=== PATIENT | female | born 1995 | race Hispanic/Latino ===

== ENCOUNTER 2017-12-14 18:13 | Emergency (ER) | payer OTHER ==
[2017-12-14 18:53] LABS: Absolute Lymphocytes (CBC) 3.2 K/uL (0.7-4.9); Absolute Monocytes 0.5 K/uL (0.1-1.3); Absolute Neutrophil 5.4 K/uL (1.8-8.0); Basophils % 0.7 % (0-1.3); Eosinophils % 1.4 % (0-4.4); Hematocrit 40.7 % (36.0-45.0); Lymphocytes % 34.4 % (15.3-44.8); MCH 28.4 pg (27.0-35.0); MCV 82.6 fL (80-100); MPV 8.2 fL (7.6-11.3); Monocytes % 5.1 % (3.3-12.3); RBC Red Blood Cell Count 4.93 M/uL (3.86-4.86)
[2017-12-14] MEDS ORDERED: NA CHLORIDE 0.9% 1,000 ML ONE (18:54)
[2017-12-14] MEDS ORDERED: PROMETHAZINE 25 MG/ML VIAL ONE (18:54)
[2017-12-14 19:03] LABS: Bicarbonate 26 mEq/L (21-31); Glucose Level 126 mg/dL (65-120); Lipase 21 U/L (22-51); Potassium 3.4 mEq/L (3.6-5.0); Sodium Level 137 mEq/L (135-145)
[2017-12-14 19:10] LABS: ALT/SGPT 27 IU/L (10-60); AST/SGOT 20 IU/L (10-42); Albumin 4.4 g/dL (3.2-5.5); Alkaline Phosphatase 101 IU/L (42-121); BUN Blood Urea Nitrogen 11 mg/dL (6-20); Bilirubin Direct < 0.1 mg/dL (0-0.2); Bilirubin Total 0.3 mg/dL (0.3-1.2); Protein, Total 8.1 g/dL (6.0-8.3)
[2017-12-14 20:06] LABS: Urine Blood NEGATIVE (NEG); Urine Glucose NEGATIVE (NEG); Urine Protein NEGATIVE (NEG); Urine Specific Gravity >1.030 (1.005-1.030); Urine pH 5.5 (5.0-7.0)
[2017-12-14] MEDS ORDERED: POTASSIUM CL SA 10 MEQ TAB PO ONE (20:24)
--- NOTE | 2017-12-14 21:13 | EDPHYS ---
Physician Documentation [facility] Name: Capri Martinez Age: 22 yrs Sex: Female : 1995 Arrival Date: 12/14/2017 Time: 18:14 Bed 23 Private MD: ED Physician Jose Lemus HPI: 12/14 19:36 This 22 yrs old Female presents to ER via Ambulatory with complaints of jr8 Dizziness. 19:36 The patient presents to the emergency department with nausea, vomiting, diarrhea. jr8 Onset: The symptoms/episode began/occurred acutely, yesterday. Possible causes: unknown. The symptoms are aggravated by nothing. The symptoms are alleviated by nothing. Associated signs and symptoms: The patient has no apparent associated signs or symptoms. Severity of symptoms: At their worst the symptoms were moderate in the emergency department the symptoms are unchanged. The patient has not experienced similar symptoms in the past. The patient has not recently seen a physician. 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 - Social history:: Smoking status: Patient/guardian denies using tobacco. ROS: 19:36 Eyes: Negative for injury, pain, redness, and discharge, ENT: Negative for injury, jr8 pain, and discharge, Neck: Negative for injury, pain, and swelling, Cardiovascular: Negative for chest pain, palpitations, and edema, Respiratory: Negative for shortness of breath, cough, wheezing, and pleuritic chest pain, Back: Negative for injury and pain, MS/Extremity: Negative for injury and deformity, Skin: Negative for injury, rash, and discoloration, Neuro: Negative for headache, weakness, numbness, tingling, and seizure. 19:36 Abdomen/GI: Positive for nausea, vomiting, and diarrhea, Negative for abdominal pain, constipation, abdominal cramps, abdominal distension, anorexia, dysphagia, hematemesis, black/tarry stool, rectal pain, rectal bleeding, bowel incontinence, flatulence. Exam: 19:36 Eyes: Pupils equal round and reactive to light, extra-ocular motions intact. Lids and jr8 lashes normal. Conjunctiva and sclera are non-icteric and not injected. Cornea within normal limits. Periorbital areas with no swelling, redness, or edema. ENT: Nares patent. No nasal discharge, no septal abnormalities noted. Tympanic membranes are normal and external auditory canals are clear. Oropharynx with no redness, swelling, or masses, exudates, or evidence of obstruction, uvula midline. Mucous membranes moist. Neck: Trachea midline, no thyromegaly or masses palpated, and no cervical lymphadenopathy. Supple, full range of motion without nuchal rigidity, or vertebral point tenderness. No Meningismus. Cardiovascular: Regular rate and rhythm with a normal S1 and S2. No gallops, murmurs, or rubs. Normal PMI, no JVD. No pulse deficits. Respiratory: Lungs have equal breath sounds bilaterally, clear to auscultation and percussion. No rales, rhonchi or wheezes noted. No increased work of breathing, no retractions or nasal flaring. Abdomen/GI: Soft, non-tender, with normal bowel sounds. No distension or tympany. No guarding or rebound. No evidence of tenderness throughout. Back: No spinal tenderness. No costovertebral tenderness. Full range of motion. Skin: Warm, dry with normal turgor. Normal color with no rashes, no lesions, and no evidence of cellulitis. MS/ Extremity: Pulses equal, no cyanosis. Neurovascular intact. Full, normal range of motion. Neuro: Awake and alert, GCS 15, oriented to person, place, time, and situation. Cranial nerves II-XII grossly intact. Motor strength 5/5 in all extremities. Sensory grossly intact. Cerebellar exam normal. Normal gait. 19:36 Constitutional: The patient appears alert, awake, obviously ill. Vital Signs: 18:21 BP 133 / 93; Pulse 96; Resp 18; Temp 98.0; Pulse Ox 98% on R/A; Weight 76.66 kg; Height ph 5 ft. 1 in. (154.94 cm); Pain 7/10; 19:16 BP 118 / 89; Pulse 82; Resp 16; Pulse Ox 100% ; Pain 0/10; ao 20:22 BP 99 / 72; Pulse 77; Resp 18; Pulse Ox 99% ; Pain 0/10; ao 18:21 Body Mass Index 31.93 (76.66 kg, 154.94 cm) ph MDM: 18:24 Patient medically screened. [facility] 21:12 Data reviewed: vital signs, nurses notes, lab test result(s), and as a result, I will jr8 discharge patient. Data interpreted: Pulse oximetry: on room air is 99 %. Interpretation: normal. Counseling: I had a detailed discussion with the patient and/or guardian regarding: the historical points, exam findings, and any diagnostic results supporting the discharge/admit diagnosis, lab results, the need for outpatient follow up, a family practitioner, to return to the emergency department if symptoms worsen or persist or if there are any questions or concerns that arise at home. Response to treatment: the patient's symptoms have markedly improved after treatment, patient is well hydrated. 12/14 18:34 Order name: Basic Metabolic Panel; Complete Time: 19:10 [facility] 12/14 18:34 Order name: CBC with Diff; Complete Time: 18:59 [facility] 12/14 18:34 Order name: Creatinine for Radiology; Complete Time: 19:09 [facility] 12/14 18:34 Order name: Hepatic Function; Complete Time: 19:10 [facility] 12/14 18:34 Order name: Lipase; Complete Time: 19: [facility] 12/14 18:49 Order name: Urine Dipstick--Ancillary (enter results) 12/14 18:34 Order name: Urine Test (obtain specimen); Complete Time: 18:52 [facility] 12/14 18:34 Order name: IV Saline Lock; Complete Time: 18:52 [facility] 12/14 18:49 Order name: Urine --Ancillary (enter results) 12/14 18:49 Order name: Urine Dipstick-Ancillary; Complete Time: 20:09 [facility] 12/14 18:49 Order name: Urine --Ancillary; Complete Time: 20:09 [facility] 12/14 18:34 Order name: Labs collected and sent; Complete Time: 18:52 [facility] 12/14 18:34 Order name: Urine Dipstick-Ancillary (obtain specimen); Complete Time: 18:51 [facility] Administered Medications: 19:01 Drug: NS 0.9% 1000 ml Route: IV; Rate: 1000 ml; Site: right antecubital; ph 21:30 Follow up: IV Status: Completed infusion; IV Intake: 1000ml ao 19:01 Drug: Phenergan 12.5 mg Route: IVP; Site: right antecubital; ph 21:31 Follow up: Response: No adverse reaction ao 20:26 Drug: Potassium Chloride 40 mEq Route: PO; ao 21:30 Follow up: Response: No adverse reaction ao Disposition: 12/14/17 21:13 Discharged to Home. Impression: Gastroenteritis. - Condition is Stable. - Discharge Instructions: Viral Gastroenteritis. - Prescriptions for promethazine 25 mg Oral Tablet - take 1 tablet by ORAL route every 6 hours As needed; 20 tablet. - Medication Reconciliation Form, Thank You Letter, Antibiotic Education, Prescription Opioid Use form. - Follow up: Private Physician; When: 5 - 6 days; Reason: If symptoms return, Recheck today's complaints, Continuance of care, Re-evaluation by your physician. - Problem is new. - Symptoms have improved. Addendum: 12/16/2017 07:45 Co-signature as Attending Physician, Jose Lemus MD I agree with the assessment and w a plan of care. Signatures: Dispatcher [employer] EDVT Coy Farnsworth PA PA jr8 Aisha Wang, RN RN Henrik Camacho RN JOSEPH Lemus, MD MITCHELL Garcia ct
--- NOTE | 2017-12-14 21:13 | ER ---
Nurse's Notes [facility] Name: Capri Martinez Age: 22 yrs Sex: Female : 1995 Arrival Date: 12/14/2017 Time: 18:14 Bed 23 Private MD: Diagnosis: Gastroenteritis Presentation: 12/14 18:20 Presenting complaint: Patient states: " I started throwing up yesterday, I am feeling ph very dizzy and light headed." Pt reports N/V/D x 1 day, denies fever. Transition of care: patient was not received from another setting of care. Onset of symptoms was December 14, 2017. Care prior to arrival: None. 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 - Social history:: Smoking status: Patient/guardian denies using tobacco. Screenin:47 Abuse screen: Denies threats or abuse. Denies injuries from another. Nutritional ph screening: No deficits noted. Tuberculosis screening: No symptoms or risk factors identified. Fall Risk None identified. Assessment: 18:46 General: Appears in no apparent distress. uncomfortable, obese, well groomed, Behavior ph is calm, cooperative, appropriate for age, Reports feeling ill for 12-24 hours. Pain: Complains of pain in abdomen Pain does not radiate. Is intermittent, Aggravated by vomiting. Neuro: Level of Consciousness is awake, alert, obeys commands, Oriented to person, place, time, situation. Cardiovascular: Capillary refill < 3 seconds in bilateral fingers Patient's skin is warm and dry. Respiratory: Airway is patent Respiratory effort is even, unlabored. GI: Abdomen is round non-distended, Bowel sounds present X 4 quads. Abd is soft and non tender X 4 quads. Reports diarrhea, nausea, vomiting. : Denies burning with urination, urinary frequency. Derm: Skin is intact, Skin is clammy, Skin is pale. Musculoskeletal: Circulation, motion, and sensation intact. Range of motion: intact in all extremities. 19:14 General: Appears in no apparent distress. comfortable, obese, well groomed, Behavior is ao calm, cooperative, appropriate for age, Reports feeling ill for 12-24 hours. Pain: Complains of pain in abdomen Pain does not radiate. Is intermittent. Neuro: Level of Consciousness is awake, alert, obeys commands, Oriented to person, place, time, situation. Cardiovascular: Capillary refill < 3 seconds in bilateral Patient's skin is warm and dry. Cardiovascular: Heart tones S1 S2. Respiratory: Airway is patent Respiratory effort is even, unlabored, Breath sounds are clear bilaterally. GI: Abdomen is obese, Bowel sounds present X 4 quads. Abd is soft and non tender Reports diarrhea, nausea, vomiting. : No signs and/or symptoms were reported regarding the genitourinary system. EENT: No signs and/or symptoms were reported regarding the EENT system. Derm: No signs and/or symptoms reported regarding the dermatologic system. Skin is intact, Skin is clammy, Skin is normal. Musculoskeletal: No signs and/or symptoms reported regarding the musculoskeletal system. 20:22 Reassessment: Patient appears in no apparent distress at this time. Patient and/or ao family updated on plan of care and expected duration. Pain level reassessed. Patient is alert, oriented x 3, equal unlabored respirations, skin warm/dry/pink. Waiting on dispo. Vital Signs: 18:21 BP 133 / 93; Pulse 96; Resp 18; Temp 98.0; Pulse Ox 98% on R/A; Weight 76.66 kg; Height ph 5 ft. 1 in. (154.94 cm); Pain 7/10; 19:16 BP 118 / 89; Pulse 82; Resp 16; Pulse Ox 100% ; Pain 0/10; ao 20:22 BP 99 / 72; Pulse 77; Resp 18; Pulse Ox 99% ; Pain 0/10; ao 18:21 Body Mass Index 31.93 (76.66 kg, 154.94 cm) ph ED Course: 18:14 Patient arrived in ED. as 18:21 Triage completed. ph 18:22 Arm band placed on. ph 18:24 Coy Farnsworth PA is PHCP. jr8 18:24 Jose Lemus MD is Attending Physician. jr8 18:40 Initial lab(s) drawn, by me, sent to lab. Inserted saline lock: 20 gauge in right ph antecubital area, using aseptic technique. Blood collected. 18:46 Aisha Wang RN is Primary Nurse. ph 18:48 Patient has correct armband on for positive identification. Placed in gown. Bed in low ph position. Call light in reach. Side rails up X 1. Pulse ox on. NIBP on. Warm blanket given. 19:14 Primary Nurse role handed off by Aisha Wang RN ao 19:14 Henrik Camacho, RN is Primary Nurse. ao 21:29 No provider procedures requiring assistance completed. IV discontinued, intact, ao bleeding controlled, No redness/swelling at site. Pressure dressing applied. Administered Medications: 19:01 Drug: NS 0.9% 1000 ml Route: IV; Rate: 1000 ml; Site: right antecubital; ph 21:30 Follow up: IV Status: Completed infusion; IV Intake: 1000ml ao 19:01 Drug: Phenergan 12.5 mg Route: IVP; Site: right antecubital; ph 21:31 Follow up: Response: No adverse reaction ao 20:26 Drug: Potassium Chloride 40 mEq Route: PO; ao 21:30 Follow up: Response: No adverse reaction ao Intake: 21:30 IV: 1000ml; Total: 1000ml. ao Outcome: 21:13 Discharge ordered by MD. looney 21:30 Discharged to home ambulatory. ao 21:30 Condition: stable 21:30 Discharge instructions given to patient, Instructed on discharge instructions, follow up and referral plans. Demonstrated understanding of instructions, follow-up care, medications, Prescriptions given X 1. 21:31 Patient left the ED. ao Signatures: Kalani Boswell Josh, PA PA jrAisha Hwang RN RN Henrik Camacho RN RN ao Corrections: (The following items were deleted from the chart) 18:48 18:46 Derm: Skin is intact, is healthy with good turgor, Skin is pink, warm \\T\\ dry. ph ph
== END 2017-12-14 21:31 | disposition home or self-care (01) ==
LOC: ER 18:13
DX: K52.9 Noninfective gastroenteritis and colitis, unspecified (principal)
CPT/HCPCS: 36415; 80048; 80076; 81003; 81025; 83690; 85025; 96361; 96374; 99284; J2550; J7030

== ENCOUNTER 2018-06-03 10:37 | Emergency (ER) | payer OTHER ==
[2018-06-03 11:13] LABS: Urine Blood NEGATIVE (NEG); Urine Glucose NEGATIVE (NEG); Urine Protein 1+ (NEG); Urine Specific Gravity 1.015 (1.005-1.030); Urine pH 7.5 (5.0-7.0)
[2018-06-03 11:17] LABS: Absolute Lymphocytes (CBC) 2.6 K/uL (0.7-4.9); Absolute Monocytes 0.4 K/uL (0.1-1.3); Absolute Neutrophil 4.2 K/uL (1.8-8.0); Basophils % 0.7 % (0-1.3); Eosinophils % 1.4 % (0-4.4); Hematocrit 44.3 % (36.0-45.0); Lymphocytes % 34.6 % (15.3-44.8); MCH 28.9 pg (27.0-35.0); MCV 84.7 fL (80-100); MPV 8.7 fL (7.6-11.3); RBC Red Blood Cell Count 5.23 M/uL (3.86-4.86)
[2018-06-03 11:28] LABS: ALT/SGPT 101 U/L (12-78); AST/SGOT 37 U/L (15-37); Albumin 3.8 g/dL (3.4-5.0); Alkaline Phosphatase 115 U/L (45-117); BUN Blood Urea Nitrogen 8 mg/dL (7-18); Bicarbonate 28 mmol/L (21-32); Bilirubin Direct 0.1 mg/dL (0-0.2); Bilirubin Total 0.4 mg/dL (0.2-1.0); Glucose Level 108 mg/dL (74-106); Lipase 151 U/L (73-393); Potassium 3.8 mmol/L (3.5-5.1); Protein, Total 8.2 g/dL (6.4-8.2); Sodium Level 140 mmol/L (136-145)
--- NOTE | 2018-06-03 11:53 | RAD REPORT ---
EXAM DESCRIPTION: RAD - Chest Pa And Lat (2 Views) - 06/03/2018 11:15 am CLINICAL HISTORY: Lower chest pain, right upper quadrant pain COMPARISON: November 2013 TECHNIQUE: PA and lateral views of the chest were obtained. FINDINGS: The lungs are clear. Heart size is normal and central vasculature is within normal limit s. No pleural effusion or pneumothorax seen. No acute bony finding noted. No aortic abnormality. IMPRESSION: No acute cardiopulmonary process. No significant interval change.
--- NOTE | 2018-06-03 12:01 | ER ---
Nurse's Notes [facility] Name: Capri Martinez Age: 23 yrs Sex: Female : 1995 Arrival Date: 06/03/2018 Time: 10:38 Bed 14 Private MD: None, None Diagnosis: Upper abdominal pain, unspecified Presentation: 06/03 10:41 Presenting complaint: Patient states: RUQ abdominal pain that started last night. aj Patient reports pain is worse with deep breathing and movement, not aggravated by eating. Denies N/V. Transition of care: patient was not received from another setting of care. Onset of symptoms was June 02, 2018. Risk Assessment: Do you want to hurt yourself or someone else? Patient reports no desire to harm self or others. Initial Sepsis Screen: Does the patient meet any 2 criteria? No. Patient's initial sepsis screen is negative. Does the patient have a suspected source of infection? No. Patient's initial sepsis screen is negative. Care prior to arrival: None. 10:41 Method Of Arrival: Ambulatory 10:41 Acuity: AYAKA 4 aj Triage Assessment: 10:42 General: Appears in no apparent distress. comfortable, Behavior is calm, cooperative, aj appropriate for age. Pain: Complains of pain in epigastric area and right upper quadrant. Neuro: Level of Consciousness is awake, alert, obeys commands, Oriented to person, place, time, situation, Appropriate for age. Respiratory: Airway is patent Respiratory effort is even, unlabored, Respiratory pattern is regular, symmetrical. GI: Abdomen is non-distended, obese, Reports upper abdominal pain. Derm: Skin is intact, is healthy with good turgor, Skin is pink, warm \T\ dry. normal. 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 - Social history:: Smoking status: Patient/guardian denies using tobacco. - Ebola Screening: : Patient negative for fever greater than or equal to 101.5 degrees Fahrenheit, and additional compatible Ebola Virus Disease symptoms Patient denies exposure to infectious person Patient denies travel to an Ebola-affected area in the 21 days before illness onset No symptoms or risks identified at this time. Screenin:11 Abuse screen: Denies threats or abuse. Denies injuries from another. Nutritional jl7 screening: No deficits noted. Tuberculosis screening: No symptoms or risk factors identified. Fall Risk IV access (20 points). Total Pedro Fall Scale indicates No Risk (0-24 pts). Assessment: 11:00 General: Appears in no apparent distress. uncomfortable. Pain: Complains of pain in jl7 right upper quadrant and epigastric area Quality of pain is described as pressure. Neuro: Level of Consciousness is awake, alert, obeys commands, Oriented to person, place, time, situation. Cardiovascular: Patient's skin is warm and dry. Respiratory: Airway is patent Respiratory effort is even, unlabored, Respiratory pattern is regular, symmetrical. GI: Bowel sounds present X 4 quads. Abd is soft and non tender. : No signs and/or symptoms were reported regarding the genitourinary system. EENT: No signs and/or symptoms were reported regarding the EENT system. Derm: Skin is pink, warm \T\ dry. Musculoskeletal: No signs and/or symptoms reported regarding the musculoskeletal system. 12:00 Reassessment: Patient appears in no apparent distress at this time. Patient and/or jl7 family updated on plan of care and expected duration. Pain level reassessed. Patient is alert, oriented x 3, equal unlabored respirations, skin warm/dry/pink. Vital Signs: 10:42 BP 143 / 91; Pulse 85; Resp 16; Temp 97.3; Pulse Ox 98% on R/A; Weight 76.2 kg; Height aj 5 ft. 1 in. (154.94 cm); 11:58 BP 107 / 77; Pulse 80; Resp 16; Pulse Ox 99% on R/A; mh5 10:42 Body Mass Index 31.74 (76.20 kg, 154.94 cm) aj ED Course: 10:38 Patient arrived in ED. mr 10:39 None, None is Private Physician. mr 10:42 Triage completed. aj 10:42 [facility]harti Mijares [facility]-C [facility] kb 10:42 Partha Pan MD is Attending Physician. kb 10:42 Arm band placed on right wrist. Patient placed in an exam room. aj 10:51 Oralia House, RN is Primary Nurse. jl7 11:11 Patient has correct armband on for positive identification. Bed in low position. Call jl7 light in reach. Side rails up X 1. Pulse ox on. NIBP on. 11:11 Initial lab(s) drawn, by me, sent to lab. Inserted saline lock: 20 gauge in left upper jl7 arm, using aseptic technique. Blood collected. 11:13 Chest Pa And Lat (2 Views) XRAY In Process Unspecified. EDMS 12:21 No provider procedures requiring assistance completed. IV discontinued, intact, jl7 bleeding controlled, No redness/swelling at site. Pressure dressing applied. 12:47 US Abdomen Limited In Process Unspecified. EDMS Administered Medications: No medications were administered Outcome: 12:00 Discharge ordered by . philip 12:21 Discharged to home ambulatory. jl7 12:21 Condition: stable 12:21 Discharge instructions given to patient, Instructed on discharge instructions, follow up and referral plans. medication usage, Demonstrated understanding of instructions, follow-up care, medications, Prescriptions given X 1. 12:22 Patient left the ED. [email or web address] Signatures: Dispatcher [employer] EDMS Bharti Mijares, SOURCING ANALYST-C SOURCING ANALYST-CkBrook [place], RN RN Zhanna Cabezas [facility] Oralia House, RN RN colin
--- NOTE | 2018-06-03 12:01 | EDPHYS ---
Physician Documentation [facility] Name: Capri Martinez Age: 23 yrs Sex: Female : 1995 Arrival Date: 06/03/2018 Time: 10:38 Bed 14 Private MD: None, None ED Physician Partha Pan HPI: 06/03 11:19 This 23 yrs old Female presents to ER via Ambulatory with complaints of kb Abdominal Pain. 11:19 The patient presents with abdominal pain in the epigastric area, in the right upper kb quadrant. Onset: The symptoms/episode began/occurred last night. The symptoms do not radiate. Associated signs and symptoms: none. The symptoms are described as constant, sharp. Modifying factors: The symptoms are alleviated by nothing, the symptoms are aggravated by breathing deeply, movement, pressure. Severity of pain: At its worst the pain was moderate in the emergency department the pain is unchanged. The patient has not experienced similar symptoms in the past. The patient has not recently seen a physician. 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 - Social history:: Smoking status: Patient/guardian denies using tobacco. - Ebola Screening: : Patient negative for fever greater than or equal to 101.5 degrees Fahrenheit, and additional compatible Ebola Virus Disease symptoms Patient denies exposure to infectious person Patient denies travel to an Ebola-affected area in the 21 days before illness onset No symptoms or risks identified at this time. ROS: 11:19 Constitutional: Negative for fever, chills, and weight loss, Cardiovascular: Negative kb for chest pain, palpitations, and edema, Respiratory: Negative for shortness of breath, cough, wheezing, and pleuritic chest pain, Back: Negative for injury and pain, : Negative for injury, bleeding, discharge, and swelling, MS/Extremity: Negative for injury and deformity, Skin: Negative for injury, rash, and discoloration, Neuro: Negative for headache, weakness, numbness, tingling, and seizure. 11:19 Abdomen/GI: Positive for abdominal pain, Negative for nausea, vomiting, and diarrhea. Exam: 11:19 Constitutional: This is a well developed, well nourished patient who is awake, alert, kb and in no acute distress. Head/Face: Normocephalic, atraumatic. Chest/axilla: Normal chest wall appearance and motion. Nontender with no deformity. No lesions are appreciated. Cardiovascular: Regular rate and rhythm with a normal S1 and S2. No gallops, murmurs, or rubs. Normal PMI, no JVD. No pulse deficits. Respiratory: Lungs have equal breath sounds bilaterally, clear to auscultation and percussion. No rales, rhonchi or wheezes noted. No increased work of breathing, no retractions or nasal flaring. Back: No spinal tenderness. No costovertebral tenderness. Full range of motion. Skin: Warm, dry with normal turgor. Normal color with no rashes, no lesions, and no evidence of cellulitis. MS/ Extremity: Pulses equal, no cyanosis. Neurovascular intact. Full, normal range of motion. Neuro: Awake and alert, GCS 15, oriented to person, place, time, and situation. Cranial nerves II-XII grossly intact. Motor strength 5/5 in all extremities. Sensory grossly intact. Cerebellar exam normal. Normal gait. 11:19 Abdomen/GI: Inspection: abdomen appears normal, Bowel sounds: normal, in all quadrants, Palpation: soft, in all quadrants, nontender, in the left upper quadrant, right lower quadrant and left lower quadrant, mild abdominal tenderness, in the epigastric area, moderate abdominal tenderness, in the right upper quadrant. Vital Signs: 10:42 BP 143 / 91; Pulse 85; Resp 16; Temp 97.3; Pulse Ox 98% on R/A; Weight 76.2 kg; Height aj 5 ft. 1 in. (154.94 cm); 11:58 BP 107 / 77; Pulse 80; Resp 16; Pulse Ox 99% on R/A; mh5 10:42 Body Mass Index 31.74 (76.20 kg, 154.94 cm) aj MDM: 10:44 Patient medically screened. 11:19 Data reviewed: vital signs, nurses notes. Data interpreted: Pulse oximetry: on room air kb is 98 %. Interpretation: normal. 12:00 Counseling: I had a detailed discussion with the patient and/or guardian regarding: the kb historical points, exam findings, and any diagnostic results supporting the discharge/admit diagnosis, lab results, radiology results, the need for outpatient follow up, a family practitioner, to return to the emergency department if symptoms worsen or persist or if there are any questions or concerns that arise at home. 06/03 10:49 Order name: Basic Metabolic Panel; Complete Time: 11:33 kb 06/03 10:49 Order name: CBC with Diff; Complete Time: 11:21 kb 06/03 10:49 Order name: Hepatic Function; Complete Time: 11:33 kb 06/03 10:49 Order name: Lipase; Complete Time: 11:33 kb 06/03 11:10 Order name: Urine Dipstick--Ancillary (enter results); Complete Time: 11:16 eb 06/03 11:10 Order name: Urine --Ancillary (enter results); Complete Time: 11:16 eb 06/03 10:49 Order name: IV Saline Lock; Complete Time: 11:02 kb 06/03 10:49 Order name: Labs collected and sent; Complete Time: 11:02 kb 06/03 10:49 Order name: US Abdomen Limited 06/03 10:49 Order name: Chest Pa And Lat (2 Views) XRAY; Complete Time: 11:56 kb Administered Medications: No medications were administered Disposition: 17:32 Co-signature as Attending Physician, Partha Pan MD. Disposition: 06/03/18 12:00 Discharged to Home. Impression: Upper abdominal pain, unspecified. - Condition is Stable. - Discharge Instructions: Abdominal Pain, Adult, [id number]. - Prescriptions for Diclofenac Sodium 75 mg Oral Tablet, Delayed Release (E.C.) - take 1 tablet by ORAL route 2 times per day As needed; 30 tablet. - Medication Reconciliation Form, Thank You Letter, Antibiotic Education, Prescription Opioid Use, Work release form form. - Follow up: Emergency Department; When: As needed; Reason: Worsening of condition. Follow up: Private Physician; When: 2 - 3 days; Reason: Recheck today's complaints, Continuance of care, Re-evaluation by your physician. Signatures: Dispatcher [facility] Bharti Umanzor, KEVIN GORMAN-Brook Cassidy RN Oralia Rivera RN RN jl7 Partha Pan MD MD gs Corrections: (The following items were deleted from the chart) 12:22 12:00 06/03/2018 12:00 Discharged to Home. Impression: Upper abdominal pain, jl7 unspecified. Condition is Stable. Forms are Medication Reconciliation Form, Thank You Letter, Antibiotic Education, Prescription Opioid Use. Follow up: Emergency Department; When: As needed; Reason: Worsening of condition. Follow up: Private Physician; When: 2 - 3 days; Reason: Recheck today's complaints, Continuance of care, Re-evaluation by your physician. kb
--- NOTE | 2018-06-03 13:32 | RAD REPORT ---
EXAM DESCRIPTION: US - Abdomen Exam Limited - 06/03/2018 12:47 pm CLINICAL HISTORY: Abdominal pain COMPARISON: CT imaging April 2016 FINDINGS: Multiple echogenic foci air seen adherent to the gallbladder wall. These are 6 mm or less in size. No posterior acoustic shadowing. Echogenicity is less than typical for a gallstone. Multiple gallbladder polyps would be the favored diagnosis. No sludge or other intraluminal abnormality. Ther e is no wall thickening or pericholecystic fluid. No common duct stone or biliary tree dilatation identified. Limited liver imaging shows fatty infiltration pattern with spared parenchyma near the gallbladder fo ssa. IMPRESSION: Multiple gallbladder polyps are present 6 mm or less in size. Fatty infiltration of a partially imaged liver.
== END 2018-06-03 12:22 | disposition home or self-care (01) ==
LOC: ER 10:37
DX: R10.10 Upper abdominal pain, unspecified (principal)
CPT/HCPCS: 36415; 71046; 76705; 80048; 80076; 81003; 81025; 83690; 85025; 99284

== ENCOUNTER 2018-09-07 23:00 | Emergency (ER) | payer SELFPAY ==
[2018-09-07] MEDS ORDERED: ACETAMINOPHEN 500 MG TAB ONE (23:25)
[2018-09-07] MEDS ORDERED: ONDANSETRON 4 MG/2 ML VIAL ONE (23:38)
[2018-09-07] MEDS ORDERED: NA CHLORIDE 0.9% 100 ML IV ONE (23:38)
[2018-09-07 23:43] LABS: Urine Blood NEGATIVE (NEG); Urine Glucose NEGATIVE (NEG); Urine Protein NEGATIVE (NEG); Urine Specific Gravity 1.015 (1.005-1.030); Urine pH 7.5 (5.0-7.0)
[2018-09-08 00:20] LABS: Absolute Lymphocytes (CBC) 1.6 K/uL (0.7-4.9); Absolute Monocytes 0.8 K/uL (0.1-1.3); Absolute Neutrophil 8.2 K/uL (1.8-8.0); Basophils % 0.3 % (0-1.3); Eosinophils % 0.6 % (0-4.4); Hematocrit 43.1 % (36.0-45.0); Lymphocytes % 15.1 % (15.3-44.8); MPV 8.8 fL (7.6-11.3); Monocytes % 7.3 % (3.3-12.3); RBC Red Blood Cell Count 5.07 M/uL (3.86-4.86)
[2018-09-08 00:24] LABS: ALT/SGPT 152 U/L (12-78); AST/SGOT 61 U/L (15-37); Albumin 4.1 g/dL (3.4-5.0); Alkaline Phosphatase 135 U/L (45-117); BUN Blood Urea Nitrogen 6 mg/dL (7-18); Bicarbonate 26 mmol/L (21-32); Bilirubin Total 0.4 mg/dL (0.2-1.0); Glucose Level 111 mg/dL (74-106); Lipase 86 U/L (73-393); Potassium 3.6 mmol/L (3.5-5.1); Protein, Total 8.9 g/dL (6.4-8.2); Sodium Level 137 mmol/L (136-145)
[2018-09-08] MEDS ORDERED: IBUPROFEN 200 MG TAB PO ONE (00:50)
[2018-09-08] MEDS ORDERED: PROMETHAZINE 25 MG/ML VIAL ONE (00:55)
[2018-09-08] MEDS ORDERED: NA CHLORIDE 0.9% 500 ML ONE (01:27)
--- NOTE | 2018-09-08 01:59 | EDPHYS ---
Physician Documentation [facility] Name: Capri Martinez Age: 23 yrs Sex: Female : 1995 Arrival Date: 09/07/2018 Time: 23:05 Bed 24 Private MD: ED Physician Franklyn Adame HPI: 09/07 23:15 This 23 yrs old Female presents to ER via Ambulatory with complaints of Body jmm ache. 23:15 The patient or guardian reports cough. Onset: The symptoms/episode began/occurred jmm gradually, this morning. Associated signs and symptoms: Pertinent positives: fever. This is a 23 year old female with no chronic medical conditions that presents to the ED with sinus congestion, vomiting, fever, beginning this morning. Patient denies diarrhea or abdominal pain. . 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 - Social history:: Smoking status: Patient/guardian denies using tobacco, Patient uses alcohol, occasionally. - Ebola Screening: : No symptoms or risks identified at this time. ROS: 23:15 Constitutional: Positive for fever. jmm 23:15 ENT: Positive for sinus congestion. 23:15 Abdomen/GI: Positive for vomiting. 23:15 All other systems are negative. Exam: 23:15 Constitutional: This is a well developed, well nourished patient who is awake, alert, jmm and in no acute distress. Head/Face: atraumatic. Eyes: EOMI, no conjunctival erythema appreciated ENT: Moist Mucus Membranes Neck: Trachea midline, Supple Chest/axilla: Normal chest wall appearance and motion. 23:15 ENT: Posterior pharynx: erythema, that is mild. 23:15 Cardiovascular: Rate: tachycardic, Rhythm: regular. 23:15 Respiratory: the patient does not display signs of respiratory distress, Respirations: normal, Breath sounds: are clear throughout. 23:15 Abdomen/GI: Inspection: abdomen appears normal, Bowel sounds: normal, Palpation: abdomen is soft and non-tender, in all quadrants. 23:15 Musculoskeletal/extremity: ROM: intact in all extremities. 23:15 Skin: Appearance: Color: normal in color. 23:15 Neuro: Orientation: is normal, Mentation: is normal, Memory: is normal, Gait: is steady. 23:15 Psych: Behavior/mood is pleasant, cooperative. Vital Signs: 23:06 BP 147 / 98; Pulse 140; Resp 16; Temp 101.3(O); Pulse Ox 98% on R/A; Weight 76.2 kg jb4 (R); Height 5 ft. 1 in. (154.94 cm) (R); Pain 8/10; 09/08 00:12 BP 118 / 82; Pulse 116; Resp 16; Pulse Ox 97% on R/A; jb4 00:32 Temp 101.1(O); jb4 01:04 BP 131 / 89; Pulse 117; Resp 16; Temp 99.9(O); Pulse Ox 97% on R/A; jb4 01:45 BP 122 / 82; Pulse 102; Resp 18; Pulse Ox 98% on R/A; tl2 02:22 BP 117 / 85; Pulse 103; Resp 18; Pulse Ox 99% on R/A; tl2 09/07 23:06 Body Mass Index 31.74 (76.20 kg, 154.94 cm) [facility] MDM: 09/07 23:15 Patient medically screened. [facility] 09/08 01:56 Data reviewed: vital signs, nurses notes, lab test result(s). Counseling: I had a [facility] detailed discussion with the patient and/or guardian regarding: the historical points, exam findings, and any diagnostic results supporting the discharge/admit diagnosis, lab results, the need for outpatient follow up, to return to the emergency department if symptoms worsen or persist or if there are any questions or concerns that arise at home. ED course: Patient tolerates PO in the ED. Abdomen is soft and non tender to palpation. Patient states her child has similar symptoms. This is consistent with viral illness. Patient is given return precautions. . 09/07 23:20 Order name: Flu; Complete Time: 00:36 [facility] 09/07 23:20 Order name: Strep; Complete Time: 00:36 [facility] 09/07 23:20 Order name: CBC with Diff; Complete Time: 00:36 [facility] 09/07 23:20 Order name: CMP; Complete Time: 00:36 [facility] 09/07 23:20 Order name: Lipase; Complete Time: 00:36 [facility] 09/07 23:36 Order name: Urine Dipstick--Ancillary (enter results); Complete Time: 00:36 ut 09/07 23:36 Order name: Urine --Ancillary (enter results); Complete Time: 00:36 ut 09/08 00:15 Order name: Throat Culture [facility] 09/07 23:20 Order name: Saline Lock; Complete Time: 00:01 [facility] 09/07 23:20 Order name: Urine Dipstick-Ancillary (obtain specimen); Complete Time: 23:43 [facility] 09/07 23:20 Order name: Urine Test (obtain specimen); Complete Time: 23:43 [facility] Administered Medications: 09/07 23:22 Drug: Tylenol 1000 mg Route: PO; 4 09/08 00:31 Follow up: Response: No adverse reaction; Temperature is decreased jb4 00:00 Drug: Zofran 4 mg Route: IVP; Site: left forearm; jb4 00:31 Follow up: Response: No adverse reaction; Nausea is decreased jb4 00:02 Drug: NS 0.9% 1000 ml Route: IV; Rate: 1000 ml; Site: left forearm; jb4 01:06 Follow up: Response: No adverse reaction; IV Status: Completed infusion jb4 00:42 Drug: Motrin 600 mg Route: PO; jb4 01:06 Follow up: Response: No adverse reaction; Temperature is decreased jb4 00:53 Drug: Phenergan 12.5 mg Route: IVP; Site: left antecubital; jb4 01:06 Follow up: Response: No adverse reaction; Nausea is decreased jb4 01:20 Drug: NS 0.9% 500 ml Route: IV; Rate: bolus; Site: left forearm; jb4 02:26 Follow up: IV Status: Completed infusion; IV Intake: 500ml tl2 Disposition: 07:34 Co-signature as Attending Physician, Franklyn MEDRANO I agree with the assessment and rocio plan of care. Disposition: 09/08/18 01:58 Discharged to Home. Impression: Vomiting. - Condition is Stable. - Discharge Instructions: Nausea and Vomiting, Adult. - Prescriptions for Zofran ODT 4 mg Oral tablet,disintegrating - place 1 tablet by TRANSLINGUAL route every 4-6 hours; 30 tablet. - Medication Reconciliation Form, Thank You Letter, Antibiotic Education, Prescription Opioid Use, Family Work Release form. - Follow up: Private Physician; When: 2 - 3 days; Reason: Recheck today's complaints, Continuance of care, Re-evaluation by your physician. Signatures: Dispatcher [employer] EDFranklyn Vazquez MD MD cha Mickail, Joel, PA PA jmm Knox, Taylor RN RN tl2 Dallin Salomon RN RN jb4 Corrections: (The following items were deleted from the chart) 02:26 01:58 09/08/2018 01:58 Discharged to Home. Impression: Vomiting. Condition is Stable. tl2 Forms are Medication Reconciliation Form, Thank You Letter, Antibiotic Education, Prescription Opioid Use. Follow up: Private Physician; When: 2 - 3 days; Reason: Recheck today's complaints, Continuance of care, Re-evaluation by your physician. alda
--- NOTE | 2018-09-08 01:59 | ER ---
Nurse's Notes [facility] Name: Capri Martinez Age: 23 yrs Sex: Female : 1995 Arrival Date: 09/07/2018 Time: 23:05 Bed 24 Private MD: Diagnosis: Vomiting Presentation: 09/07 23:06 Presenting complaint: Patient states: I have be having nausea and vomiting since 1430 jb4 today, body aches since 0600, and congestion and fever since yesterday. 23:06 Transition of care: patient was not received from another setting of care. Onset of jb4 symptoms was September 06, 2018. Risk Assessment: Do you want to hurt yourself or someone else? Patient reports no desire to harm self or others. Initial Sepsis Screen: Does the patient meet any 2 criteria? Temp <36.0*C (96.8*F)) or > 38.3*C (100.9*F). HR > 90 bpm. Yes Does the patient have a suspected source of infection? No. Patient's initial sepsis screen is negative. Care prior to arrival: None. 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 - Social history:: Smoking status: Patient/guardian denies using tobacco, Patient uses alcohol, occasionally. - Ebola Screening: : No symptoms or risks identified at this time. Screenin:43 Abuse screen: Denies threats or abuse. Nutritional screening: No deficits noted. jb4 Tuberculosis screening: No symptoms or risk factors identified. Fall Risk None identified. Assessment: 23:43 General: Appears in no apparent distress. uncomfortable, Behavior is calm, cooperative, jb4 appropriate for age. Pain: Complains of pain in forehead, body aches. Pain does not radiate. Pain currently is 8 out of 10 on a pain scale. Quality of pain is described as aching. Neuro: Level of Consciousness is awake, alert, obeys commands, Oriented to person, place, time, situation. Cardiovascular: Heart tones S1 S2 present Patient's skin is warm and dry. Respiratory: Reports Feeling congested. Airway is patent Respiratory effort is even, unlabored, Respiratory pattern is regular, symmetrical, Breath sounds are clear bilaterally. GI: Abdomen is round non-distended, Bowel sounds present X 4 quads. Abd is soft and non tender X 4 quads. Reports nausea, vomiting, since 1630. : No signs and/or symptoms were reported regarding the genitourinary system. EENT: No signs and/or symptoms were reported regarding the EENT system. Derm: Skin is intact, Skin is pink, warm \T\ dry. Musculoskeletal: Circulation, motion, and sensation intact. 09/08 00:12 Reassessment: Patient appears in no apparent distress at this time. Patient and/or jb4 family updated on plan of care and expected duration. Pain level reassessed. Patient is alert, oriented x 3, equal unlabored respirations, skin warm/dry/pink. 00:48 Reassessment: Pt reporting nausea, provider notified, See [facility] for orders. jb4 00:53 Reassessment: Patient appears in no apparent distress at this time. Patient and/or jb4 family updated on plan of care and expected duration. Pain level reassessed. Patient is alert, oriented x 3, equal unlabored respirations, skin warm/dry/pink. Patient states feeling better. Vital Signs: 09/07 23:06 BP 147 / 98; Pulse 140; Resp 16; Temp 101.3(O); Pulse Ox 98% on R/A; Weight 76.2 kg jb4 (R); Height 5 ft. 1 in. (154.94 cm) (R); Pain 8/10; 09/08 00:12 BP 118 / 82; Pulse 116; Resp 16; Pulse Ox 97% on R/A; jb4 00:32 Temp 101.1(O); jb4 01:04 BP 131 / 89; Pulse 117; Resp 16; Temp 99.9(O); Pulse Ox 97% on R/A; jb4 01:45 BP 122 / 82; Pulse 102; Resp 18; Pulse Ox 98% on R/A; tl2 02:22 BP 117 / 85; Pulse 103; Resp 18; Pulse Ox 99% on R/A; tl2 09/07 23:06 Body Mass Index 31.74 (76.20 kg, 154.94 cm) jb4 ED Course: 09/07 23:05 Patient arrived in ED. es 23:06 Dallin Salomon, JOSEPH is Primary Nurse. jb4 23:06 Arm band placed on left wrist. jb4 23:13 Lorenzo Pruitt PA is PHCP. [facility] 23:13 Franklyn Adame MD is Attending Physician. [facility] 23:20 Triage completed. jb4 23:43 Patient has correct armband on for positive identification. Bed in low position. Call jb4 light in reach. Side rails up X 1. Pulse ox on. NIBP on. 09/08 00:03 Missed attempt(s): 22 gauge in left forearm. ag4 01:23 Report given to JOSEPH Gardner. jb4 02:00 IV 22 g R FA placed by previous nurse. tl2 02:22 No provider procedures requiring assistance completed. tl2 02:24 IV discontinued, intact, bleeding controlled, No redness/swelling at site. Pressure tl2 dressing applied. Administered Medications: 09/07 23:22 Drug: Tylenol 1000 mg Route: PO; jb4 09/08 00:31 Follow up: Response: No adverse reaction; Temperature is decreased jb4 00:00 Drug: Zofran 4 mg Route: IVP; Site: left forearm; jb4 00:31 Follow up: Response: No adverse reaction; Nausea is decreased jb4 00:02 Drug: NS 0.9% 1000 ml Route: IV; Rate: 1000 ml; Site: left forearm; jb4 01:06 Follow up: Response: No adverse reaction; IV Status: Completed infusion jb4 00:42 Drug: Motrin 600 mg Route: PO; jb4 01:06 Follow up: Response: No adverse reaction; Temperature is decreased jb4 00:53 Drug: Phenergan 12.5 mg Route: IVP; Site: left antecubital; jb4 01:06 Follow up: Response: No adverse reaction; Nausea is decreased jb4 01:20 Drug: NS 0.9% 500 ml Route: IV; Rate: bolus; Site: left forearm; jb4 02:26 Follow up: IV Status: Completed infusion; IV Intake: 500ml tl2 Intake: 02: IV: 500ml; Total: 500ml. tl2 Outcome: 01:58 Discharge ordered by . alda 02:25 Discharged to home ambulatory. tl2 02:25 Condition: stable 02:25 Discharge instructions given to patient, Instructed on discharge instructions, follow up and referral plans. medication usage, Demonstrated understanding of instructions, follow-up care, medications, Prescriptions given X 1. 02:26 Patient left the ED. tl2 Signatures: Lorenzo Pruitt PA PA jmm Salyer, Edna es Knox, Taylor, RN RN tl2 Dallin Salomon RN RN jb4 Faheem Pat ag4 Corrections: (The following items were deleted from the chart) 09/07 23:20 23:06 Initial Sepsis Screen: Does the patient meet any 2 criteria? HR > 90 bpm. Yes jb4 Does the patient have a suspected source of infection? No. Patient's initial sepsis screen is negative. jb4
== END 2018-09-08 02:26 | disposition home or self-care (01) ==
LOC: ER 23:00
DX: R11.10 Vomiting, unspecified (principal)
CPT/HCPCS: 36415; 80053; 81003; 81025; 83690; 85025; 87070; 87081; 87804; 99283; J2405; J2550

== ENCOUNTER 2018-11-12 15:56 | Emergency (ER) | payer SELFPAY ==
[2018-11-12] MEDS ORDERED: ONDANSETRON 4 MG/2 ML VIAL ONE (17:04)
[2018-11-12] MEDS ORDERED: KETOROLAC 30 MG/ML INJ ONE (17:04)
[2018-11-12] MEDS ORDERED: MORPHINE 4 MG/ML SYR ONE (17:04)
[2018-11-12 17:19] LABS: Absolute Lymphocytes (CBC) 2.1 K/uL (0.7-4.9); Absolute Monocytes 0.4 K/uL (0.1-1.3); Absolute Neutrophil 4.7 K/uL (1.8-8.0); Basophils % 0.5 % (0-1.3); Eosinophils % 0.1 % (0-4.4); Hematocrit 42.7 % (36.0-45.0); Lymphocytes % 29.2 % (15.3-44.8); MPV 8.8 fL (7.6-11.3); RBC Red Blood Cell Count 5.01 M/uL (3.86-4.86)
[2018-11-12 17:36] LABS: ALT/SGPT 167 U/L (12-78); AST/SGOT 64 U/L (15-37); Alkaline Phosphatase 113 U/L (45-117); BUN Blood Urea Nitrogen 9 mg/dL (7-18); Bicarbonate 23 mmol/L (21-32); Bilirubin Direct < 0.1 mg/dL (0-0.2); Bilirubin Total 0.3 mg/dL (0.2-1.0); Glucose Level 122 mg/dL (74-106); Lipase 69 U/L (73-393); Potassium 3.9 mmol/L (3.5-5.1); Protein, Total 8.4 g/dL (6.4-8.2); Sodium Level 141 mmol/L (136-145)
--- NOTE | 2018-11-12 18:04 | RAD REPORT ---
EXAM DESCRIPTION: CT - Stone Protocol - 11/12/2018 5:52 pm CLINICAL HISTORY: Flank pain. KIDNEY STONES COMPARISON: Abdomen Pelvis W Contrast dated 04/23/2016 TECHNIQUE: Axial images were obtained without oral or IV contrast. Lack of contrast limits solid org an and vascular assessment. The [id number] spans the entirety of the system partially obscuring uppermost abdomen and lung bases. Coronal reformatted images were obtained and reviewed. All CT scans are performed using dose optimization technique as appropriate and may include automated exposure control or mA/KV adjustment according to patient size. FINDINGS: The lower lung parra are clear. Diffuse fatty liver. No noncontrast splenic abnormality. The pancreas and adrenal glands are normal. No pathologic lymphadenopathy in the abdomen or pelvis. No urinary tract stones or obstructive uropathy. No bowel obstruction, free air, free fluid or abscess. Appendectomy. No significant bony abnormality. IMPRESSION: No urinary tract stones or obstructive uropathy. Prominent fatty liver.
--- NOTE | 2018-11-12 18:31 | ER ---
Nurse's Notes [facility] Name: Capri Martinez Age: 23 yrs Sex: Female : 1995 Arrival Date: 11/12/2018 Time: 15:57 Bed 23 Private MD: Diagnosis: Low back pain Presentation: 11/12 16:06 Presenting complaint: Patient states: Mid-back pain that radiates to R flank, also c/o ph N/V. denies fever or urinary symptoms. Transition of care: patient was not received from another setting of care. Onset of symptoms was November 12, 2018. Risk Assessment: Do you want to hurt yourself or someone else? Patient reports no desire to harm self or others. Initial Sepsis Screen: Does the patient meet any 2 criteria? No. Patient's initial sepsis screen is negative. Does the patient have a suspected source of infection? No. Patient's initial sepsis screen is negative. Care prior to arrival: None. 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 10/22/2018 ph Historical: - Allergies: 16:08 No Known Allergies; ph - Home Meds: 16:08 None [Active]; ph - PMHx: 16:08 None; ph - PSHx: 16:08 Appendectomy; ph - Immunization history:: Flu vaccine status is unknown. - Social history:: Smoking status: Patient uses tobacco products, denies chronic smoking, but will smoke occasionally. - Family history:: not pertinent. - Ebola Screening: : No symptoms or risks identified at this time. Screenin:03 Abuse screen: Denies threats or abuse. Denies injuries from another. Nutritional mg2 screening: No deficits noted. Tuberculosis screening: No symptoms or risk factors identified. Fall Risk IV access (20 points). Assessment: 17:59 General: Appears comfortable, Behavior is calm, cooperative. Pain: Complains of pain in mg2 left mid back and left low back and lumbar area and right low back and right mid back Pain radiates to right flank Pain currently is 3 out of 10 on a pain scale. Quality of pain is described as aching, Pain began gradually, Is intermittent. Neuro: Level of Consciousness is awake, alert, obeys commands, Oriented to person, place, time, situation. Cardiovascular: Capillary refill < 3 seconds Patient's skin is warm and dry. Respiratory: Airway is patent Respiratory effort is even, unlabored, Respiratory pattern is regular, symmetrical. GI: Reports vomiting. : No signs and/or symptoms were reported regarding the genitourinary system. EENT: No signs and/or symptoms were reported regarding the EENT system. Derm: Skin is intact, is healthy with good turgor, Skin is pink, warm \T\ dry. normal. Musculoskeletal: Circulation, motion, and sensation intact. Capillary refill < 3 seconds. Vital Signs: 16:08 BP 130 / 70; Pulse 102; Resp 24; Temp 98.0; Pulse Ox 98% on R/A; Weight 76.2 kg; Height ph 5 ft. 1 in. (154.94 cm); Pain 10/10; 18:05 BP 123 / 78; Pulse 80; Resp 18; Pulse Ox 100% on R/A; Pain 2/10; mg2 16:08 Body Mass Index 31.74 (76.20 kg, 154.94 cm) ph ED Course: 15:57 Patient arrived in ED. as 16:07 Triage completed. ph 16:09 Arm band placed on Patient placed in an exam room. ph 16:10 Franklyn Adame MD is Attending Physician. rocio 16:17 Nj Steel, JOSEPH is Primary Nurse. mg2 17:51 CT completed. Patient tolerated procedure well. Patient moved back from CT. kw1 17:52 CT Stone Protocol In Process Unspecified. EDMS 18:04 No provider procedures requiring assistance completed. Inserted saline lock: 20 gauge mg2 in left antecubital area, using aseptic technique. Blood collected. 18:05 Patient has correct armband on for positive identification. Door closed. Warm blanket mg2 given. 18:30 Velma Liu MD is Referral Physician. rocio 18:38 IV discontinued, intact, bleeding controlled, No redness/swelling at site. Pressure mg2 dressing applied. Administered Medications: 16:58 Drug: morphine 4 mg Route: IVP; Site: left antecubital; mg2 18:31 Follow up: Response: No adverse reaction; Marked relief of symptoms mg2 16:58 Drug: Zofran 4 mg Route: IVP; Site: left antecubital; mg2 18:31 Follow up: Response: No adverse reaction; Marked relief of symptoms mg2 16:58 Drug: TORadol 30 mg Route: IVP; Site: left antecubital; mg2 18:30 Follow up: Response: No adverse reaction; Marked relief of symptoms mg2 Outcome: 18:30 Discharge ordered by . rocio 18:39 Discharged to home ambulatory, with family. mg2 18:39 Condition: stable 18:39 Discharge instructions given to patient, family, Instructed on discharge instructions, follow up and referral plans. medication usage, Demonstrated understanding of instructions, follow-up care, medications, Prescriptions given X 2. 18:39 Patient left the ED. mg2 Signatures: Dispatcher [employer] EDMI Franklyn Adame MD MD cha Martinez, Amelia as Aisha Wang RN RN Lou Desai 1 Nj Steel, JOSEPH RN mg2 Corrections: (The following items were deleted from the chart) 18:05 18:04 Inserted saline lock: mg2 mg2
--- NOTE | 2018-11-12 18:31 | EDPHYS ---
Physician Documentation [facility] Name: Capri Martinez Age: 23 yrs Sex: Female : 1995 Arrival Date: 11/12/2018 Time: 15:57 Bed 23 Private MD: ED Physician Franklyn Adame HPI: 11/12 17:03 This 23 yrs old Female presents to ER via Ambulatory with complaints of Back rocio Pain. 17:03 This 23 yrs old Female presents to ER via Ambulatory with complaints of Back rocio Pain. 17:03 This 23 yrs old Female presents to ER via Ambulatory with complaints of Back rocio Pain. 17:03 The patient presents with pain that is acute, with no known mechanism of injury. The rocio symptoms are located in the right mid back and right low back. Onset: The symptoms/episode began/occurred 30 day(s) ago. The pain radiates to the right mid back and right low back. Associated signs and symptoms: The patient has no apparent associated signs or symptoms. Modifying factors: The patient symptoms are alleviated by nothing, the patient symptoms are aggravated by movement, walking. Severity of symptoms: At their worst the symptoms were moderate, in the emergency department the symptoms are unchanged. The patient has experienced similar episodes in the past, several times. 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 - Social history:: Smoking status: Patient uses tobacco products, denies chronic smoking, but will smoke occasionally. - Family history:: not pertinent. - Ebola Screening: : No symptoms or risks identified at this time. ROS: 17:03 Constitutional: Negative for fever, chills, and weight loss, Eyes: Negative for injury, rocio pain, redness, and discharge, ENT: Negative for injury, pain, and discharge, Neck: Negative for injury, pain, and swelling, Cardiovascular: Negative for chest pain, palpitations, and edema, Respiratory: Negative for shortness of breath, cough, wheezing, and pleuritic chest pain, Abdomen/GI: Negative for abdominal pain, nausea, vomiting, diarrhea, and constipation, : Negative for injury, bleeding, discharge, and swelling, MS/Extremity: Negative for injury and deformity, Skin: Negative for injury, rash, and discoloration, Neuro: Negative for headache, weakness, numbness, tingling, and seizure, Psych: Negative for depression, anxiety, suicide ideation, homicidal ideation, and hallucinations, Allergy/Immunology: Negative for hives, rash, and allergies, Endocrine: Negative for neck swelling, polydipsia, polyuria, polyphagia, and marked weight changes, Hematologic/Lymphatic: Negative for swollen nodes, abnormal bleeding, and unusual bruising. 17:03 Back: Positive for decreased range of motion, pain at rest, pain with movement, of the lumbar area, left low back and right low back. Exam: 17:03 Constitutional: This is a well developed, well nourished patient who is awake, alert, rocio and in no acute distress. Head/Face: Normocephalic, atraumatic. Eyes: Pupils equal round and reactive to light, extra-ocular motions intact. Lids and lashes normal. Conjunctiva and sclera are non-icteric and not injected. Cornea within normal limits. Periorbital areas with no swelling, redness, or edema. ENT: Nares patent. No nasal discharge, no septal abnormalities noted. Tympanic membranes are normal and external auditory canals are clear. Oropharynx with no redness, swelling, or masses, exudates, or evidence of obstruction, uvula midline. Mucous membranes moist. Neck: Trachea midline, no thyromegaly or masses palpated, and no cervical lymphadenopathy. Supple, full range of motion without nuchal rigidity, or vertebral point tenderness. No Meningismus. Chest/axilla: Normal chest wall appearance and motion. Nontender with no deformity. No lesions are appreciated. Cardiovascular: Regular rate and rhythm with a normal S1 and S2. No gallops, murmurs, or rubs. Normal PMI, no JVD. No pulse deficits. Respiratory: Lungs have equal breath sounds bilaterally, clear to auscultation and percussion. No rales, rhonchi or wheezes noted. No increased work of breathing, no retractions or nasal flaring. Abdomen/GI: Soft, non-tender, with normal bowel sounds. No distension or tympany. No guarding or rebound. No evidence of tenderness throughout. Female : Normal external genitalia. Skin: Warm, dry with normal turgor. Normal color with no rashes, no lesions, and no evidence of cellulitis. MS/ Extremity: Pulses equal, no cyanosis. Neurovascular intact. Full, normal range of motion. Neuro: Awake and alert, GCS 15, oriented to person, place, time, and situation. Cranial nerves II-XII grossly intact. Motor strength 5/5 in all extremities. Sensory grossly intact. Cerebellar exam normal. Normal gait. Psych: Awake, alert, with orientation to person, place and time. Behavior, mood, and affect are within normal limits. 17:03 Back: pain, that is moderate, ROM is decreased, normal spinal alignment noted, CVA tenderness, that is mild, is noted on the right, muscle spasm, is appreciated in the left low back, left mid back, right mid back and right low back. Vital Signs: 16:08 BP 130 / 70; Pulse 102; Resp 24; Temp 98.0; Pulse Ox 98% on R/A; Weight 76.2 kg; Height ph 5 ft. 1 in. (154.94 cm); Pain 10/10; 18:05 BP 123 / 78; Pulse 80; Resp 18; Pulse Ox 100% on R/A; Pain 2/10; mg2 16:08 Body Mass Index 31.74 (76.20 kg, 154.94 cm) ph MDM: 16:10 Patient medically screened. [facility] 17:03 Data reviewed: vital signs, nurses notes, lab test result(s), radiologic studies, CT rocio scan. 11/12 16:56 Order name: Urine Dipstick--Ancillary (enter results) ms 11/12 16:56 Order name: Urine --Ancillary (enter results) ms 11/12 17:02 Order name: Basic Metabolic Panel; Complete Time: 18:29 [facility] 11/12 17:02 Order name: CBC with Diff; Complete Time: 17:36 [facility] 11/12 17:02 Order name: Creatinine for Radiology; Complete Time: 17:36 [facility] 11/12 17:02 Order name: Hepatic Function; Complete Time: 18:29 rocio 11/12 17:02 Order name: Lipase; Complete Time: 18:29 rocio 11/12 17:02 Order name: IV Saline Lock; Complete Time: 17:11 [facility] 11/12 17:02 Order name: Labs collected and sent; Complete Time: 17:11 [facility] 11/12 17:02 Order name: CT Stone Protocol; Complete Time: 18:29 [facility] Administered Medications: 16:58 Drug: morphine 4 mg Route: IVP; Site: left antecubital; mg2 18:31 Follow up: Response: No adverse reaction; Marked relief of symptoms mg2 16:58 Drug: Zofran 4 mg Route: IVP; Site: left antecubital; mg2 18:31 Follow up: Response: No adverse reaction; Marked relief of symptoms mg2 16:58 Drug: TORadol 30 mg Route: IVP; Site: left antecubital; mg2 18:30 Follow up: Response: No adverse reaction; Marked relief of symptoms mg2 Disposition: 11/12/18 18:30 Discharged to Home. Impression: Low back pain. - Condition is Stable. - Discharge Instructions: Back Pain, Adult, Musculoskeletal Pain, Back Injury Prevention, [id number], Back Pain, Adult, [id number]. - Prescriptions for Ibuprofen 600 mg Oral Tablet - take 1 tablet by ORAL route every 8 hours As needed take with food; 21 tablet. Tylenol- Codeine #3 300-30 mg Oral Tablet - take 2 tablets by ORAL route every 6 hours As needed; 20 tablet. - Medication Reconciliation Form, Thank You Letter, Antibiotic Education, Prescription Opioid Use form. - Follow up: Private Physician; When: 2 - 3 days; Reason: Recheck today's complaints, Continuance of care, Re-evaluation by your physician. Follow up: Velma Liu MD; When: 2 - 3 days; Reason: Recheck today's complaints, Re-evaluation by your physician. - Problem is new. - Symptoms have improved. Signatures: Dispatcher [employer] EDTN Franklyn Adame MD MD cha Hall, Patricia, RN RN Nj Steel, JOSEPH RN mg2 Corrections: (The following items were deleted from the chart) 18:39 18:30 11/12/2018 18:30 Discharged to Home. Impression: Low back pain. Condition is mg2 Stable. Forms are Medication Reconciliation Form, Thank You Letter, Antibiotic Education, Prescription Opioid Use. Follow up: Private Physician; When: 2 - 3 days; Reason: Recheck today's complaints, Continuance of care, Re-evaluation by your physician. Follow up: Velma Liu; When: 2 - 3 days; Reason: Recheck today's complaints, Re-evaluation by your physician. Problem is new. Symptoms have improved. rocio
[2018-11-12 20:09] LABS: Urine Blood NEGATIVE (NEG); Urine Glucose NEGATIVE (NEG); Urine Protein 1+ (NEG); Urine Specific Gravity 1.015 (1.005-1.030); Urine pH 8.5 (5.0-7.0)
== END 2018-11-12 18:39 | disposition home or self-care (01) ==
LOC: ER 15:56
DX: M54.5 Low back pain (principal); Z72.0 Tobacco use
CPT/HCPCS: 36415; 74176; 76377; 80048; 80076; 81003; 81025; 83690; 85025; 96374; 96375; 99284; J2405

== ENCOUNTER 2019-01-11 12:40 | Emergency (ER) | payer BC, SELFPAY ==
--- OUTSIDE RECORDS SUMMARY | 2019-01-11 13:03 | XMS REPORT ---
:1995 Author Organization [employer] Care Team Providers Name Role Phone Mikeyrosario Velma Provider Role Unavailable Allergies, Adverse Reactions, Alerts Substance Reaction Event Type N.K.D.A. Info Not Available Non Drug Allergy Problems Problem Type Condition Code Onset Dates Condition Status Assessment Follow-up exam Z09 Active Problem Migraine G43.909 Active Problem Other chronic pain G89.29 Active Problem Asthma J45.909 Active Assessment Dorsalgia, unspecified M54.9 Active Assessment Other chronic pain G89.29 Active Problem Dorsalgia, unspecified M54.9 Active Medications Medication Code Code Instructions Start End Date Status Dosage System Date Methocarbamol [facility] 79715728123 750 MG Orally December Active 1 tablet Twice daily as 2018 needed for muscle cramps/pain Acetaminophen-Co [facility] [address]-77 300-30 MG Active 1 tablet deine Orally bid as needed Ibuprofen ND 34044998933 600 MG Orally Active 1 tablet twice a day with food or milk as needed Results No Known Results Summary Purpose [employer] Submission
--- OUTSIDE RECORDS SUMMARY | 2019-01-11 13:03 | XMS REPORT ---
:1995 [facility] Address [address] [place] [address] [address] [place] [address] Care Team Providers Name Role Phone Unavailable Unavailable Unavailable Problems This patient has no known problems. Allergies, Adverse Reactions, Alerts This patient has no known allergies or adverse reactions. Medications This patient has no known medications.
--- NOTE | 2019-01-11 14:54 | ER ---
Nurse's Notes [facility] Name: Capri Martinez Age: 23 yrs Sex: Female : 1995 Arrival Date: 01/11/2019 Time: 12:42 Bed 30 Private MD: Diagnosis: Acute pharyngitis Presentation: 01/11 12:43 Presenting complaint: Patient states: i have sore throat about 4 days ago, and now its hj hard to swallow and im coughing green phelgm with blood; denies fever;. Transition of care: patient was not received from another setting of care. Onset of symptoms was January 11, 2019. Risk Assessment: Do you want to hurt yourself or someone else? Patient reports no desire to harm self or others. Initial Sepsis Screen: Does the patient meet any 2 criteria? Yes No. Patient's initial sepsis screen is negative. Does the patient have a suspected source of infection? Yes:. Care prior to arrival: None. 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 - Social history:: Smoking status: Patient/guardian denies using tobacco. - Ebola Screening: : No symptoms or risks identified at this time. Screenin:50 Abuse screen: Denies threats or abuse. Denies injuries from another. Nutritional ca1 screening: No deficits noted. Tuberculosis screening: No symptoms or risk factors identified. Fall Risk None identified. Assessment: 13:50 General: Appears in no apparent distress. comfortable, Behavior is calm, cooperative, ca1 appropriate for age. Pain: Complains of pain in throat Pain does not radiate. Pain currently is 4 out of 10 on a pain scale. Pain began 2-3 days ago. Aggravated by swallowing. Neuro: Level of Consciousness is awake, alert, obeys commands, Oriented to person, place, time, situation. Cardiovascular: Heart tones S1 S2 present Capillary refill < 3 seconds Patient's skin is warm and dry. Respiratory: Reports cough that is Airway is patent Respiratory effort is even, unlabored, Respiratory pattern is regular, symmetrical, Breath sounds are clear bilaterally. GI: No deficits noted. No signs and/or symptoms were reported involving the gastrointestinal system. : No deficits noted. No signs and/or symptoms were reported regarding the genitourinary system. EENT: Throat is pink. Derm: Skin is intact, is healthy with good turgor, Skin is pink, warm \T\ dry. Musculoskeletal: Circulation, motion, and sensation intact. Capillary refill < 3 seconds. 14:40 Reassessment: Patient appears in no apparent distress at this time. Patient is alert, ca1 oriented x 3, equal unlabored respirations, skin warm/dry/pink. 15:15 Reassessment: Patient appears in no apparent distress at this time. Patient is alert, ca1 oriented x 3, equal unlabored respirations, skin warm/dry/pink. 15:20 Reassessment: Damaso ordered Prednisone 60mg PO and will send pt home with ca1 prescription. Vital Signs: 12:45 BP 129 / 90; Pulse 95; Resp 18; Temp 98.1(TE); Pulse Ox 98% on R/A; Weight 82.55 kg; hj Height 5 ft. 1 in. (154.94 cm); Pain 7/10; 14:00 BP 104 / 86; Pulse 99; Resp 17 S; Temp 98.2(O); Pulse Ox 97% on R/A; ca1 14:40 BP 126 / 91; Pulse 108; Resp 17 S; Temp 98.2(O); Pulse Ox 99% on R/A; ca1 15:20 BP 108 / 80; Pulse 99; Resp 17 S; Temp 98.3(O); Pulse Ox 99% on R/A; ca1 12:45 Body Mass Index 34.39 (82.55 kg, 154.94 cm) ED Course: 12:42 Patient arrived in ED. as 12:44 Triage completed. hj 12:45 Arm band placed on right wrist. hj 13:45 Damaso Nichols NP is PHCP. pm1 13:45 David Santillan MD is Attending Physician. pm1 13:49 Anisha Santiago RN is Primary Nurse. ca1 13:50 Patient has correct armband on for positive identification. Placed in gown. Bed in low ca1 position. Call light in reach. Side rails up X 1. Pulse ox on. NIBP on. Warm blanket given. 13:56 Strep Sent. lt1 15:29 No provider procedures requiring assistance completed. Patient did not have IV access ca1 during this emergency room visit. Administered Medications: 15:26 Drug: predniSONE 60 mg Route: PO; ca1 15:26 Follow up: Response: Medication administered at discharge. ca1 Outcome: 14:54 Discharge ordered by MD. pm1 15:29 Discharged to home ambulatory, with significant other. ca1 15:29 Condition: stable 15:29 Discharge instructions given to patient, Instructed on discharge instructions, follow up and referral plans. medication usage, Demonstrated understanding of instructions, follow-up care, medications, Prescriptions given X 1. 15:31 Patient left the ED. ca1 Signatures: Kalani Boswell Henry, RN RN hj Damaso Nichols, [employer] QU[employer] COMPLIANCE MANAGER pm1 Anisha Santiago RN RN ca1 Ramonita Reynoso lt1 Corrections: (The following items were deleted from the chart) 12:46 12:45 82.55 kg; Height 5 ft. 1 in.; BMI: 34.3; Pain 7/10; hj hj 12:46 12:45 Pulse 95bpm; Resp 18bpm; Pulse Ox 98% RA; Temp 98.1F Temporal; 82.55 kg; Height 5 hj ft. 1 in.; BMI: 34.3; Pain 7/10; hj
--- NOTE | 2019-01-11 14:54 | EDPHYS ---
Physician Documentation [facility] Name: Capri Martinez Age: 23 yrs Sex: Female : 1995 Arrival Date: 01/11/2019 Time: 12:42 Bed 30 Private MD: ED Physician David Santillan HPI: 01/11 14:56 This 23 yrs old Female presents to ER via Ambulatory with complaints of Sore pm1 Throat, Cough. 14:56 The patient presents with sore throat. The patient describes throat pain as constant, pm1 scratchy. Onset: The symptoms/episode began/occurred 4 day(s) ago. Severity of symptoms: in the emergency department the symptoms are actually worse. Modifying factors: The symptoms are alleviated by nothing, the symptoms are aggravated by foods, swallowing, Patient's oral intake status: good. Associated signs and symptoms: Pertinent positives: cough, Pertinent negatives fever, flu-like symptoms, headache. The patient has not recently seen a physician. Patient with post nasal drainage and reports coughing phlegm. 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 - Social history:: Smoking status: Patient/guardian denies using tobacco. - Ebola Screening: : No symptoms or risks identified at this time. ROS: 14:56 Constitutional: Negative for fever, chills, and weight loss, Eyes: Negative for injury, pm1 pain, redness, and discharge. 14:56 Neck: Negative for injury, pain, and swelling, Cardiovascular: Negative for chest pain, palpitations, and edema. 14:56 Abdomen/GI: Negative for abdominal pain, nausea, vomiting, diarrhea, and constipation, Back: Negative for injury and pain, : Negative for injury, bleeding, discharge, and swelling, MS/Extremity: Negative for injury and deformity, Skin: Negative for injury, rash, and discoloration, Neuro: Negative for headache, weakness, numbness, tingling, and seizure. 14:56 ENT: Positive for sinus congestion, sinus pain, sore throat, Negative for ear pain. 14:56 Respiratory: Positive for cough, Negative for shortness of breath, wheezing. Exam: 14:56 Constitutional: This is a well developed, well nourished patient who is awake, alert, pm1 and in no acute distress. Head/Face: Normocephalic, atraumatic. Eyes: Pupils equal round and reactive to light, extra-ocular motions intact. Lids and lashes normal. Conjunctiva and sclera are non-icteric and not injected. Cornea within normal limits. Periorbital areas with no swelling, redness, or edema. Neck: Trachea midline, no thyromegaly or masses palpated, and no cervical lymphadenopathy. Supple, full range of motion without nuchal rigidity, or vertebral point tenderness. No Meningismus. Chest/axilla: Normal chest wall appearance and motion. Nontender with no deformity. No lesions are appreciated. 14:56 Cardiovascular: Regular rate and rhythm with a normal S1 and S2. No gallops, murmurs, or rubs. Normal PMI, no JVD. No pulse deficits. Respiratory: Lungs have equal breath sounds bilaterally, clear to auscultation and percussion. No rales, rhonchi or wheezes noted. No increased work of breathing, no retractions or nasal flaring. Abdomen/GI: Soft, non-tender, with normal bowel sounds. No distension or tympany. No guarding or rebound. No evidence of tenderness throughout. Back: No spinal tenderness. No costovertebral tenderness. Full range of motion. Skin: Warm, dry with normal turgor. Normal color with no rashes, no lesions, and no evidence of cellulitis. MS/ Extremity: Pulses equal, no cyanosis. Neurovascular intact. Full, normal range of motion. 14:56 ENT: External ear(s): are unremarkable, Ear canal(s): are normal, TM's: are normal, Nose: is normal, Mouth: is normal, Posterior pharynx: Airway: normal, no evidence of obstruction, patent, Tonsils: bilaterally enlarged, with erythema, no exudate, no ulcerations, swelling, that is mild, erythema, that is mild, exudate, is not appreciated, peritonsillar mass, is not appreciated. 14:56 Neuro: Orientation: is normal, Motor: is normal, moves all fours. Vital Signs: 12:45 BP 129 / 90; Pulse 95; Resp 18; Temp 98.1(TE); Pulse Ox 98% on R/A; Weight 82.55 kg; hj Height 5 ft. 1 in. (154.94 cm); Pain 7/10; 14:00 BP 104 / 86; Pulse 99; Resp 17 S; Temp 98.2(O); Pulse Ox 97% on R/A; ca1 14:40 BP 126 / 91; Pulse 108; Resp 17 S; Temp 98.2(O); Pulse Ox 99% on R/A; ca1 15:20 BP 108 / 80; Pulse 99; Resp 17 S; Temp 98.3(O); Pulse Ox 99% on R/A; ca1 12:45 Body Mass Index 34.39 (82.55 kg, 154.94 cm) hj MDM: 13:46 Patient medically screened. pm1 14:53 Data reviewed: vital signs. Data interpreted: Pulse oximetry: on room air is 99 %. pm1 Interpretation: normal. Counseling: I had a detailed discussion with the patient and/or guardian regarding: the historical points, exam findings, and any diagnostic results supporting the discharge/admit diagnosis, lab results, the need for outpatient follow up, to return to the emergency department if symptoms worsen or persist or if there are any questions or concerns that arise at home. 01/11 13:50 Order name: Strep; Complete Time: 14:52 pm1 01/11 14:18 Order name: Throat Culture EDMS Administered Medications: 15:26 Drug: predniSONE 60 mg Route: PO; ca1 15:26 Follow up: Response: Medication administered at discharge. ca1 Disposition: 15:33 Co-signature as Attending Physician, David Santillan MD I agree with the assessment and kdr plan of care. Disposition: 01/11/19 14:54 Discharged to Home. Impression: Acute pharyngitis. - Condition is Stable. - Discharge Instructions: Pharyngitis. - Prescriptions for Medrol (Alireza) 4 mg Oral Tablets, Dose Pack - take 1 tablet by ORAL route as directed - follow package instructions; 1 packet. - Medication Reconciliation Form, Thank You Letter, Antibiotic Education, Prescription Opioid Use, Family Work Release form. - Follow up: Emergency Department; When: As needed; Reason: Worsening of condition. Follow up: Private Physician; When: 2 - 3 days; Reason: Recheck today's complaints, Continuance of care, Re-evaluation by your physician. - Problem is new. - Symptoms have improved. Signatures: Dispatcher [employer] EDMS David Santillan MD MD [facility] Von Kuo, RN RN hj Damaso Nichols, LLOYD GLASS MECHANIC pm1 Pamela, Anisha RN RN ca1 Corrections: (The following items were deleted from the chart) 14:54 14:54 01/11/2019 14:54 Discharged to Home. Impression: Acute pharyngitis. Condition is pm1 Stable. Forms are Medication Reconciliation Form, Thank You Letter, Antibiotic Education, Prescription Opioid Use. Follow up: Emergency Department; When: As needed; Reason: Worsening of condition. Follow up: Private Physician; When: 2 - 3 days; Reason: Recheck today's complaints, Continuance of care, Re-evaluation by your physician. Problem is new. Symptoms have improved. pm1 15:31 14:54 01/11/2019 14:54 Discharged to Home. Impression: Acute pharyngitis. Condition is ca1 Stable. Forms are Medication Reconciliation Form, Thank You Letter, Antibiotic Education, Prescription Opioid Use. Follow up: Emergency Department; When: As needed; Reason: Worsening of condition. Follow up: Private Physician; When: 2 - 3 days; Reason: Recheck today's complaints, Continuance of care, Re-evaluation by your physician. Problem is new. Symptoms have improved. pm1
[2019-01-11] MEDS ORDERED: predniSONE 20 MG TAB ONE (15:28)
== END 2019-01-11 15:31 | disposition home or self-care (01) ==
LOC: ER 12:40
DX: J02.9 Acute pharyngitis, unspecified (principal)
CPT/HCPCS: 87070; 87081; 99284; J7512

== ENCOUNTER 2019-03-08 10:56 | Emergency (ER) | payer BC ==
--- OUTSIDE RECORDS SUMMARY | 2019-03-08 10:59 | XMS REPORT ---
:1995 [facility] Address [address] [place] [address] [address] [place] [address] Care Team Providers Name Role Phone Unavailable Unavailable Unavailable Problems This patient has no known problems. Allergies, Adverse Reactions, Alerts This patient has no known allergies or adverse reactions. Medications This patient has no known medications.
--- OUTSIDE RECORDS SUMMARY | 2019-03-08 10:59 | XMS REPORT ---
:1995 Author Organization [employer] Care Team Providers Name Role Phone Velma Liu Provider Role Unavailable Allergies, Adverse Reactions, Alerts Substance Reaction Event Type N.K.D.A. Info Not Available Non Drug Allergy Problems Problem Type Condition Code Onset Dates Condition Status Assessment Depression screening Z13.31 Active Assessment URI, acute J06.9 Active Assessment Migraine without status G43.909 Active migrainosus, not intractable, unspecified migraine type Problem Depression screening Z13.31 Active Problem Asthma J45.909 Active Problem Migraine without status G43.909 Active migrainosus, not intractable, unspecified migraine type Problem Dorsalgia, unspecified M54.9 Active Problem Migraine G43.909 Active Problem Other chronic pain G89.29 Active Medications Medication Code Code Instructions Start End Date Status Dosage System Date Naproxen ND 08462230948 500 MG Orally February 20, March 22, Active 1 tablet every 12 hrs 2018 2018 as needed for pain/head ache; take with food or milk as needed Acetaminophen- ND 60238824323 300-30 MG Orally Active 1 tablet Codeine bid as needed Ibuprofen NDC 73803096206 600 MG Orally Active 1 tablet twice a day with food or milk as needed Results No Known Results Summary Purpose eClinicalWorks Submission
--- OUTSIDE RECORDS SUMMARY | 2019-03-08 10:59 | XMS REPORT ---
[...] End Date Status Dosage System Date Methocarbamol [facility] 33840427414 750 MG Orally December Active 1 tablet Twice daily as 2018 needed for muscle cramps/pain Acetaminophen-Co [facility] [address]-71 300-30 MG Active 1 tablet deine Orally bid as needed Ibuprofen ND 80353530593 600 MG Orally Active 1 tablet twice a day with food or milk as needed Results No Known Results Summary Purpose eClinicalWorks Submission
--- NOTE | 2019-03-08 11:30 | EDPHYS ---
Physician Documentation [facility] Name: Capri Martinez Age: 24 yrs Sex: Female : 1995 Arrival Date: 03/08/2019 Time: 10:58 Bed 15 Private MD: ED Physician Franklyn Adame HPI: 03/08 11:27 This 24 yrs old Female presents to ER via Ambulatory with complaints of kb Abscess, Foot Pain. 11:27 The patient presents with an abscess of the arch of left foot. Description: draining, kb swollen. Onset: The symptoms/episode began/occurred 2 day(s) ago. Possible cause(s): unknown. Associated signs and symptoms: Pertinent positives: swelling, Pertinent negatives: discharge, drainage, erythema, foreign body sensation, fever, headache, nausea, shortness of breath, vomiting. Modifying factors: the symptoms are alleviated by nothing, the symptoms are aggravated by walking, pressure, squeezing the lesion and expressing the contents, touching. Severity of symptoms: At their worst the symptoms were very mild, in the emergency department the symptoms are unchanged. The patient has not experienced similar symptoms in the past. The patient has not recently seen a physician. Pt reports she had on wet shoes a couple of days ago, then a bump and pain started to bottom of left foot. States the pain and swelling have gotten worse and it is draining now. 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 - Social history:: Smoking status: Patient/guardian denies using tobacco. - Ebola Screening: : Patient negative for fever greater than or equal to 101.5 degrees Fahrenheit, and additional compatible Ebola Virus Disease symptoms Patient denies exposure to infectious person Patient denies travel to an Ebola-affected area in the 21 days before illness onset No symptoms or risks identified at this time. ROS: 11:25 Constitutional: Negative for fever, chills, and weight loss, Cardiovascular: Negative kb for chest pain, palpitations, and edema, Respiratory: Negative for shortness of breath, cough, wheezing, and pleuritic chest pain, Abdomen/GI: Negative for abdominal pain, nausea, vomiting, diarrhea, and constipation, MS/Extremity: Negative for injury and deformity, Neuro: Negative for headache, weakness, numbness, tingling, and seizure. 11:25 Skin: Positive for abscess, swelling, of the arch of left foot. Exam: 11:26 Constitutional: This is a well developed, well nourished patient who is awake, alert, kb and in no acute distress. Head/Face: Normocephalic, atraumatic. Chest/axilla: Normal chest wall appearance and motion. Nontender with no deformity. No lesions are appreciated. Cardiovascular: Regular rate and rhythm with a normal S1 and S2. No gallops, murmurs, or rubs. Normal PMI, no JVD. No pulse deficits. Respiratory: Lungs have equal breath sounds bilaterally, clear to auscultation and percussion. No rales, rhonchi or wheezes noted. No increased work of breathing, no retractions or nasal flaring. Abdomen/GI: Soft, non-tender, with normal bowel sounds. No distension or tympany. No guarding or rebound. No evidence of tenderness throughout. Back: No spinal tenderness. No costovertebral tenderness. Full range of motion. MS/ Extremity: Pulses equal, no cyanosis. Neurovascular intact. Full, normal range of motion. Neuro: Awake and alert, GCS 15, oriented to person, place, time, and situation. Cranial nerves II-XII grossly intact. Motor strength 5/5 in all extremities. Sensory grossly intact. Cerebellar exam normal. Normal gait. 11:26 Skin: Appearance: normal except for affected area, swelling, noted on the arch of left foot, that are mild, small swollen area with clear fluid draining. Vital Signs: 11:23 BP 119 / 96; Pulse 83; Resp 16; Temp 98.2; Pulse Ox 99% on R/A; Pain 6/10; iw MDM: 11:13 Patient medically screened. kb 11:24 Data reviewed: vital signs, nurses notes. Data interpreted: Pulse oximetry: on room air kb is 99 %. Interpretation: normal. Counseling: I had a detailed discussion with the patient and/or guardian regarding: the historical points, exam findings, and any diagnostic results supporting the discharge/admit diagnosis, the need for outpatient follow up, a family practitioner, to return to the emergency department if symptoms worsen or persist or if there are any questions or concerns that arise at home. 03/08 11:19 Order name: Wound Culture kb Administered Medications: 11:38 Drug: Bactrim (160 mg-800 mg (DS) 1 tablet Route: PO; rb1 11:43 Follow up: Response: Medication administered at discharge. rb1 Disposition: 03/08/19 11:29 Discharged to Home. Impression: Local infection of the skin and subcutaneous tissue, unspecified. - Condition is Stable. - Discharge Instructions: Wound Infection, [id number]. - Prescriptions for Bactrim DS 800- 160 mg Oral Tablet - take 1 tablet by ORAL route every 12 hours for 7 days; 14 tablet. - Medication Reconciliation Form, Thank You Letter, Antibiotic Education, Prescription Opioid Use, Work release form form. - Follow up: Emergency Department; When: As needed; Reason: Worsening of condition. Follow up: Private Physician; When: 2 - 3 days; Reason: Recheck today's complaints, Continuance of care, Re-evaluation by your physician. Addendum: 03/14/2019 16:29 Co-signature as Attending Physician, Franklyn Adame MD I agree with the assessment and c huerta plan of care. Signatures: Dispatcher [employer] EDBharti Saldana, COLLECTIONS DIRECTOR-C COLLECTIONS DIRECTOR-Franklyn Delgado MD MD cha Williams, Irene, RN RN iw Janny Leon, JOSEPH RN rb1 Corrections: (The following items were deleted from the chart) 03/08 11:43 11:29 03/08/2019 11:29 Discharged to Home. Impression: Local infection of the skin and rb1 subcutaneous tissue, unspecified. Condition is Stable. Forms are Medication Reconciliation Form, Thank You Letter, Antibiotic Education, Prescription Opioid Use. Follow up: Emergency Department; When: As needed; Reason: Worsening of condition. Follow up: Private Physician; When: 2 - 3 days; Reason: Recheck today's complaints, Continuance of care, Re-evaluation by your physician. kb
--- NOTE | 2019-03-08 11:30 | ER ---
Nurse's Notes [facility] Name: Capri Martinez Age: 24 yrs Sex: Female : 1995 Arrival Date: 03/08/2019 Time: 10:58 Bed 15 Private MD: Diagnosis: Local infection of the skin and subcutaneous tissue, unspecified Presentation: 03/08 11:21 Presenting complaint: Patient states: hard spot on bottom of left foot that is painful, iw since , states she walked through some water and wore wet shoes. Transition of care: patient was not received from another setting of care. Onset of symptoms was March 06, 2019. Risk Assessment: Do you want to hurt yourself or someone else? Patient reports no desire to harm self or others. Initial Sepsis Screen: Does the patient meet any 2 criteria? No. Patient's initial sepsis screen is negative. Does the patient have a suspected source of infection? No. Patient's initial sepsis screen is negative. Care prior to arrival: None. 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 - Social history:: Smoking status: Patient/guardian denies using tobacco. - Ebola Screening: : Patient negative for fever greater than or equal to 101.5 degrees Fahrenheit, and additional compatible Ebola Virus Disease symptoms Patient denies exposure to infectious person Patient denies travel to an Ebola-affected area in the 21 days before illness onset No symptoms or risks identified at this time. Screenin:23 Abuse screen: Denies threats or abuse. Nutritional screening: No deficits noted. rb1 Tuberculosis screening: No symptoms or risk factors identified. Fall Risk None identified. Assessment: 11:23 General: Appears in no apparent distress. Behavior is calm, cooperative. Pain: rb1 Complains of pain in left foot Pain currently is 6 out of 10 on a pain scale. Aggravated by weight bearing. Neuro: Level of Consciousness is awake, alert, obeys commands, Oriented to person, place, time, situation. Cardiovascular: Capillary refill < 3 seconds is brisk in bilateral toes. Respiratory: Airway is patent Respiratory effort is even, unlabored, Respiratory pattern is regular, symmetrical. GI: No signs and/or symptoms were reported involving the gastrointestinal system. : No signs and/or symptoms were reported regarding the genitourinary system. Derm: Skin is pink, warm \T\ dry. Musculoskeletal: Range of motion: intact in all extremities. Vital Signs: 11:23 BP 119 / 96; Pulse 83; Resp 16; Temp 98.2; Pulse Ox 99% on R/A; Pain 6/10; iw ED Course: 10:58 Patient arrived in ED. as 10:59 Bharti Mijares FNP-C [facility]. kb 10:59 Franklyn Adame MD is Attending Physician. kb 11:22 Triage completed. iw 11:23 Arm band placed on. iw 11:23 Patient has correct armband on for positive identification. Bed in low position. Call rb1 light in reach. Side rails up X 1. Pulse ox on. NIBP on. 11:31 Janny Leon, RN is Primary Nurse. rb1 11:43 No provider procedures requiring assistance completed. Patient did not have IV access rb1 during this emergency room visit. Administered Medications: 11:38 Drug: Bactrim (160 mg-800 mg (DS) 1 tablet Route: PO; rb1 11:43 Follow up: Response: Medication administered at discharge. rb1 Outcome: 11:29 Discharge ordered by MD. kb 11:43 Patient left the ED. rb1 11:43 Discharged to home ambulatory, with family. rb1 11:43 Condition: stable 11:43 Discharge instructions given to patient, Instructed on discharge instructions, follow up and referral plans. medication usage, Demonstrated understanding of instructions, follow-up care, medications, Prescriptions given X 1. Addendum: 03/11/2019 07:37 Addendum: Culture Results: Positive wound culture. No further action required. Bacteria i w sensitive to prescribed antibiotic. Signatures: Bharti Mijares FNP-C FNP-Kalani Somers Irene, RN RN iw aJnny Leon, JOSEPH RN rb1 Corrections: (The following items were deleted from the chart) 03/08 16:23 11:46 General: Appears in no apparent distress. Behavior is calm, cooperative, rb1 rb1 16: 11:46 Pain: Complains of pain in left foot Pain currently is 6 out of 10 on a pain rb1 scale. Aggravated by weight bearing, rb1 16: 11:46 Neuro: Level of Consciousness is awake, alert, obeys commands, Oriented to rb1 person, place, time, situation, rb1 16: 11:46 Cardiovascular: Capillary refill < 3 seconds is brisk in bilateral toes rb1 rb1 16: 11:46 Respiratory: Airway is patent Respiratory effort is even, unlabored, Respiratory rb1 pattern is regular, symmetrical, rb1 16: 11:46 GI: No signs and/or symptoms were reported involving the gastrointestinal system. rb1 rb1 16: 11:46 : No signs and/or symptoms were reported regarding the genitourinary system. rb1rb1 16: 11:46 Derm: Skin is pink, warm \T\ dry. rb1 rb1 16: 11:46 Musculoskeletal: Range of motion: intact in all extremities, rb1 rb1 16: 11:46 Abuse screen: Denies threats or abuse. rb1 rb1 16: 11:46 Nutritional screening: No deficits noted. rb1 rb1 16: 11:46 Tuberculosis screening: No symptoms or risk factors identified. rb1 rb1 16: 11:46 Fall Risk None identified. rb1 rb1
[2019-03-08] MEDS ORDERED: SMZ./TMP. 800/160 MG TABLET ONE (11:50)
== END 2019-03-08 11:43 | disposition home or self-care (01) ==
LOC: ER 10:56
DX: L08.9 Local infection of the skin and subcutaneous tissue, unspecified (principal)
CPT/HCPCS: 87070; 87077; 87186; 87205; 99283

== ENCOUNTER 2019-04-16 09:02 | Emergency (ER) | payer BC ==
--- OUTSIDE RECORDS SUMMARY | 2019-04-16 09:04 | XMS REPORT ---
[...] End Date Status Dosage System Date Methocarbamol [facility] 59238272667 750 MG Orally December Active 1 tablet Twice daily as 2018 needed for muscle cramps/pain Acetaminophen-Co [facility] [address]-53 300-30 MG Active 1 tablet deine Orally bid as needed Ibuprofen ND 19206540780 600 MG Orally Active 1 tablet twice a day with food or milk as needed Results No Known Results Summary Purpose eClinicalWorks Submission
--- OUTSIDE RECORDS SUMMARY | 2019-04-16 09:04 | XMS REPORT ---
:1995 [facility] Address [address] [place] [address] Dr. Barrios [address] [place] [id number] Care Team Providers Name Role Phone Unavailable Unavailable Unavailable Problems This patient has no known problems. Allergies, Adverse Reactions, Alerts This patient has no known allergies or adverse reactions. Medications This patient has no known medications.
--- OUTSIDE RECORDS SUMMARY | 2019-04-16 09:05 | XMS REPORT ---
[...] Date Status Dosage System Date Naproxen ND 74559500704 500 MG Orally February 20, March 22, Active 1 tablet every 12 hrs 2018 2018 as needed for pain/head ache; take with food or milk as needed Acetaminophen- ND 22524340309 300-30 MG Orally Active 1 tablet Codeine bid as needed Ibuprofen NDC 06084450554 600 MG Orally Active 1 tablet twice a day with food or milk as needed Results No Known Results Summary Purpose eClinicalWorks Submission
[2019-04-16 09:43] LABS: Urine Blood NEGATIVE (NEG); Urine Glucose NEGATIVE (NEG); Urine Protein NEGATIVE (NEG); Urine Specific Gravity 1.015 (1.005-1.030); Urine pH 7.5 (5.0-7.0)
[2019-04-16] MEDS ORDERED: KETOROLAC 30 MG/ML INJ ONE (10:00)
--- NOTE | 2019-04-16 11:05 | RAD REPORT ---
EXAM DESCRIPTION: US - Transvaginal Study Probe - 04/16/2019 10:23 am CLINICAL HISTORY: right pelvic pain Pelvic pain. COMPARISON: TRANSVAGINAL STUDY PROBE dated 06/21/2011 FINDINGS: The uterus is normal in size, shape and echotexture. The uterus measures 7.0 x 3.7 x 3.4 c m. The endometrial stripe measures 5-6 mm, normal. Both ovaries are normal in size, shape and echotexture. The right ovary measures 2.5 x 1.8 x 1.6 cm. The left ovary measures 2.4 x 1.9 x 1.7 cm. No ovarian or parovarian lesions. No adnexal masses. Normal Doppler blood flow was demonstrated to both ovaries. No significant pelvic ascites. IMPRESSION: Unremarkable study.
--- NOTE | 2019-04-16 11:15 | ER ---
Nurse's Notes [facility] Name: Capri Martinez Age: 24 yrs Sex: Female : 1995 Arrival Date: 04/16/2019 Time: 09:08 Bed 6 Private MD: Diagnosis: Pelvic and perineal pain Presentation: 04/16 09:06 Presenting complaint: Patient states: aarti been having this pain on the R side of my hj pelvic for 3 days now, denies bleeding, reports nausea; reports hot flashes;. Transition of care: patient was not received from another setting of care. Onset of symptoms was April 16, 2019. Risk Assessment: Do you want to hurt yourself or someone else? Patient reports no desire to harm self or others. Initial Sepsis Screen: Does the patient meet any 2 criteria? No. Patient's initial sepsis screen is negative. Does the patient have a suspected source of infection? No. Patient's initial sepsis screen is negative. Care prior to arrival: None. 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 - Social history:: Smoking status: . - Ebola Screening: : Patient denies travel to an Ebola-affected area in the 21 days before illness onset. Screenin:06 Abuse screen: Denies threats or abuse. Nutritional screening: No deficits noted. tw2 Tuberculosis screening: No symptoms or risk factors identified. Fall Risk None identified. Assessment: 09:19 General: Appears in no apparent distress. slender, Behavior is calm, cooperative, tw2 appropriate for age. Pain: Complains of pain in right femoral area, suprapubic area and right inguinal area. Neuro: Level of Consciousness is awake, alert, obeys commands, Oriented to person, place, time, situation. Cardiovascular: Heart tones Patient's skin is warm and dry. Respiratory: Airway is patent Respiratory effort is even, unlabored, Respiratory pattern is regular, symmetrical, Breath sounds are clear bilaterally. GI: No signs and/or symptoms were reported involving the gastrointestinal system. Abdomen is round non-distended, obese, Bowel sounds present X 4 quads. : Reports pain in right right pelvic pain. EENT: No signs and/or symptoms were reported regarding the EENT system. Derm: No signs and/or symptoms reported regarding the dermatologic system. Musculoskeletal: Range of motion: intact in all extremities. 10:36 Reassessment: Patient appears in no apparent distress at this time. Patient and/or tw2 family updated on plan of care and expected duration. Pain level reassessed. Patient is alert, oriented x 3, equal unlabored respirations, skin warm/dry/pink. Patient states feeling better. 11:15 Reassessment: Patient appears in no apparent distress at this time. Patient and/or tw2 family updated on plan of care and expected duration. Pain level reassessed. Patient is alert, oriented x 3, equal unlabored respirations, skin warm/dry/pink. 11:26 Reassessment: Patient appears in no apparent distress at this time. Patient and/or tw2 family updated on plan of care and expected duration. Pain level reassessed. Patient is alert, oriented x 3, equal unlabored respirations, skin warm/dry/pink. Vital Signs: 09:07 BP 128 / 88; Pulse 82; Resp 18; Temp 97.4(TE); Pulse Ox 99% on R/A; Weight 85.73 kg; hj Height 5 ft. 1 in. (154.94 cm); Pain 6/10; 10:36 BP 114 / 85; Pulse 77; Resp 17; Pulse Ox 97% on R/A; Pain 2/10; tw2 10:36 Pain 2/10; tw2 11:15 BP 104 / 73; Pulse 87; Resp 17; Pulse Ox 99% on R/A; tw2 09:07 Body Mass Index 35.71 (85.73 kg, 154.94 cm) ED Course: 09:06 Shawnee De La Rosa, JOSEPH is Primary Nurse. tw2 09:06 Arm band placed on. tw2 09:07 Marielena Garcia FNP-C is PHCP. snw 09:07 Syd Greene MD is Attending Physician. snw 09:07 Triage completed. hj 09:08 Patient arrived in ED. rg4 09:19 Placed in gown. Bed in low position. Pulse ox on. NIBP on. tw2 10:11 US Transvaginal Study (Probe) In Process Unspecified. EDMS 11:26 No provider procedures requiring assistance completed. Patient did not have IV access tw2 during this emergency room visit. Administered Medications: 10:03 Drug: TORadol 30 mg Route: IM; Site: right deltoid; sg 10:36 Follow up: Pain 2/10 Adult; Response: No adverse reaction; Pain is decreased; RASS: tw2 Alert and Calm (0) Outcome: 11:14 Discharge ordered by . snw 11:26 Discharged to home ambulatory, with significant other. tw2 11:26 Condition: stable 11:26 Discharge instructions given to patient, significant other, Instructed on discharge instructions, follow up and referral plans. medication usage, Demonstrated understanding of instructions, follow-up care, medications, Prescriptions given X 1. 11:26 Patient left the ED. tw2 Signatures: Dispatcher [employer] EDMD Chava Lin RN RN sg Marielena Garcia, CASING INSPECTOR-C CASING INSPECTOR-Csnw Von Kuo, RN Shawnee Baron RN RN tw2 Lakshmi Morillo rg4
--- NOTE | 2019-04-16 11:15 | EDPHYS ---
Physician Documentation [facility] Name: Capri Martinez Age: 24 yrs Sex: Female : 1995 Arrival Date: 04/16/2019 Time: 09:08 Bed 6 Private MD: ED Physician Syd Greene HPI: 04/16 10:36 This 24 yrs old Female presents to ER via Ambulatory with complaints of Pelvic snw Pain. 10:36 The patient presents with abdominal pain right lower quadrant. Onset: The snw symptoms/episode began/occurred suddenly, 3 day(s) ago, and became persistent. The symptoms do not radiate. Associated signs and symptoms: none. The symptoms are described as stabbing. Severity of pain: At its worst the pain was moderate severe in the emergency department the pain is unchanged. The patient has experienced similar episodes in the past. The patient has not recently seen a physician. 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 - Social history:: Smoking status: . - Ebola Screening: : Patient denies travel to an Ebola-affected area in the 21 days before illness onset. ROS: 10:32 Constitutional: Negative for fever, chills, and weight loss, Eyes: Negative for injury, snw pain, redness, and discharge, ENT: Negative for injury, pain, and discharge, Neck: Negative for injury, pain, and swelling, Cardiovascular: Negative for chest pain, palpitations, and edema, Respiratory: Negative for shortness of breath, cough, wheezing, and pleuritic chest pain, Abdomen/GI: Positive for right lower quad abdominal pain, negative for nausea, vomiting, diarrhea, and constipation, Back: Negative for injury and pain, : Negative for injury, bleeding, discharge, and swelling, MS/Extremity: Negative for injury and deformity, Skin: Negative for injury, rash, and discoloration, Neuro: Negative for headache, weakness, numbness, tingling, and seizure. Exam: 10:36 Constitutional: This is a well developed, well nourished patient who is awake, alert, snw and in no acute distress. Head/Face: Normocephalic, atraumatic. Eyes: Pupils equal round and reactive to light, extra-ocular motions intact. Lids and lashes normal. Conjunctiva and sclera are non-icteric and not injected. Cornea within normal limits. Periorbital areas with no swelling, redness, or edema. ENT: Nares patent. No nasal discharge, no septal abnormalities noted. Tympanic membranes are normal and external auditory canals are clear. Oropharynx with no redness, swelling, or masses, exudates, or evidence of obstruction, uvula midline. Mucous membranes moist. Neck: Trachea midline, no thyromegaly or masses palpated, and no cervical lymphadenopathy. Supple, full range of motion without nuchal rigidity, or vertebral point tenderness. No Meningismus. Chest/axilla: Normal chest wall appearance and motion. Nontender with no deformity. No lesions are appreciated. Cardiovascular: Regular rate and rhythm with a normal S1 and S2. No gallops, murmurs, or rubs. Normal PMI, no JVD. No pulse deficits. Respiratory: Lungs have equal breath sounds bilaterally, clear to auscultation and percussion. No rales, rhonchi or wheezes noted. No increased work of breathing, no retractions or nasal flaring. Back: No spinal tenderness. No costovertebral tenderness. Full range of motion. Skin: Warm, dry with normal turgor. Normal color with no rashes, no lesions, and no evidence of cellulitis. MS/ Extremity: Pulses equal, no cyanosis. Neurovascular intact. Full, normal range of motion. Neuro: Awake and alert, GCS 15, oriented to person, place, time, and situation. Cranial nerves II-XII grossly intact. Motor strength 5/5 in all extremities. Sensory grossly intact. Cerebellar exam normal. Normal gait. Psych: Awake, alert, with orientation to person, place and time. Behavior, mood, and affect are within normal limits. 10:36 Abdomen/GI: Inspection: abdomen appears normal, Bowel sounds: normal, Palpation: mild abdominal tenderness, in the right lower quadrant, moderate abdominal tenderness. Vital Signs: 09:07 BP 128 / 88; Pulse 82; Resp 18; Temp 97.4(TE); Pulse Ox 99% on R/A; Weight 85.73 kg; hj Height 5 ft. 1 in. (154.94 cm); Pain 6/10; 10:36 BP 114 / 85; Pulse 77; Resp 17; Pulse Ox 97% on R/A; Pain 2/10; tw2 10:36 Pain 2/10; tw2 11:15 BP 104 / 73; Pulse 87; Resp 17; Pulse Ox 99% on R/A; tw2 09:07 Body Mass Index 35.71 (85.73 kg, 154.94 cm) hj MDM: 09:07 Patient medically screened. snw 10:47 Data reviewed: vital signs, nurses notes. Data interpreted: Pulse oximetry: on room air snw is 97 %. Interpretation: normal. Counseling: I had a detailed discussion with the patient and/or guardian regarding: the historical points, exam findings, and any diagnostic results supporting the discharge/admit diagnosis, lab results, radiology results, the need for outpatient follow up, to return to the emergency department if symptoms worsen or persist or if there are any questions or concerns that arise at home. Special discussion: Based on the history and exam findings, there is no indication for further emergent testing or inpatient evaluation. I discussed with the patient/guardian the need to see the OB Gyne specialist for further evaluation of the symptoms. 04/16 09:26 Order name: Urine Dipstick--Ancillary (enter results); Complete Time: 09:49 bd 04/16 09:26 Order name: Urine --Ancillary (enter results); Complete Time: 09:49 bd 04/16 09:51 Order name: US Transvaginal Study (Probe); Complete Time: 11:12 snw Administered Medications: 10:03 Drug: TORadol 30 mg Route: IM; Site: right deltoid; sg 10:36 Follow up: Pain 2/10 Adult; Response: No adverse reaction; Pain is decreased; RASS: tw2 Alert and Calm (0) Disposition: 04/16/19 11:14 Discharged to Home. Impression: Pelvic and perineal pain. - Condition is Stable. - Discharge Instructions: Abdominal Pain, Adult, Pelvic Pain, Female. - Prescriptions for Diclofenac Sodium 75 mg Oral Tablet Sustained Release - take 1 tablet by ORAL route 2 times per day; 30 tablet. - Medication Reconciliation Form, Thank You Letter, Antibiotic Education, Prescription Opioid Use, Work release form, Family Work Release form. - Follow up: Private Physician; When: 1 - 2 days; Reason: Recheck today's complaints, Continuance of care, Re-evaluation by your physician. Follow up: Emergency Department; When: As needed; Reason: Worsening of condition. Signatures: Dispatcher [employer] Chava Best, RN RN sg Marielena Garcia, SPRAY MAKER-C SPRAY MAKER-Csnw Shawnee De La Rosa RN RN tw2 Corrections: (The following items were deleted from the chart) 11:26 11:14 04/16/2019 11:14 Discharged to Home. Impression: Pelvic and perineal pain. tw2 Condition is Stable. Forms are Work release form, Family Work Release, Medication Reconciliation Form, Thank You Letter, Antibiotic Education, Prescription Opioid Use. Follow up: Private Physician; When: 1 - 2 days; Reason: Recheck today's complaints, Continuance of care, Re-evaluation by your physician. Follow up: Emergency Department; When: As needed; Reason: Worsening of condition. snw
== END 2019-04-16 11:26 | disposition home or self-care (01) ==
LOC: ER 09:02
DX: R10.2 Pelvic and perineal pain (principal)
CPT/HCPCS: 76830; 81003; 81025; 96372; 99284

== ENCOUNTER 2019-09-13 17:44 | Emergency (ER) | payer BC ==
--- OUTSIDE RECORDS SUMMARY | 2019-09-13 17:46 | XMS REPORT ---
:1995 [facility] Address [address] [place] [address] Dr. Barrios [address] [place] [id number] Care Team Providers Name Role Phone Unavailable Unavailable Unavailable Problems This patient has no known problems. Allergies, Adverse Reactions, Alerts This patient has no known allergies or adverse reactions. Medications This patient has no known medications.
--- OUTSIDE RECORDS SUMMARY | 2019-09-13 17:46 | XMS REPORT ---
[...] End Date Status Dosage System Date Methocarbamol [facility] [id number] 750 MG Orally December Active 1 tablet Twice daily as 2018 needed for muscle cramps/pain Acetaminophen-Co [facility] [address]-42 300-30 MG Active 1 tablet deine Orally bid as needed Ibuprofen ND 10864215743 600 MG Orally Active 1 tablet twice a day with food or milk as needed Results No Known Results Summary Purpose eClinicalWorks Submission
--- OUTSIDE RECORDS SUMMARY | 2019-09-13 17:47 | XMS REPORT ---
[...] Date Status Dosage System Date Naproxen ND [id number] 500 MG Orally February 20, March 22, Active 1 tablet every 12 hrs 2018 2018 as needed for pain/head ache; take with food or milk as needed Acetaminophen- ND 73357421294 300-30 MG Orally Active 1 tablet Codeine bid as needed Ibuprofen NDC 94477255567 600 MG Orally Active 1 tablet twice a day with food or milk as needed Results No Known Results Summary Purpose eClinicalWorks Submission
[2019-09-13 18:28] LABS: Absolute Lymphocytes (CBC) 1.9 K/uL (0.7-4.9); Basophils % 0.4 % (0-1.3); Hematocrit 42.4 % (36.0-45.0); Lymphocytes % 21.1 % (15.3-44.8); MPV 8.6 fL (7.6-11.3); RBC Red Blood Cell Count 4.93 M/uL (3.86-4.86)
[2019-09-13 18:40] LABS: ALT/SGPT 138 U/L (12-78); AST/SGOT 72 U/L (15-37); Albumin 3.9 g/dL (3.4-5.0); Alkaline Phosphatase 110 U/L (45-117); BUN Blood Urea Nitrogen 10 mg/dL (7-18); Bicarbonate 24 mmol/L (21-32); Bilirubin Direct 0.1 mg/dL (0-0.2); Bilirubin Total 0.4 mg/dL (0.2-1.0); Glucose Level 114 mg/dL (74-106); Lipase 116 U/L (73-393); Potassium 3.7 mmol/L (3.5-5.1); Protein, Total 8.1 g/dL (6.4-8.2); Sodium Level 141 mmol/L (136-145)
[2019-09-13 18:44] LABS: Urine Blood NEGATIVE (NEG); Urine Glucose NEGATIVE (NEG); Urine Protein NEGATIVE (NEG); Urine pH 6.5 (5.0-7.0)
--- NOTE | 2019-09-13 19:18 | EDPHYS ---
Physician Documentation [facility] Name: Capri Martinez Age: 24 yrs Sex: Female : 1995 Arrival Date: 09/13/2019 Time: 17:45 Bed 8 Private MD: Velma Liu ED Physician Franklyn Adame HPI: 09/13 18:24 This 24 yrs old Female presents to ER via Ambulatory with complaints of jr8 Nausea/Vomiting. 18:24 The patient presents to the emergency department with nausea, vomiting, diarrhea. jr8 Onset: The symptoms/episode began/occurred gradually, 3 day(s) ago. Possible causes: unknown. The symptoms are aggravated by nothing. The symptoms are alleviated by nothing. Associated signs and symptoms: The patient has no apparent associated signs or symptoms. Severity of symptoms: At their worst the symptoms were mild in the emergency department the symptoms are unchanged. The patient has not experienced similar symptoms in the past. The patient has not recently seen a physician. Nausea and diarrhea three days ago. Started with vomiting today and could not hold anything down . 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 - Social history:: Smoking status: unknown. ROS: 18:24 Eyes: Negative for injury, pain, redness, and discharge, ENT: Negative for injury, jr8 pain, and discharge, Neck: Negative for injury, pain, and swelling, Cardiovascular: Negative for chest pain, palpitations, and edema, Respiratory: Negative for shortness of breath, cough, wheezing, and pleuritic chest pain, Back: Negative for injury and pain, MS/Extremity: Negative for injury and deformity, Skin: Negative for injury, rash, and discoloration, Neuro: Negative for headache, weakness, numbness, tingling, and seizure. 18:24 Abdomen/GI: Positive for nausea, vomiting, and diarrhea, abdominal cramps, Negative for abdominal distension, anorexia, dysphagia, hematemesis, black/tarry stool, rectal pain, rectal bleeding, bowel incontinence, flatulence. Exam: 18:24 Eyes: Pupils equal round and reactive to light, extra-ocular motions intact. Lids and jr8 lashes normal. Conjunctiva and sclera are non-icteric and not injected. Cornea within normal limits. Periorbital areas with no swelling, redness, or edema. ENT: Nares patent. No nasal discharge, no septal abnormalities noted. Tympanic membranes are normal and external auditory canals are clear. Oropharynx with no redness, swelling, or masses, exudates, or evidence of obstruction, uvula midline. Mucous membranes moist. Neck: Trachea midline, no thyromegaly or masses palpated, and no cervical lymphadenopathy. Supple, full range of motion without nuchal rigidity, or vertebral point tenderness. No Meningismus. Cardiovascular: Regular rate and rhythm with a normal S1 and S2. No gallops, murmurs, or rubs. Normal PMI, no JVD. No pulse deficits. Respiratory: Lungs have equal breath sounds bilaterally, clear to auscultation and percussion. No rales, rhonchi or wheezes noted. No increased work of breathing, no retractions or nasal flaring. Abdomen/GI: Soft, non-tender, with normal bowel sounds. No distension or tympany. No guarding or rebound. No evidence of tenderness throughout. Back: No spinal tenderness. No costovertebral tenderness. Full range of motion. Skin: Warm, dry with normal turgor. Normal color with no rashes, no lesions, and no evidence of cellulitis. MS/ Extremity: Pulses equal, no cyanosis. Neurovascular intact. Full, normal range of motion. Neuro: Awake and alert, GCS 15, oriented to person, place, time, and situation. Cranial nerves II-XII grossly intact. Motor strength 5/5 in all extremities. Sensory grossly intact. Cerebellar exam normal. Normal gait. Vital Signs: 17:54 Pulse 87; Resp 16; Temp 98.3; Pulse Ox 100% on R/A; Weight 87.54 kg; Height 5 ft. 1 in. sg (154.94 cm); Pain 3/10; 17:56 BP 125 / 53; sg 18:42 BP 124 / 89; Pulse 81; Resp 16 S; Pulse Ox 98% on R/A; Pain 4/10; jl7 19:26 BP 116 / 83; Pulse 93; Resp 16; Temp 98.5; Pulse Ox 97% on R/A; Pain 0/10; aa1 17:54 Body Mass Index 36.47 (87.54 kg, 154.94 cm) sg MDM: 18:09 Patient medically screened. jr8 18:51 Data reviewed: vital signs, nurses notes, lab test result(s). Data interpreted: Pulse jr8 oximetry: on room air is 98 %. Interpretation: normal. Counseling: I had a detailed discussion with the patient and/or guardian regarding: the historical points, exam findings, and any diagnostic results supporting the discharge/admit diagnosis, lab results. Response to treatment: the patient's symptoms have markedly improved after treatment, patient is well hydrated. and as a result, I will discharge patient. ED course: Reviewed old records. Patient has chronic mild elevation of LFT's. Most likely to obesity. No other acute lab findings at this time. Patient feeling better. Likely gastroenteritis . 09/13 18:10 Order name: Basic Metabolic Panel; Complete Time: 18:47 09/13 18:10 Order name: CBC with Diff; Complete Time: 18:31 09/13 18:10 Order name: Creatinine for Radiology; Complete Time: 18:47 09/13 18:10 Order name: Hepatic Function; Complete Time: 18:47 09/13 18:10 Order name: Lipase; Complete Time: 18:47 09/13 18:14 Order name: Urine Dipstick--Ancillary (enter results); Complete Time: 18:47 09/13 18:10 Order name: IV Saline Lock; Complete Time: 18:19 09/13 18:10 Order name: Labs collected and sent; Complete Time: 18:19 09/13 18:10 Order name: Urine Test (obtain specimen); Complete Time: 18:19 09/13 18:14 Order name: Urine --Ancillary (enter results); Complete Time: 18:47 09/13 18:24 Order name: Influenza Screen (a \T\ B); Complete Time: 19:16 09/13 18:10 Order name: Urine Dipstick-Ancillary (obtain specimen); Complete Time: 18:19 Administered Medications: 18:20 Drug: NS 0.9% 1000 ml Route: IV; Rate: 1000 ml; Site: right forearm; jl7 19:26 Follow up: IV Status: Completed infusion; IV Intake: 950ml aa1 18:25 Drug: Zofran 4 mg Route: IVP; Site: right antecubital; jl7 19:26 Follow up: Response: No adverse reaction; Nausea is decreased aa1 Disposition: 09/14 08:30 Co-signature as Attending Physician, Franklyn Adame MD I agree with the assessment and [facility] plan of care. Disposition: 09/13/19 19:18 Discharged to Home. Impression: Acute Gastroenteritis. - Condition is Stable. - Discharge Instructions: Viral Gastroenteritis, Adult. - Prescriptions for Bentyl 20 mg Oral Tablet - take 1 tablet by ORAL route every 6 hours As needed; 20 tablet. Zofran 4 mg Oral Tablet - take 1 tablet by ORAL route every 12 hours As needed; 20 tablet. - Medication Reconciliation Form, Thank You Letter, Antibiotic Education, Prescription Opioid Use form. - Follow up: Velma Liu MD; When: 5 - 6 days; Reason: Recheck today's complaints, Continuance of care, Re-evaluation by your physician. - Problem is new. - Symptoms have improved. - Notes: Anti-Diarrheal as needed over the counter Push fluids Light diet Signatures: Dispatcher [employer] EDChava King RN RN sg Ariella Chen RN RN aa1 Franklyn Adame MD MD cha Roszak, Josh, PA PA jr8 Oralia House RN RN jl7 Corrections: (The following items were deleted from the chart) 09/13 18:55 18:50 Abdomen Limited+[id number].[id number] ordered. [facility] ED[facility] 19:27 19:18 09/13/2019 19:18 Discharged to Home. Impression: Acute Gastroenteritis. Condition aa1 is Stable. Forms are Medication Reconciliation Form, Thank You Letter, Antibiotic Education, Prescription Opioid Use. Follow up: Velma Liu; When: 5 - 6 days; Reason: Recheck today's complaints, Continuance of care, Re-evaluation by your physician. Problem is new. Symptoms have improved. jr8
--- NOTE | 2019-09-13 19:18 | ER ---
Nurse's Notes [facility] Name: Capri Martinez Age: 24 yrs Sex: Female : 1995 Arrival Date: 09/13/2019 Time: 17:45 Bed 8 Private MD: Velma Liu Diagnosis: Acute Gastroenteritis Presentation: 09/13 17:46 Presenting complaint: Patient states: Nausea that started last , vomiting that sg started this morning, denies pain, reports diarrhea bmx1 today. Transition of care: patient was not received from another setting of care. Onset of symptoms was September 13, 2019. Risk Assessment: Do you want to hurt yourself or someone else? Patient reports no desire to harm self or others. Initial Sepsis Screen: Does the patient meet any 2 criteria? No. Patient's initial sepsis screen is negative. Does the patient have a suspected source of infection? No. Patient's initial sepsis screen is negative. Care prior to arrival: None. 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 - Social history:: Smoking status: unknown. Screenin:42 Abuse screen: Denies threats or abuse. Denies injuries from another. Nutritional jl7 screening: No deficits noted. Tuberculosis screening: No symptoms or risk factors identified. Fall Risk IV access (20 points). Total Pedro Fall Scale indicates No Risk (0-24 pts). Assessment: 18:10 General: Appears in no apparent distress. uncomfortable, Behavior is calm, cooperative, jl7 appropriate for age. Pain: Complains of pain in abdomen diffusely Pain currently is 4 out of 10 on a pain scale. Pain began 1 day ago. Is continuous. Neuro: Level of Consciousness is awake, alert, obeys commands, Oriented to person, place, time, situation. Cardiovascular: Patient's skin is warm and dry. Respiratory: Airway is patent Respiratory effort is even, unlabored, Respiratory pattern is regular, symmetrical. GI: Abdomen is round non-distended, Abd is soft and non tender X 4 quads. Reports diarrhea, nausea, vomiting. Derm: Skin is pink, warm \T\ dry. 19:12 Reassessment: Patient appears in no apparent distress at this time. Patient and/or aa1 family updated on plan of care and expected duration. Pain level reassessed. Patient is alert, oriented x 3, equal unlabored respirations, skin warm/dry/pink. Reports nausea decreased after medication. Awaiting completion of lab results. 19:26 Reassessment: Patient appears in no apparent distress at this time. Patient is alert, aa1 oriented x 3, equal unlabored respirations, skin warm/dry/pink. Discussed d/c \T\ f/u instructions with pt; denies questions or concerns at this time. Ambulatory to lobby with steady gait. Patient denies pain at this time. Patient states feeling better. Vital Signs: 17:54 Pulse 87; Resp 16; Temp 98.3; Pulse Ox 100% on R/A; Weight 87.54 kg; Height 5 ft. 1 in. sg (154.94 cm); Pain 3/10; 17:56 BP 125 / 53; sg 18:42 BP 124 / 89; Pulse 81; Resp 16 S; Pulse Ox 98% on R/A; Pain 4/10; jl7 19:26 BP 116 / 83; Pulse 93; Resp 16; Temp 98.5; Pulse Ox 97% on R/A; Pain 0/10; aa1 17:54 Body Mass Index 36.47 (87.54 kg, 154.94 cm) ED Course: 17:45 Patient arrived in ED. am2 17:45 Velma Liu MD is Private Physician. am2 17:53 [facility] jr8 17:53 Franklyn Adame MD is Attending Physician. jr8 18:01 Triage completed. sg 18:02 Oralia House RN is Primary Nurse. jl7 18:02 Arm band placed on. sg 18:20 Initial lab(s) drawn, by tn, sent to lab. Urine collected: Flu and/or RSV swab sent to [facility] lab. Inserted saline lock: 22 gauge in right forearm, using aseptic technique. Blood collected. 18:42 Patient has correct armband on for positive identification. Placed in gown. Bed in low jl7 position. Call light in reach. Side rails up X 1. 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 Pulse ox on. NIBP on. Warm blanket given. 19:17 Velma Liu MD is Referral Physician. jr8 19:26 No provider procedures requiring assistance completed. IV discontinued, intact, aa1 bleeding controlled, No redness/swelling at site. Pressure dressing applied. Administered Medications: 18:20 Drug: NS 0.9% 1000 ml Route: IV; Rate: 1000 ml; Site: right forearm; jl7 19:26 Follow up: IV Status: Completed infusion; IV Intake: 950ml aa1 18:25 Drug: Zofran 4 mg Route: IVP; Site: right antecubital; jl7 19:26 Follow up: Response: No adverse reaction; Nausea is decreased aa1 Intake: 19:26 IV: 950ml; Total: 950ml. aa1 Outcome: 19:18 Discharge ordered by . jr8 19:26 Discharged to home ambulatory. aa1 19:26 Condition: good 19:26 Discharge instructions given to patient, Instructed on discharge instructions, follow up and referral plans. medication usage, Demonstrated understanding of instructions, follow-up care, medications, Prescriptions given X 2. 19:27 Patient left the ED. aa1 Signatures: Chava Lin RN RN Ariella Chen RN RN aa1 Coy Farnsworth PA PA jr8 Oralia House RN RN jl7 Brook Jackson am2
[2019-09-13 19:41] VITALS: BP 116/83; TEMP 98.5; O2SAT 97
== END 2019-09-13 19:27 | disposition home or self-care (01) ==
LOC: ER 17:44
DX: K52.9 Noninfective gastroenteritis and colitis, unspecified (principal)
CPT/HCPCS: 36415; 80048; 80076; 81003; 81025; 83690; 85025; 87804; 96361; 96374; 99284

== ENCOUNTER 2021-03-27 14:56 | Emergency (ER) | payer BC, SELFPAY ==
--- OUTSIDE RECORDS SUMMARY | 2021-03-27 14:59 | XMS REPORT | Continuity of Care Document ---
:1995 Author Organization [facility] t Address [address] [place] [address] Care Team Providers Name Role Phone Ming Hernández Attending Clinician Cindy CHESTER Attending Clinician Problems Condition Condition Condition Status Onset Resolution Last Treating Co mments Source Name Details Category Date Date Treatment Clinician Date Migraine [facility] Other Other Problem Active [facility] chronic chronic [facility] pain pain [facility] Asthma Asthma Problem [facility] Dorsalgia, Dorsalgia, Problem Active [facility] unspecifie unspecifie Oriana kes - d d [facility] l [facility] Depression Depression Problem Active [facility] screening screening [facility] Otalgia of Otalgia of Problem Active [facility] right ear right ear [facility] Obesity Obesity Problem Active [facility] (BMI (BMI [facility] - 30.0-34.9) 30.0-34.9) Me moria l [facility] Elevated Elevated Problem Active [facility] BP without BP without Oriana kes - diagnosis diagnosis [place] priya of of l hypertensi hypertensi Ou tpati on on ent Clinics Elevated Elevated Diagnosis [facility] liver liver [facility] - enzymes enzymes Memoria l [facility] Mixed Mixed Diagnosis Active [facility] hyperlipid hyperlipid Roiana kes - emia emia [facility] Hyperglyce Hyperglyce Problem Active [facility]ics Prediabete Prediabete Diagnosis Active [facility] Elevated Elevated Diagnosis Active [facility] Allergies, Adverse Reactions, Alerts This patient has no known allergies or adverse reactions. Medications Ordered Filled Start Stop Current Ordering Indication Dosage Frequency Signature Comments Components Source Medication Medication Date Date Medication? Clinician (SIG) Name Name Fish Oil Fish Oil 2019-0 2020- No Velma (otc) [address] [facility] 6-11 09-09 Millender capsule [facility] - 00:00: 00:00 [facility] 00 :[facility] Ciprodex Ciprodex 2020-0 Yes Velma [address] 2-18 Millender into [facility] - 00:[facility]: affected [facility] 00 ear [facility] Procedures This patient has no known procedures. Encounters Start End Encounter Admission Attending Care Care Encounter Source Date/Time Date/Time Type Type Clinicians Facility Department ID 2021-02-08 2021-02-08 Emergency [facility] [id number] 19:26:00 21:21:00 [facility] [id number] [place] [id number] [place] [id number] 2020-12-22 2020-12-22 Office [facility] [id number] 13:28:52 14:08:23 [place] [id number] [place] [id number] [facility] [id number] [address] 2020-03-05 2020-03-05 [facility] [id number] [address] 14:40:00 14:40:00 [facility] 2020-02-13 2020-02-13 [facility] [id number] 16:00:00 16:00:00 [facility] ent [facility] 2020-02-11 2020-02-11 [facility] [id number] 00:24:00 00:24:[address] [facility] Medicine Outpati ent Clinics 2020-02-07 2020-02-07 [facility] [id number] 08:40:00 08:40:[address] [facility] Medicine Outpati ent Clinics 2019-12-20 2019-12-20 [facility] [id number] 08:24:00 08:24:00 t [facility] Medicine l Medicine Outpati ent Clinics 2019-12-17 2019-12-17 [facility] [id number] 14:40:00 14:40:[address] [facility] Medicine Outpati ent Clinics 2019-12-17 2019-12-17 [facility] [id number] 13:08:00 13:08:[address] [facility] Medicine Outpati ent Clinics 2019-11-27 2019-11-27 [facility] [id number] 13:00:00 13:00:[address] [facility] Medicine Outpati ent Clinics 2019-11-27 2019-11-27 [facility] [id number] 08:51:00 08:51:[address] [facility] Medicine Outpati ent Clinics 2019-10-23 2019-10-23 [facility] [id number] 09:00:00 09:00:[address] [facility] Medicine Outpati ent Clinics 2019-02-20 2019-02-20 [facility] [id number] 11:40:00 11:40:00 [facility] Medicine Outpati ent Clinics 2018-11-23 2018-11-23 [facility] [id number] 10:30:00 10:30:00 [facility] Medicine Outpati ent Clinics Results This patient has no known results.
[2021-03-27] MEDS ORDERED: HYDROCODONE/APAP 5/325 MG TAB ONE (17:35)
[2021-03-27] MEDS ORDERED: METOCLOPRAMIDE 5 MG TAB ONE (17:35)
--- NOTE | 2021-03-27 17:41 | EDPHYS ---
Physician Documentation [facility] Name: Capri Martinez Age: 26 yrs Sex: Female : 1995 Arrival Date: 03/27/2021 Time: 14:58 Bed 20 Private MD: ED Physician Maria M Berman HPI: 03/27 17:39 This 26 yrs old Female presents to ER via Ambulatory with complaints of facial ma2 pain/flare. 17:39 The patient complains of pain to the forehead, left cheek and left eye. Associated ma2 signs and symptoms: Pertinent negatives: fever, nausea, neck stiffness, Photophobia vomiting, weakness. Severity of symptoms: At its worst the pain was very mild, in the emergency department the pain is unchanged. Unable to obtain HPI due to. The patient has experienced similar episodes in the past, has migrain. 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 - Social history:: Smoking status: Patient reports the use of cigarette tobacco products, smokes one-half pack cigarettes per day, Patient uses alcohol, weekly. - Family history:: not pertinent. ROS: 17:39 Constitutional: Negative for fever, chills, and weight loss. ma2 17:39 All other systems are negative. Exam: 17:39 Constitutional: This is a well developed, well nourished patient who is awake, alert, ma2 and in no acute distress. Head/Face: Normocephalic, atraumatic. Tenderness over left ethmoid and facial sinus, consistent with sinusitis, there is no swelling, no neuro deficit, no edema, TMJ is within normal limits although limited range of motion, dentition is intact. Eyes: Pupils equal round and reactive to light, extra-ocular motions intact. Lids and lashes normal. Conjunctiva and sclera are non-icteric and not injected. Cornea within normal limits. Periorbital areas with no swelling, redness, or edema. ENT: Nares patent. No nasal discharge, no septal abnormalities noted. Tympanic membranes are normal and external auditory canals are clear. Oropharynx with no redness, swelling, or masses, exudates, or evidence of obstruction, uvula midline. Mucous membranes moist. Neck: Trachea midline, no thyromegaly or masses palpated, and no cervical lymphadenopathy. Supple, full range of motion without nuchal rigidity, or vertebral point tenderness. No Meningismus. Chest/axilla: Normal chest wall appearance and motion. Nontender with no deformity. No lesions are appreciated. Cardiovascular: Regular rate and rhythm with a normal S1 and S2. No gallops, murmurs, or rubs. Normal PMI, no JVD. No pulse deficits. Respiratory: Lungs have equal breath sounds bilaterally, clear to auscultation and percussion. No rales, rhonchi or wheezes noted. No increased work of breathing, no retractions or nasal flaring. Abdomen/GI: Soft, non-tender, with normal bowel sounds. No distension or tympany. No guarding or rebound. No evidence of tenderness throughout. Back: No spinal tenderness. No costovertebral tenderness. Full range of motion. Skin: Warm, dry with normal turgor. Normal color with no rashes, no lesions, and no evidence of cellulitis. MS/ Extremity: Pulses equal, no cyanosis. Neurovascular intact. Full, normal range of motion. Neuro: Awake and alert, GCS 15, oriented to person, place, time, and situation. Cranial nerves II-XII grossly intact. Motor strength 5/5 in all extremities. Sensory grossly intact. Cerebellar exam normal. Normal gait. Vital Signs: 16:03 BP 126 / 100; Pulse 100; Resp 20; Temp 97.7(O); Pulse Ox 99% on R/A; Weight 81.87 kg kg (M); Height 5 ft. 1 in. (154.94 cm) (R); Pain 8/10; 16:03 Body Mass Index 34.10 (81.87 kg, 154.94 cm) kg MDM: 17:39 Differential diagnosis: migraine, otitis, sinusitis. Data reviewed: vital signs, nurses ma2 notes, EMS record. Counseling: I had a detailed discussion with the patient and/or guardian regarding: the historical points, exam findings, and any diagnostic results supporting the discharge/admit diagnosis, the presence of at least one elevated blood pressure reading (>120/80) during this emergency department visit, the need for outpatient follow up. Response to treatment: the patient's symptoms have markedly improved after treatment. 17:41 Patient medically screened. ma2 Administered Medications: 17:18 Drug: Reglan (metoCLOPramide) 10 mg Route: PO; iw 17:18 Drug: HYDROcodone-acetaminophen 5 mg-325 mg 1 tabs Route: PO; iw Disposition Summary: 03/27/21 17:41 Discharge Ordered Location: Home ma2 Condition: Stable ma2 Diagnosis - Atypical facial pain - left ma2 Followup: ma2 - With: Private Physician - When: Tomorrow - Reason: If symptoms return, Continuance of care Discharge Instructions: - Discharge Summary Sheet ma2 - Sinus Headache ma2 Forms: - Medication Reconciliation Form ma2 - Thank You Letter ma2 - Antibiotic Education ma2 - Prescription Opioid Use ma2 - Work release form eb Prescriptions: - Reglan 10 mg Oral Tablet - take 1 tablet by ORAL route every 6 hours . take 30 minutes before meals and at ma2 bedtime; 100 tablet; Refills: 0, Product Selection Permitted - Diclofenac Sodium 75 mg Oral Tablet Sustained Release - take 1 tablet by ORAL route 2 times per day; 30 tablet; Refills: 0, Product ma2 Selection Permitted - Zithromax Z-Alireza 250 mg Oral Tablet - take 1 tablet by ORAL route once daily for 3 days; 3 tablet; Refills: 0, ma2 Product Selection Permitted - Medrol (Alireza) 4 mg Oral Tablets, Dose Pack - take 1 tablet by ORAL route as directed - follow package instructions; 1 ma2 packet; Refills: 0, Product Selection Permitted Signatures: Sangita Callejas, RN RN Maria M Berman MD MD ma2 Cami Chang RN RN kg
--- NOTE | 2021-03-27 17:41 | ER ---
Nurse's Notes [facility] Name: Capri Martinez Age: 26 yrs Sex: Female : 1995 Arrival Date: 03/27/2021 Time: 14:58 Bed 20 Private MD: Diagnosis: Atypical facial pain-left Presentation: 03/27 16:03 Chief complaint: Patient states: Entire left side of face started hurting hurting last kg night around 19:00, It started at the eyebrow area and spread to the rest of the left side of face.. No previous hx of face pain. Coronavirus screen: Client denies travel out of the [place] in the last 14 days. At this time, unable to obtain information related to travel outside the [place] At this time, the client does not indicate any symptoms associated with coronavirus-19. Ebola Screen: Patient negative for fever greater than or equal to 101.5 degrees Fahrenheit, and additional compatible Ebola Virus Disease symptoms Patient denies exposure to infectious person. Patient denies travel to an Ebola-affected area in the 21 days before illness onset. Initial Sepsis Screen: Does the patient meet any 2 criteria? No. Patient's initial sepsis screen is negative. Does the patient have a suspected source of infection? No. Patient's initial sepsis screen is negative. Risk Assessment: Do you want to hurt yourself or someone else? Patient reports no desire to harm self or others. Onset of symptoms was March 26, 2021 at 19:00. 16:03 Method Of Arrival: Ambulatory kg 16:03 Acuity: AYAKA 4 kg Triage Assessment: 16:07 General: Appears in no apparent distress. Behavior is calm, cooperative, appropriate kg for age, quiet. Pain: Complains of pain in left frontal area, left side of forehead, left temporal area, left eye, left moravian, left side of the nose, left zygomatic area and left cheek Pain currently is 8 out of 10 on a pain scale. at worst was 8 out of 10 on a pain scale. level that patient reports is acceptable is 6 out of 10 on a pain scale. Quality of pain is described as tingling, Pain began 1 day ago. 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 - Social history:: Smoking status: Patient reports the use of cigarette tobacco products, smokes one-half pack cigarettes per day, Patient uses alcohol, weekly. - Family history:: not pertinent. Screenin:06 Abuse screen: Denies threats or abuse. Denies injuries from another. Nutritional kg screening: No deficits noted. Tuberculosis screening: No symptoms or risk factors identified. Fall Risk None identified. No fall in past 12 months (0 pts). No secondary diagnosis (0 pts). No IV (0 pts). Ambulatory Aid- None/Bed Rest/Nurse Assist (0 pts). Gait- Normal/Bed Rest/Wheelchair (0 pts) Mental Status- Oriented to own ability (0 pts). Total Pedro Fall Scale indicates No Risk (0-24 pts). Vital Signs: 16:03 BP 126 / 100; Pulse 100; Resp 20; Temp 97.7(O); Pulse Ox 99% on R/A; Weight 81.87 kg kg (M); Height 5 ft. 1 in. (154.94 cm) (R); Pain 8/10; 16:03 Body Mass Index 34.10 (81.87 kg, 154.94 cm) kg ED Course: 14:58 Patient arrived in ED. am2 16:06 Triage completed. kg 16:08 Arm band placed on right wrist. kg 16:08 No provider procedures requiring assistance completed. kg 16:10 Patient has correct armband on for positive identification. kg 16:58 Maria M Berman MD is Attending Physician. ma2 17:11 Sangita Callejas RN is Primary Nurse. iw Administered Medications: 17:18 Drug: Reglan (metoCLOPramide) 10 mg Route: PO; iw 17:18 Drug: HYDROcodone-acetaminophen 5 mg-325 mg 1 tabs Route: PO; iw Outcome: 17:41 Discharge ordered by . ma2 17:48 Patient left the ED. iw Signatures: Sangita Callejas RN RN iw Brook Jackson am2 Alzahri, Mohammad, MD MD ma2 Bernardo, Cami, RN RN kg
[2021-03-27 19:04] VITALS: BP 126/100; TEMP 97.7; O2SAT 99
== END 2021-03-27 17:48 | disposition home or self-care (01) ==
LOC: ER 14:56
DX: G50.1 Atypical facial pain (principal); I10 Essential (primary) hypertension; F17.210 Nicotine dependence, cigarettes, uncomplicated
CPT/HCPCS: 99282

== ENCOUNTER → 2023-09-19 | Emergency (ER) | payer OTHER, SELFPAY ==
[~2023-09-19] MED LIST: HYDROCODONE/APAP 10/325 TAB ONE; LIDOCAINE 1% MPF 5 ML VIAL ONE
--- OUTSIDE RECORDS SUMMARY | 2023-09-19 13:46 | XMS REPORT | Continuity of Care Document ---
Author Name Unknown Address [address] [facility] [address] [place] [address] [facility] Address [address] [facility] [place] [address] Care Team Providers Care Spooler Name Role Phone ISABELL CURRY Primary Care Physician Unava Babak Rodas Attending Clinician Unavailable Velma Liu Attending Clinician Unavailable ANURAG CHRISTIAN Attending Clinician UnavailAnurag Bergeron MD Attending Clinician + [phone] Isabell Curry CNM Attending Clinician [phone] ISABELL CURRY Attending Clinician Unavailsaul dominguez [facility] Attending Clinician Unavailable Alf Pond DO Attending Clinician +[phone] DAMIAN MARKS Attending Clinician Unavail able [facility] Attending Clinician Unava Damian Sanchez Attending Clinician + AMARI BALLESTEROS Attending Clinician Unavailable Amari Ballesteros MD Attending Clinician [phone] Marvin Zarate DO Attending Clinician [phone] Akua Flores MD Attending Clinician [phone] Verena NAA Tulio Attending Clinician [phone] Doctor Unassigned, [place] Attending Clinician U navailable DUKEEZIENTERESA, NKECHINYERE Attending Clinician Unava ilable EMEZIENNA, NKECHINYERE Attending Clinician Unava ilable Monie Ugarte MD, Lin Attending Clinician + Sajan Ryder MD Attending Clinician [phone] Yareli MEDRANO, Kassie Torres Attending Clinicia n RANDA GOLDSMITH Attending Clinician Unavailable CHELSEA REESE Attending Clinician UnavailChelsea Leslie MD Attending Clinician +[phone] JONATHAN HARMON Attending Clinician Unavailable JONATHAN HARMON Attending Clinician Unavailable Jonathan Harmon MD Attending Clinician [phone] Risk, Ewx-Rraxz-Au/High Attending Clinician Unav ailable AUDIE WYNN Attending Clinician Unavailable AUDIE WYNN Attending Clinician Unavailable 2, [facility] Room Attending Clinician Unavailab Audie Roblero MD Attending Clinician [phone] Provider, Brittney Temp Attending Clinician Mely vabrooke Villalta NP, Angeles Attending Clinician [phone] ANGELES VILLALTA Attending Clinician Unavailable FRED PENG Attending Clinician Unav ailable FRANKLYN WINKLER Attending Clinician Unavailable FRANKLYN WINKLER Attending Clinician Unavailable CY MARSHALL Attending Clinician Unavailable CY MARSHALL Attending Clinician Unavailable TAYLER ALICEA Attending Clinician Unavailable Tayler Alicea MD Attending Clinician [phone] Phuong Mccarthy Attending Clinician [phone] 1, [facility] Attending Clinician Unavailab PHUONG Hernandez Attending Clinician Unavailable Sonali Meza RN Attending Clinician Unavailab le 1, [facility] Usg Room Attending Clinician Unavaila PK Bhardwaj Attending Clinician Unavailable Pgy2 Attending Clinician Unavailable Pk Sequeira MD Attending Clinician CÉSAR BECKER Attending Clinician Unavailable [place] CERTIFIED MEDICAL DOSIMETRIST, César B Attending Clinician +- [phone] NILTON PASCUAL Attending Clinician Unavailable Pgy1 Attending Clinician Unavailable Nilton Pascual MD Attending Clinician [phone] David JOHNSON, Richard Fernandez Attending Clinician + [phone] MATTI DONIS Attending Clinician Unavailable Green CERTIFIED MEDICAL DOSIMETRIST, Matti Attending Clinician [phone] Unknown, Attending Attending Clinician Unavailab le Kristopher CERTIFIED MEDICAL DOSIMETRIST, Barbara Attending Clinician [phone] BARBARA MARTI Attending Clinician Unavailable Lab, [facility] Attending Clinician Unavailable Ultrasound, [facility] Attending Clinician Unavaila alberto Warner MD, Zulma Jones Attending Clinician + ZULMA WARNER Attending Clinician Unav ailable Lab, [facility] Attending Clinician Unavailable Nurse, [facility] Exp [facility] Obgyn Attending Clini pop Unavailable Lambert MEDRANO, Kimber Attending Clinician [phone] Rickie Zuniga MD Attending Clinician [phone] Alejandra MEDRANO, Addie Medina Attending Clinician [phone] Sabrina RUIZ, Segun Attending Clinician Unavailab KAIT Lee Attending Clinician Unavailemily Steward [facility], Kait Nieto Attending Clinician +[phone] JACINTA BECK Attending Clinician Unavailable BLANK ANN Attending Clinician Unavailable Bev Peguero RN Attending Clinician Unavailable Faculty, Ang Rmchsasha Orozco Attending Clinician Unava ilable Estrella Jones MD Attending Clinician +[phone] ESTRELLA JONES Attending Clinician Unavailable Velma Walsh Attending Clinician +[phone] VELMA JOHN Attending Clinician UnavailJOHN Ledesma Attending Clinician Unavailable John Sen MD Attending Clinician [phone] Kait Beach RN Attending Clinician Unavailable Only, Ang Db Test Attending Clinician UnavailRICHARD Brooke Attending Clinician Unavailemily Lay CERTIFIED MEDICAL DOSIMETRIST, Richard Funez Attending Clinician +[phone] ZENA ARCINIEGA Attending Clinician Unavail able Tristian [facility], Zena Wagoner Attending Clinician + Tamy Lay DO Attending Clinician [phone] DORA CESAR Attending Clinician Unavaila alberto NIP, Cynthia Lai Attending Clinician +[phone] MATTHIAS MERCADO Attending Clinician UnavailJacinta Myers PA-C Attending Clinician +[phone] Dora Cesar MD Attending Clinician + [phone] Gallito Harmon DO Attending Clinician +[phone] Lab, [facility] Po I Attending Clinician Unavailab le Raju_P Attending Clinician Unavailable ANURAG CHRISTIAN Admitting Clinician Unavaila AMARI Fallon Admitting Clinician Unavailable Amari Ballesteros MD Admitting Clinician [phone] SHARON COLEMAN Admitting Clinician Unava ilCHELSEA Ramos Admitting Clinician UnavailChelsea Leslie MD Admitting Clinician [phone] JONATHAN HARMON Admitting Clinician Unavailable Jonathan Harmon MD Admitting Clinician +[phone] FRED PENG Admitting Clinician Unav ailable Fred Peng MD Admitting Clinician + FRANKLYN WINKLER Admitting Clinician Unavailable CY MARSHALL Admitting Clinician Unavailable TAYLER ALICEA Admitting Clinician Unavailable Tayler Alicea MD Admitting Clinician [phone] ZULMA WARNER Admitting Clinician Unav Zulma Restrepo MD Admitting Clinician + Raju_P Admitting Clinician Unavailable Payers Payer Name Policy Type Policy Number Effective Date Expirati on Date Source MEDICAID PENDING PENDING 2021 00:00:00 [facility] [id number] 2021 00:00:00 [facility] [id number] 00:00:00 Problems Condition Name Condition Details Condition Category Status Onset Date Resolution Date Last Treatment Date Treating Clinician Comments Source Anemia, Anemia, Disease Active 2022-09 1-11 00:00: 00 [facility] Liveborn infant, of elaine , born in hospital by vaginal delivery Liveborn infant, of elaine , born in hospital by vaginal delivery Disease Active 2022-09 0-22 00:00: 00 [facility] Retained products of conception , Retained products of conception , Disease Active 2022-09 0-22 00:00: 00 [facility] Major hemorrhage Major hemorrhage Disease Active 2022-09 0-22 00:00: 00 [facility] 37 weeks gestation of 37 weeks gestation of Disease Active 2022-09 0-10 00:00: 00 [facility] 33 weeks gestation of 33 weeks gestation of Disease Active 0 9-11 00:00: 00 [facility] 32 weeks gestation of 32 weeks gestation of Disease Active 0 9-08 00:00: 00 [facility] Threatened labor, antepartum Threatened labor, antepartum Disease Active 9-02 00:00: 00 [facility] Threatened labor, antepartum Threatened labor, antepartum Disease Active 9-02 00:00: 00 [facility] Obesity (BMI 30-39.9) Obesity (BMI 30-39.9) Disease Active 8-30 00:00: 00 [facility] 31 weeks gestation of 31 weeks gestation of Disease Active 0 8-30 00:00: 00 [facility] Trichomona l vaginitis during in third trimester Trichomona l vaginitis during in third trimester Disease Active 0 8-26 00:00: 00 [facility] uterine contractio ns in second trimester, antepartum uterine contractio ns in second trimester, antepartum Disease Active 8-17 00:00: 00 [facility] Status post tubal ligation Status post tubal ligation Disease Active 7-28 00:00: 00 [facility] Multiparit y Multiparit y Disease Active 6-08 00:00: 00 [facility] Labial abscess Labial abscess Disease Active 4-20 00:00: 00 [facility] Supervisio n of high-risk Supervisio n of high-risk Disease Active 4-19 00:00: 00 [facility] Pregestati onal diabetes mellitus, modified White class B Pregestati onal diabetes mellitus, modified White class B Disease Active 3-21 00:00: 00 Overview: Formattin g of this note might be different from the original. Failed 3hr gtt [facility] Abnormal maternal glucose tolerance, antepartum Abnormal maternal glucose tolerance, antepartum Disease Active 3-08 00:00: 00 Overview: Formattin g of this note might be different from the original. pendign 3hr gtt [facility] Susceptibl e to varicella (non-immun e), currently Susceptibl e to varicella (non-immun e), currently Disease Active 3-08 00:00: 00 [facility] Rubella non-immune status, antepartum Rubella non-immune status, antepartum Disease Active 3-08 00:00: 00 [facility] History of miscarriag e History of miscarriag e Disease Active 3-06 00:00: 00 [facility] History of delivery History of delivery Disease Active 3-06 00:00: 00 Overview: Formattin g of this note might be different from the original. At 34 SPROM [facility] Other general counseling and advice for contracept aarti management Other general counseling and advice for contracept aarti management Disease Active 8 00:00: 00 [facility] Type 2 diabetes mellitus without complicati on, with long-term current use of insulin Type 2 diabetes mellitus without complicati on, with long-term current use of insulin Disease Active 8- 00:00: 00 [facility] Pre-existi ng essential hypertensi on during , antepartum Pre-existi ng essential hypertensi on during , antepartum Disease Active 2020-09 2 00:00: 00 [facility] Obesity (BMI 30-39.9) Obesity (BMI 30-39.9) Disease Active 2020-09 00:00: 00 [facility] Obesity in Obesity in Disease Active 2020-09 00:00: 00 [facility] Hypothyroi dism during Hypothyroi dism during Disease Active 2020-09 00:00: 00 Overview: Formattin g of this note might be different from the original. Last on meds in 2021 [facility] Hypothyroi d Hypothyroi d Disease Active 2020-09 00:00: 00 Overview: Formattin g of this note might be different from the original. Last on meds in 2021 [facility] History of thyroid disease History of thyroid disease Disease Active 2020-09 00:00: 00 [facility] History of liver disease History of liver disease Disease Active 2020-09 00:00: 00 [facility] Vitamin D deficiency Vitamin D deficiency Disease Active 3- 00:00: 00 [facility] Depression with anxiety Depression with anxiety Disease Active 3 00:00: 00 [facility] 38 weeks gestation of 38 weeks gestation of Disease Active 6 00:00: 00 [facility] Declines flu vaccine Declines flu vaccine Disease Active 4-15 00:00: 00 [facility] Migraines Migraines Disease Active [facility] Chronic allergic rhinitis Chronic allergic rhinitis Disease Active [facility] Fatty liver Fatty liver Disease Active Overview: Formattin g of this note might be different from the original. noted in imaging report from [facility] zoort: Worsening LFTs. Moderate- severe fatty liver w/ hepatomeg tremaine on US. Referred to Hepatolog y. [facility] Mixed hyperlipid emia Mixed hyperlipid emia Disease Active [facility] Essential hypertensi on, benign Essential hypertensi on, benign Disease Active [facility] Chronic hypertensi on Chronic hypertensi on Disease Active Overview: Formattin g of this note might be different from the original. On meds with last [facility] History of gestationa l diabetes History of gestationa l diabetes Disease Active [facility] Diabetes mellitus complicati ng , antepartum Diabetes mellitus complicati ng , antepartum Disease Active [facility] Migraine Migraine Problem Active [facility] Other chronic pain Other chronic pain Problem Active [facility] Asthma Asthma Problem Active [facility] Dorsalgia, unspecifie d Dorsalgia, unspecifie d Problem Active [facility] Depression screening Depression screening Problem Active [facility] Otalgia of right ear Otalgia of right ear Problem Active [facility] Obesity (BMI 30.0-34.9) Obesity (BMI 30.0-34.9) Problem Active [facility] Elevated BP without diagnosis of hypertensi on Elevated BP without diagnosis of hypertensi on Problem Active [facility] Elevated liver enzymes Elevated liver enzymes Diagnosis Active [facility] Mixed hyperlipid emia Mixed hyperlipid emia Diagnosis Active [facility] Hyperglyce pablo Hyperglyce pablo Problem Active [facility] Prediabete s Prediabete s Diagnosis Active [facility] Elevated TSH Elevated TSH Diagnosis Active [facility] Allergies, Adverse Reactions, Alerts Allergy Name Allergy Type Status Severity Reaction(s) Onset Date Inactive Date Treating Clinician Comments Source NO KNOWN ALLERGIE S Drug Class Active [facility] Social History Social Habit Start Date Stop Date Quantity Comments Source ASSERTION 2022-10-10 00:00:00 [facility] Gender identity [facility] Alcohol intake 2023-08-03 00:00:00 2023-08-03 00:00:00 0 /d [facility] History of Social function 2023-08-03 00:00:00 2023-08-03 00:00:00 [facility] Tobacco use and exposure 2023-06-20 00:00:00 2023-06-20 00:00:[address]ok[address] tobacco non-user [facility] Cigarette pack-years 2023-06-20 00:00:00 2023-06-20 00:00:00 [facility] Exposure to SARS-CoV-2 (event) 2023-01-10 00:00:00 2023-01-20 10:39:[address] [facility] History of tobacco use 2021-05-26 00:00:[address] [facility] Sex Assigned At 1995 00:00:00 1995 00:00:00 [facility] Smoking Status Start Date Stop Date Source Ex-smoker 2023-06-20 00:00:00 2023-06-20 [facility]00[facility]ations Ordered Medication Name Filled Medication Name Start Date Stop Date Current Medication? Ordering Clinician Indication Dosage Frequency Signature (SIG) Comments Components Source multivitami n tablet 1 tablet 2022-09 14:00: 00 Yes 1{tbl} 1 tablet, Oral, DAILY, First dose on Tue06/28/23 at 0900, Until Discontinu ed, Routine [facility] multivitami n tablet 1 tablet 2022-09 14:00: 00 Yes 1{tbl} 1 tablet, Oral, DAILY, First dose on Tue06/28/23 at 0900, Until Discontinu ed, Routine [facility] ferrous sulfate tablet 325 mg 2022-09 01:00: 00 Yes 325mg 325 mg, Oral, BID, First dose on Tue06/27/23 at 1999, Until Discontinu ed, Routine [facility] ferrous sulfate tablet 325 mg 2022-09 01:00: 00 Yes 325mg 325 mg, Oral, BID, First dose on Tue06/27/23 at 1999, Until Discontinu ed, Routine [facility] acetaminoph en (TYLENOL) tablet 650 mg 2022-09 22:58: 15 Yes 650mg 650 mg, Oral, Q6HPRN, Starting on Tue06/27/23 at 1758, Until Discontinu ed, Routine, Pain (scale 1-3), Pain (scale 4-6) [facility] phenoL (SORE THROAT (PHENOL)) 1.4 % spray bottle 1 [place] 2022-09 18:49: 40 Yes 1{spray } 1 [place], Oral, PRN, Starting on Tue06/27/23 at 1349, Until Discontinu ed, Routine, Sore throat [facility] phenoL (SORE THROAT (PHENOL)) 1.4 % spray bottle 1 [place] 2022-09 18:49: 40 Yes 1{spray } 1 [place], Oral, PRN, Starting on Tue06/27/23 at 1349, Until Discontinu ed, Routine, Sore throat [facility] FENTanyl PF (SUBLIMAZE (PF)) injection 50 mcg 2022-09 15:07: 05 Yes 50ug 50 mcg, Slow IV Push, Q3HPRN, Starting on Tue06/27/23 at 1007, Until Discontinu ed, Routine, Pain (scale 7-10) [facility] FENTanyl PF (SUBLIMAZE (PF)) injection 50 mcg 2022-09 15:07: 05 Yes 50ug 50 mcg, Slow IV Push, Q3HPRN, Starting on Tue06/27/23 at 1007, Until Discontinu ed, Routine, Pain (scale 7-10) [facility] HYDROcodone -acetaminop hen (NORCO 5) 5-325 mg tablet 1 tablet 2022-09 14:06: 46 Yes 1{tbl} 1 tablet, Oral, Q6HPRN, Starting on Tue06/27/23 at 0906, Until Discontinu ed, Routine, Pain (scale 4-6) [facility] HYDROcodone -acetaminop hen (NORCO 5) 5-325 mg tablet 1 tablet 2022-09 14:06: 46 Yes 1{tbl} 1 tablet, Oral, Q6HPRN, Starting on Tue06/27/23 at 0906, Until Discontinu ed, Routine, Pain (scale 4-6) [facility] sennosides- docusate sodium (SENOKOT-S) 8.6-50 mg per tablet 1 tablet 2022-09 01:00: 00 Yes 1{tbl} 1 tablet, Oral, BID, First dose on Tue06/26/23 at 2000, Until Discontinu ed, Routine [facility] sennosides- docusate sodium (SENOKOT-S) 8.6-50 mg per tablet 1 tablet 2022-09 01:00: 00 Yes 1{tbl} 1 tablet, Oral, BID, First dose on Tue06/26/23 at 2000, Until Discontinu ed, Routine [facility] ceFAZolin (ANCEF) injection 1,000 mg 2022-09 19:00: 00 06-27 11:08 :00 No 1000mg 1,000 mg, Intravenou s, Q8H ABX, 3 doses, First dose on Tue06/26/23 at 1400, Last dose on Tue06/27/23 at 0600
Re ason for Anti-Infec tive: Surgical Prophylaxi s
Surgi alice Prophylaxi s: FUR BLOWER
Duration of therapy: within 24 hours of surgery [facility] Sliding Scale Insulin - Lispro (HumaLOG) 2022-09 17:00: 00 Yes Subcutaneo us, Q6H, First dose on Tue06/26/23 at 1200, Until Discontinu ed, Routine [facility] Sliding Scale Insulin - Lispro (HumaLOG) 2022-09 17:00: 00 Yes Subcutaneo us, Q6H, First dose on Tue06/26/23 at 1200, Until Discontinu ed, Routine [facility] D5W-LR IV infusion 1,000 mL 2022-09 16:00: 00 06-27 13:15 :41 No 1000mL at 50 mL/hr, IV Infusion, CONTINUOUS , Starting on Tue06/26/23 at 1100, Until Tue06/27/23 at 0815, ATIF [facility] morpHINE 30 mg/30 mL (fixed dose) [employer] injection 2022-09 14:45: 00 06-27 13:15 :41 No Patient Bolus Dose: 1 mg
Lock out Interval: 10 Minutes
Basal Rate: 0 mg/hr
F our Hour Dose Limit: 24 mg
Intr avenous, 30 mL, CONTINUOUS , Starting on 06/26/23 at 0945, Until 06/27/23 at 0815 [facility] naloxone (NARCAN) injection 0.4 mg 2022-09 14:34: 33 Yes .4mg 0.4 mg, Intravenou s, Q5MIN PRN, Starting on Tue06/26/23 at 0934, Until Discontinu ed, Routine, Sedation/R espiratory Depression , for RR < 12 breathes per minute [facility] naloxone (NARCAN) injection 0.4 mg 2022-09 14:34: 33 Yes .4mg 0.4 mg, Intravenou s, Q5MIN PRN, Starting on Tue06/26/23 at 0934, Until Discontinu ed, Routine, Sedation/R espiratory Depression , for RR < 12 breathes per minute [facility] morpHINE 30 mg/30 mL (fixed dose) [employer] injection 2022-09 14:15: 00 06-26 14:31 :38 No Patient Bolus Dose: 0.5 mg
Lock out Interval: 10 Minutes
Basal Rate: 0 mg/hr
F our Hour Dose Limit: 12 mg
Intr avenous, 30 mL, CONTINUOUS , Starting on Tue06/26/23 at 0915, Until 06/26/23 at 0931 [facility] FENTanyl PF (SUBLIMAZE (PF)) injection 50 mcg 2022-09 14:00: 00 06-26 13:20 :00 No 50ug 50 mcg, Slow IV Push, ONCE, 1 dose, On Tue06/26/23 at 0900, Routine [facility] glucagon (GLUCAGEN DIAGNOSTIC KIT) injection 1 mg 2022-09 13:59: 28 Yes 1mg 1 mg, Intramuscu lar, PRN, Starting on 06/26/23 at 0859, Until Discontinu ed, ATIF, Blood Glucose < or = 70 mg/dL and patient is NPO, unable to swallow or has mental changes. [facility] dextrose 50 % in water (D50W) injection 25 mL 2022-09 13:59: 28 Yes 25mL 25 mL, Slow IV Push, PRN, Starting on 06/26/23 at 0859, Until Discontinu ed, ATIF, Blood Glucose < or = 70 mg/dL and patient is NPO, unable to swallow or has mental status changes. [facility] glucagon (GLUCAGEN DIAGNOSTIC KIT) injection 1 mg 2022-09 13:59: 28 Yes 1mg 1 mg, Intramuscu lar, PRN, Starting on 06/26/23 at 0859, Until Discontinu ed, ATIF, Blood Glucose < or = 70 mg/dL and patient is NPO, unable to swallow or has mental changes. [facility] dextrose 50 % in water (D50W) injection 25 mL 2022-09 13:59: 28 Yes 25mL 25 mL, Slow IV Push, PRN, Starting on 06/26/23 at 0859, Until Discontinu ed, ATIF, Blood Glucose < or = 70 mg/dL and patient is NPO, unable to swallow or has mental status changes. [facility] NaCl 0.9% (NS) injection 10 mL 2022-09 13:22: 36 Yes 10mL 10 mL, Slow IV Push, PRN, Starting on 06/26/23 at 0822, Until Discontinu ed, Routine, line maintenanc e [facility] lidocaine 1% (PF) (XYLOCAINE) injection 5 mL 2022-09 13:22: 36 Yes 5mL 5 mL, Subcutaneo us, PRN, Starting on 06/26/23 at 0822, Until Discontinu ed, Routine, Local anesthesia [facility] NaCl 0.9% (NS) injection 10 mL 2022-09 13:22: 36 Yes 10mL 10 mL, Slow IV Push, PRN, Starting on 06/26/23 at 0822, Until Discontinu ed, Routine, line maintenanc e [facility] lidocaine 1% (PF) (XYLOCAINE) injection 5 mL 2022-09 13:22: 36 Yes 5mL 5 mL, Subcutaneo us, PRN, Starting on 06/26/23 at 0822, Until Discontinu ed, Routine, Local anesthesia [facility] naloxone (NARCAN) injection 0.1 mg 2022-09 13:09: 05 Yes .1mg 0.1 mg, Slow IV Push, SEE-INSTRU CTIONS, Starting on 06/26/23 at 0809, Until Discontinu ed, Routine [facility] naloxone (NARCAN) injection 0.1 mg 2022-09 13:09: 05 Yes .1mg 0.1 mg, Slow IV Push, SEE-INSTRU CTIONS, Starting on Tue06/26/23 at 0809, Until Discontinu ed, Routine [facility] ferric subsulfate (MONSEL'S) solution 2022-09 10:28: 00 06-26 13:13 :30 No PRN, Starting on Tue06/26/23 at 0528, Until Tue06/26/23 at 0813, Routine, Intra-op [facility] water for irrigation irrigation solution 2022-09 10:27: 00 06-26 13:13 :30 No PRN, Starting on Tue06/26/23 at 0527, Until Tue06/26/23 at 0813, Routine, Intra-op [facility] D5W-LR IV infusion 1,000 mL 2022-09 10:15: 00 06-26 15:48 :39 No 1000mL at 75 mL/hr, IV Infusion, CONTINUOUS , Starting on Tue06/26/23 at 0515, Until Tue06/26/23 at 1048, ATIF [facility] D5W-LR IV infusion 1,000 mL 2022-09 10:15: 00 06-26 15:47 :31 No 1000mL at 125 mL/hr, IV Infusion, CONTINUOUS , Starting on Tue06/26/23 at 0515, Until 06/26/23 at 1047, ATIF [facility] LORazepam (ATIVAN) injection 2 mg 2022-09 10:01: 58 Yes 2mg 2 mg, Intravenou s, PRN - SEE INSTRUCTIO NS, 2 doses, Starting on 06/26/23 at 0501, Until Discontinu ed, Routine, Seizures [facility] LORazepam (ATIVAN) injection 2 mg 2022-09 10:01: 58 Yes 2mg 2 mg, Intravenou s, PRN - SEE INSTRUCTIO NS, 2 doses, Starting on 06/26/23 at 0501, Until Discontinu ed, Routine, Seizures [facility] labetaloL (NORMODYNE) injection 80 mg 2022-09 10:01: 55 Yes 80mg [Order 1 Start] Name: labetaloL (NORMODYNE ) injection 80 mg Signed Summary: 80 mg, Slow IV Push, PRN - SEE INSTRUCTIO NS, 1 dose, Starting on 06/26/23 at 0501, Until Discontinu ed, Routine, If either BP threshold is still exceeded, administer Labetalol 80 mg IV slow IV push (over 2 min). If BP below threshold, continue to monitor BP [Order 1 End] [Order 2 Start] Name: hydralAZIN E (APRESOLIN E) injection 10 mg Signed Summary: 10 mg, Slow IV Push, PRN - SEE INSTRUCTIO NS, 1 dose, Starting on 06/26/23 at 0501, Until Discontinu ed, Routine, If either BP threshold is still exceeded, administer Hydralazin e 10 mg slow IV push (over 2 min).
I ndication: Hypertensi ve Emergency in [Order 2 End] [facility] labetaloL (NORMODYNE) injection 80 mg 2022-09 10:01: 55 Yes 80mg [Order 1 Start] Name: labetaloL (NORMODYNE ) injection 80 mg Signed Summary: 80 mg, Slow IV Push, PRN - SEE INSTRUCTIO NS, 1 dose, Starting on 06/26/23 at 0501, Until Discontinu ed, Routine, If either BP threshold is still exceeded, administer Labetalol 80 mg IV slow IV push (over 2 min). If BP below threshold, continue to monitor BP [Order 1 End] [Order 2 Start] Name: hydralAZIN E (APRESOLIN E) injection 10 mg Signed Summary: 10 mg, Slow IV Push, PRN - SEE INSTRUCTIO NS, 1 dose, Starting on 06/26/23 at 0501, Until Discontinu ed, Routine, If either BP threshold is still exceeded, administer Hydralazin e 10 mg slow IV push (over 2 min).
I ndication: Hypertensi ve Emergency in [Order 2 End] [facility] calcium gluconate 100 mg/mL (10%) injection 1,000 mg 2022-09 10:01: 09 Yes 1000mg 1,000 mg, Slow IV Push, PRN - SEE INSTRUCTIO NS, Starting on 06/26/23 at 0501, Until Discontinu ed, Routine, magnesium toxicity [facility] magnesium sulfate 4 mEq/mL (50 %) injection 32.48 mEq 2022-09 10:01: 09 Yes 4g 32.48 mEq (4 g), Slow IV Push, PRN - SEE INSTRUCTIO NS, Starting on 06/26/23 at 0501, Until Discontinu ed, Routine, For seizure activity (patient not on magnesium sulfate) [facility] calcium gluconate 100 mg/mL (10%) injection 1,000 mg 2022-09 10:01: 09 Yes 1000mg 1,000 mg, Slow IV Push, PRN - SEE INSTRUCTIO NS, Starting on 06/26/23 at 0501, Until Discontinu ed, Routine, magnesium toxicity [facility] magnesium sulfate 4 mEq/mL (50 %) injection 32.48 mEq 2022-09 10:01: 09 Yes 4g 32.48 mEq (4 g), Slow IV Push, PRN - SEE INSTRUCTIO NS, Starting on 06/26/23 at 0501, Until Discontinu ed, Routine, For seizure activity (patient not on magnesium sulfate) [facility] magnesium sulfate 4 mEq/mL (50 %) injection 16.24 mEq 2022-09 10:01: 08 Yes 2g 16.24 mEq (2 g), Slow IV Push, PRN - SEE INSTRUCTIO NS, 2 doses, Starting on Tue06/26/23 at 0501, Until Discontinu ed, Routine, For seizure activity (patient already on magnesium sulfate) [facility] magnesium sulfate 4 mEq/mL (50 %) injection 16.24 mEq 2022-09 10:01: 08 Yes 2g 16.24 mEq (2 g), Slow IV Push, PRN - SEE INSTRUCTIO NS, 2 doses, Starting on Tue06/26/23 at 0501, Until Discontinu ed, Routine, For seizure activity (patient already on magnesium sulfate) [facility] acetaminoph en (TYLENOL) tablet 650 mg 2022-09 07:49: 00 06-26 07:55 :00 No 650mg 650 mg, Oral, ONCE, 1 dose, On Tue06/26/23 at 0300, Routine [facility] metFORMIN (GLUCOPHAGE ) tablet 500 mg 2022-09 22:00: 00 Yes 500mg 500 mg, Oral, BID MEALS, First dose on Tue06/21/23 at 1700, Until Discontinu ed, Routine [facility] metFORMIN (GLUCOPHAGE ) tablet 500 mg 2022-09 22:00: 00 06-22 02:30 :01 No 500mg 500 mg, Oral, BID MEALS, First dose on Tue06/21/23 at 1700, Until Discontinu ed, Routine [facility] [id number] fum-folic () 27 mg iron- 1 mg folic tablet 2022-09 00:00: 00 Yes [id number] 1{tbl} Take 1 tablet by mouth in the morning. [facility] docusate 100 mg capsule 2022-09 00:00: 00 Yes [id number] 200mg Take 2 capsules by mouth once daily as needed for Constipati on. [facility] ferrous sulfate 325 mg (65 mg iron) tablet 2022-09 00:00: 00 Yes [id number] 325mg Take 1 tablet by mouth in the morning and 1 tablet in the evening. [facility] ibuprofen 600 mg tablet 2022-09 00:00: 00 Yes [id number] 600mg Take 1 tablet by mouth every 6 (six) hours as needed (Pain). Take with food or milk. [facility] [id number] fum-folic () 27 mg iron- 1 mg folic tablet 2022-09 0 00:00: 00 Yes [id number] 1{tbl} Take 1 tablet by mouth in the morning. [facility] docusate 100 mg capsule 2022-09 0 00:00: 00 Yes [id number] 200mg Take 2 capsules by mouth once daily as needed for Constipati on. [facility] ferrous sulfate 325 mg (65 mg iron) tablet 2022-09 0 00:00: 00 Yes [id number] 325mg Take 1 tablet by mouth in the morning and 1 tablet in the evening. [facility] ibuprofen 600 mg tablet 2022-09 00:00: 00 Yes [id number] 600mg Take 1 tablet by mouth every 6 (six) hours as needed (Pain). Take with food or milk. [facility] [id number] fum-folic () 27 mg iron- 1 mg folic tablet 2022-09 0 00:00: 00 Yes [id number] 1{tbl} Take 1 tablet by mouth in the morning. [facility] docusate 100 mg capsule 2022-09 0 00:00: 00 Yes [id number] 200mg Take 2 capsules by mouth once daily as needed for Constipati on. [facility] ferrous sulfate 325 mg (65 mg iron) tablet 2022-09 0 00:00: 00 Yes [id number] 325mg Take 1 tablet by mouth in the morning and 1 tablet in the evening. [facility] ibuprofen 600 mg tablet 2022-09 0 00:00: 00 Yes [id number] 600mg Take 1 tablet by mouth every 6 (six) hours as needed (Pain). Take with food or milk. [facility] [id number] fum-folic () 27 mg iron- 1 mg folic tablet 2022-09 0 00:00: 00 Yes [id number] 1{tbl} Take 1 tablet by mouth in the morning. [facility] docusate 100 mg capsule 2022-09 0 00:00: 00 Yes [id number] 200mg Take 2 capsules by mouth once daily as needed for Constipati on. [facility] ferrous sulfate 325 mg (65 mg iron) tablet 2022-09 0 00:00: 00 Yes [id number] 325mg Take 1 tablet by mouth in the morning and 1 tablet in the evening. [facility] ibuprofen 600 mg tablet 2022-09 0 00:00: 00 Yes [id number] 600mg Take 1 tablet by mouth every 6 (six) hours as needed (Pain). Take with food or milk. [facility] [id number] fum-folic () 27 mg iron- 1 mg folic tablet 2022-09 00:00: 00 Yes [id number] 1{tbl} Take 1 tablet by mouth in the morning. [facility] docusate 100 mg capsule 2022-09 0 00:00: 00 Yes [id number] 200mg Take 2 capsules by mouth once daily as needed for Constipati on. [facility] ferrous sulfate 325 mg (65 mg iron) tablet 2022-09 0 00:00: 00 Yes [id number] 325mg Take 1 tablet by mouth in the morning and 1 tablet in the evening. [facility] ibuprofen 600 mg tablet 2022-09 0 00:00: 00 Yes [id number] 600mg Take 1 tablet by mouth every 6 (six) hours as needed (Pain). Take with food or milk. [facility] [id number] fum-folic () 27 mg iron- 1 mg folic tablet 2022-09 0 00:00: 00 Yes [id number] 1{tbl} Take 1 tablet by mouth in the morning. [facility] docusate 100 mg capsule 2022-09 0 00:00: 00 Yes [id number] 200mg Take 2 capsules by mouth once daily as needed for Constipati on. [facility] ferrous sulfate 325 mg (65 mg iron) tablet 2022-09 0 00:00: 00 Yes [id number] 325mg Take 1 tablet by mouth in the morning and 1 tablet in the evening. [facility] ibuprofen 600 mg tablet 2022-09 0 00:00: 00 Yes [id number] 600mg Take 1 tablet by mouth every 6 (six) hours as needed (Pain). Take with food or milk. [facility] [id number] fum-folic () 27 mg iron- 1 mg folic tablet 2022-09 0 00:00: 00 Yes [id number] 1{tbl} Take 1 tablet by mouth in the morning. [facility] docusate 100 mg capsule 2022-09 0 00:00: 00 Yes [id number] 200mg Take 2 capsules by mouth once daily as needed for Constipati on. [facility] ferrous sulfate 325 mg (65 mg iron) tablet 2022-09 0 00:00: 00 Yes [id number] 325mg Take 1 tablet by mouth in the morning and 1 tablet in the evening. [facility] ibuprofen 600 mg tablet 2022-09 0 00:00: 00 Yes [id number] 600mg Take 1 tablet by mouth every 6 (six) hours as needed (Pain). Take with food or milk. [facility] [id number] fum-folic () 27 mg iron- 1 mg folic tablet 2022-09 0 00:00: 00 Yes [id number] 1{tbl} Take 1 tablet by mouth in the morning. [facility] docusate 100 mg capsule 2022-09 0 00:00: 00 Yes [id number] 200mg Take 2 capsules by mouth once daily as needed for Constipati on. [facility] ferrous sulfate 325 mg (65 mg iron) tablet 2022-09 0 00:00: 00 Yes [id number] 325mg Take 1 tablet by mouth in the morning and 1 tablet in the evening. [facility] ibuprofen 600 mg tablet 2022-09 0 00:00: 00 Yes [id number] 600mg Take 1 tablet by mouth every 6 (six) hours as needed (Pain). Take with food or milk. [facility] [id number] fum-folic () 27 mg iron- 1 mg folic tablet 2022-09 0 00:00: 00 Yes [id number] 1{tbl} Take 1 tablet by mouth in the morning. [facility] docusate 100 mg capsule 2022-09 0 00:00: 00 Yes [id number] 200mg Take 2 capsules by mouth once daily as needed for Constipati on. [facility] ferrous sulfate 325 mg (65 mg iron) tablet 2022-09 00:00: 00 Yes [id number] 325mg Take 1 tablet by mouth in the morning and 1 tablet in the evening. [facility] ibuprofen 600 mg tablet 2022-09 00:00: 00 Yes [id number] 600mg Take 1 tablet by mouth every 6 (six) hours as needed (Pain). Take with food or milk. [facility] [id number] fum-folic () 27 mg iron- 1 mg folic tablet 2022-09 00:00: 00 Yes [id number] 1{tbl} Take 1 tablet by mouth in the morning. [facility] docusate 100 mg capsule 2022-09 00:00: 00 Yes [id number] 200mg Take 2 capsules by mouth once daily as needed for Constipati on. [facility] ferrous sulfate 325 mg (65 mg iron) tablet 2022-09 00:00: 00 Yes [id number] 325mg Take 1 tablet by mouth in the morning and 1 tablet in the evening. [facility] ibuprofen 600 mg tablet 2022-09 00:00: 00 Yes [id number] 600mg Take 1 tablet by mouth every 6 (six) hours as needed (Pain). Take with food or milk. [facility] [id number] fum-folic () 27 mg iron- 1 mg folic tablet 2022-09 00:00: 00 Yes [id number] 1{tbl} Take 1 tablet by mouth in the morning. [facility] docusate 100 mg capsule 2022-09 00:00: 00 Yes [id number] 200mg Take 2 capsules by mouth once daily as needed for Constipati on. [facility] ferrous sulfate 325 mg (65 mg iron) tablet 2022-09 00:00: 00 Yes [id number] 325mg Take 1 tablet by mouth in the morning and 1 tablet in the evening. [facility] ibuprofen 600 mg tablet 2022-09 0 00:00: 00 Yes [id number] 600mg Take 1 tablet by mouth every 6 (six) hours as needed (Pain). Take with food or milk. [facility] [id number] fum-folic () 27 mg iron- 1 mg folic tablet 2022-09 0 00:00: 00 Yes [id number] 1{tbl} Take 1 tablet by mouth in the morning. [facility] docusate 100 mg capsule 2022-09 0 00:00: 00 Yes [id number] 200mg Take 2 capsules by mouth once daily as needed for Constipati on. [facility] ferrous sulfate 325 mg (65 mg iron) tablet 2022-09 0 00:00: 00 Yes [id number] 325mg Take 1 tablet by mouth in the morning and 1 tablet in the evening. [facility] ibuprofen 600 mg tablet 2022-09 00:00: 00 Yes [id number] 600mg Take 1 tablet by mouth every 6 (six) hours as needed (Pain). Take with food or milk. [facility] [id number] fum-folic () 27 mg iron- 1 mg folic tablet 2022-09 0 00:00: 00 Yes [id number] 1{tbl} Take 1 tablet by mouth in the morning. [facility] docusate 100 mg capsule 2022-09 0 00:00: 00 Yes [id number] 200mg Take 2 capsules by mouth once daily as needed for Constipati on. [facility] ferrous sulfate 325 mg (65 mg iron) tablet 2022-09 0 00:00: 00 Yes [id number] 325mg Take 1 tablet by mouth in the morning and 1 tablet in the evening. [facility] ibuprofen 600 mg tablet 2022-09 0 00:00: 00 Yes [id number] 600mg Take 1 tablet by mouth every 6 (six) hours as needed (Pain). Take with food or milk. [facility] [id number] fum-folic () 27 mg iron- 1 mg folic tablet 2022-09 0 00:00: 00 Yes [id number] 1{tbl} Take 1 tablet by mouth in the morning. [facility] docusate 100 mg capsule 2022-09 0 00:00: 00 Yes [id number] 200mg Take 2 capsules by mouth once daily as needed for Constipati on. [facility] ferrous sulfate 325 mg (65 mg iron) tablet 2022-09 0 00:00: 00 Yes [id number] 325mg Take 1 tablet by mouth in the morning and 1 tablet in the evening. [facility] ibuprofen 600 mg tablet 2022-09 0 00:00: 00 Yes [id number] 600mg Take 1 tablet by mouth every 6 (six) hours as needed (Pain). Take with food or milk. [facility] [id number] fum-folic () 27 mg iron- 1 mg folic tablet 2022-09 0 00:00: 00 Yes [id number] 1{tbl} Take 1 tablet by mouth in the morning. [facility] docusate 100 mg capsule 2022-09 0 00:00: 00 Yes [id number] 200mg Take 2 capsules by mouth once daily as needed for Constipati on. [facility] ferrous sulfate 325 mg (65 mg iron) tablet 2022-09 00:00: 00 Yes [id number] 325mg Take 1 tablet by mouth in the morning and 1 tablet in the evening. [facility] ibuprofen 600 mg tablet 2022-09 0 00:00: 00 Yes [id number] 600mg Take 1 tablet by mouth every 6 (six) hours as needed (Pain). Take with food or milk. [facility] [id number] fum-folic () 27 mg iron- 1 mg folic tablet 2022-09 0 00:00: 00 Yes [id number] 1{tbl} Take 1 tablet by mouth in the morning. [facility] docusate 100 mg capsule 2022-09 0 00:00: 00 Yes [id number] 200mg Take 2 capsules by mouth once daily as needed for Constipati on. [facility] ferrous sulfate 325 mg (65 mg iron) tablet 2022-09 0 00:00: 00 Yes [id number] 325mg Take 1 tablet by mouth in the morning and 1 tablet in the evening. [facility] ibuprofen 600 mg tablet 2022-09 0 00:00: 00 Yes [id number] 600mg Take 1 tablet by mouth every 6 (six) hours as needed (Pain). Take with food or milk. [facility] [id number] fum-folic () 27 mg iron- 1 mg folic tablet 2022-09 0 00:00: 00 Yes [id number] 1{tbl} Take 1 tablet by mouth in the morning. [facility] docusate 100 mg capsule 2022-09 0 00:00: 00 Yes [id number] 200mg Take 2 capsules by mouth once daily as needed for Constipati on. [facility] ferrous sulfate 325 mg (65 mg iron) tablet 2022-09 00:00: 00 Yes [id number] 325mg Take 1 tablet by mouth in the morning and 1 tablet in the evening. [facility] ibuprofen 600 mg tablet 2022-09 00:00: 00 Yes [id number] 600mg Take 1 tablet by mouth every 6 (six) hours as needed (Pain). Take with food or milk. [facility] [id number] fum-folic () 27 mg iron- 1 mg folic tablet 2022-09 00:00: 00 Yes [id number] 1{tbl} Take 1 tablet by mouth in the morning. [facility] docusate 100 mg capsule 2022-09 0 00:00: 00 Yes [id number] 200mg Take 2 capsules by mouth once daily as needed for Constipati on. [facility] ferrous sulfate 325 mg (65 mg iron) tablet 2022-09 0 00:00: 00 Yes [id number] 325mg Take 1 tablet by mouth in the morning and 1 tablet in the evening. [facility] ibuprofen 600 mg tablet 2022-09 0 00:00: 00 Yes [id number] 600mg Take 1 tablet by mouth every 6 (six) hours as needed (Pain). Take with food or milk. [facility] [id number] fum-folic () 27 mg iron- 1 mg folic tablet 2022-09 0 00:00: 00 Yes [id number] 1{tbl} Take 1 tablet by mouth in the morning. [facility] docusate 100 mg capsule 2022-09 0 00:00: 00 Yes [id number] 200mg Take 2 capsules by mouth once daily as needed for Constipati on. [facility] ferrous sulfate 325 mg (65 mg iron) tablet 2022-09 0 00:00: 00 Yes [id number] 325mg Take 1 tablet by mouth in the morning and 1 tablet in the evening. [facility] ibuprofen 600 mg tablet 2022-09 0 00:00: 00 Yes [id number] 600mg Take 1 tablet by mouth every 6 (six) hours as needed (Pain). Take with food or milk. [facility] [id number] fum-folic () 27 mg iron- 1 mg folic tablet 2022-09 00:00: 00 Yes [id number] 1{tbl} Take 1 tablet by mouth in the morning. [facility] docusate 100 mg capsule 2022-09 0 00:00: 00 Yes [id number] 200mg Take 2 capsules by mouth once daily as needed for Constipati on. [facility] ferrous sulfate 325 mg (65 mg iron) tablet 2022-09 0 00:00: 00 Yes [id number] 325mg Take 1 tablet by mouth in the morning and 1 tablet in the evening. [facility] ibuprofen 600 mg tablet 2022-09 0 00:00: 00 Yes [id number] 600mg Take 1 tablet by mouth every 6 (six) hours as needed (Pain). Take with food or milk. [facility] [id number] fum-folic () 27 mg iron- 1 mg folic tablet 2022-09 0 00:00: 00 Yes [id number] 1{tbl} Take 1 tablet by mouth in the morning. [facility] docusate 100 mg capsule 2022-09 0 00:00: 00 Yes [id number] 200mg Take 2 capsules by mouth once daily as needed for Constipati on. [facility] ferrous sulfate 325 mg (65 mg iron) tablet 2022-09 0 00:00: 00 Yes [id number] 325mg Take 1 tablet by mouth in the morning and 1 tablet in the evening. [facility] ibuprofen 600 mg tablet 2022-09 00:00: 00 Yes [id number] 600mg Take 1 tablet by mouth every 6 (six) hours as needed (Pain). Take with food or milk. [facility] [id number] fum-folic () 27 mg iron- 1 mg folic tablet 2022-09 00:00: 00 Yes [id number] 1{tbl} Take 1 tablet by mouth in the morning. [facility] docusate 100 mg capsule 2022-09 00:00: 00 Yes [id number] 200mg Take 2 capsules by mouth once daily as needed for Constipati on. [facility] ferrous sulfate 325 mg (65 mg iron) tablet 2022-09 00:00: 00 Yes [id number] 325mg Take 1 tablet by mouth in the morning and 1 tablet in the evening. [facility] ibuprofen 600 mg tablet 2022-09 00:00: 00 Yes [id number] 600mg Take 1 tablet by mouth every 6 (six) hours as needed (Pain). Take with food or milk. [facility] metFORMIN 500 mg tablet 2022-09 00:00: 00 09-20 05:59 :00 Yes [id number] 500mg Take 1 tablet by mouth in the morning and 1 tablet in the evening. Take with meals. Do all this for 90 days. [facility] metFORMIN 500 mg tablet 2022-09 00:00: 00 09-20 05:59 :00 Yes [id number] 500mg Take 1 tablet by mouth in the morning and 1 tablet in the evening. Take with meals. Do all this for 90 days. [facility] metFORMIN 500 mg tablet 2022-09 00:00: 00 09-20 05:59 :00 Yes [id number] 500mg Take 1 tablet by mouth in the morning and 1 tablet in the evening. Take with meals. Do all this for 90 days. [facility] metFORMIN 500 mg tablet 2022- 0-17 00:00: 00 09-20 05:59 :00 Yes [id number] 500mg Take 1 tablet by mouth in the morning and 1 tablet in the evening. Take with meals. Do all this for 90 days. [facility] metFORMIN 500 mg tablet 2022- 0-17 00:00: 00 09-20 05:59 :00 Yes [id number] 500mg Take 1 tablet by mouth in the morning and 1 tablet in the evening. Take with meals. Do all this for 90 days. [facility] metFORMIN 500 mg tablet 2022- 0-17 00:00: 00 09-20 05:59 :00 Yes [id number] 500mg Take 1 tablet by mouth in the morning and 1 tablet in the evening. Take with meals. Do all this for 90 days. [facility] metFORMIN 500 mg tablet 2022- 0-17 00:00: 00 09-20 05:59 :00 Yes [id number] 500mg Take 1 tablet by mouth in the morning and 1 tablet in the evening. Take with meals. Do all this for 90 days. [facility] metFORMIN 500 mg tablet 2022- 0-17 00:00: 00 09-20 05:59 :00 Yes [id number] 500mg Take 1 tablet by mouth in the morning and 1 tablet in the evening. Take with meals. Do all this for 90 days. [facility] metFORMIN 500 mg tablet 2022- 0-17 00:00: 00 09-20 05:59 :00 Yes [id number] 500mg Take 1 tablet by mouth in the morning and 1 tablet in the evening. Take with meals. Do all this for 90 days. [facility] metFORMIN 500 mg tablet 2022- 0-17 00:00: 00 09-20 05:59 :00 Yes [id number] 500mg Take 1 tablet by mouth in the morning and 1 tablet in the evening. Take with meals. Do all this for 90 days. [facility] metFORMIN 500 mg tablet 2022- 0-17 00:00: 00 09-20 05:59 :00 Yes [id number] 500mg Take 1 tablet by mouth in the morning and 1 tablet in the evening. Take with meals. Do all this for 90 days. [facility] metFORMIN 500 mg tablet 2022- 0-17 00:00: 00 09-20 05:59 :00 Yes [id number] 500mg Take 1 tablet by mouth in the morning and 1 tablet in the evening. Take with meals. Do all this for 90 days. [facility] metFORMIN 500 mg tablet 2022- 0-17 00:00: 00 09-20 05:59 :00 Yes [id number] 500mg Take 1 tablet by mouth in the morning and 1 tablet in the evening. Take with meals. Do all this for 90 days. [facility] metFORMIN 500 mg tablet 2022- 0-17 00:00: 00 09-20 05:59 :00 Yes [id number] 500mg Take 1 tablet by mouth in the morning and 1 tablet in the evening. Take with meals. Do all this for 90 days. [facility] metFORMIN 500 mg tablet 2022- 0-17 00:00: 00 09-20 05:59 :00 Yes [id number] 500mg Take 1 tablet by mouth in the morning and 1 tablet in the evening. Take with meals. Do all this for 90 days. [facility] metFORMIN 500 mg tablet 2022- 0-17 00:00: 00 09-20 05:59 :00 Yes [id number] 500mg Take 1 tablet by mouth in the morning and 1 tablet in the evening. Take with meals. Do all this for 90 days. [facility] metFORMIN 500 mg tablet 2022- 0-17 00:00: 00 09-20 05:59 :00 Yes [id number] 500mg Take 1 tablet by mouth in the morning and 1 tablet in the evening. Take with meals. Do all this for 90 days. [facility] metFORMIN 500 mg tablet 3- 0-17 00:00: 00 09-20 05:59 :00 Yes [id number] 500mg Take 1 tablet by mouth in the morning and 1 tablet in the evening. Take with meals. Do all this for 90 days. [facility] metFORMIN 500 mg tablet 2022-09 0-17 00:00: 00 09-20 05:59 :00 Yes [id number] 500mg Take 1 tablet by mouth in the morning and 1 tablet in the evening. Take with meals. Do all this for 90 days. [facility] metFORMIN 500 mg tablet 2022-09 0-17 00:00: 00 09-20 05:59 :00 Yes [id number] 500mg Take 1 tablet by mouth in the morning and 1 tablet in the evening. Take with meals. Do all this for 90 days. [facility] metFORMIN 500 mg tablet 2022-09 0-17 00:00: 00 09-20 05:59 :00 Yes [id number] 500mg Take 1 tablet by mouth in the morning and 1 tablet in the evening. Take with meals. Do all this for 90 days. [facility] metFORMIN 500 mg tablet 2022-09 0-17 00:00: 00 09-20 05:59 :00 Yes [id number] 500mg Take 1 tablet by mouth in the morning and 1 tablet in the evening. Take with meals. Do all this for 90 days. [facility] HYDROcodone -acetaminop hen 5-325 mg tablet 2022-09 0-17 00:00: 00 06-29 04:59 :00 Yes [id number] 1{tbl} Take 1 tablet by mouth every 6 (six) hours as needed (Pain scale above 4) for up to 7 days. Do not exceed 3 grams of acetaminop hen in 24 hours. Indication s: acute pain [facility] HYDROcodone -acetaminop hen 5-325 mg tablet 2022-09 0-17 00:00: 00 06-29 04:59 :00 Yes [id number] 1{tbl} Take 1 tablet by mouth every 6 (six) hours as needed (Pain scale above 4) for up to 7 days. Do not exceed 3 grams of acetaminop hen in 24 hours. Indication s: acute pain [facility] HYDROcodone -acetaminop hen 5-325 mg tablet 2022-09 0-17 00:00: 00 06-29 04:59 :00 Yes [id number] 1{tbl} Take 1 tablet by mouth every 6 (six) hours as needed (Pain scale above 4) for up to 7 days. Do not exceed 3 grams of acetaminop hen in 24 hours. Indication s: acute pain [facility] HYDROcodone -acetaminop hen 5-325 mg tablet 2022-09 0-17 00:00: 00 06-29 04:59 :00 Yes [id number] 1{tbl} Take 1 tablet by mouth every 6 (six) hours as needed (Pain scale above 4) for up to 7 days. Do not exceed 3 grams of acetaminop hen in 24 hours. [facility] -[facility] 5-325 mg tablet 2022-09 0 00:00: 00 06-29 04:59 :00 Yes [id number] 1{tbl} Take 1 tablet by mouth every 6 (six) hours as needed (Pain scale above 4) for up to 7 days. Do not exceed 3 grams of acetaminop hen in 24 hours. Indication s: acute pain [facility] HYDROcodone -acetaminop hen 5-325 mg tablet 2022-09 0 00:00: 00 06-29 04:59 :00 Yes [id number] 1{tbl} Take 1 tablet by mouth every 6 (six) hours as needed (Pain scale above 4) for up to 7 days. Do not exceed 3 grams of acetaminop hen in 24 hours. Indication s: acute pain [facility] HYDROcodone -acetaminop hen 5-325 mg tablet 2022-09 0 00:00: 00 06-29 04:59 :00 No [id number] 1{tbl} Take 1 tablet by mouth every 6 (six) hours as needed (Pain scale above 4) for up to 7 days. Do not exceed 3 grams of acetaminop hen in 24 hours. Indication s: acute pain [facility] ibuprofen (IBU) tablet 600 mg 2022-09 016 18:37: 03 Yes 600mg 600 mg, Oral, Q6HPRN, Starting on Tue06/20/23 at 1337, Until Discontinu ed, Routine, Pain (scale 4-6) [facility] acetaminoph en (TYLENOL) tablet 650 mg 2022-09 18:37: 03 Yes 650mg 650 mg, Oral, Q6HPRN, Starting on Tue06/20/23 at 1337, Until Discontinu ed, Routine, Pain (scale 1-3) [facility] diphenhydrA MINE (BENADRYL) tablet 25 mg 2022-09 18:37: 03 Yes 25mg 25 mg, Oral, Q6HPRN, Starting on Tue06/20/23 at 1337, Until Discontinu ed, Routine, Sleep, Itching [facility] ondansetron (ZOFRAN (PF)) injection 4 mg 2022-09 18:37: 03 Yes 4mg 4 mg, Slow IV Push, Q8HPRN, Starting on Tue06/20/23 at 1337, Until Discontinu ed, Routine, Nausea and Vomiting (N/V) [facility] simethicone (GAS RELIEF (SIMETHICON E)) chewable tablet 160 mg 2022-09 18:37: 03 Yes 160mg 160 mg, Oral, PC+HSPRN, Starting on Tue06/20/23 at 1337, Until Discontinu ed, Routine, Gas [facility] docusate (COLACE) capsule 200 mg 2022-09 18:37: 03 Yes 200mg 200 mg, Oral, QDAILYPRN, Starting on Tue06/20/23 at 1337, Until Discontinu ed, Routine, Constipati on [facility] magnesium hydroxide (MILK OF MAGNESIA) 400 mg/5 mL suspension 30 mL 2022-09 18:37: 03 Yes 30mL 30 mL, Oral, QDAILYPRN, Starting on Tue06/20/23 at 1337, Until Discontinu ed, Routine, Constipati on [facility] benzocaine- menthol (DERMOPLAST ) 20-0.5 % topical spray 2022-09 18:37: 03 Yes Topical, PRN, Starting on Tue06/20/23 at 1337, Until Discontinu ed, Routine, Perineum discomfort [facility] ibuprofen (IBU) tablet 600 mg 2022-09 18:37: 03 06-22 02:30 :01 No 600mg 600 mg, Oral, Q6HPRN, Starting on Tue06/20/23 at 1337, Until Tue06/21/23 at 2130, Routine, Pain (scale 4-6) [facility] acetaminoph en (TYLENOL) tablet 650 mg 2022-09 18:37: 03 06-22 02:30 :01 No 650mg 650 mg, Oral, Q6HPRN, Starting on Tue06/20/23 at 1337, Until Tue06/21/23 at 2130, Routine, Pain (scale 1-3) [facility] diphenhydrA MINE (BENADRYL) tablet 25 mg 2022-09 18:37: 03 06-22 02:30 :01 No 25mg 25 mg, Oral, Q6HPRN, Starting on Tue06/20/23 at 1337, Until Tue06/21/23 at 2130, Routine, Sleep, Itching [facility] ondansetron (ZOFRAN (PF)) injection 4 mg 2022-09 18:37: 03 06-22 02:30 :01 No 4mg 4 mg, Slow IV Push, Q8HPRN, Starting on Tue06/20/23 at 1337, Until Tue06/21/23 at 2130, Routine, Nausea and Vomiting (N/V) [facility] simethicone (GAS RELIEF (SIMETHICON E)) chewable tablet 160 mg 2022-09 18:37: 03 06-22 02:30 :01 No 160mg 160 mg, Oral, PC+HSPRN, Starting on Tue06/20/23 at 1337, Until Tue06/21/23 at 2130, Routine, Gas [facility] docusate (COLACE) capsule 200 mg 2022-09 18:37: 03 06-22 02:30 :01 No 200mg 200 mg, Oral, QDAILYPRN, Starting on Tue06/20/23 at 1337, Until Tue06/21/23 at 2130, Routine, Constipati on [facility] magnesium hydroxide (MILK OF MAGNESIA) 400 mg/5 mL suspension 30 mL 2022-09 18:37: 03 06-22 02:30 :01 No 30mL 30 mL, Oral, QDAILYPRN, Starting on Tue06/20/23 at 1337, Until Tue06/21/23 at 2130, Routine, Constipati on [facility] benzocaine- menthol (DERMOPLAST ) 20-0.5 % topical spray 2022-09 18:37: 03 06-22 02:30 :01 No Topical, PRN, Starting on Tue06/20/23 at 1337, Until Tue06/21/23 at 2130, Routine, Perineum discomfort [facility] albumin (ALBUTEIN 5 %) 5 % injection 12.5 g 2022-09 17:30: 00 06-20 16:20 :00 No 12.5g 12.5 g, IV Infusion, ONCE, 1 dose, On Tue06/20/23 at 1230, 250 mL, PACU
In dication: NON-APPROV ED INDICATION - PHARMACY WILL CALL ORDERING PROVIDER<b r>Specific Indication : Fluid rescucitat ion
Fac ulty Requesting Approval: KASSIE SHEPHERD [facility] naloxone (NARCAN) injection 0.4 mg 2022-09 15:09: 46 06-22 23:14 :19 No .4mg 0.4 mg, Slow IV Push, PRN - SEE INSTRUCTIO NS, Starting on Tue06/20/23 at 1009, Until Tue06/22/23 at 1814, Routine, Analgesia Recovery [facility] naloxone (NARCAN) injection 0.4 mg 2022-09 15:09: 46 06-22 02:30 :01 No .4mg 0.4 mg, Slow IV Push, PRN - SEE INSTRUCTIO NS, Starting on Tue06/20/23 at 1009, Until Tue06/21/23 at 2130, Routine, Analgesia Recovery [facility] ibuprofen (IBU) tablet 600 mg 2022-09 15:00: 02 Yes 600mg 600 mg, Oral, Q6HPRN, Starting on Tue06/20/23 at 1000, Until Discontinu ed, Routine, Pain (scale 1-3) [facility] ibuprofen (IBU) tablet 600 mg 2022-09 15:00: 02 06-22 02:30 :01 No 600mg 600 mg, Oral, Q6HPRN, Starting on Tue06/20/23 at 1000, Until Tue06/21/23 at 2130, Routine, Pain (scale 1-3) [facility] HYDROcodone -acetaminop hen (NORCO 5) 5-325 mg tablet 1 tablet 2022-09 14:50: 36 Yes 1{tbl} 1 tablet, Oral, Q6HPRN, Starting on Tue06/20/23 at 0950, Until Discontinu ed, Routine, Pain (scale 4-6) [facility] HYDROcodone -acetaminop hen (NORCO 5) 5-325 mg tablet 1 tablet 2022-09 14:50: 36 06-22 02:30 :01 No 1{tbl} 1 tablet, Oral, Q6HPRN, Starting on Tue06/20/23 at 0950, Until Tue06/21/23 at 2130, Routine, Pain (scale 4-6) [facility] diphenoxyla te-atropine (LOMOTIL) 2.5-0.025 mg tablet 1 tablet 2022-09 13:15: 00 06-20 12:30 :00 No 1{tbl} 1 tablet, Oral, ONCE NOW, 1 dose, On Tue06/20/23 at 0815, Routine [facility] lactated ringers IV infusion 500 mL 2022-09 13:02: 00 06-20 13:04 :22 No 500mL at 999 mL/hr, 500 mL, Intravenou s, ONCE, 1 dose, On Tue06/20/23 at 0815, Routine [facility] cefOXitin (MEFOXIN) 2 g in NaCl 0.9% (NS) 100 mL MINI-BAG 2022-09 11:15: 00 06-20 11:11 :00 No 2g 2 g, IV Piggyback, ONCE, 1 dose, On Tue06/20/23 at 0615, Administer over 30 Minutes, 100 mL
Reas on for Anti-Infec tive: Surgical Prophylaxi s
Surgi alice Prophylaxi s: FUR BLOWER
Duration of therapy: within 24 hours of surgery [facility] diphenoxyla te-atropine (LOMOTIL) 2.5-0.025 mg tablet 1 tablet 2022-09 10:30: 00 06-20 09:21 :00 No 1{tbl} 1 tablet, Oral, ONCE, 1 dose, On Tue06/20/23 at 0530, Routine [facility] ondansetron (ZOFRAN (PF)) injection 4 mg 2022-09 10:15: 00 06-20 09:36 :00 No 4mg 4 mg, Slow IV Push, ONCE, On Tue06/20/23 at 0515, For 1 dose
Do ses of ondansetro n 16 mg and above need to be administer ed via IV piggyback. For Dose >=24mg ECG monitoring is advisable.
[facility] carboprost (HEMABATE) injection 250 mcg 2022-09 10:15: 00 06-20 09:12 :00 No 250ug 250 mcg, Intramuscu lar, ONCE, 1 dose, On Tue06/20/23 at 0515, Routine [facility] oxytocin (PITOCIN) 30 units in NS 500 mL IV infusion 2022-09 08:08: 11 Yes 600mL/h 600 mL/hr, IV Infusion, PRN, For post delivery uterine atony., Starting on Tue06/20/[address] at 600 mL/hr for 1 hr then 150 mL/hr for 1 hr.
[facility] oxytocin (PITOCIN) 30 units in NS 500 mL IV infusion 2022-09 08:08: 11 Yes 300mL/h 300 mL/hr, IV Infusion, SEE-INSTRU CTIONS, Starting on Tue06/20/[address] at 300 mL/hr for 1 hr then 150 mL/hr for 1 hr. For post delivery uterotonic .
[facility] oxytocin (PITOCIN) 30 units in NS 500 mL IV infusion 2022-09 08:08: 11 06-22 02:30 :01 No 600mL/h 600 mL/hr, IV Infusion, PRN, For post delivery uterine atony., Starting on Tue06/20/[address] at 600 mL/hr for 1 hr then 150 mL/hr for 1 hr.
[facility] oxytocin (PITOCIN) 30 units in NS 500 mL IV infusion 2022-09 08:08: 11 06-22 02:30 :01 No 300mL/h 300 mL/hr, IV Infusion, SEE-INSTRU CTIONS, Starting on Tue06/20/[address] at 300 mL/hr for 1 hr then 150 mL/hr for 1 hr. For post delivery uterotonic .
[facility] oxytocin (PITOCIN) 30 units in NS 500 mL IV infusion 2022-09 03:37: 49 06-20 18:37 :11 No 2mU/min at 2-40 mL/hr, IV Infusion, TITRATE, Starting on Tue06/19/23 at 2237, Until Tue06/20/23 at 1337, ATIF [facility] ropivacaine 0.2 % (NAROPIN (PF)) epidural infusion 2022-09 03:02: 00 06-20 13:23 :25 No Epidural, CONTINUOUS PRN, Starting on Tue06/19/23 at 2202, Until Tue06/20/23 at 0823, Routine, Intra-op [facility] lidocaine-e pinephrine (XYLOCAINE W/EPINEPHRI NE) 1.5 %-1:200,000 injection 2022-09 03:00: 00 06-20 13:23 :25 No Epidural, ONCE INTRA PROCEDURE, Starting on Tue06/19/23 at 2200, Until Tue06/20/23 at 0823, Routine, Intra-op [facility] sodium citrate-cit samantha acid (BICITRA) 500-334 mg/5 mL solution 30 mL 2022-09 02:33: 43 06-20 02:51 :00 No 30mL 30 mL, Oral, PRE-PROCED URE ONCE, 1 dose, Starting on Tue06/19/23 at 2133, Until Tue06/19/23 at 2151, Routine, Surgery/Pr ocedure [facility] lactated ringers IV infusion 500 mL 2022-09 02:33: 43 06-20 10:10 :09 No 500mL at 999 mL/hr, 500 mL, IV Infusion, PRN - SEE INSTRUCTIO NS, 1 dose, Starting on Tue06/19/23 at 2133, Until Discontinu ed, Routine [facility] Sliding Scale Insulin 2022-09 01:16: 47 06-20 18:37 :11 No Subcutaneo us, SEE-INSTRU CTIONS, Starting on Tue06/19/23 at 2015, Until Tue06/20/23 at 1337, Routine [facility] sodium citrate-cit samantha acid (BICITRA) 500-334 mg/5 mL solution 30 mL 2022-09 01:16: 47 06-20 14:36 :00 No 30mL 30 mL, Oral, PRE-PROCED URE ONCE, 1 dose, Starting on Tue06/19/23 at 2016, Until Discontinu ed, Routine, Surgery/Pr ocedure [facility] lactated ringers IV infusion 500 mL 2022-09 01:16: 47 06-20 18:37 :11 No 500mL at 999 mL/hr, 500 mL, IV Infusion, PRN - SEE INSTRUCTIO NS, Starting on Tue06/19/23 at 2015, Until Tue06/20/23 at 1337, Routine [facility] D5W-LR IV infusion 1,000 mL 2022-09 01:16: 47 06-20 18:37 :11 No 1000mL at 1-125 mL/hr, IV Infusion, TITRATE, Starting on Tue06/19/23 at 2016, Until Tue06/20/23 at 1337, Routine [facility] Nitrofurant oin&Nit. Macrocryst 100 mg capsule 2022-09 0 00:00: 00 06-11 04:59 :00 No [id number] 100mg Take 1 capsule by mouth in the morning and 1 capsule in the evening. Do all this for 5 days. [facility] acetaminoph en (TYLENOL) tablet 1,000 mg 05-16 23:30: 00 05-16 22:46 :00 No 1000mg 1,000 mg, Oral, ONCE, 1 dose, On Tue05/16/23 at 1830, Routine [facility] acetaminoph en (TYLENOL) tablet 1,000 mg 05-14 00:30: 00 05-13 23:36 :00 No 1000mg 1,000 mg, Oral, ONCE, 1 dose, On Tue05/13/23 at 1930, Routine [facility] lactated ringers IV infusion 500 mL 05-13 22:15: 00 05-13 21:43 :28 No 500mL at 999 mL/hr, 500 mL, Intravenou s, ONCE, 1 dose, On Tue05/13/23 at 1715, Routine [facility] lactated ringers IV infusion 500 mL 05-09 02:15: 00 05-09 01:42 :00 No 500mL at 999 mL/hr, 500 mL, Intravenou s, ONCE, 1 dose, On Tue05/08/23 at 2115, Routine [facility] acetaminoph en (TYLENOL) tablet 650 mg 05-09 01:30: 05 Yes 650mg 650 mg, Oral, Q6HPRN, Starting on Tue05/08/23 at 2030, Until Discontinu ed, Routine, Pain (scale 4-6) [facility] ondansetron (ZOFRAN (PF)) injection 4 mg 05-08 22:25: 08 Yes 4mg 4 mg, Slow IV Push, Q6HPRN, Nausea and Vomiting (N/V), Starting on 05/08/23 at 1725
Do ses of ondansetro n 16 mg and above need to be administer ed via IV piggyback. For Dose >=24mg ECG monitoring is advisable.
[facility] acetaminoph en (TYLENOL) tablet 1,000 mg 05-07 19:15: 00 05-07 18:06 :00 No 1000mg 1,000 mg, Oral, ONCE, 1 dose, On 05/07/23 at 1415, Routine [facility] Sliding Scale Insulin-Reg ular 05-07 13:00: 00 Yes Subcutaneo us, Q4H, First dose on 05/07/23 at 0800, Until Discontinu ed, Routine [facility] D5W-LR IV infusion 1,000 mL 05-07 12:45: 00 Yes 1000mL at 75 mL/hr, IV Infusion, CONTINUOUS , Starting on 05/07/23 at 0745, Until Discontinu ed, Routine [facility] dextrose 10% (D10W) bolus infusion 250 mL 05-07 12:34: 31 Yes 250mL 250 mL, IV Infusion, PRN - SEE INSTRUCTIO NS, Administer over 60 Minutes, Other, If blood glucose is < or = 70 mg/dL and patient is unable to swallow or has mental status changes, Starting on 05/07/23 at 0734
If blood glucose is < or = 70 mg/dL and patient is unable to swallow or has mental status changes (Give glucagon order if patient needs fluid restrictio n): IF IV access available: Dextrose 10%. 1. 125 mL (? bag) of D10W IV infusion - equivalent to 12.5 g dextrose 2. Blood glucose - draw blood glucose 15 minutes after D10W Administra tion. 3. If blood glucose is < 80 mg/dL, repeat.
[facility] glucagon (GLUCAGEN DIAGNOSTIC KIT) injection 1 mg 05-07 12:34: 28 Yes 1mg 1 mg, Intramuscu lar, PRN, Starting on 05/07/23 at 0734, Until Discontinu ed, ATIF, Blood Glucose < or = 70 mg/dL and patient is NPO, unable to swallow or has mental changes. [facility] alum-mag hydroxide-s imeth (MAG-AL PLUS) 200-200-20 mg/5 mL suspension 30 mL 05-07 11:55: 10 Yes 30mL 30 mL, Oral, Q6HPRN, Starting on 05/07/23 at 0655, Until Discontinu ed, Routine, Indigestio n [facility] docusate (COLACE) capsule 200 mg 05-07 11:55: 10 Yes 200mg 200 mg, Oral, QHSPRN, Starting on 05/07/23 at 0655, Until Discontinu ed, Routine, Constipati on [facility] magnesium hydroxide (MILK OF MAGNESIA) 400 mg/5 mL suspension 30 mL 05-07 11:55: 10 Yes 30mL 30 mL, Oral, QDAILYPRN, Starting on 05/07/23 at 0655, Until Discontinu ed, Routine, Constipati on [facility] lactated ringers IV infusion 500 mL 05-07 10:45: 00 05-07 10:30 :00 No 500mL at 999 mL/hr, 500 mL, Intravenou s, ONCE, 1 dose, On 05/07/23 at 0545, Routine [facility] acetaminoph en (TYLENOL) tablet 1,000 mg 05-07 10:45: 00 05-07 11:12 :00 No 1000mg 1,000 mg, Oral, ONCE, 1 dose, On 05/07/23 at 0545, Routine [facility] Sliding Scale Insulin-Reg ular 05-04 12:30: 00 Yes Subcutaneo us, AC+HS, First dose on Tue05/04/23 at 0730, Until Discontinu ed, Routine [facility] betamethaso ne acet,sod phos (CELESTONE SOLUSPAN) 6 mg/mL injection 12 mg 05-04 08:00: 00 05-05 08:26 :00 No 12mg 12 mg, Intramuscu lar, Q24H, 2 doses, First dose on Tue05/04/23 at 0300, Last dose on Tue05/05/23 at 0300, Routine [facility] hydrOXYzine (ATARAX) tablet 25 mg 05-04 04:30: 00 05-04 04:31 :00 No 25mg 25 mg, Oral, ONCE, 1 dose, On Tue05/03/23 at 2330, Routine [facility] terbutaline (BRETHINE) injection 0.25 mg 05-04 03:15: 00 05-04 02:34 :00 No .25mg 0.25 mg, Subcutaneo us, ONCE, 1 dose, On Tue05/03/23 at 2215, Routine [facility] terbutaline (BRETHINE) injection 0.25 mg 05-04 01:30: 00 05-04 00:55 :00 No .25mg 0.25 mg, Subcutaneo us, ONCE, 1 dose, On Tue05/03/23 at 2030, Routine [facility] NaCl 0.9% (NS) IV infusion 1,000 mL 05-04 00:00: 00 Yes 1000mL at 125 mL/hr, IV Infusion, CONTINUOUS , Starting on Tue05/03/23 at 1900, Until Discontinu ed, Routine [facility] NaCl 0.9% (NS) IV infusion 500 mL 05-03 23:31: 00 05-03 23:45 :00 No 500mL at 999 mL/hr, IV Infusion, ONCE, 1 dose, On Tue05/03/23 at 1845, Routine [facility] metroNIDAZO LE (FLAGYL) tablet 500 mg 04-21 00:30: 00 04-20 23:15 :00 No 500mg 500 mg, Oral, ONCE NOW, 1 dose, On Tue04/20/23 at 1930, Routine
Reason for Anti-Infec tive: Documented Infection< br>Documen jade Infection Site: Urine
D uration of Therapy: Other (see Comments) [facility] NaCl 0.9% (NS) bolus infusion 1,000 mL 04-21 00:15: 00 04-20 21:35 :00 No 1000mL at 999 mL/hr, 1,000 mL, IV Infusion, ONCE, 1 dose, On Tue04/20/23 at 1914, STAT [facility] cyclobenzap rine (FLEXERIL) tablet 10 mg 04-21 00:15: 00 04-20 22:15 :00 No 10mg 10 mg, Oral, ONCE NOW, 1 dose, On Tue04/20/23 at 1914, Routine [facility] acetaminoph en (TYLENOL) tablet 650 mg 04-21 00:15: 00 04-20 22:15 :00 No 650mg 650 mg, Oral, ONCE NOW, 1 dose, On Tue04/20/23 at 1914, Routine [facility] metoclopram kenton HCl (REGLAN) injection 10 mg 04-21 00:15: 00 04-20 22:14 :00 No 10mg 10 mg, Slow IV Push, ONCE NOW, 1 dose, On Tue04/20/23 at 1914, Routine [facility] NaCl 0.9% (NS) bolus infusion 1,000 mL 04-21 00:15: 00 04-20 22:36 :00 No 1000mL at 999 mL/hr, 1,000 mL, IV Infusion, ONCE, 1 dose, On Tue04/20/23 at 1914, STAT [facility] pyridoxine, vitamin B6, 50 mg tablet 03-17 00:00: 00 Yes [id number] 50mg Take 1 tablet by mouth in the morning and 1 tablet in the evening. [facility] pyridoxine, vitamin B6, 50 mg tablet 03-17 00:00: 00 Yes [id number] 50mg Take 1 tablet by mouth in the morning and 1 tablet in the evening. [facility] pyridoxine, vitamin B6, 50 mg tablet 2023-0 7-13 00:00: 00 Yes [id number] 50mg Take 1 tablet by mouth in the morning and 1 tablet in the evening. [facility] pyridoxine, vitamin B6, 50 mg tablet 3-0 7-13 00:00: 00 Yes [id number] 50mg Take 1 tablet by mouth in the morning and 1 tablet in the evening. [facility] pyridoxine, vitamin B6, 50 mg tablet 3-0 7-13 00:00: 00 Yes [id number] 50mg Take 1 tablet by mouth in the morning and 1 tablet in the evening. [facility] pyridoxine, vitamin B6, 50 mg tablet 3-0 7-13 00:00: 00 Yes [id number] 50mg Take 1 tablet by mouth in the morning and 1 tablet in the evening. [facility] pyridoxine, vitamin B6, 50 mg tablet 3-0 7-13 00:00: 00 Yes [id number] 50mg Take 1 tablet by mouth in the morning and 1 tablet in the evening. [facility] pyridoxine, vitamin B6, 50 mg tablet 3-0 7-13 00:00: 00 Yes [id number] 50mg Take 1 tablet by mouth in the morning and 1 tablet in the evening. [facility] pyridoxine, vitamin B6, 50 mg tablet 3-0 7-13 00:00: 00 Yes [id number] 50mg Take 1 tablet by mouth in the morning and 1 tablet in the evening. [facility] pyridoxine, vitamin B6, 50 mg tablet 3-0 7-13 00:00: 00 Yes [id number] 50mg Take 1 tablet by mouth in the morning and 1 tablet in the evening. [facility] pyridoxine, vitamin B6, 50 mg tablet 3-0 7-13 00:00: 00 Yes [id number] 50mg Take 1 tablet by mouth in the morning and 1 tablet in the evening. [facility] pyridoxine, vitamin B6, 50 mg tablet 2023-0 7-13 00:00: 00 Yes [id number] 50mg Take 1 tablet by mouth in the morning and 1 tablet in the evening. [facility] pyridoxine, vitamin B6, 50 mg tablet 3-0 7-13 00:00: 00 Yes [id number] 50mg Take 1 tablet by mouth in the morning and 1 tablet in the evening. [facility] pyridoxine, vitamin B6, 50 mg tablet 3-0 7-13 00:00: 00 Yes [id number] 50mg Take 1 tablet by mouth in the morning and 1 tablet in the evening. [facility] pyridoxine, vitamin B6, 50 mg tablet 3-0 7-13 00:00: 00 Yes [id number] 50mg Take 1 tablet by mouth in the morning and 1 tablet in the evening. [facility] pyridoxine, vitamin B6, 50 mg tablet 3-0 7-13 00:00: 00 Yes [id number] 50mg Take 1 tablet by mouth in the morning and 1 tablet in the evening. [facility] pyridoxine, vitamin B6, 50 mg tablet 3-0 7-13 00:00: 00 Yes [id number] 50mg Take 1 tablet by mouth in the morning and 1 tablet in the evening. [facility] pyridoxine, vitamin B6, 50 mg tablet 3-0 7-13 00:00: 00 Yes [id number] 50mg Take 1 tablet by mouth in the morning and 1 tablet in the evening. [facility] pyridoxine, vitamin B6, 50 mg tablet 3-0 7-13 00:00: 00 Yes [id number] 50mg Take 1 tablet by mouth in the morning and 1 tablet in the evening. [facility] pyridoxine, vitamin B6, 50 mg tablet 3-0 7-13 00:00: 00 Yes [id number] 50mg Take 1 tablet by mouth in the morning and 1 tablet in the evening. [facility] pyridoxine, vitamin B6, 50 mg tablet 3-0 7-13 00:00: 00 Yes [id number] 50mg Take 1 tablet by mouth in the morning and 1 tablet in the evening. [facility] pyridoxine, vitamin B6, 50 mg tablet 2023-0 7-13 00:00: 00 Yes [id number] 50mg Take 1 tablet by mouth in the morning and 1 tablet in the evening. [facility] pyridoxine, vitamin B6, 50 mg tablet 2022-0 7-13 00:00: 00 Yes [id number] 50mg Take 1 tablet by mouth in the morning and 1 tablet in the evening. [facility] pyridoxine, vitamin B6, 50 mg tablet 2022-0 7-13 00:00: 00 Yes [id number] 50mg Take 1 tablet by mouth in the morning and 1 tablet in the evening. [facility] pyridoxine, vitamin B6, 50 mg tablet 2022-0 7-13 00:00: 00 Yes [id number] 50mg Take 1 tablet by mouth in the morning and 1 tablet in the evening. [facility] pyridoxine, vitamin B6, 50 mg tablet 2022-0 7-13 00:00: 00 Yes [id number] 50mg Take 1 tablet by mouth in the morning and 1 tablet in the evening. [facility] pyridoxine, vitamin B6, 50 mg tablet 2022-0 7-13 00:00: 00 Yes [id number] 50mg Take 1 tablet by mouth in the morning and 1 tablet in the evening. [facility] pyridoxine, vitamin B6, 50 mg tablet 0 13 00:00: 00 06-14 00:00 :00 No [id number] 50mg Take 1 tablet by mouth in the morning and 1 tablet in the evening. [facility] cephALEXin (KEFLEX) 500 mg capsule 2022-0 6 00:00: 00 03-06 04:59 :00 No [id number] 500mg Take 1 capsule by mouth every 6 (six) hours for 10 days. [facility] cephALEXin (KEFLEX) 500 mg capsule 2022-0 6-21 00:00: 00 03-06 04:59 :00 No [id number] 500mg Take 1 capsule by mouth every 6 (six) hours for 10 days. [facility] cephALEXin (KEFLEX) 500 mg capsule 2022-0 6-21 00:00: 00 03-06 04:59 :00 No [id number] 500mg Take 1 capsule by mouth every 6 (six) hours for 10 days. [facility] cephALEXin (KEFLEX) 500 mg capsule 6-21 00:00: 00 03-06 04:59 :00 No [id number] 500mg Take 1 capsule by mouth every 6 (six) hours for 10 days. [facility] proMETHazin e 12.5 mg tablet 0 -04 00:00: 00 Yes [id number] 12.5mg Take 1 tablet by mouth every 6 (six) hours as needed for Nausea and Vomiting (N/V) (Pt is ) for up to 30 doses. [facility] proMETHazin e 12.5 mg tablet 0 -04 00:00: 00 Yes [id number] 12.5mg Take 1 tablet by mouth every 6 (six) hours as needed for Nausea and Vomiting (N/V) (Pt is ) for up to 30 doses. [facility] proMETHazin e 12.5 mg tablet 0 -04 00:00: 00 Yes [id number] 12.5mg Take 1 tablet by mouth every 6 (six) hours as needed for Nausea and Vomiting (N/V) (Pt is ) for up to 30 doses. [facility] proMETHazin e 12.5 mg tablet 0 -04 00:00: 00 Yes [id number] 12.5mg Take 1 tablet by mouth every 6 (six) hours as needed for Nausea and Vomiting (N/V) (Pt is ) for up to 30 doses. [facility] proMETHazin e 12.5 mg tablet 0 -04 00:00: 00 Yes [id number] 12.5mg Take 1 tablet by mouth every 6 (six) hours as needed for Nausea and Vomiting (N/V) (Pt is ) for up to 30 doses. [facility] proMETHazin e 12.5 mg tablet 2022-0 -04 00:00: 00 Yes [id number] 12.5mg Take 1 tablet by mouth every 6 (six) hours as needed for Nausea and Vomiting (N/V) (Pt is ) for up to 30 doses. [facility] proMETHazin e 12.5 mg tablet 2023-0 5-04 00:00: 00 Yes [id number] 12.5mg Take 1 tablet by mouth every 6 (six) hours as needed for Nausea and Vomiting (N/V) (Pt is ) for up to 30 doses. [facility] proMETHazin e 12.5 mg tablet 2022-0 5-04 00:00: 00 Yes [id number] 12.5mg Take 1 tablet by mouth every 6 (six) hours as needed for Nausea and Vomiting (N/V) (Pt is ) for up to 30 doses. [facility] proMETHazin e 12.5 mg tablet 2022-0 5-04 00:00: 00 Yes [id number] 12.5mg Take 1 tablet by mouth every 6 (six) hours as needed for Nausea and Vomiting (N/V) (Pt is ) for up to 30 doses. [facility] proMETHazin e 12.5 mg tablet 2022-0 5-04 00:00: 00 Yes [id number] 12.5mg Take 1 tablet by mouth every 6 (six) hours as needed for Nausea and Vomiting (N/V) (Pt is ) for up to 30 doses. [facility] proMETHazin e 12.5 mg tablet 2022-0 5-04 00:00: 00 Yes [id number] 12.5mg Take 1 tablet by mouth every 6 (six) hours as needed for Nausea and Vomiting (N/V) (Pt is ) for up to 30 doses. [facility] proMETHazin e 12.5 mg tablet 2022-0 5-04 00:00: 00 Yes [id number] 12.5mg Take 1 tablet by mouth every 6 (six) hours as needed for Nausea and Vomiting (N/V) (Pt is ) for up to 30 doses. [facility] proMETHazin e 12.5 mg tablet 2022-0 5-04 00:00: 00 Yes [id number] 12.5mg Take 1 tablet by mouth every 6 (six) hours as needed for Nausea and Vomiting (N/V) (Pt is ) for up to 30 doses. [facility] proMETHazin e 12.5 mg tablet 2022-0 5-04 00:00: 00 Yes [id number] 12.5mg Take 1 tablet by mouth every 6 (six) hours as needed for Nausea and Vomiting (N/V) (Pt is ) for up to 30 doses. [facility] proMETHazin e 12.5 mg tablet 2022-0 -04 00:00: 00 Yes [id number] 12.5mg Take 1 tablet by mouth every 6 (six) hours as needed for Nausea and Vomiting (N/V) (Pt is ) for up to 30 doses. [facility] proMETHazin e 12.5 mg tablet 2022-0 -04 00:00: 00 Yes [id number] 12.5mg Take 1 tablet by mouth every 6 (six) hours as needed for Nausea and Vomiting (N/V) (Pt is ) for up to 30 doses. [facility] proMETHazin e 12.5 mg tablet 2022-0 -04 00:00: 00 Yes [id number] 12.5mg Take 1 tablet by mouth every 6 (six) hours as needed for Nausea and Vomiting (N/V) (Pt is ) for up to 30 doses. [facility] proMETHazin e 12.5 mg tablet 2022-0 -04 00:00: 00 Yes [id number] 12.5mg Take 1 tablet by mouth every 6 (six) hours as needed for Nausea and Vomiting (N/V) (Pt is ) for up to 30 doses. [facility] proMETHazin e 12.5 mg tablet 2022-0 -04 00:00: 00 Yes [id number] 12.5mg Take 1 tablet by mouth every 6 (six) hours as needed for Nausea and Vomiting (N/V) (Pt is ) for up to 30 doses. [facility] proMETHazin e 12.5 mg tablet 2022-0 -04 00:00: 00 Yes [id number] 12.5mg Take 1 tablet by mouth every 6 (six) hours as needed for Nausea and Vomiting (N/V) (Pt is ) for up to 30 doses. [facility] proMETHazin e 12.5 mg tablet 2022-0 5-04 00:00: 00 Yes [id number] 12.5mg Take 1 tablet by mouth every 6 (six) hours as needed for Nausea and Vomiting (N/V) (Pt is ) for up to 30 doses. [facility] proMETHazin e 12.5 mg tablet 3-0 5-04 00:00: 00 Yes [id number] 12.5mg Take 1 tablet by mouth every 6 (six) hours as needed for Nausea and Vomiting (N/V) (Pt is ) for up to 30 doses. [facility] proMETHazin e 12.5 mg tablet 3-0 5-04 00:00: 00 Yes [id number] 12.5mg Take 1 tablet by mouth every 6 (six) hours as needed for Nausea and Vomiting (N/V) (Pt is ) for up to 30 doses. [facility] proMETHazin e 12.5 mg tablet 3-0 5-04 00:00: 00 Yes [id number] 12.5mg Take 1 tablet by mouth every 6 (six) hours as needed for Nausea and Vomiting (N/V) (Pt is ) for up to 30 doses. [facility] proMETHazin e 12.5 mg tablet 3-0 5-04 00:00: 00 Yes [id number] 12.5mg Take 1 tablet by mouth every 6 (six) hours as needed for Nausea and Vomiting (N/V) (Pt is ) for up to 30 doses. [facility] proMETHazin e 12.5 mg tablet 3-0 5-04 00:00: 00 Yes [id number] 12.5mg Take 1 tablet by mouth every 6 (six) hours as needed for Nausea and Vomiting (N/V) (Pt is ) for up to 30 doses. [facility] proMETHazin e 12.5 mg tablet 3-0 5-04 00:00: 00 Yes [id number] 12.5mg Take 1 tablet by mouth every 6 (six) hours as needed for Nausea and Vomiting (N/V) (Pt is ) for up to 30 doses. [facility] proMETHazin e 12.5 mg tablet 2023-0 5-04 00:00: 00 Yes [id number] 12.5mg Take 1 tablet by mouth every 6 (six) hours as needed for Nausea and Vomiting (N/V) (Pt is ) for up to 30 doses. [facility] proMETHazin e 12.5 mg tablet 2022-0 5-04 00:00: 00 Yes [id number] 12.5mg Take 1 tablet by mouth every 6 (six) hours as needed for Nausea and Vomiting (N/V) (Pt is ) for up to 30 doses. [facility] proMETHazin e 12.5 mg tablet 2022-0 5-04 00:00: 00 Yes [id number] 12.5mg Take 1 tablet by mouth every 6 (six) hours as needed for Nausea and Vomiting (N/V) (Pt is ) for up to 30 doses. [facility] proMETHazin e 12.5 mg tablet 2022-0 5-04 00:00: 00 Yes [id number] 12.5mg Take 1 tablet by mouth every 6 (six) hours as needed for Nausea and Vomiting (N/V) (Pt is ) for up to 30 doses. [facility] proMETHazin e 12.5 mg tablet 2022-0 5-04 00:00: 00 Yes [id number] 12.5mg Take 1 tablet by mouth every 6 (six) hours as needed for Nausea and Vomiting (N/V) (Pt is ) for up to 30 doses. [facility] proMETHazin e 12.5 mg tablet 3-0 5-04 00:00: 00 Yes [id number] 12.5mg Take 1 tablet by mouth every 6 (six) hours as needed for Nausea and Vomiting (N/V) (Pt is ) for up to 30 doses. [facility] proMETHazin e 12.5 mg tablet 3-0 5-04 00:00: 00 Yes [id number] 12.5mg Take 1 tablet by mouth every 6 (six) hours as needed for Nausea and Vomiting (N/V) (Pt is ) for up to 30 doses. [facility] proMETHazin e 12.5 mg tablet 3-0 5-04 00:00: 00 Yes [id number] 12.5mg Take 1 tablet by mouth every 6 (six) hours as needed for Nausea and Vomiting (N/V) (Pt is ) for up to 30 doses. [facility] proMETHazin e 12.5 mg tablet 2022-0 5-04 00:00: 00 Yes [id number] 12.5mg Take 1 tablet by mouth every 6 (six) hours as needed for Nausea and Vomiting (N/V) (Pt is ) for up to 30 doses. [facility] proMETHazin e 12.5 mg tablet 2022-0 5-04 00:00: 00 Yes [id number] 12.5mg Take 1 tablet by mouth every 6 (six) hours as needed for Nausea and Vomiting (N/V) (Pt is ) for up to 30 doses. [facility] proMETHazin e 12.5 mg tablet 2022-0 5-04 00:00: 00 Yes [id number] 12.5mg Take 1 tablet by mouth every 6 (six) hours as needed for Nausea and Vomiting (N/V) (Pt is ) for up to 30 doses. [facility] proMETHazin e 12.5 mg tablet 2022-0 5-04 00:00: 00 Yes [id number] 12.5mg Take 1 tablet by mouth every 6 (six) hours as needed for Nausea and Vomiting (N/V) (Pt is ) for up to 30 doses. [facility] proMETHazin e 12.5 mg tablet 2022-0 5-04 00:00: 00 Yes [id number] 12.5mg Take 1 tablet by mouth every 6 (six) hours as needed for Nausea and Vomiting (N/V) (Pt is ) for up to 30 doses. [facility] proMETHazin e 12.5 mg tablet 3-0 5-04 00:00: 00 Yes [id number] 12.5mg Take 1 tablet by mouth every 6 (six) hours as needed for Nausea and Vomiting (N/V) (Pt is ) for up to 30 doses. [facility] proMETHazin e 12.5 mg tablet 3-0 5-04 00:00: 00 202- 10-10 00:00 :00 No [id number] 12.5mg Take 1 tablet by mouth every 6 (six) hours as needed for Nausea and Vomiting (N/V) (Pt is ) for up to 30 doses. [facility] metFORMIN 500 mg tablet 2023-0 5-04 00:00: 00 04-07 04:59 :00 No [id number] 500mg Take 1 tablet by mouth in the morning and 1 tablet in the evening. Take with meals. Do all this for 90 days. [facility] metFORMIN 500 mg tablet 3-0 5-04 00:00: 00 04-07 04:59 :00 No [id number] 500mg Take 1 tablet by mouth in the morning and 1 tablet in the evening. Take with meals. Do all this for 90 days. [facility] metFORMIN 500 mg tablet 2023-0 5-04 00:00: 00 04-07 04:59 :00 No [id number] 500mg Take 1 tablet by mouth in the morning and 1 tablet in the evening. Take with meals. Do all this for 90 days. [facility] metFORMIN 500 mg tablet 3-0 5-04 00:00: 00 04-07 04:59 :00 No [id number] 500mg Take 1 tablet by mouth in the morning and 1 tablet in the evening. Take with meals. Do all this for 90 days. [facility] metFORMIN 500 mg tablet 3-0 5-04 00:00: 00 04-07 04:59 :00 No [id number] 500mg Take 1 tablet by mouth in the morning and 1 tablet in the evening. Take with meals. Do all this for 90 days. [facility] metFORMIN 500 mg tablet 2023-0 5-04 00:00: 00 04-07 04:59 :00 No [id number] 500mg Take 1 tablet by mouth in the morning and 1 tablet in the evening. Take with meals. Do all this for 90 days. [facility] metFORMIN 500 mg tablet 2023-0 5-04 00:00: 00 04-07 04:59 :00 No [id number] 500mg Take 1 tablet by mouth in the morning and 1 tablet in the evening. Take with meals. Do all this for 90 days. [facility] metFORMIN 500 mg tablet 2023-0 5-04 00:00: 00 04-07 04:59 :00 No [id number] 500mg Take 1 tablet by mouth in the morning and 1 tablet in the evening. Take with meals. Do all this for 90 days. [facility] metFORMIN 500 mg tablet 3-0 5-04 00:00: 00 04-07 04:59 :00 No [id number] 500mg Take 1 tablet by mouth in the morning and 1 tablet in the evening. Take with meals. Do all this for 90 days. [facility] metFORMIN 500 mg tablet 3-0 5-04 00:00: 00 04-07 04:59 :00 No [id number] 500mg Take 1 tablet by mouth in the morning and 1 tablet in the evening. Take with meals. Do all this for 90 days. [facility] metFORMIN 500 mg tablet 3-0 5-04 00:00: 00 04-07 04:59 :00 No [id number] 500mg Take 1 tablet by mouth in the morning and 1 tablet in the evening. Take with meals. Do all this for 90 days. [facility] metFORMIN 500 mg tablet 3-0 5-04 00:00: 00 04-07 04:59 :00 No [id number] 500mg Take 1 tablet by mouth in the morning and 1 tablet in the evening. Take with meals. Do all this for 90 days. [facility] metFORMIN 500 mg tablet 3-0 5-04 00:00: 00 04-07 04:59 :00 No [id number] 500mg Take 1 tablet by mouth in the morning and 1 tablet in the evening. Take with meals. Do all this for 90 days. [facility] metFORMIN 500 mg tablet 3-0 5-04 00:00: 00 04-07 04:59 :00 No [id number] 500mg Take 1 tablet by mouth in the morning and 1 tablet in the evening. Take with meals. Do all this for 90 days. [facility] metFORMIN 500 mg tablet 2023-0 5-04 00:00: 00 04-07 04:59 :00 No [id number] 500mg Take 1 tablet by mouth in the morning and 1 tablet in the evening. Take with meals. Do all this for 90 days. [facility] metFORMIN 500 mg tablet 2022-0 5-04 00:00: 00 04-07 04:59 :00 No [id number] 500mg Take 1 tablet by mouth in the morning and 1 tablet in the evening. Take with meals. Do all this for 90 days. [facility] metFORMIN 500 mg tablet 2022-0 5-04 00:00: 00 04-07 04:59 :00 No [id number] 500mg Take 1 tablet by mouth in the morning and 1 tablet in the evening. Take with meals. Do all this for 90 days. [facility] clindamycin 150 mg capsule 2022-0 4-20 00:00: 00 12-29 04:59 :00 No [id number] 450mg Take 3 capsules by mouth in the morning and 3 capsules at noon and 3 capsules in the evening. Do all this for 5 days. [facility] clindamycin 150 mg capsule 2022-0 4-20 00:00: 00 12-29 04:59 :00 No [id number] 450mg Take 3 capsules by mouth in the morning and 3 capsules at noon and 3 capsules in the evening. Do all this for 5 days. [facility] clindamycin 150 mg capsule 2022-0 4-20 00:00: 00 12-29 04:59 :00 No [id number] 450mg Take 3 capsules by mouth in the morning and 3 capsules at noon and 3 capsules in the evening. Do all this for 5 days. [facility] clindamycin 150 mg capsule 2022-0 4-20 00:00: 00 12-29 04:59 :00 No [id number] 450mg Take 3 capsules by mouth in the morning and 3 capsules at noon and 3 capsules in the evening. Do all this for 5 days. [facility] clindamycin 150 mg capsule 2022-0 4-20 00:00: 00 12-29 04:59 :00 No [id number] 450mg Take 3 capsules by mouth in the morning and 3 capsules at noon and 3 capsules in the evening. Do all this for 5 days. [facility] cephALEXin 500 mg capsule 2023-0 4-16 00:00: 00 12-27 04:59 :00 No [id number] 500mg Take 1 capsule by mouth 4 (four) times daily for 7 days. [facility] cephALEXin 500 mg capsule 3-0 4-16 00:00: 00 12-27 04:59 :00 No [id number] 500mg Take 1 capsule by mouth 4 (four) times daily for 7 days. [facility] cephALEXin 500 mg capsule 2022-0 4-16 00:00: 00 12-27 04:59 :00 No [id number] 500mg Take 1 capsule by mouth 4 (four) times daily for 7 days. [facility] cephALEXin 500 mg capsule 2022-0 4-16 00:00: 00 12-27 04:59 :00 No [id number] 500mg Take 1 capsule by mouth 4 (four) times daily for 7 days. [facility] cephALEXin 500 mg capsule 2022-0 4-16 00:00: 00 12-27 04:59 :00 No [id number] 500mg Take 1 capsule by mouth 4 (four) times daily for 7 days. [facility] cephALEXin 500 mg capsule 2022-0 4-16 00:00: 00 12-27 04:59 :00 No [id number] 500mg Take 1 capsule by mouth 4 (four) times daily for 7 days. [facility] cephALEXin 500 mg capsule 2022-0 4-16 00:00: 00 12-27 04:59 :00 No [id number] 500mg Take 1 capsule by mouth 4 (four) times daily for 7 days. [facility] cephALEXin 500 mg capsule 2022-0 4-16 00:00: 00 12-27 04:59 :00 No [id number] 500mg Take 1 capsule by mouth 4 (four) times daily for 7 days. [facility] lancets (FREESTYLE LANCETS) 28 gauge Misc 2022-0 3-21 00:00: 00 Yes [id number] Check glucose 4x daily [facility] Blood-Gluco se Meter (FREESTYLE LITE METER) Kit 11-23 00:00: 00 Yes [id number] Check blood glucose 4x daily [facility] blood sugar diagnostic (FREESTYLE LITE STRIPS) strip 11-23 00:00: 00 Yes [id number] Check blood glucose 4x daily [facility] lancets (FREESTYLE LANCETS) 28 gauge Misc 11-23 00:00: 00 Yes [id number] Check glucose 4x daily [facility] Blood-Gluco se Meter (FREESTYLE LITE METER) Kit 11-23 00:00: 00 Yes [id number] Check blood glucose 4x daily [facility] blood sugar diagnostic (FREESTYLE LITE STRIPS) strip 11-23 00:00: 00 Yes [id number] Check blood glucose 4x daily [facility] lancets (FREESTYLE LANCETS) 28 gauge Misc 11-23 00:00: 00 Yes [id number] Check glucose 4x daily [facility] Blood-Gluco se Meter (FREESTYLE LITE METER) Kit 11-23 00:00: 00 Yes [id number] Check blood glucose 4x daily [facility] blood sugar diagnostic (FREESTYLE LITE STRIPS) strip 11-23 00:00: 00 Yes [id number] Check blood glucose 4x daily [facility] lancets (FREESTYLE LANCETS) 28 gauge Misc 11-23 00:00: 00 Yes [id number] Check glucose 4x daily [facility] Blood-Gluco se Meter (FREESTYLE LITE METER) Kit 11-23 00:00: 00 Yes [id number] Check blood glucose 4x daily [facility] blood sugar diagnostic (FREESTYLE LITE STRIPS) strip 11-23 00:00: 00 Yes [id number] Check blood glucose 4x daily [facility] lancets (FREESTYLE LANCETS) 28 gauge Misc 11-23 00:00: 00 Yes [id number] Check glucose 4x daily [facility] Blood-Gluco se Meter (FREESTYLE LITE METER) Kit 11-23 00:00: 00 Yes [id number] Check blood glucose 4x daily [facility] blood sugar diagnostic (FREESTYLE LITE STRIPS) strip 11-23 00:00: 00 Yes [id number] Check blood glucose 4x daily [facility] lancets (FREESTYLE LANCETS) 28 gauge Misc 11-23 00:00: 00 Yes [id number] Check glucose 4x daily [facility] Blood-Gluco se Meter (FREESTYLE LITE METER) Kit 11-23 00:00: 00 Yes [id number] Check blood glucose 4x daily [facility] blood sugar diagnostic (FREESTYLE LITE STRIPS) strip 11-23 00:00: 00 Yes [id number] Check blood glucose 4x daily [facility] lancets (FREESTYLE LANCETS) 28 gauge Misc 11-23 00:00: 00 Yes [id number] Check glucose 4x daily [facility] Blood-Gluco se Meter (FREESTYLE LITE METER) Kit 11-23 00:00: 00 Yes [id number] Check blood glucose 4x daily [facility] blood sugar diagnostic (FREESTYLE LITE STRIPS) strip 11-23 00:00: 00 Yes [id number] Check blood glucose 4x daily [facility] lancets (FREESTYLE LANCETS) 28 gauge Misc 11-23 00:00: 00 Yes [id number] Check glucose 4x daily [facility] Blood-Gluco se Meter (FREESTYLE LITE METER) Kit 11-23 00:00: 00 Yes [id number] Check blood glucose 4x daily [facility] blood sugar diagnostic (FREESTYLE LITE STRIPS) strip 11-23 00:00: 00 Yes [id number] Check blood glucose 4x daily [facility] lancets (FREESTYLE LANCETS) 28 gauge Misc 11-23 00:00: 00 Yes [id number] Check glucose 4x daily [facility] Blood-Gluco se Meter (FREESTYLE LITE METER) Kit 11-23 00:00: 00 Yes [id number] Check blood glucose 4x daily [facility] blood sugar diagnostic (FREESTYLE LITE STRIPS) strip 11-23 00:00: 00 Yes [id number] Check blood glucose 4x daily [facility] lancets (FREESTYLE LANCETS) 28 gauge Misc 11-23 00:00: 00 Yes [id number] Check glucose 4x daily [facility] Blood-Gluco se Meter (FREESTYLE LITE METER) Kit 11-23 00:00: 00 Yes [id number] Check blood glucose 4x daily [facility] blood sugar diagnostic (FREESTYLE LITE STRIPS) strip 11-23 00:00: 00 Yes [id number] Check blood glucose 4x daily [facility] lancets (FREESTYLE LANCETS) 28 gauge Misc 11-23 00:00: 00 Yes [id number] Check glucose 4x daily [facility] Blood-Gluco se Meter (FREESTYLE LITE METER) Kit 11-23 00:00: 00 Yes [id number] Check blood glucose 4x daily [facility] blood sugar diagnostic (FREESTYLE LITE STRIPS) strip 11-23 00:00: 00 Yes [id number] Check blood glucose 4x daily [facility] lancets (FREESTYLE LANCETS) 28 gauge Misc 11-23 00:00: 00 Yes [id number] Check glucose 4x daily [facility] Blood-Gluco se Meter (FREESTYLE LITE METER) Kit 11-23 00:00: 00 Yes [id number] Check blood glucose 4x daily [facility] blood sugar diagnostic (FREESTYLE LITE STRIPS) strip 11-23 00:00: 00 Yes [id number] Check blood glucose 4x daily [facility] lancets (FREESTYLE LANCETS) 28 gauge Misc 11-23 00:00: 00 Yes [id number] Check glucose 4x daily [facility] Blood-Gluco se Meter (FREESTYLE LITE METER) Kit 11-23 00:00: 00 Yes [id number] Check blood glucose 4x daily [facility] blood sugar diagnostic (FREESTYLE LITE STRIPS) strip 11-23 00:00: 00 Yes [id number] Check blood glucose 4x daily [facility] lancets (FREESTYLE LANCETS) 28 gauge Misc 11-23 00:00: 00 Yes [id number] Check glucose 4x daily [facility] Blood-Gluco se Meter (FREESTYLE LITE METER) Kit 11-23 00:00: 00 Yes [id number] Check blood glucose 4x daily [facility] blood sugar diagnostic (FREESTYLE LITE STRIPS) strip 11-23 00:00: 00 Yes [id number] Check blood glucose 4x daily [facility] lancets (FREESTYLE LANCETS) 28 gauge Misc 11-23 00:00: 00 Yes [id number] Check glucose 4x daily [facility] Blood-Gluco se Meter (FREESTYLE LITE METER) Kit 11-23 00:00: 00 Yes [id number] Check blood glucose 4x daily [facility] blood sugar diagnostic (FREESTYLE LITE STRIPS) strip 11-23 00:00: 00 Yes [id number] Check blood glucose 4x daily [facility] lancets (FREESTYLE LANCETS) 28 gauge Misc 11-23 00:00: 00 Yes [id number] Check glucose 4x daily [facility] Blood-Gluco se Meter (FREESTYLE LITE METER) Kit 11-23 00:00: 00 Yes [id number] Check blood glucose 4x daily [facility] blood sugar diagnostic (FREESTYLE LITE STRIPS) strip 11-23 00:00: 00 Yes [id number] Check blood glucose 4x daily [facility] lancets (FREESTYLE LANCETS) 28 gauge Misc 11-23 00:00: 00 Yes [id number] Check glucose 4x daily [facility] Blood-Gluco se Meter (FREESTYLE LITE METER) Kit 11-23 00:00: 00 Yes [id number] Check blood glucose 4x daily [facility] blood sugar diagnostic (FREESTYLE LITE STRIPS) strip 11-23 00:00: 00 Yes [id number] Check blood glucose 4x daily [facility] lancets (FREESTYLE LANCETS) 28 gauge Misc 11-23 00:00: 00 Yes [id number] Check glucose 4x daily [facility] Blood-Gluco se Meter (FREESTYLE LITE METER) Kit 11-23 00:00: 00 Yes [id number] Check blood glucose 4x daily [facility] blood sugar diagnostic (FREESTYLE LITE STRIPS) strip 11-23 00:00: 00 Yes [id number] Check blood glucose 4x daily [facility] lancets (FREESTYLE LANCETS) 28 gauge Misc 11-23 00:00: 00 Yes [id number] Check glucose 4x daily [facility] Blood-Gluco se Meter (FREESTYLE LITE METER) Kit 11-23 00:00: 00 Yes [id number] Check blood glucose 4x daily [facility] blood sugar diagnostic (FREESTYLE LITE STRIPS) strip 11-23 00:00: 00 Yes [id number] Check blood glucose 4x daily [facility] lancets (FREESTYLE LANCETS) 28 gauge Misc 11-23 00:00: 00 Yes [id number] Check glucose 4x daily [facility] Blood-Gluco se Meter (FREESTYLE LITE METER) Kit 11-23 00:00: 00 Yes [id number] Check blood glucose 4x daily [facility] blood sugar diagnostic (FREESTYLE LITE STRIPS) strip 11-23 00:00: 00 Yes [id number] Check blood glucose 4x daily [facility] lancets (FREESTYLE LANCETS) 28 gauge Misc 11-23 00:00: 00 Yes [id number] Check glucose 4x daily [facility] Blood-Gluco se Meter (FREESTYLE LITE METER) Kit 11-23 00:00: 00 Yes [id number] Check blood glucose 4x daily [facility] blood sugar diagnostic (FREESTYLE LITE STRIPS) strip 11-23 00:00: 00 Yes [id number] Check blood glucose 4x daily [facility] lancets (FREESTYLE LANCETS) 28 gauge Misc 11-23 00:00: 00 Yes [id number] Check glucose 4x daily [facility] Blood-Gluco se Meter (FREESTYLE LITE METER) Kit 11-23 00:00: 00 Yes [id number] Check blood glucose 4x daily [facility] blood sugar diagnostic (FREESTYLE LITE STRIPS) strip 11-23 00:00: 00 Yes [id number] Check blood glucose 4x daily [facility] lancets (FREESTYLE LANCETS) 28 gauge Misc 11-23 00:00: 00 Yes [id number] Check glucose 4x daily [facility] Blood-Gluco se Meter (FREESTYLE LITE METER) Kit 11-23 00:00: 00 Yes [id number] Check blood glucose 4x daily [facility] blood sugar diagnostic (FREESTYLE LITE STRIPS) strip 11-23 00:00: 00 Yes [id number] Check blood glucose 4x daily [facility] lancets (FREESTYLE LANCETS) 28 gauge Misc 11-23 00:00: 00 Yes [id number] Check glucose 4x daily [facility] Blood-Gluco se Meter (FREESTYLE LITE METER) Kit 11-23 00:00: 00 Yes [id number] Check blood glucose 4x daily [facility] blood sugar diagnostic (FREESTYLE LITE STRIPS) strip 11-23 00:00: 00 Yes [id number] Check blood glucose 4x daily [facility] lancets (FREESTYLE LANCETS) 28 gauge Misc 11-23 00:00: 00 Yes [id number] Check glucose 4x daily [facility] Blood-Gluco se Meter (FREESTYLE LITE METER) Kit 11-23 00:00: 00 Yes [id number] Check blood glucose 4x daily [facility] [facility] blood sugar diagnostic (FREESTYLE LITE STRIPS) strip 11-23 00:00: 00 Yes [id number] Check blood glucose 4x daily [facility] lancets (FREESTYLE LANCETS) 28 gauge Misc 11-23 00:00: 00 Yes [id number] Check glucose 4x daily [facility] Blood-Gluco se Meter (FREESTYLE LITE METER) Kit 11-23 00:00: 00 Yes [id number] Check blood glucose 4x daily [facility] blood sugar diagnostic (FREESTYLE LITE STRIPS) strip 11-23 00:00: 00 Yes [id number] Check blood glucose 4x daily [facility] lancets (FREESTYLE LANCETS) 28 gauge Misc 11-23 00:00: 00 Yes [id number] Check glucose 4x daily [facility] Blood-Gluco se Meter (FREESTYLE LITE METER) Kit 11-23 00:00: 00 Yes [id number] Check blood glucose 4x daily [facility] blood sugar diagnostic (FREESTYLE LITE STRIPS) strip 11-23 00:00: 00 Yes [id number] Check blood glucose 4x daily [facility] lancets (FREESTYLE LANCETS) 28 gauge Misc 11-23 00:00: 00 Yes [id number] Check glucose 4x daily [facility] Blood-Gluco se Meter (FREESTYLE LITE METER) Kit 11-23 00:00: 00 Yes [id number] Check blood glucose 4x daily [facility] blood sugar diagnostic (FREESTYLE LITE STRIPS) strip 11-23 00:00: 00 Yes [id number] Check blood glucose 4x daily [facility] lancets (FREESTYLE LANCETS) 28 gauge Misc 11-23 00:00: 00 Yes [id number] Check glucose 4x daily [facility] Blood-Gluco se Meter (FREESTYLE LITE METER) Kit 11-23 00:00: 00 Yes [id number] Check blood glucose 4x daily [facility] blood sugar diagnostic (FREESTYLE LITE STRIPS) strip 11-23 00:00: 00 Yes [id number] Check blood glucose 4x daily [facility] lancets (FREESTYLE LANCETS) 28 gauge Misc 11-23 00:00: 00 Yes [id number] Check glucose 4x daily [facility] Blood-Gluco se Meter (FREESTYLE LITE METER) Kit 11-23 00:00: 00 Yes [id number] Check blood glucose 4x daily [facility] blood sugar diagnostic (FREESTYLE LITE STRIPS) strip 11-23 00:00: 00 Yes [id number] Check blood glucose 4x daily [facility] lancets (FREESTYLE LANCETS) 28 gauge Misc 11-23 00:00: 00 Yes [id number] Check glucose 4x daily [facility] Blood-Gluco se Meter (FREESTYLE LITE METER) Kit 11-23 00:00: 00 Yes [id number] Check blood glucose 4x daily [facility] blood sugar diagnostic (FREESTYLE LITE STRIPS) strip 11-23 00:00: 00 Yes [id number] Check blood glucose 4x daily [facility] lancets (FREESTYLE LANCETS) 28 gauge Misc 11-23 00:00: 00 Yes [id number] Check glucose 4x daily [facility] Blood-Gluco se Meter (FREESTYLE LITE METER) Kit 11-23 00:00: 00 Yes [id number] Check blood glucose 4x daily [facility] blood sugar diagnostic (FREESTYLE LITE STRIPS) strip 11-23 00:00: 00 Yes [id number] Check blood glucose 4x daily [facility] lancets (FREESTYLE LANCETS) 28 gauge Misc 11-23 00:00: 00 Yes [id number] Check glucose 4x daily [facility] Blood-Gluco se Meter (FREESTYLE LITE METER) Kit 11-23 00:00: 00 Yes [id number] Check blood glucose 4x daily [facility] blood sugar diagnostic (FREESTYLE LITE STRIPS) strip 11-23 00:00: 00 Yes [id number] Check blood glucose 4x daily [facility] lancets (FREESTYLE LANCETS) 28 gauge [facility] 11-23 00:00: 00 Yes [id number] Check glucose 4x daily [facility] Blood-Gluco se Meter (FREESTYLE LITE METER) Kit 11-23 00:00: 00 Yes [id number] Check blood glucose 4x daily [facility] blood sugar diagnostic (FREESTYLE LITE STRIPS) strip 11-23 00:00: 00 Yes [id number] Check blood glucose 4x daily [facility] lancets (FREESTYLE LANCETS) 28 gauge [facility] 11-23 00:00: 00 Yes [id number] Check glucose 4x daily [facility] Blood-Gluco se Meter (FREESTYLE LITE METER) Kit 11-23 00:00: 00 Yes [id number] Check blood glucose 4x daily [facility] blood sugar diagnostic (FREESTYLE LITE STRIPS) strip 11-23 00:00: 00 Yes [id number] Check blood glucose 4x daily [facility] lancets (FREESTYLE LANCETS) 28 gauge [facility] 11-23 00:00: 00 Yes [id number] Check glucose 4x daily [facility] Blood-Gluco se Meter (FREESTYLE LITE METER) Kit 11-23 00:00: 00 Yes [id number] Check blood glucose 4x daily [facility] blood sugar diagnostic (FREESTYLE LITE STRIPS) strip 11-23 00:00: 00 Yes [id number] Check blood glucose 4x daily [facility] lancets (FREESTYLE LANCETS) 28 gauge [facility] 11-23 00:00: 00 Yes [id number] Check glucose 4x daily [facility] Blood-Gluco se Meter (FREESTYLE LITE METER) Kit 11-23 00:00: 00 Yes [id number] Check blood glucose 4x daily [facility] blood sugar diagnostic (FREESTYLE LITE STRIPS) strip 11-23 00:00: 00 Yes [id number] Check blood glucose 4x daily [facility] lancets (FREESTYLE LANCETS) 28 gauge Misc 11-23 00:00: 00 Yes [id number] Check glucose 4x daily [facility] Blood-Gluco se Meter (FREESTYLE LITE METER) Kit 11-23 00:00: 00 Yes [id number] Check blood glucose 4x daily [facility] blood sugar diagnostic (FREESTYLE LITE STRIPS) strip 11-23 00:00: 00 Yes [id number] Check blood glucose 4x daily [facility] lancets (FREESTYLE LANCETS) 28 gauge Mis 11-23 00:00: 00 Yes [id number] Check glucose 4x daily [facility] Blood-Gluco se Meter (FREESTYLE LITE METER) Kit 11-23 00:00: 00 Yes [id number] Check blood glucose 4x daily [facility] blood sugar diagnostic (FREESTYLE LITE STRIPS) strip 11-23 00:00: 00 Yes [id number] Check blood glucose 4x daily [facility] lancets (FREESTYLE LANCETS) 28 gauge Misc 11-23 00:00: 00 Yes [id number] Check glucose 4x daily [facility] Blood-Gluco se Meter (FREESTYLE LITE METER) Kit 11-23 00:00: 00 Yes [id number] Check blood glucose 4x daily [facility] blood sugar diagnostic (FREESTYLE LITE STRIPS) strip 11-23 00:00: 00 Yes [id number] Check blood glucose 4x daily [facility] lancets (FREESTYLE LANCETS) 28 gauge Misc 11-23 00:00: 00 Yes [id number] Check glucose 4x daily [facility] Blood-Gluco se Meter (FREESTYLE LITE METER) Kit 11-23 00:00: 00 Yes [id number] Check blood glucose 4x daily [facility] blood sugar diagnostic (FREESTYLE LITE STRIPS) strip 11-23 00:00: 00 Yes [id number] Check blood glucose 4x daily [facility] lancets (FREESTYLE LANCETS) 28 gauge Misc 11-23 00:00: 00 Yes [id number] Check glucose 4x daily [facility] Blood-Gluco se Meter (FREESTYLE LITE METER) Kit 11-23 00:00: 00 Yes [id number] Check blood glucose 4x daily [facility] blood sugar diagnostic (FREESTYLE LITE STRIPS) strip 11-23 00:00: 00 Yes [id number] Check blood glucose 4x daily [facility] lancets (FREESTYLE LANCETS) 28 gauge Misc 11-23 00:00: 00 Yes [id number] Check glucose 4x daily [facility] Blood-Gluco se Meter (FREESTYLE LITE METER) Kit 11-23 00:00: 00 Yes [id number] Check blood glucose 4x daily [facility] blood sugar diagnostic (FREESTYLE LITE STRIPS) strip 11-23 00:00: 00 Yes [id number] Check blood glucose 4x daily [facility] lancets (FREESTYLE LANCETS) 28 gauge Misc 11-23 00:00: 00 Yes [id number] Check glucose 4x daily [facility] Blood-Gluco se Meter (FREESTYLE LITE METER) Kit 11-23 00:00: 00 Yes [id number] Check blood glucose 4x daily [facility] blood sugar diagnostic (FREESTYLE LITE STRIPS) strip 11-23 00:00: 00 Yes [id number] Check blood glucose 4x daily [facility] lancets (FREESTYLE LANCETS) 28 gauge Misc 11-23 00:00: 00 Yes [id number] Check glucose 4x daily [facility] Blood-Gluco se Meter (FREESTYLE LITE METER) Kit 11-23 00:00: 00 Yes [id number] Check blood glucose 4x daily [facility] blood sugar diagnostic (FREESTYLE LITE STRIPS) strip 11-23 00:00: 00 Yes [id number] Check blood glucose 4x daily [facility] lancets (FREESTYLE LANCETS) 28 gauge Misc 11-23 00:00: 00 Yes [id number] Check glucose 4x daily [facility] Blood-Gluco se Meter (FREESTYLE LITE METER) Kit 11-23 00:00: 00 Yes [id number] Check blood glucose 4x daily [facility] blood sugar diagnostic (FREESTYLE LITE STRIPS) strip 11-23 00:00: 00 Yes [id number] Check blood glucose 4x daily [facility] lancets (FREESTYLE LANCETS) 28 gauge Misc 11-23 00:00: 00 Yes [id number] Check glucose 4x daily [facility] Blood-Gluco se Meter (FREESTYLE LITE METER) Kit 11-23 00:00: 00 Yes [id number] Check blood glucose 4x daily [facility] blood sugar diagnostic (FREESTYLE LITE STRIPS) strip 11-23 00:00: 00 Yes [id number] Check blood glucose 4x daily [facility] lancets (FREESTYLE LANCETS) 28 gauge Misc 11-23 00:00: 00 Yes [id number] Check glucose 4x daily [facility] Blood-Gluco se Meter (FREESTYLE LITE METER) Kit 11-23 00:00: 00 Yes [id number] Check blood glucose 4x daily [facility] blood sugar diagnostic (FREESTYLE LITE STRIPS) strip 11-23 00:00: 00 Yes [id number] Check blood glucose 4x daily [facility] lancets (FREESTYLE LANCETS) 28 gauge Misc 11-23 00:00: 00 Yes [id number] Check glucose 4x daily [facility] Blood-Gluco se Meter (FREESTYLE LITE METER) Kit 11-23 00:00: 00 Yes [id number] Check blood glucose 4x daily [facility] blood sugar diagnostic (FREESTYLE LITE STRIPS) strip 11-23 00:00: 00 Yes [id number] Check blood glucose 4x daily [facility] lancets (FREESTYLE LANCETS) 28 gauge Misc 11-23 00:00: 00 Yes [id number] Check glucose 4x daily [facility] Blood-Gluco se Meter (FREESTYLE LITE METER) Kit 11-23 00:00: 00 Yes [id number] Check blood glucose 4x daily [facility] blood sugar diagnostic (FREESTYLE LITE STRIPS) strip 11-23 00:00: 00 Yes [id number] Check blood glucose 4x daily [facility] lancets (FREESTYLE LANCETS) 28 gauge Misc 11-23 00:00: 00 Yes [id number] Check glucose 4x daily [facility] Blood-Gluco se Meter (FREESTYLE LITE METER) Kit 11-23 00:00: 00 Yes [id number] Check blood glucose 4x daily [facility] blood sugar diagnostic (FREESTYLE LITE STRIPS) strip 11-23 00:00: 00 Yes [id number] Check blood glucose 4x daily [facility] lancets (FREESTYLE LANCETS) 28 gauge Misc 11-23 00:00: 00 Yes [id number] Check glucose 4x daily [facility] Blood-Gluco se Meter (FREESTYLE LITE METER) Kit 11-23 00:00: 00 Yes [id number] Check blood glucose 4x daily [facility] blood sugar diagnostic (FREESTYLE LITE STRIPS) strip 11-23 00:00: 00 Yes [id number] Check blood glucose 4x daily [facility] lancets (FREESTYLE LANCETS) 28 gauge Misc 11-23 00:00: 00 Yes [id number] Check glucose 4x daily [facility] Blood-Gluco se Meter (FREESTYLE LITE METER) Kit 11-23 00:00: 00 Yes [id number] Check blood glucose 4x daily [facility] blood sugar diagnostic (FREESTYLE LITE STRIPS) strip 11-23 00:00: 00 Yes [id number] Check blood glucose 4x daily [facility] lancets (FREESTYLE LANCETS) 28 gauge Misc 11-23 00:00: 00 Yes [id number] Check glucose 4x daily [facility] Blood-Gluco se Meter (FREESTYLE LITE METER) Kit 11-23 00:00: 00 Yes [id number] Check blood glucose 4x daily [facility] blood sugar diagnostic (FREESTYLE LITE STRIPS) strip 11-23 00:00: 00 Yes [id number] Check blood glucose 4x daily [facility] lancets (FREESTYLE LANCETS) 28 gauge Misc 11-23 00:00: 00 Yes [id number] Check glucose 4x daily [facility] Blood-Gluco se Meter (FREESTYLE LITE METER) Kit 11-23 00:00: 00 Yes [id number] Check blood glucose 4x daily [facility] blood sugar diagnostic (FREESTYLE LITE STRIPS) strip 11-23 00:00: 00 Yes [id number] Check blood glucose 4x daily [facility] lancets (FREESTYLE LANCETS) 28 gauge Misc 11-23 00:00: 00 Yes [id number] Check glucose 4x daily [facility] Blood-Gluco se Meter (FREESTYLE LITE METER) Kit 11-23 00:00: 00 Yes [id number] Check blood glucose 4x daily [facility] blood sugar diagnostic (FREESTYLE LITE STRIPS) strip 11-23 00:00: 00 Yes [id number] Check blood glucose 4x daily [facility] lancets (FREESTYLE LANCETS) 28 gauge Misc 11-23 00:00: 00 Yes [id number] Check glucose 4x daily [facility] Blood-Gluco se Meter (FREESTYLE LITE METER) Kit 11-23 00:00: 00 Yes [id number] Check blood glucose 4x daily [facility] blood sugar diagnostic (FREESTYLE LITE STRIPS) strip 11-23 00:00: 00 Yes [id number] Check blood glucose 4x daily [facility] lancets (FREESTYLE LANCETS) 28 gauge Misc 11-23 00:00: 00 Yes [id number] Check glucose 4x daily [facility] Blood-Gluco se Meter (FREESTYLE LITE METER) Kit 11-23 00:00: 00 Yes [id number] Check blood glucose 4x daily [facility] blood sugar diagnostic (FREESTYLE LITE STRIPS) strip 11-23 00:00: 00 Yes [id number] Check blood glucose 4x daily [facility] lancets (FREESTYLE LANCETS) 28 gauge Misc 11-23 00:00: 00 Yes [id number] Check glucose 4x daily [facility] Blood-Gluco se Meter (FREESTYLE LITE METER) Kit 11-23 00:00: 00 Yes [id number] Check blood glucose 4x daily [facility] blood sugar diagnostic (FREESTYLE LITE STRIPS) strip 11-23 00:00: 00 Yes [id number] Check blood glucose 4x daily [facility] lancets (FREESTYLE LANCETS) 28 gauge Misc 11-23 00:00: 00 Yes [id number] Check glucose 4x daily [facility] Blood-Gluco se Meter (FREESTYLE LITE METER) Kit 11-23 00:00: 00 Yes [id number] Check blood glucose 4x daily [facility] blood sugar diagnostic (FREESTYLE LITE STRIPS) strip 11-23 00:00: 00 Yes [id number] Check blood glucose 4x daily [facility] lancets (FREESTYLE LANCETS) 28 gauge Misc 11-23 00:00: 00 06-14 00:00 :00 No [id number] Check glucose 4x daily [facility] Blood-Gluco se Meter (FREESTYLE LITE METER) Kit 11-23 00:00: 00 06-14 00:00 :00 No [id number] Check blood glucose 4x daily [facility] blood sugar diagnostic (FREESTYLE LITE STRIPS) strip 11-23 00:00: 00 06-14 00:00 :00 No [id number] Check blood glucose 4x daily [facility] proMETHazin e 25 mg tablet 11-12 00:00: 00 Yes [id number] 25mg Take 1 tablet by mouth every 6 (six) hours as needed for Nausea and Vomiting (N/V). [facility] proMETHazin e 25 mg tablet 11-12 00:00: 00 Yes [id number] 25mg Take 1 tablet by mouth every 6 (six) hours as needed for Nausea and Vomiting (N/V). [facility] proMETHazin e 25 mg tablet 11-12 00:00: 00 Yes [id number] 25mg Take 1 tablet by mouth every 6 (six) hours as needed for Nausea and Vomiting (N/V). [facility] proMETHazin e 25 mg tablet 2022-0 11-12 00:00: 00 Yes [id number] 25mg Take 1 tablet by mouth every 6 (six) hours as needed for Nausea and Vomiting (N/V). [facility] proMETHazin e 25 mg tablet 0 10 00:00: 00 Yes [id number] 25mg Take 1 tablet by mouth every 6 (six) hours as needed for Nausea and Vomiting (N/V). [facility] proMETHazin e 25 mg tablet 2022-0 11-12 00:00: 00 Yes [id number] 25mg Take 1 tablet by mouth every 6 (six) hours as needed for Nausea and Vomiting (N/V). [facility] proMETHazin e 25 mg tablet 2023-0 3-10 00:00: 00 Yes [id number] 25mg Take 1 tablet by mouth every 6 (six) hours as needed for Nausea and Vomiting (N/V). [facility] proMETHazin e 25 mg tablet 2023-0 3-10 00:00: 00 Yes [id number] 25mg Take 1 tablet by mouth every 6 (six) hours as needed for Nausea and Vomiting (N/V). [facility] proMETHazin e 25 mg tablet 2023-0 3-10 00:00: 00 Yes [id number] 25mg Take 1 tablet by mouth every 6 (six) hours as needed for Nausea and Vomiting (N/V). [facility] proMETHazin e 25 mg tablet 2023-0 3-10 00:00: 00 Yes [id number] 25mg Take 1 tablet by mouth every 6 (six) hours as needed for Nausea and Vomiting (N/V). [facility] proMETHazin e 25 mg tablet 2023-0 3-10 00:00: 00 Yes [id number] 25mg Take 1 tablet by mouth every 6 (six) hours as needed for Nausea and Vomiting (N/V). [facility] proMETHazin e 25 mg tablet 3-0 3-10 00:00: 00 Yes [id number] 25mg Take 1 tablet by mouth every 6 (six) hours as needed for Nausea and Vomiting (N/V). [facility] proMETHazin e 25 mg tablet 2023-0 3-10 00:00: 00 Yes [id number] 25mg Take 1 tablet by mouth every 6 (six) hours as needed for Nausea and Vomiting (N/V). [facility] proMETHazin e 25 mg tablet 2023-0 3-10 00:00: 00 Yes [id number] 25mg Take 1 tablet by mouth every 6 (six) hours as needed for Nausea and Vomiting (N/V). [facility] proMETHazin e 25 mg tablet 2023-0 3-10 00:00: 00 Yes [id number] 25mg Take 1 tablet by mouth every 6 (six) hours as needed for Nausea and Vomiting (N/V). [facility] proMETHazin e 25 mg tablet 2023-0 3-10 00:00: 00 Yes [id number] 25mg Take 1 tablet by mouth every 6 (six) hours as needed for Nausea and Vomiting (N/V). [facility] proMETHazin e 25 mg tablet 2023-0 3-10 00:00: 00 Yes [id number] 25mg Take 1 tablet by mouth every 6 (six) hours as needed for Nausea and Vomiting (N/V). [facility] proMETHazin e 25 mg tablet 2023-0 3-10 00:00: 00 Yes [id number] 25mg Take 1 tablet by mouth every 6 (six) hours as needed for Nausea and Vomiting (N/V). [facility] proMETHazin e 25 mg tablet 2023-0 3-10 00:00: 00 Yes [id number] 25mg Take 1 tablet by mouth every 6 (six) hours as needed for Nausea and Vomiting (N/V). [facility] proMETHazin e 25 mg tablet 2023-0 3-10 00:00: 00 Yes [id number] 25mg Take 1 tablet by mouth every 6 (six) hours as needed for Nausea and Vomiting (N/V). [facility] proMETHazin e 25 mg tablet 3-0 3-10 00:00: 00 Yes [id number] 25mg Take 1 tablet by mouth every 6 (six) hours as needed for Nausea and Vomiting (N/V). [facility] proMETHazin e 25 mg tablet 2023-0 3-10 00:00: 00 Yes [id number] 25mg Take 1 tablet by mouth every 6 (six) hours as needed for Nausea and Vomiting (N/V). [facility] proMETHazin e 25 mg tablet 2023-0 3-10 00:00: 00 Yes [id number] 25mg Take 1 tablet by mouth every 6 (six) hours as needed for Nausea and Vomiting (N/V). [facility] proMETHazin e 25 mg tablet 2023-0 3-10 00:00: 00 Yes [id number] 25mg Take 1 tablet by mouth every 6 (six) hours as needed for Nausea and Vomiting (N/V). [facility] proMETHazin e 25 mg tablet 2023-0 3-10 00:00: 00 Yes [id number] 25mg Take 1 tablet by mouth every 6 (six) hours as needed for Nausea and Vomiting (N/V). [facility] proMETHazin e 25 mg tablet 2022-0 10 00:00: 00 Yes [id number] 25mg Take 1 tablet by mouth every 6 (six) hours as needed for Nausea and Vomiting (N/V). [facility] proMETHazin e 25 mg tablet 2022-0 11-12 00:00: 00 01-06 00:00 :00 No [id number] 25mg Take 1 tablet by mouth every 6 (six) hours as needed for Nausea and Vomiting (N/V). [facility] vitamin w/FA tablet 2022-0 11-08 00:00: 00 Yes [id number] 1{tbl} Take 1 tablet by mouth in the morning. [facility] vitamin w/FA tablet 2022-0 11-08 00:00: 00 Yes [id number] 1{tbl} Take 1 tablet by mouth in the morning. [facility] vitamin w/FA tablet 2022-0 3 00:00: 00 Yes [id number] 1{tbl} Take 1 tablet by mouth in the morning. [facility] vitamin w/FA tablet 2022-0 11-08 00:00: 00 Yes [id number] 1{tbl} Take 1 tablet by mouth in the morning. [facility] vitamin w/FA tablet 2022-0 3 00:00: 00 Yes [id number] 1{tbl} Take 1 tablet by mouth in the morning. [facility] vitamin w/FA tablet 2022-0 3- 00:00: 00 Yes [id number] 1{tbl} Take 1 tablet by mouth in the morning. [facility] vitamin w/FA tablet 2022-0 3- 00:00: 00 Yes [id number] 1{tbl} Take 1 tablet by mouth in the morning. [facility] vitamin w/FA tablet 3-0 3- 00:00: 00 Yes [id number] 1{tbl} Take 1 tablet by mouth in the morning. [facility] vitamin w/FA tablet 2023-0 3-06 00:00: 00 Yes [id number] 1{tbl} Take 1 tablet by mouth in the morning. [facility] vitamin w/FA tablet 3-0 3- 00:00: 00 Yes [id number] 1{tbl} Take 1 tablet by mouth in the morning. [facility] vitamin w/FA tablet 2023-0 3- 00:00: 00 Yes [id number] 1{tbl} Take 1 tablet by mouth in the morning. [facility] vitamin w/FA tablet 3-0 3- 00:00: 00 Yes [id number] 1{tbl} Take 1 tablet by mouth in the morning. [facility] vitamin w/FA tablet 2023-0 3- 00:00: 00 Yes [id number] 1{tbl} Take 1 tablet by mouth in the morning. [facility] vitamin w/FA tablet 2023-0 3 00:00: 00 Yes [id number] 1{tbl} Take 1 tablet by mouth in the morning. [facility] vitamin w/FA tablet 3-0 3 00:00: 00 Yes [id number] 1{tbl} Take 1 tablet by mouth in the morning. [facility] vitamin w/FA tablet 2023-0 3 00:00: 00 Yes [id number] 1{tbl} Take 1 tablet by mouth in the morning. [facility] vitamin w/FA tablet 2023-0 3- 00:00: 00 Yes [id number] 1{tbl} Take 1 tablet by mouth in the morning. [facility] vitamin w/FA tablet 2023-0 3- 00:00: 00 Yes [id number] 1{tbl} Take 1 tablet by mouth in the morning. [facility] vitamin w/FA tablet 2023-0 3- 00:00: 00 Yes [id number] 1{tbl} Take 1 tablet by mouth in the morning. [facility] vitamin w/FA tablet 2023-0 3-06 00:00: 00 Yes [id number] 1{tbl} Take 1 tablet by mouth in the morning. [facility] vitamin w/FA tablet 3-0 3-06 00:00: 00 Yes [id number] 1{tbl} Take 1 tablet by mouth in the morning. [facility] vitamin w/FA tablet 2023-0 3-06 00:00: 00 Yes [id number] 1{tbl} Take 1 tablet by mouth in the morning. [facility] vitamin w/FA tablet 3-0 3-06 00:00: 00 Yes [id number] 1{tbl} Take 1 tablet by mouth in the morning. [facility] vitamin w/FA tablet 3-0 3- 00:00: 00 Yes [id number] 1{tbl} Take 1 tablet by mouth in the morning. [facility] vitamin w/FA tablet 3-0 3- 00:00: 00 Yes [id number] 1{tbl} Take 1 tablet by mouth in the morning. [facility] vitamin w/FA tablet 3-0 3- 00:00: 00 Yes [id number] 1{tbl} Take 1 tablet by mouth in the morning. [facility] vitamin w/FA tablet 3-0 3 00:00: 00 Yes [id number] 1{tbl} Take 1 tablet by mouth in the morning. [facility] vitamin w/FA tablet 3-0 3- 00:00: 00 Yes [id number] 1{tbl} Take 1 tablet by mouth in the morning. [facility] vitamin w/FA tablet 3-0 3- 00:00: 00 Yes [id number] 1{tbl} Take 1 tablet by mouth in the morning. [place] [facility] 3-0 3- 00:00: 00 Yes [id number] 1{tbl} Take 1 tablet by mouth in the morning. [facility] vitamin w/FA tablet 2023-0 3-06 00:00: 00 Yes [id number] 1{tbl} Take 1 tablet by mouth in the morning. [facility] vitamin w/FA tablet 3-0 306 00:00: 00 Yes [id number] 1{tbl} Take 1 tablet by mouth in the morning. [facility] vitamin w/FA tablet 3-0 3 00:00: 00 Yes [id number] 1{tbl} Take 1 tablet by mouth in the morning. [facility] vitamin w/FA tablet 3-0 3- 00:00: 00 Yes [id number] 1{tbl} Take 1 tablet by mouth in the morning. [facility] vitamin w/FA tablet 3-0 3 00:00: 00 Yes [id number] 1{tbl} Take 1 tablet by mouth in the morning. [facility] vitamin w/FA tablet 3-0 3 00:00: 00 Yes [id number] 1{tbl} Take 1 tablet by mouth in the morning. [facility] vitamin w/FA tablet 3-0 3 00:00: 00 Yes [id number] 1{tbl} Take 1 tablet by mouth in the morning. [facility] vitamin w/FA tablet 3-0 3 00:00: 00 Yes [id number] 1{tbl} Take 1 tablet by mouth in the morning. [facility] vitamin w/FA tablet 3-0 3 00:00: 00 Yes [id number] 1{tbl} Take 1 tablet by mouth in the morning. [facility] vitamin w/FA tablet 3-0 3 00:00: 00 Yes [id number] 1{tbl} Take 1 tablet by mouth in the morning. [facility] vitamin w/FA tablet 3-0 3 00:00: 00 Yes [id number] 1{tbl} Take 1 tablet by mouth in the morning. [facility] vitamin w/FA tablet 3-0 3- 00:00: 00 Yes [id number] 1{tbl} Take 1 tablet by mouth in the morning. [facility] vitamin w/FA tablet 3-0 3- 00:00: 00 Yes [id number] 1{tbl} Take 1 tablet by mouth in the morning. [facility] vitamin w/FA tablet 3-0 3 00:00: 00 Yes [id number] 1{tbl} Take 1 tablet by mouth in the morning. [facility] vitamin w/FA tablet 3-0 3 00:00: 00 Yes [id number] 1{tbl} Take 1 tablet by mouth in the morning. [facility] vitamin w/FA tablet 3-0 3- 00:00: 00 Yes [id number] 1{tbl} Take 1 tablet by mouth in the morning. [facility] vitamin w/FA tablet 3-0 3 00:00: 00 Yes [id number] 1{tbl} Take 1 tablet by mouth in the morning. [facility] vitamin w/FA tablet 3-0 3 00:00: 00 Yes [id number] 1{tbl} Take 1 tablet by mouth in the morning. [facility] vitamin w/FA tablet 3-0 3 00:00: 00 Yes [id number] 1{tbl} Take 1 tablet by mouth in the morning. [facility] vitamin w/FA tablet 3-0 3 00:00: 00 Yes [id number] 1{tbl} Take 1 tablet by mouth in the morning. [facility] vitamin w/FA tablet 3-0 3 00:00: 00 Yes [id number] 1{tbl} Take 1 tablet by mouth in the morning. [facility] vitamin w/FA tablet 3-0 3 00:00: 00 Yes [id number] 1{tbl} Take 1 tablet by mouth in the morning. [facility] vitamin w/FA tablet 3-0 3 00:00: 00 Yes [id number] 1{tbl} Take 1 tablet by mouth in the morning. [facility] vitamin w/FA tablet 2023-0 3- 00:00: 00 Yes [id number] 1{tbl} Take 1 tablet by mouth in the morning. [facility] vitamin w/FA tablet 2023-0 3-06 00:00: 00 Yes [id number] 1{tbl} Take 1 tablet by mouth in the morning. [facility] vitamin w/FA tablet 3-0 3-06 00:00: 00 Yes [id number] 1{tbl} Take 1 tablet by mouth in the morning. [facility] vitamin w/FA tablet 3-0 3- 00:00: 00 Yes [id number] 1{tbl} Take 1 tablet by mouth in the morning. [facility] vitamin w/FA tablet 3-0 3-06 00:00: 00 Yes [id number] 1{tbl} Take 1 tablet by mouth in the morning. [facility] vitamin w/FA tablet 3-0 3 00:00: 00 Yes [id number] 1{tbl} Take 1 tablet by mouth in the morning. [facility] vitamin w/FA tablet 2023-0 3- 00:00: 00 Yes [id number] 1{tbl} Take 1 tablet by mouth in the morning. [facility] vitamin w/FA tablet 3-0 3 00:00: 00 Yes [id number] 1{tbl} Take 1 tablet by mouth in the morning. [facility] vitamin w/FA tablet 3-0 3 00:00: 00 Yes [id number] 1{tbl} Take 1 tablet by mouth in the morning. [facility] vitamin w/FA tablet 3-0 3- 00:00: 00 Yes [id number] 1{tbl} Take 1 tablet by mouth in the morning. [facility] vitamin w/FA tablet 3-0 3- 00:00: 00 Yes [id number] 1{tbl} Take 1 tablet by mouth in the morning. [facility] vitamin w/FA tablet 2023-0 3- 00:00: 00 Yes [id number] 1{tbl} Take 1 tablet by mouth in the morning. [facility] vitamin w/FA tablet 2023-0 3- 00:00: 00 Yes [id number] 1{tbl} Take 1 tablet by mouth in the morning. [facility] vitamin w/FA tablet 2022-0 3-06 00:00: 00 Yes [id number] 1{tbl} Take 1 tablet by mouth in the morning. [facility] vitamin w/FA tablet 2022-0 3- 00:00: 00 Yes [id number] 1{tbl} Take 1 tablet by mouth in the morning. [facility] vitamin w/FA tablet 2022-0 3 00:00: 00 Yes [id number] 1{tbl} Take 1 tablet by mouth in the morning. [facility] vitamin w/FA tablet 2022-0 3 00:00: 00 Yes [id number] 1{tbl} Take 1 tablet by mouth in the morning. [facility] vitamin w/FA tablet 2022-0 3 00:00: 00 Yes [id number] 1{tbl} Take 1 tablet by mouth in the morning. [facility] vitamin w/FA tablet 2022-0 3 00:00: 00 Yes [id number] 1{tbl} Take 1 tablet by mouth in the morning. [facility] vitamin w/FA tablet 2022-0 3 00:00: 00 Yes [id number] 1{tbl} Take 1 tablet by mouth in the morning. [facility] vitamin w/FA tablet 2022-0 3 00:00: 00 Yes [id number] 1{tbl} Take 1 tablet by mouth in the morning. [facility] vitamin w/FA tablet 2022-0 3 00:00: 00 Yes [id number] 1{tbl} Take 1 tablet by mouth in the morning. [facility] vitamin w/FA tablet 2022-0 3 00:00: 00 06-14 00:00 :00 No [id number] 1{tbl} Take 1 tablet by mouth in the morning. [facility] No known medications 8 13:33: 59 No No known medication s [facility] metFORMIN 500 mg tablet 02-19 00:00: 00 04-05 00:00 :00 No [id number] 500mg Take 1 tablet by mouth 2 (two) times daily with meals. [facility] vitamin w/FA tablet 17 00:00: 00 04-05 00:00 :00 No [id number] 1{tbl} Take 1 tablet by mouth daily. [facility] docusate 100 mg capsule 17 00:00: 04-05 00:00 :00 No [id number] 200mg Take 2 capsules by mouth once daily as needed for Constipati on. [facility] ferrous sulfate 325 mg (65 mg iron) tablet 02-19 00:00: 00 04-05 00:00 :00 No [id number] 325mg Take 1 tablet by mouth 2 (two) times daily. [facility] ibuprofen 600 mg tablet 02-19 00:00: 00 04-05 00:00 :00 No [id number] 600mg Take 1 tablet by mouth every 6 (six) hours as needed (Pain). Take with food or milk. [facility] Nitrofurant oin&Nit. Macrocryst 100 mg capsule 4-06 00:00: 00 04-05 00:00 :00 No [id number] 100mg Take 1 capsule by mouth 2 (two) times daily. [facility] loratadine 10 mg tablet 2020-09 2 00:00: 00 04-05 00:00 :00 No [id number] 10mg Take 1 tablet by mouth daily. [facility] benzonatate 100 mg capsule 2020-09 2-28 00:00: 00 04-05 00:00 :00 No [id number] 100mg Take 1 capsule by mouth 3 (three) times daily as needed for Cough. [facility] Fish Oil Fish Oil 6-11 00:00: 00 05-14 00:00 :00 No Velma Millender (otc) 1 capsule [facility] Ciprodex Ciprodex 2-18 00:00: 00 Yes Velma Millender 4 drops into affected ear [facility] Immunizations Ordered Immunization Name Filled Immunization Name Date Status Comments Source TDAP 2023-04-14 00:00:[address] [facility] TDAP 2023-04-14 00:00:[address] [facility] TDAP 2023-04-14 00:00:[address] [facility] TDAP 2023-04-14 00[facility]00:[address] [facility] TDAP 2023-04-14 00[facility]00:[address] [facility] TDAP 2023-04-14 00[facility]00:[address] [facility] TDAP 2023-04-14 00[facility]00:[address] [facility] TDAP 2023-04-14 00[facility]00:[address] [facility] TDAP 2023-04-14 00:00:[address] [facility] TDAP 2023-04-14 00[facility]00:[address] [facility] TDAP 2023-04-14 00:00:[address] [facility] TDAP 2023-04-14 00[facility]00:[address] [facility] TDAP 2023-04-14 00:00:[address] [facility] TDAP 2023-04-14 00:00:[address] [facility] TDAP 2023-04-14 00:00:[address] [facility] HPV9 2022-09-07 00:00:[address] [facility] HPV9 2022-09-07 00:00:[address] [facility] HPV9 2022-09-07 00:00:[address] [facility] HPV9 2022-09-07 00:00:[address] [facility] HPV9 2022-09-07 00:00:[address] [facility] HPV9 2022-09-07 00:00:[address] [facility] HPV9 2022-09-07 00:00:[address] [facility] HPV9 2022-09-07 00:00:[address] [facility] HPV9 2022-09-07 00:00:[address] [facility] HPV9 2022-09-07 00:00:[address] [facility] HPV9 2022-09-07 00:00:[address] [facility] HPV9 2022-09-07 00:00:[address] [facility] HPV9 2022-09-07 00:00:[address] [facility] HPV9 2022-09-07 00:00:[address] [facility] HPV9 2022-09-07 00:00:[address] [facility] HPV9 2022-09-07 00:00:[address] [facility] HPV9 2022-09-07 00:00:[address] [facility] HPV9 2022-09-07 00:00:[address] [facility] HPV9 2022-09-07 00:00:[address] [facility] HPV9 2022-09-07 00:00:[address] [facility] HPV9 2022-09-07 00:00:[address] [facility] HPV9 2022-09-07 00:00:[address] [facility] HPV9 2022-09-07 00:00:[address] [facility] HPV9 2022-09-07 00:00:[address] [facility] HPV9 2022-09-07 00:00:[address] [facility] HPV9 2022-09-07 00:00:[address] [facility] HPV9 2022-09-07 00:00:[address] [facility] HPV9 2022-09-07 00:00:[address] [facility] HPV9 2022-09-07 00:00:[address] [facility] HPV9 2022-09-07 00:00:[address] [facility] HPV9 2022-09-07 00:00:[address] [facility] HPV9 2022-09-07 00:00:[address] [facility] HPV9 2022-09-07 00:00:[address] [facility] HPV9 2022-09-07 00:00:[address] [facility] HPV9 2022-09-07 00:00:[address] [facility] HPV9 2022-09-07 00:00:[address] [facility] HPV9 2022-09-07 00:00:[address] [facility] HPV9 2022-09-07 00:00:[address] [facility] HPV9 2022-09-07 00:00:[address] [facility] HPV9 2022-09-07 00:00:[address] [facility] HPV9 2022-09-07 00:00:[address] [facility] HPV9 2022-09-07 00:00:[address] [facility] HPV9 2022-09-07 00:00:[address] [facility] HPV9 2022-09-07 00:00:[address] [facility] HPV9 2022-09-07 00:00:[address] [facility] HPV9 2022-09-07 00:00:[address] [facility] HPV9 2022-09-07 00:00:[address] [facility] HPV9 2022-09-07 00:00:[address] [facility] HPV9 2022-09-07 00:00:[address] [facility] HPV9 2022-09-07 00:00:[address] [facility] HPV9 2022-09-07 00:00:[address] [facility] HPV9 2022-09-07 00:00:[address] [facility] HPV9 2022-09-07 00:00:[address] [facility] HPV9 2022-09-07 00:00:[address] [facility] HPV9 2022-09-07 00:00:[address] [facility] HPV9 2022-09-07 00:00:[address] [facility] HPV9 2022-09-07 00:00:[address] [facility] HPV9 2022-09-07 00:00:[address] [facility] HPV9 2022-09-07 00:00:[address] [facility] HPV9 2022-09-07 00:00:00 Completed [facility] HPV9 2022-09-07 00:00:[address] [facility] HPV9 2022-09-07 00:00:[address] [facility] HPV9 2022-09-07 00:00:[address] [facility] HPV9 2022-09-07 00:00:[address] [facility] HPV9 2022-09-07 00:00:[address] [facility] HPV9 2022-09-07 00:00:[address] [facility] HPV9 2022-09-07 00:00:[address] [facility] HPV9 2022-09-07 00:00:[address] [facility] HPV9 2022-09-07 00:00:[address] [facility] HPV9 2022-04-05 00:00:[address] [facility] HPV9 2022-04-05 00:00:[address] [facility] HPV9 2022-04-05 00:00:[address] [facility] HPV9 2022-04-05 00:00:[address] [facility] HPV9 2022-04-05 00:00:[address] [facility] HPV9 2022-04-05 00:00:[address] [facility] HPV9 2022-04-05 00:00:[address] [facility] HPV9 2022-04-05 00:00:[address] [facility] HPV9 2022-04-05 00:00:[address] [facility] HPV9 2022-04-05 00:00:[address] [facility] HPV9 2022-04-05 00:00:[address] [facility] HPV9 2022-04-05 00:00:[address] [facility] HPV9 2022-04-05 00:00:[address] [facility] HPV9 2022-04-05 00:00:[address] [facility] HPV9 2022-04-05 00:00:[address] [facility] HPV9 2022-04-05 00:00:[address] [facility] HPV9 2022-04-05 00:00:[address] [facility] HPV9 2022-04-05 00:00:[address] [facility] HPV9 2022-04-05 00:00:[address] [facility] HPV9 2022-04-05 00:00:[address] [facility] HPV9 2022-04-05 00:00:[address] [facility] HPV9 2022-04-05 00:00:[address] [facility] HPV9 2022-04-05 00:00:[address] [facility] HPV9 2022-04-05 00:00:[address] [facility] HPV9 2022-04-05 00:00:[address] [facility] HPV9 2022-04-05 00:00:[address] [facility] HPV9 2022-04-05 00:00:[address] [facility] HPV9 2022-04-05 00:00:[address] [facility] HPV9 2022-04-05 00:00:[address] [facility] HPV9 2022-04-05 00:00:[address] [facility] HPV9 2022-04-05 00:00:[address] [facility] HPV9 2022-04-05 00:00:[address] [facility] HPV9 2022-04-05 00:00:[address] [facility] HPV9 2022-04-05 00:00:[address] [facility] HPV9 2022-04-05 00:00:[address] [facility] HPV9 2022-04-05 00:00:[address] [facility] HPV9 2022-04-05 00:00:[address] [facility] HPV9 2022-04-05 00:00:[address] [facility] HPV9 2022-04-05 00:00:[address] [facility] HPV9 2022-04-05 00:00:[address] [facility] HPV9 2022-04-05 00:00:[address] [facility] HPV9 2022-04-05 00:00:[address] [facility] HPV9 2022-04-05 00:00:[address] [facility] HPV9 2022-04-05 00:00:[address] [facility] HPV9 2022-04-05 00:00:[address] [facility] HPV9 2022-04-05 00:00:[address] [facility] HPV9 2022-04-05 00:00:[address] [facility] HPV9 2022-04-05 00:00:[address] [facility] HPV9 2022-04-05 00:00:[address] [facility] HPV9 2022-04-05 00:00:[address] [facility] HPV9 2022-04-05 00:00:[address] [facility] HPV9 2022-04-05 00:00:[address] [facility] HPV9 2022-04-05 00:00:[address] [facility] HPV9 2022-04-05 00:00:[address] [facility] HPV9 2022-04-05 00:00:[address] [facility] HPV9 2022-04-05 00:00:[address] [facility] HPV9 2022-04-05 00:00:[address] [facility] HPV9 2022-04-05 00:00:[address] [facility] HPV9 2022-04-05 00:00:[address] [facility] HPV9 2022-04-05 00:00:[address] [facility] HPV9 2022-04-05 00:00:[address] [facility] HPV9 2022-04-05 00:00:[address] [facility] HPV9 2022-04-05 00:00:[address] [facility] HPV9 2022-04-05 00:00:[address] [facility] HPV9 2022-04-05 00:00:[address] [facility] HPV9 2022-04-05 00:00:[address] [facility] HPV9 2022-04-05 00:00:[address] [facility] HPV9 2022-04-05 00:00:[address] [facility] HPV9 2022-04-05 00:00:[address] [facility] HPV9 2022-04-05 00:00:[address] [facility] HPV9 2022-02-18 00:00:[address] [facility] HPV9 2022-02-18 00:00:[address] [facility] HPV9 2022-02-18 00:00:[address] [facility] HPV9 2022-02-18 00:00:[address] [facility] HPV9 2022-02-18 00:00:[address] [facility] HPV9 2022-02-18 00:00:[address] [facility] HPV9 2022-02-18 00:00:[address] [facility] HPV9 2022-02-18 00:00:[address] [facility] HPV9 2022-02-18 00:00:[address] [facility] HPV9 2022-02-18 00:00:[address] [facility] HPV9 2022-02-18 00:00:[address] [facility] HPV9 2022-02-18 00:00:[address] [facility] HPV9 2022-02-18 00:00:[address] [facility] HPV9 2022-02-18 00:00:[address] [facility] HPV9 2022-02-18 00:00:[address] [facility] HPV9 2022-02-18 00:00:[address] [facility] HPV9 2022-02-18 00:00:[address] [facility] HPV9 2022-02-18 00:00:[address] [facility] HPV9 2022-02-18 00:00:[address] [facility] HPV9 2022-02-18 00:00:[address] [facility] HPV9 2022-02-18 00:00:[address] [facility] HPV9 2022-02-18 00:00:[address] [facility] HPV9 2022-02-18 00:00:[address] [facility] HPV9 2022-02-18 00:00:[address] [facility] HPV9 2022-02-18 00:00:[address] [facility] HPV9 2022-02-18 00:00:[address] [facility] HPV9 2022-02-18 00:00:[address] [facility] HPV9 2022-02-18 00:00:[address] [facility] HPV9 2022-02-18 00:00:[address] [facility] HPV9 2022-02-18 00:00:[address] [facility] HPV9 2022-02-18 00:00:[address] [facility] HPV9 2022-02-18 00:00:[address] [facility] HPV9 2022-02-18 00:00:[address] [facility] HPV9 2022-02-18 00:00:[address] [facility] HPV9 2022-02-18 00:00:[address] [facility] [facility] HPV9 2022-02-18 00:00:[address] [facility] HPV9 2022-02-18 00[facility]00:[address] [facility] HPV9 2022-02-18 00[facility]00:[address] [facility] HPV9 2022-02-18 00:00:[address] [facility] HPV9 2022-02-18 00[facility]00:[address] [facility] HPV9 2022-02-18 00:00:[address] [facility] HPV9 2022-02-18 00:00:[address] [facility] HPV9 2022-02-18 00:00:[address] [facility] HPV9 2022-02-18 00[facility]00:[address] [facility] HPV9 2022-02-18 00:00:[address] [facility] HPV9 2022-02-18 00:00:[address] [facility] HPV9 2022-02-18 00:00:[address] [facility] HPV9 2022-02-18 00:00:[address] [facility] HPV9 2022-02-18 00:00:[address] [facility] HPV9 2022-02-18 00:00:[address] [facility] HPV9 2022-02-18 00:00:[address] [facility] HPV9 2022-02-18 00:00:[address] [facility] HPV9 2022-02-18 00:00:[address] [facility] HPV9 2022-02-18 00:00:[address] [facility] HPV9 2022-02-18 00:00:[address] [facility] HPV9 2022-02-18 00:00:[address] [facility] HPV9 2022-02-18 00:00:[address] [facility] HPV9 2022-02-18 00:00:[address] [facility] HPV9 2022-02-18 00:00:[address] [facility] HPV9 2022-02-18 00:00:[address] [facility] HPV9 2022-02-18 00:00:[address] [facility] HPV9 2022-02-18 00:00:[address] [facility] HPV9 2022-02-18 00:00:[address] [facility] HPV9 2022-02-18 00:00:[address] [facility] HPV9 2022-02-18 00:00:[address] [facility] HPV9 2022-02-18 00:00:[address] [facility] HPV9 2022-02-18 00:00:[address] [facility] HPV9 2022-02-18 00:00:[address] [facility] HPV9 2022-02-18 00:00:[address] [facility] HPV9 2022-02-18 00:00:[address] [facility] TDAP 2022-01-14 00:00:[address] [facility] TDAP 2022-01-14 00:00:[address] [facility] TDAP 2022-01-14 00:00:[address] [facility] TDAP 2022-01-14 00:00:[address] [facility] TDAP 2022-01-14 00:00:[address] [facility] TDAP 2022-01-14 00:00:[address] [facility] TDAP 2022-01-14 00:00:[address] [facility] TDAP 2022-01-14 00:00:[address] [facility] TDAP 2022-01-14 00:00:[address] [facility] TDAP 2022-01-14 00:00:[address] [facility] TDAP 2022-01-14 00:00:[address] [facility] TDAP 2022-01-14 00:00:[address] [facility] TDAP 2022-01-14 00:00:[address] [facility] TDAP 2022-01-14 00:00:[address] [facility] TDAP 2022-01-14 00:00:[address] [facility] TDAP 2022-01-14 00:00:[address] [facility] TDAP 2022-01-14 00:00:[address] [facility] TDAP 2022-01-14 00:00:[address] [facility] TDAP 2022-01-14 00:00:[address] [facility] TDAP 2022-01-14 00:00:[address] [facility] TDAP 2022-01-14 00:00:[address] [facility] TDAP 2022-01-14 00:00:[address] [facility] TDAP 2022-01-14 00:00:[address] [facility] TDAP 2022-01-14 00:00:[address] [facility] TDAP 2022-01-14 00:00:[address] [facility] TDAP 2022-01-14 00:00:[address] [facility] TDAP 2022-01-14 00:00:[address] [facility] TDAP 2022-01-14 00:00:[address] [facility] TDAP 2022-01-14 00:00:[address] [facility] TDAP 2022-01-14 00:00:[address] [facility] TDAP 2022-01-14 00:00:[address] [facility] TDAP 2022-01-14 00:00:[address] [facility] TDAP 2022-01-14 00:00:[address] [facility] TDAP 2022-01-14 00:00:[address] [facility] TDAP 2022-01-14 00:00:[address] [facility] TDAP 2022-01-14 00:00:[address] [facility] TDAP 2022-01-14 00:00:[address] [facility] TDAP 2022-01-14 00:00:[address] [facility] TDAP 2022-01-14 00:00:[address] [facility] TDAP 2022-01-14 00:00:[address] [facility] TDAP 2022-01-14 00:00:[address] [facility] TDAP 2022-01-14 00:00:[address] [facility] TDAP 2022-01-14 00:00:[address] [facility] TDAP 2022-01-14 00:00:[address] [facility] TDAP 2022-01-14 00:00:[address] [facility] TDAP 2022-01-14 00:00:[address] [facility] TDAP 2022-01-14 00:00:[address] [facility] TDAP 2022-01-14 00:00:[address] [facility] TDAP 2022-01-14 00:00:[address] [facility] TDAP 2022-01-14 00:00:[address] [facility] TDAP 2022-01-14 00:00:[address] [facility] TDAP 2022-01-14 00:00:[address] [facility] TDAP 2022-01-14 00:00:[address] [facility] TDAP 2022-01-14 00:00:[address] [facility] TDAP 2022-01-14 00:00:[address] [facility] TDAP 2022-01-14 00:00:[address] [facility] TDAP 2022-01-14 00:00:[address] [facility] TDAP 2022-01-14 00:00:[address] [facility] TDAP 2022-01-14 00:00:[address] [facility] TDAP 2022-01-14 00:00:[address] [facility] TDAP 2022-01-14 00:00:[address] [facility] TDAP 2022-01-14 00:00:[address] [facility] TDAP 2022-01-14 00:00:[address] [facility] TDAP 2022-01-14 00:00:[address] [facility] TDAP 2022-01-14 00:00:[address] [facility] TDAP 2022-01-14 00:00:[address] [facility] TDAP 2022-01-14 00:00:[address] [facility] TDAP 2022-01-14 00:00:[address] [facility] TDAP 2022-01-14 00:00:[address] [facility] TDAP 2022-01-14 00:00:[address] [facility] Varicella (varivax)(chicken pox) 2016-03-05 00:00:[address] [facility] Varicella (varivax)(chicken pox) 2016-03-05 00:00:[address] [facility] Varicella (varivax)(chicken pox) 2016-03-05 00:00:[address] [facility] Varicella (varivax)(chicken pox) 2016-03-05 00:00:[address] [facility] Varicella (varivax)(chicken pox) 2016-03-05 00:00:[address] [facility] Varicella (varivax)(chicken pox) 2016-03-05 00:00:[address] [facility] Varicella (varivax)(chicken pox) 2016-03-05 00:00:[address] [facility] Varicella (varivax)(chicken pox) 2016-03-05 00:00:[address] [facility] Varicella (varivax)(chicken pox) 2016-03-05 00:00:[address] [facility] Varicella (varivax)(chicken pox) 2016-03-05 00:00:[address] [facility] Varicella (varivax)(chicken pox) 2016-03-05 00:00:[address] [facility] Varicella (varivax)(chicken pox) 2016-03-05 00:00:[address] [facility] Varicella (varivax)(chicken pox) 2016-03-05 00:00:[address] [facility] Varicella (varivax)(chicken pox) 2016-03-05 00:00:[address] [facility] Varicella (varivax)(chicken pox) 2016-03-05 00:00:[address] [facility] Varicella (varivax)(chicken pox) 2016-03-05 00:00:[address] [facility] Varicella (varivax)(chicken pox) 2016-03-05 00:00:[address] [facility] Varicella (varivax)(chicken pox) 2016-03-05 00:00:[address] [facility] Varicella (varivax)(chicken pox) 2016-03-05 00:00:[address] [facility] Varicella (varivax)(chicken pox) 2016-03-05 00:00:[address] [facility] Varicella (varivax)(chicken pox) 2016-03-05 00:00:[address] [facility] Varicella (varivax)(chicken pox) 2016-03-05 00:00:[address] [facility] Varicella (varivax)(chicken pox) 2016-03-05 00:00:[address] [facility] Varicella (varivax)(chicken pox) 2016-03-05 00:00:[address] [facility] Varicella (varivax)(chicken pox) 2016-03-05 00:00:[address] [facility] Varicella (varivax)(chicken pox) 2016-03-05 00:00:[address] [facility] Varicella (varivax)(chicken pox) 2016-03-05 00:00:[address] [facility] Varicella (varivax)(chicken pox) 2016-03-05 00:00:[address] [facility] Varicella (varivax)(chicken pox) 2016-03-05 00:00:[address] [facility] Varicella (varivax)(chicken pox) 2016-03-05 00:00:[address] [facility] Varicella (varivax)(chicken pox) 2016-03-05 00:00:[address] [facility] Varicella (varivax)(chicken pox) 2016-03-05 00:00:[address] [facility] Varicella (varivax)(chicken pox) 2016-03-05 00:00:[address] [facility] Varicella (varivax)(chicken pox) 2016-03-05 00:00:[address] [facility] Varicella (varivax)(chicken pox) 2016-03-05 00:00:[address] [facility] Varicella (varivax)(chicken pox) 2016-03-05 00:00:[address] [facility] Varicella (varivax)(chicken pox) 2016-03-05 00:00:[address] [facility] Varicella (varivax)(chicken pox) 2016-03-05 00:00:[address] [facility] Varicella (varivax)(chicken pox) 2016-03-05 00:00:[address] [facility] Varicella (varivax)(chicken pox) 2016-03-05 00:00:[address] [facility] Varicella (varivax)(chicken pox) 2016-03-05 00:00:[address] [facility] Varicella (varivax)(chicken pox) 2016-03-05 00:00:[address] [facility] Varicella (varivax)(chicken pox) 2016-03-05 00:00:[address] [facility] Varicella (varivax)(chicken pox) 2016-03-05 00:00:[address] [facility] Varicella (varivax)(chicken pox) 2016-03-05 00:00:[address] [facility] Varicella (varivax)(chicken pox) 2016-03-05 00:00:[address] [facility] Varicella (varivax)(chicken pox) 2016-03-05 00:00:[address] [facility] Varicella (varivax)(chicken pox) 2016-03-05 00:00:[address] [facility] Varicella (varivax)(chicken pox) 2016-03-05 00:00:[address] [facility] Varicella (varivax)(chicken pox) 2016-03-05 00:00:[address] [facility] Varicella (varivax)(chicken pox) 2016-03-05 00:00:[address] [facility] Varicella (varivax)(chicken pox) 2016-03-05 00:00:[address] [facility] Varicella (varivax)(chicken pox) 2016-03-05 00:00:[address] [facility] Varicella (varivax)(chicken pox) 2016-03-05 00:00:[address] [facility] Varicella (varivax)(chicken pox) 2016-03-05 00:00:[address] [facility] Varicella (varivax)(chicken pox) 2016-03-05 00:00:[address] [facility] Varicella (varivax)(chicken pox) 2016-03-05 00:00:[address] [facility] Varicella (varivax)(chicken pox) 2016-03-05 00:00:[address] [facility] Varicella (varivax)(chicken pox) 2016-03-05 00:00:[address] [facility] Varicella (varivax)(chicken pox) 2016-03-05 00:00:[address] [facility] Varicella (varivax)(chicken pox) 2016-03-05 00:00:[address] [facility] Varicella (varivax)(chicken pox) 2016-03-05 00:00:[address] [facility] Varicella (varivax)(chicken pox) 2016-03-05 00:00:[address] [facility] Varicella (varivax)(chicken pox) 2016-03-05 00:00:[address] [facility] Varicella (varivax)(chicken pox) 2016-03-05 00:00:[address] [facility] Varicella (varivax)(chicken pox) 2016-03-05 00:00:[address] [facility] Varicella (varivax)(chicken pox) 2016-03-05 00:00:[address] [facility] Varicella (varivax)(chicken pox) 2016-03-05 00:00:[address] [facility] Varicella (varivax)(chicken pox) 2016-03-05 00:00:[address] [facility] Varicella (varivax)(chicken pox) 2016-03-05 00:00:[address] [facility] TDAP 2015-12-18 00:00:[address] [facility] TDAP 2015-12-18 00[facility]00:[address] [facility] TDAP 2015-12-18 00:00:[address] [facility] TDAP 2015-12-18 00:00:[address] [facility] TDAP 2015-12-18 00:00:[address] [facility] TDAP 2015-12-18 00:00:[address] [facility] TDAP 2015-12-18 00:00:[address] [facility] TDAP 2015-12-18 00:00:[address] [facility] TDAP 2015-12-18 00:00:[address] [facility] TDAP 2015-12-18 00:00:[address] [facility] TDAP 2015-12-18 00:00:[address] [facility] TDAP 2015-12-18 00:00:[address] [facility] TDAP 2015-12-18 00:00:[address] [facility] TDAP 2015-12-18 00:00:[address] [facility] TDAP 2015-12-18 00:00:[address] [facility] TDAP 2015-12-18 00:00:[address] [facility] TDAP 2015-12-18 00:00:[address] [facility] TDAP 2015-12-18 00:00:[address] [facility] TDAP 2015-12-18 00:00:[address] [facility] TDAP 2015-12-18 00:00:[address] [facility] TDAP 2015-12-18 00:00:[address] [facility] TDAP 2015-12-18 00:00:[address] [facility] TDAP 2015-12-18 00:00:[address] [facility] TDAP 2015-12-18 00:00:[address] [facility] TDAP 2015-12-18 00:00:[address] [facility] TDAP 2015-12-18 00:00:[address] [facility] TDAP 2015-12-18 00:00:[address] [facility] TDAP 2015-12-18 00:00:[address] [facility] TDAP 2015-12-18 00:00:[address] [facility] TDAP 2015-12-18 00:00:[address] [facility] TDAP 2015-12-18 00:00:[address] [facility] TDAP 2015-12-18 00:00:[address] [facility] TDAP 2015-12-18 00:00:[address] [facility] TDAP 2015-12-18 00:00:[address] [facility] TDAP 2015-12-18 00:00:[address] [facility] TDAP 2015-12-18 00:00:[address] [facility] TDAP 2015-12-18 00:00:[address] [facility] TDAP 2015-12-18 00:00:[address] [facility] TDAP 2015-12-18 00:00:[address] [facility] TDAP 2015-12-18 00:00:[address] [facility] TDAP 2015-12-18 00:00:[address] [facility] TDAP 2015-12-18 00:00:[address] [facility] TDAP 2015-12-18 00:00:[address] [facility] TDAP 2015-12-18 00:00:[address] [facility] TDAP 2015-12-18 00:00:[address] [facility] TDAP 2015-12-18 00:00:[address] [facility] TDAP 2015-12-18 00:00:[address] [facility] TDAP 2015-12-18 00:00:[address] [facility] TDAP 2015-12-18 00:00:[address] [facility] TDAP 2015-12-18 00:00:[address] [facility] TDAP 2015-12-18 00:00:[address] [facility] TDAP 2015-12-18 00:00:[address] [facility] TDAP 2015-12-18 00:00:[address] [facility] TDAP 2015-12-18 00:00:[address] [facility] TDAP 2015-12-18 00:00:[address] [facility] TDAP 2015-12-18 00:00:[address] [facility] TDAP 2015-12-18 00:00:[address] [facility] TDAP 2015-12-18 00:00:[address] [facility] TDAP 2015-12-18 00:00:[address] [facility] TDAP 2015-12-18 00:00:[address] [facility] TDAP 2015-12-18 00:00:[address] [facility] TDAP 2015-12-18 00:00:[address] [facility] TDAP 2015-12-18 00:00:[address] [facility] TDAP 2015-12-18 00:00:[address] [facility] TDAP 2015-12-18 00:00:[address] [facility] TDAP 2015-12-18 00:00:[address] [facility] TDAP 2015-12-18 00:00:[address] [facility] TDAP 2015-12-18 00:00:[address] [facility] TDAP 2015-12-18 00[facility]00:[address] [facility] TDAP 2015-12-18 00:00:[address] [facility] TDAP Unknown Completed [facility] Varicella (varivax)(chicken pox) Unknown Completed [facility] TDAP Unknown [facility] HPV[address] [facility] HPV9 [address] [facility] HPV9 Unknown [facility] [facility] TDAP Unknown Completed [facility] Varicella (varivax)(chicken pox[facility] Unknown Completed [facility] TDAP Unknown Completed [facility] HPV[address] [facility] HPV9 [address] [facility] HPV[address] [facility] TDAP Unknown Completed [facility] TDAP Unknown Completed [facility] Varicella (varivax)(chicken pox) Unknown Completed [facility] TDAP Unknown Completed [facility] HPV9 [address] [facility] HPV9 [address] [facility] HPV[address] [facility] TDAP Unknown Completed [facility] TDAP Unknown Completed [facility] Varicella (varivax)(chicken pox) Unknown Completed [facility] TDAP Unknown Completed [facility] HPV9 [address] [facility] HPV9 [address] [facility] HPV9 [address] [facility] TDAP Unknown Completed [facility] TDAP Unknown Completed [facility] Varicella (varivax)(chicken pox) Unknown Completed [facility] TDAP Unknown Completed [facility] HPV9 [address] [facility] HPV9 [address] [facility] HPV9 [address] [facility] TDAP Unknown Completed [facility] TDAP Unknown Completed [facility] Varicella (varivax)(chicken pox) Unknown Completed [facility] TDAP Unknown Completed [facility] HPV9 [address] [facility] HPV9 [address] [facility] HPV[address] [facility] TDAP Unknown Completed [facility] TDAP Unknown Completed [facility] Varicella (varivax)(chicken pox[facility] Unknown Completed [facility] TDAP Unknown Completed [facility] Varicella (varivax)(chicken pox) Unknown Completed [facility] TDAP Unknown Completed [facility] Varicella (varivax)(chicken pox) Unknown Completed [facility] TDAP Unknown Completed [facility] HPV9 [address] [facility] HPV9 [address] [facility] HPV[address] [facility] TDAP Unknown Completed [facility] TDAP Unknown Completed [facility] Varicella (varivax)(chicken pox) Unknown Completed [facility] TDAP Unknown Completed [facility] HPV9 [address] [facility] HPV9 [address] [facility] HPV9 [address] [facility] TDAP Unknown Completed [facility] TDAP Unknown Completed [facility] Varicella (varivax)(chicken pox) Unknown Completed [facility] TDAP Unknown Completed [facility] HPV9 [address] [facility] HPV[address] [facility] HPV[address] [facility] TDAP Unknown Completed [facility] TDAP Unknown Completed [facility] Varicella (varivax)(chicken pox) Unknown Completed [facility] TDAP Unknown Completed [facility] HPV9 [address] [facility] HPV9 [address] [facility] HPV[address] [facility] TDAP Unknown Completed [facility] TDAP Unknown Completed [facility] Varicella (varivax)(chicken pox) Unknown Completed [facility] TDAP Unknown Completed [facility] HPV9 [address] [facility] HPV9 [address] [facility] HPV[address] [facility] TDAP Unknown Completed [facility] TDAP Unknown Completed [facility] Varicella (varivax)(chicken pox) Unknown Completed [facility] TDAP Unknown Completed [facility] HPV9 [address] [facility] HPV9 [address] [facility] HPV[address] [facility] TDAP Unknown Completed [facility] TDAP Unknown Completed [facility] Varicella (varivax)(chicken pox) Unknown Completed [facility] TDAP Unknown Completed [facility] HPV9 [address] [facility] HPV9 [address] [facility] HPV[address] [facility] TDAP Unknown Completed [facility] TDAP Unknown Completed [facility] Varicella (varivax)(chicken pox) Unknown Completed [facility] TDAP Unknown Completed [facility] HPV9 [address] [facility] HPV9 [address] [facility] HPV[address] [facility] TDAP Unknown Completed [facility] TDAP Unknown Completed [facility] Varicella (varivax)(chicken pox) Unknown Completed [facility] TDAP Unknown Completed [facility] HPV9 [address] [facility] HPV[address] [facility] HPV[address] TDAP Unknown Completed [facility] TDAP Unknown Completed [facility] Varicella (varivax)(chicken pox) Unknown Completed [facility] TDAP Unknown Completed [facility] HPV9 [address] [facility] HPV[address] [facility] HPV[address] [facility] TDAP Unknown Completed [facility] TDAP Unknown Completed [facility] Varicella (varivax)(chicken pox) Unknown Completed [facility] TDAP Unknown Completed [facility] HPV9 [address] [facility] HPV9 [address] [facility] HPV9 [address] [facility] TDAP Unknown Completed [facility] TDAP Unknown Completed [facility] Varicella (varivax)(chicken pox) Unknown Completed [facility] TDAP Unknown Completed [facility] HPV9 [address] [facility] HPV[address] [facility] HPV[address] [facility] TDAP Unknown Completed [facility] TDAP Unknown Completed [facility] Varicella (varivax)(chicken pox) Unknown Completed [facility] TDAP Unknown Completed [facility] HPV9 [address] [facility] HPV9 [address] [facility] HPV[address] [facility] TDAP Unknown Completed [facility] TDAP Unknown Completed [facility] Varicella (varivax)(chicken pox) Unknown Completed [facility] TDAP Unknown Completed [facility] HPV9 [address] [facility] HPV[address] [facility] HPV[address] [facility] TDAP Unknown Completed [facility] TDAP Unknown Completed [facility] Varicella (varivax)(chicken pox) Unknown Completed [facility] TDAP Unknown Completed [facility] HPV9 [address] [facility] HPV9 [address] [facility] HPV[address] [facility] TDAP Unknown Completed [facility] TDAP Unknown Completed [facility] Varicella (varivax)(chicken pox) Unknown Completed [facility] TDAP Unknown Completed [facility] HPV9 [address] [facility] HPV[address] [facility] HPV[address] [facility] TDAP Unknown Completed [facility] TDAP Unknown Completed [facility] Varicella (varivax)(chicken pox) Unknown Completed [facility] TDAP Unknown Completed [facility] HPV9 [address] [facility] HPV[address] [facility] HPV[address] [facility] TDAP Unknown Completed [facility] TDAP Unknown Completed [facility] Varicella (varivax)(chicken pox) Unknown Completed [facility] TDAP Unknown Completed [facility] HPV[address] [facility] HPV[address] [facility] HPV[address] [facility] TDAP Unknown Completed [facility] TDAP Unknown Completed [facility] Varicella (varivax)(chicken pox) Unknown Completed [facility] TDAP Unknown Completed [facility] HPV9 [address] [facility] HPV9 [address] [facility] HPV[address] [facility] TDAP Unknown Completed [facility] TDAP Unknown Completed [facility] Varicella (varivax)(chicken pox) Unknown Completed [facility] TDAP Unknown Completed [facility] HPV9 [address] [facility] HPV9 [address] [facility] HPV9 [address] [facility] TDAP Unknown Completed [facility] TDAP Unknown Completed [facility] Varicella (varivax)(chicken pox) Unknown Completed [facility] TDAP Unknown Completed [facility] HPV9 [address] [facility] HPV9 [address] [facility] HPV[address] [facility] TDAP Unknown Completed [facility] TDAP Unknown Completed [facility] Varicella (varivax)(chicken pox) Unknown Completed [facility] TDAP Unknown Completed [facility] HPV9 [address] [facility] HPV9 [address] [facility] HPV[address] [facility] TDAP Unknown Completed [facility] TDAP Unknown Completed [facility] Varicella (varivax)(chicken pox) Unknown Completed [facility] TDAP Unknown Completed [facility] HPV9 [address] [facility] HPV9 [address] [facility] HPV[address] [facility] TDAP Unknown Completed [facility] TDAP Unknown Completed [facility] Varicella (varivax)(chicken pox) Unknown Completed [facility] TDAP Unknown Completed [facility] HPV9 [address] [facility] HPV9 [address] [facility] HPV[address] [facility] TDAP Unknown Completed [facility] TDAP Unknown Completed [facility] Varicella (varivax)(chicken pox) Unknown Completed [facility] TDAP Unknown Completed [facility] HPV9 [address] [facility] HPV9 [address] [facility] HPV[address] [facility] TDAP Unknown Completed [facility] TDAP Unknown Completed [facility] Varicella (varivax)(chicken pox) Unknown Completed [facility] TDAP Unknown Completed [facility] HPV9 [address] [facility] HPV9 [address] [facility] HPV[address] [facility] TDAP Unknown Completed [facility] TDAP Unknown Completed [facility] Varicella (varivax)(chicken pox) Unknown Completed [facility] TDAP Unknown Completed [facility] HPV9 [address] [facility] HPV9 [address] [facility] HPV9 [address] [facility] TDAP Unknown Completed [facility] Vital Signs Vital Name Observation Time Observation Value Comments S ource Systolic blood pressure 2023-08-03 14:21:00 123 mm[Hg] [facility] Diastolic blood pressure 2023-08-03 14:21:00 90 mm[Hg] [facility] Heart rate 2023-08-03 14:21:00 90 /min [facility] Body temperature 2023-08-03 14:21:[address] [facility] Respiratory rate 2023-08-03 14:21:00 18 /min [facility] Body height 2023-08-03 14:21:00 154.9 cm [facility] Body weight 2023-08-03 14:21:00 79.918 kg [facility] BMI 2023-08-03 14:21:00 33.29 kg/m2 [facility] Systolic blood pressure 2023-08-02 15:13:00 121 mm[Hg] [facility] Diastolic blood pressure 2023-08-02 15:13:00 85 mm[Hg] [facility] Heart rate 2023-08-02 15:13:00 75 /min [facility] Body temperature 2023-08-02 15:13:[address] [facility] Respiratory rate 2023-08-02 15:13:00 16 /min [facility] Body height 2023-08-02 15:13:00 154.9 cm [facility] Body weight 2023-08-02 15:13:00 79.697 kg [facility] BMI 2023-08-02 15:13:00 33.20 kg/m2 [facility] Oxygen saturation in Arterial blood by Pulse oximetry 2023-08-02 15:13:00 99 /min [facility] Systolic blood pressure 2023-07-12 14:29:00 138 mm[Hg] [facility] Diastolic blood pressure 2023-07-12 14:29:00 78 mm[Hg] [facility] Heart rate 2023-07-12 14:29:00 95 /min [facility] Body temperature 2023-07-12 14:29:[address] [facility] Respiratory rate 2023-07-12 14:29:00 18 /min [facility] Body height 2023-07-12 14:29:00 154.9 cm [facility] Body weight 2023-07-12 14:29:00 77.384 kg [facility] BMI 2023-07-12 14:29:00 32.23 kg/m2 [facility] Systolic blood pressure 2023-07-01 15:53:00 128 mm[Hg] [facility] Diastolic blood pressure 2023-07-01 15:53:00 87 mm[Hg] [facility] Heart rate 2023-07-01 15:47:00 82 /min [facility] Body temperature 2023-07-01 15:47:[address] [facility] Respiratory rate 2023-07-01 15:47:00 17 /min [facility] Body height 2023-07-01 15:47:00 154.9 cm [facility] Body weight 2023-07-01 15:47:00 76.839 kg [facility] BMI 2023-07-01 15:47:00 32.01 kg/m2 [facility] Systolic blood pressure 2023-06-28 12:24:00 109 mm[Hg] [facility] Diastolic blood pressure 2023-06-28 12:24:00 71 mm[Hg] [facility] Heart rate 2023-06-28 12:24:00 86 /min [facility] Body temperature 2023-06-28 12:24:[address] [facility] Respiratory rate 2023-06-28 12:24:00 18 /min [facility] Oxygen saturation in Arterial blood by Pulse oximetry 2023-06-28 12:24:00 99 /min [facility] Body weight 2023-06-27 09:00:00 82.963 kg [facility] BMI 2023-06-27 09:00:00 34.56 kg/m2 [facility] Body height 2023-06-26 09:28:00 154.9 cm [facility] Respiratory rate 2023-06-26 09:56:00 13 /min [facility] Heart rate 2023-06-26 09:55:00 100 /[facility] Arterial blood by Pulse oximetry 2023-06-26 09:55:00 97 /min [facility] Systolic blood pressure 2023-06-26 09:54:00 132 mm[Hg] [facility] Diastolic blood pressure 2023-06-26 09:54:00 83 mm[Hg] [facility] Body temperature 2023-06-26 09:30:[address] [facility] Body height 2023-06-26 09:28:00 154.9 cm [facility] Body weight 2023-06-26 09:28:00 78.654 kg [facility] BMI 2023-06-26 09:28:00 34.56 kg/m2 [facility] Systolic blood pressure 2023-06-21 20:41:00 125 mm[Hg] [facility] Diastolic blood pressure 2023-06-21 20:41:00 83 mm[Hg] [facility] Heart rate 2023-06-21 20:41:00 79 /min [facility] Body temperature 2023-06-21 20:41:[address] [facility] Respiratory rate 2023-06-21 20:41:00 18 /min [facility] Oxygen saturation in Arterial blood by Pulse oximetry 2023-06-21 20:41:00 98 /min [facility] Body height 2023-06-20 06:00:00 152.4 cm [facility] Body weight 2023-06-20 06:00:00 85.548 kg [facility] BMI 2023-06-20 06:00:00 36.83 kg/m2 [facility] Systolic blood pressure 2023-06-20 16:30:00 102 mm[Hg] [facility] Diastolic blood pressure 2023-06-20 16:30:00 51 mm[Hg] [facility] Heart rate 2023-06-20 16:30:00 62 /min [facility] Respiratory rate 2023-06-20 16:30:00 10 /min [facility] Oxygen saturation in Arterial blood by Pulse oximetry 2023-06-20 16:30:00 98 /min [facility] Body temperature 2023-06-20 16:15:[address] [facility] Body height 2023-06-20 06:00:00 152.4 cm [facility] Body weight 2023-06-20 06:00:00 85.548 kg [facility] BMI 2023-06-20 06:00:00 36.83 kg/m2 [facility] Systolic blood pressure 2023-06-17 13:47:00 140 mm[Hg] [facility] Diastolic blood pressure 2023-06-17 13:47:00 82 mm[Hg] [facility] Heart rate 2023-06-17 13:42:00 85 /[facility] 2023-06-17 13:42:[address] [facility] Respiratory rate 2023-06-17 13:42:00 18 /min [facility] Body height 2023-06-17 13:42:00 152.4 cm [facility] Body weight 2023-06-17 13:42:00 84.482 [facility] BMI 2023-06-17 13:42:00 36.37 kg/m2 [facility] Systolic blood pressure 2023-06-14 22:00:00 0 mm[Hg] [facility] Diastolic blood pressure 2023-06-14 22:00:00 0 mm[Hg] [facility] Heart rate 2023-06-14 22:00:00 90 /min [facility] O[facility] in Arterial blood by Pulse oximetry 2023-06-14 22:00:00 98 /min [facility] Systolic blood pressure 2023-06-14 13:25:00 140 mm[Hg] [facility] Diastolic blood pressure 2023-06-14 13:25:00 90 mm[Hg] [facility] Heart rate 2023-06-14 13:20:00 82 /min [facility] Body temperature 2023-06-14 13:20:[address] [facility] Respiratory rate 2023-06-14 13:20:00 18 /min [facility] Body height 2023-06-14 13:20:00 152.4 cm [facility] Body weight 2023-06-14 13:20:00 84.482 kg [facility] BMI 2023-06-14 13:20:00 36.37 kg/m2 [facility] Systolic blood pressure 2023-06-05 19:30:00 122 mm[Hg] [facility] Diastolic blood pressure 2023-06-05 19:30:00 89 mm[Hg] [facility] Heart rate 2023-06-05 19:30:00 87 /min [facility] in Arterial blood by Pulse oximetry 2023-06-05 19:30:00 98 /min [facility] Respiratory rate 2023-06-05 18:00:00 16 /min [facility] Body temperature 2023-06-05 17:31:[address] [facility] Body height 2023-06-05 17:31:00 152.4 cm [facility] Body weight 2023-06-05 17:31:00 83.008 kg [facility] BMI 2023-06-05 17:31:00 35.74 kg/m2 [facility] Systolic blood pressure 2023-06-02 15:04:00 127 mm[Hg] [facility] Diastolic blood pressure 2023-06-02 15:04:00 89 mm[Hg] [facility] Heart rate 2023-06-02 15:04:00 93 /min Un[facility] Body temperature 2023-06-02 15:04:[address] [facility] Respiratory rate 2023-06-02 15:04:00 20 /min [facility] Body height 2023-06-02 15:04:00 152.4 cm [facility] Body weight 2023-06-02 15:04:00 82.753 kg [facility] BMI 2023-06-02 15:04:00 35.63 kg/m2 [facility] Systolic blood pressure 2023-05-31 13:20:00 121 mm[Hg] [facility] Diastolic blood pressure 2023-05-31 13:20:00 86 mm[Hg] [facility] Heart rate 2023-05-31 13:20:00 94 /min Un[facility] Body temperature 2023-05-31 13:15:[address] [facility] Respiratory rate 2023-05-31 13:15:00 20 /min [facility] Body height 2023-05-31 13:15:00 152.4 cm [facility] Body weight 2023-05-31 13:15:00 83.604 kg [facility] BMI 2023-05-31 13:15:00 36.00 kg/m2 [facility] Systolic blood pressure 2023-05-26 15:10:00 127 mm[Hg] [facility] Diastolic blood pressure 2023-05-26 15:10:00 90 mm[Hg] [facility] Heart rate 2023-05-26 15:10:00 101 /min Un[facility] Body temperature 2023-05-26 15:10:[address] [facility] Respiratory rate 2023-05-26 15:10:00 18 /min [facility] Body height 2023-05-26 15:10:00 152.4 cm [facility] Body weight 2023-05-26 15:10:00 83.49 kg [facility] BMI 2023-05-26 15:10:00 35.95 kg/m2 [facility] Systolic blood pressure 2023-05-23 19:13:00 109 mm[Hg] [facility] Diastolic blood pressure 2023-05-23 19:13:00 82 mm[Hg] [facility] Heart rate 2023-05-23 19:13:00 105 /min Un[facility] Body temperature 2023-05-23 19:12:[address] [facility] Respiratory rate 2023-05-23 19:12:00 18 /min [facility] Body height 2023-05-23 19:12:00 152.4 cm [facility] Body weight 2023-05-23 19:12:00 83.207 kg [facility] BMI 2023-05-23 19:12:00 35.83 kg/m2 [facility] Systolic blood pressure 2023-05-19 18:51:00 117 mm[Hg] [facility] Diastolic blood pressure 2023-05-19 18:51:00 86 mm[Hg] [facility] Heart rate 2023-05-19 18:51:00 103 /min Un[facility] Body temperature 2023-05-19 18:51:[address] [facility] Respiratory rate 2023-05-19 18:51:00 18 /min [facility] Body height 2023-05-19 18:51:00 152.4 cm [facility] Body weight 2023-05-19 18:51:00 83.065 kg [facility] BMI 2023-05-19 18:51:00 35.76 kg/m2 [facility] Heart rate 2023-05-17 00:00:00 104 [facility] Oxygen saturation in Arterial blood by Pulse oximetry 2023-05-17 00:00:00 98 /min [facility] Systolic blood pressure 2023-05-16 23:30:00 98 mm[Hg] [facility] Diastolic blood pressure 2023-05-16 23:30:00 69 mm[Hg] [facility] Body temperature 2023-05-16 18:28:[address] [facility] Respiratory rate 2023-05-16 18:28:00 17 /min [facility] Systolic blood pressure 2023-05-16 14:16:00 117 mm[Hg] [facility] Diastolic blood pressure 2023-05-16 14:16:00 78 mm[Hg] [facility] Heart rate 2023-05-16 14:16:00 102 /min Un[facility] Body temperature 2023-05-16 14:16:[address] [facility] Respiratory rate 2023-05-16 14:16:00 18 /min [facility] Body height 2023-05-16 14:16:00 152.4 cm [facility] Body weight 2023-05-16 14:16:00 81.676 kg [facility] BMI 2023-05-16 14:16:00 35.17 kg/m2 [facility] Heart rate 2023-05-13 23:00:00 103 /min [facility] Oxygen saturation in Arterial blood by Pulse oximetry 2023-05-13 23:00:00 98 /min [facility] Respiratory rate 2023-05-13 21:00:00 18 /min [facility] Systolic blood pressure 2023-05-13 20:52:00 127 mm[Hg] [facility] Diastolic blood pressure 2023-05-13 20:52:00 91 mm[Hg] [facility] Body temperature 2023-05-13 17:21:[address] [facility] Body height 2023-05-13 17:21:00 154.9 cm [facility] Body weight 2023-05-13 17:21:00 82.3 kg [facility] BMI 2023-05-13 17:21:00 34.30 kg/m2 [facility] Systolic blood pressure 2023-05-13 13:32:00 114 mm[Hg] [facility] Diastolic blood pressure 2023-05-13 13:32:00 75 mm[Hg] [facility] Heart rate 2023-05-13 13:32:00 103 /min Un[facility] Body temperature 2023-05-13 13:32:[address] [facility] Respiratory rate 2023-05-13 13:32:00 18 /min [facility] Body height 2023-05-13 13:32:00 154.9 cm [facility] Body weight 2023-05-13 13:32:00 82.3 kg [facility] BMI 2023-05-13 13:32:00 34.28 kg/m2 [facility] Systolic blood pressure 2023-05-09 16:41:00 110 mm[Hg] [facility] Diastolic blood pressure 2023-05-09 16:41:00 76 mm[Hg] [facility] Heart rate 2023-05-09 16:41:00 109 /min Unive [facility] Body temperature 2023-05-09 16:41:[address] [facility] Respiratory rate 2023-05-09 16:41:00 18 /min [facility] Oxygen saturation in Arterial blood by Pulse oximetry 2023-05-09 16:41:00 96 /min [facility] Body height 2023-05-08 17:06:00 154.9 cm [facility] Body weight 2023-05-08 17:06:00 82.555 kg [facility] BMI 2023-05-08 17:06:00 34.39 kg/m2 [facility] Systolic blood pressure 2023-05-05 12:30:00 115 mm[Hg] [facility] Diastolic blood pressure 2023-05-05 12:30:00 73 mm[Hg] [facility] Heart rate 2023-05-05 12:30:00 94 /min Unive [facility] Body temperature 2023-05-05 12:30:[address] [facility] Respiratory rate 2023-05-05 12:30:00 18 /min [facility] Oxygen saturation in Arterial blood by Pulse oximetry 2023-05-05 12:30:00 97 /min [facility] Body height 2023-05-03 23:00:00 154.9 cm [facility] Body weight 2023-05-03 23:00:00 82.555 kg [facility] BMI 2023-05-03 23:00:00 34.39 kg/m2 [facility] Systolic blood pressure 2023-04-29 15:26:00 120 mm[Hg] [facility] Diastolic blood pressure 2023-04-29 15:26:00 79 mm[Hg] [facility] Heart rate 2023-04-29 15:26:00 91 /min [facility] Body temperature 2023-04-29 15:26:[address] [facility] Respiratory rate 2023-04-29 15:26:00 18 /min [facility] Body height 2023-04-29 15:26:00 154.9 cm [facility] Body weight 2023-04-29 15:26:00 82.373 kg [facility] BMI 2023-04-29 15:26:00 34.31 kg/m2 [facility] Heart rate 2023-04-20 22:15:00 108 /min [facility] Oxygen saturation in Arterial blood by Pulse oximetry 2023-04-20 22:15:00 98 /min [facility] Systolic blood pressure 2023-04-20 20:10:00 115 mm[Hg] [facility] Diastolic blood pressure 2023-04-20 20:10:00 82 mm[Hg] [facility] Body temperature 2023-04-20 20:10:[address] [facility] Respiratory rate 2023-04-20 20:10:00 16 /min [facility] Body height 2023-04-20 20:10:00 154.9 cm [facility] Body weight 2023-04-20 20:10:00 82.555 kg [facility] BMI 2023-04-20 20:10:00 34.39 kg/m2 [facility] Systolic blood pressure 2023-04-14 21:13:00 129 mm[Hg] [facility] Diastolic blood pressure 2023-04-14 21:13:00 72 mm[Hg] [facility] Heart rate 2023-04-14 21:13:00 90 /min Unive [facility] Body temperature 2023-04-14 21:13:[address] [facility] Respiratory rate 2023-04-14 21:13:00 17 /min [facility] Body height 2023-04-14 21:13:00 154.9 cm [facility] Body weight 2023-04-14 21:13:00 82.736 kg [facility] BMI 2023-04-14 21:13:00 34.46 kg/m2 [facility] Systolic blood pressure 2023-03-31 20:31:00 124 mm[Hg] [facility] Diastolic blood pressure 2023-03-31 20:31:00 85 mm[Hg] [facility] Heart rate 2023-03-31 20:31:00 107 /min Unive [facility] Body temperature 2023-03-31 20:31:[address] [facility] Respiratory rate 2023-03-31 20:31:00 18 /min [facility] Body height 2023-03-31 20:31:00 154.9 cm [facility] Body weight 2023-03-31 20:31:00 83.604 kg [facility] BMI 2023-03-31 20:31:00 34.83 kg/m2 [facility] Systolic blood pressure 2023-03-17 18:16:00 103 mm[Hg] [facility] Diastolic blood pressure 2023-03-17 18:16:00 61 mm[Hg] [facility] Heart rate 2023-03-17 18:16:00 96 /min Un[facility] Body temperature 2023-03-17 18:16:[address] [facility] Respiratory rate 2023-03-17 18:16:00 17 /min [facility] Body height 2023-03-17 18:16:00 154.9 cm [facility] Body weight 2023-03-17 18:16:00 82.918 kg [facility] BMI 2023-03-17 18:16:00 34.54 kg/m2 [facility] Systolic blood pressure 2023-02-10 20:34:00 123 mm[Hg] [facility] Diastolic blood pressure 2023-02-10 20:34:00 85 mm[Hg] [facility] Heart rate 2023-02-10 20:34:00 104 /min Un[facility] Body temperature 2023-02-10 20:34:[address] [facility] Respiratory rate 2023-02-10 20:34:00 18 /min [facility] Body height 2023-02-10 20:34:00 154.9 cm [facility] Body weight 2023-02-10 20:34:00 84.567 kg [facility] BMI 2023-02-10 20:34:00 35.23 kg/m2 [facility] Systolic blood pressure 2023-01-20 15:39:00 133 mm[Hg] [facility] Diastolic blood pressure 2023-01-20 15:39:00 83 mm[Hg] [facility] Heart rate 2023-01-20 15:39:00 97 /min Un[facility] Body temperature 2023-01-20 15:39:[address] [facility] Respiratory rate 2023-01-20 15:39:00 18 /min [facility] Body height 2023-01-20 15:39:00 154.9 cm [facility] Body weight 2023-01-20 15:39:00 84.142 kg [facility] BMI 2023-01-20 15:39:00 35.05 kg/m2 [facility] Systolic blood pressure 2023-01-14 13:37:00 130 mm[Hg] [facility] Diastolic blood pressure 2023-01-14 13:37:00 81 mm[Hg] [facility] Heart rate 2023-01-14 13:37:00 97 /min Unive [facility] Body temperature 2023-01-14 13:37:[address] [facility] Body height 2023-01-14 13:37:00 154.9 cm [facility] Body weight 2023-01-14 13:37:00 84.097 kg [facility] BMI 2023-01-14 13:37:00 35.03 kg/m2 [facility] Systolic blood pressure 2023-01-06 19:11:00 131 mm[Hg] [facility] Diastolic blood pressure 2023-01-06 19:11:00 76 mm[Hg] [facility] Heart rate 2023-01-06 19:11:00 103 /min Unive [facility] Body temperature 2023-01-06 19:11:[address] [facility] Respiratory rate 2023-01-06 19:11:00 18 /min [facility] Body height 2023-01-06 19:11:00 154.9 cm [facility] Body weight 2023-01-06 19:11:00 84.868 kg [facility] BMI 2023-01-06 19:11:00 35.35 kg/m2 [facility] Systolic blood pressure 2023-01-03 13:51:00 137 mm[Hg] [facility] Diastolic blood pressure 2023-01-03 13:51:00 90 mm[Hg] [facility] Heart rate 2023-01-03 13:51:00 95 /min Unive [facility] Body temperature 2023-01-03 13:51:[address] [facility] Respiratory rate 2023-01-03 13:51:00 16 /min [facility] Body height 2023-01-03 13:51:00 154.9 cm [facility] Body weight 2023-01-03 13:51:00 84.823 kg [facility] BMI 2023-01-03 13:51:00 35.33 kg/m2 [facility] Oxygen saturation in Arterial blood by Pulse oximetry 2023-01-03 13:51:00 99 /min [facility] Systolic blood pressure 2022-12-28 18:14:00 126 mm[Hg] [facility] Diastolic blood pressure 2022-12-28 18:14:00 90 mm[Hg] [facility] Heart rate 2022-12-28 18:14:00 92 /min Unive [facility] Body temperature 2022-12-28 18:14:[address] [facility] Respiratory rate 2022-12-28 18:14:00 18 /min [facility] Body height 2022-12-28 18:14:00 154.9 cm [facility] Body weight 2022-12-28 18:14:00 84.641 kg [facility] BMI 2022-12-28 18:14:00 35.26 kg/m2 [facility] Systolic blood pressure 2022-12-23 19:39:00 128 mm[Hg] [facility] Diastolic blood pressure 2022-12-23 19:39:00 79 mm[Hg] [facility] Heart rate 2022-12-23 19:39:00 97 /min Un[facility] Body temperature 2022-12-23 19:39:[address] [facility] Body height 2022-12-23 19:39:00 154.9 cm [facility] Body weight 2022-12-23 19:39:00 85.322 kg [facility] BMI 2022-12-23 19:39:00 35.54 kg/m2 [facility] Systolic blood pressure 2022-12-22 14:52:00 126 mm[Hg] [facility] Diastolic blood pressure 2022-12-22 14:52:00 89 mm[Hg] [facility] Heart rate 2022-12-22 14:52:00 98 /min Un[facility] Body temperature 2022-12-22 14:52:[address] [facility] Respiratory rate 2022-12-22 14:52:00 18 /min [facility] Body height 2022-12-22 14:52:00 154.9 cm [facility] Body weight 2022-12-22 14:52:00 85.276 kg [facility] BMI 2022-12-22 14:52:00 35.52 kg/m2 [facility] Systolic blood pressure 2022-12-19 22:06:00 115 mm[Hg] [facility] Diastolic blood pressure 2022-12-19 22:06:00 84 mm[Hg] [facility] Heart rate 2022-12-19 22:05:00 94 /[facility] Body temperature 2022-12-19 22:05:[address] [facility] Respiratory rate 2022-12-19 22:05:00 16 /min [facility] Body weight 2022-12-19 22:05:00 84.823 kg [facility] BMI 2022-12-19 22:05:00 35.33 kg/m2 [facility] Oxygen saturation in Arterial blood by Pulse oximetry 2022-12-19 22:05:00 99 /min [facility] Systolic blood pressure 2022-12-16 18:11:00 119 mm[Hg] [facility] Diastolic blood pressure 2022-12-16 18:11:00 77 mm[Hg] [facility] Heart rate 2022-12-16 18:11:00 94 [facility] Body temperature 2022-12-16 18:11:[address] [facility] Respiratory rate 2022-12-16 18:07:00 18 /min [facility] Body height 2022-12-16 18:07:00 154.9 cm [facility] Body weight 2022-12-16 18:07:00 85.531 kg [facility] BMI 2022-12-16 18:07:00 35.63 kg/m2 [facility] Systolic blood pressure 2022-11-08 20:07:00 125 mm[Hg] [facility] Diastolic blood pressure 2022-11-08 20:07:00 86 mm[Hg] [facility] Heart rate 2022-11-08 20:07:00 90 /min [facility] Body temperature 2022-11-08 20:06:[address] [facility] Respiratory rate 2022-11-08 20:06:00 18 /min [facility] Body height 2022-11-08 20:06:00 154.9 cm [facility] Body weight 2022-11-08 20:06:00 88.406 kg [facility] BMI 2022-11-08 20:06:00 36.83 kg/m2 [facility] Systolic blood pressure 2022-09-07 18:58:00 138 mm[Hg] [facility] Diastolic blood pressure 2022-09-07 18:58:00 80 mm[Hg] [facility] Heart rate 2022-09-07 18:57:00 80 /min [facility] Body temperature 2022-09-07 18:57:[address] [facility] Systolic blood pressure 2022-04-05 18:29:00 137 mm[Hg] [facility] Diastolic blood pressure 2022-04-05 18:29:00 79 mm[Hg] [facility] Heart rate 2022-04-05 18:29:00 84 /min Un[facility] Body temperature 2022-04-05 18:28:[address] [facility] Respiratory rate 2022-04-05 18:28:00 18 /min [facility] Body height 2022-04-05 18:28:00 160 cm [facility] Body weight 2022-04-05 18:28:00 80.485 kg [facility] BMI 2022-04-05 18:28:00 31.43 kg/m2 [facility] Procedures Procedure Date / Time Performed Performing Clinician Source US ELASTOGRAPHY BASE FUNCT 2023-08-19 16:18:[address] [facility] CBC WITH DIFF 2023-07-12 15:23:[address] [facility] POCT URINALYSIS 2023-07-12 14:32:[address] [facility] BASIC METABOLIC PANEL (NA, K, CL, CO2, GLUCOSE, BUN, CREATININE, CA) 2023-06-28 09:07:[address] [facility] CBC WITH DIFF 2023-06-28 09:07:00 Marvin [facility] POCT GLUCOSE (AUTOMATED) 2023-06-28 05:06:00 [facility] 2023-06-28 00:08:00 Bob [facility] XR CHEST 1 VW 2023-06-27 22:50:06 Marvin [facility] CBC WITH DIFF 2023-06-27 21:41:00 Marvin [facility] POCT GLUCOSE (AUTOMATED) 2023-06-27 16:34:00 [facility]SE (AUTOMATED) 2023-06-27 16:34:00 Bob [facility] CBC WITH DIFF 2023-06-27 15:28:00 Marvin [facility] CBC WITH DIFF 2023-06-27 15:28:00 Marvin [facility] POCT GLUCOSE (AUTOMATED) 2023-06-27 11:17:00 [facility]SE (AUTOMATED) 2023-06-27 11:17:00 Bob [facility] MAGNESIUM 2023-06-27 09:06:00 [facility] BASIC METABOLIC PANEL (NA, K, CL, CO2, GLUCOSE, BUN, CREATININE, CA) 2023-06-27 09:06:[address] [facility] CBC WITH DIFF 2023-06-27 09:06:00 Marvin [facility] MAGNESIUM 2023-06-27 09:06:00 [facility] BASIC METABOLIC PANEL (NA, K, CL, CO2, GLUCOSE, BUN, CREATININE, CA) 2023-06-27 09:06:[address] [facility] CBC WITH DIFF 2023-06-27 09:06:00 Marvin [facility] POCT GLUCOSE (AUTOMATED) 2023-06-27 04:32:00 [facility] ([facility]OMATED) 2023-06-27 04:32:00 Bob [facility] POCT GLUCOSE (AUTOMATED) 2023-06-26 22:03:00 Bob [facility] POCT GLUCOSE (AUTOMATED) 2023-06-26 22:03:00 Ballesteros [facility] CBC WITH DIFF 2023-06-26 21:22:00 Marvin [facility] PROTHROMBIN TIME / INR 2023-06-26 21:22:[address] [facility] ACTIVATED PARTIAL THRMPLAS SANJUANA 2023-06-26 21:22:00 Bob [facility] FIBRINOGEN 2023-06-26 21:22:00 Bob Amari [facility] CBC WITH DIFF 2023-06-26 21:22:00 Marvin [facility] PROTHROMBIN TIME / INR 2023-06-26 21:22:[address] [facility] ACTIVATED PARTIAL THRMPLAS SANJUANA 2023-06-26 21:22:00 Bob [facility] FIBRINOGEN 2023-06-26 21:22:00 Bob Amari [facility] POCT GLUCOSE (AUTOMATED) 2023-06-26 17:29:00 Ballesteros [facility] POCT GLUCOSE (AUTOMATED) 2023-06-26 17:29:00 Bob [facility] CBC WITHOUT DIFF 2023-06-26 16:48:00 Marvin Zarate [facility] CBC WITH DIFF 2023-06-26 16:48:00 Amari Ballesteros [facility] CBC WITHOUT DIFF 2023-06-26 16:48:00 Marvin Zarate [facility] CBC WITH DIFF 2023-06-26 16:48:00 Amari Ballesteros [facility] MRSA / MSSA SCREEN BY PCR, JULIANO 2023-06-26 15:47:[address] [facility] MRSA / MSSA SCREEN BY PCR, [facility] 2023-06-26 15:47:[address] [facility] IRON 2023-06-26 15:46:00 Marvin Zaarte [facility] TOTAL IRON BINDING CAPACITY 2023-06-26 15:46:[address] [facility] BASIC METABOLIC PANEL (NA, K, CL, CO2, GLUCOSE, BUN, CREATININE, CA) 2023-06-26 15:46:[address] [facility] PROTHROMBIN TIME / INR 2023-06-26 15:46:[address] [facility] RETICULOCYTES AUTOMATED 2023-06-26 15:46:[address] [facility] IRON 2023-06-26 15:46:00 Marvin Zarate [facility] TOTAL IRON BINDING CAPACITY 2023-06-26 15:46:[address] [facility] BASIC METABOLIC PANEL (NA, K, CL, CO2, GLUCOSE, BUN, CREATININE, CA) 2023-06-26 15:46:[address] [facility] PROTHROMBIN TIME / INR 2023-06-26 15:46:[address] [facility] RETICULOCYTES AUTOMATED 2023-06-26 15:46:[address] [facility] PREPARE PACKED RBC 2023-06-26 15:01:41 Doctor Un assigned, [place] [facility] PREPARE PLASMA 2023-06-26 15:01:41 Doctor Unass igned, [facility] [facility] PREPARE PACKED RBC 2023-06-26 15:01:41 Doctor Un assigned, [facility] [facility] PREPARE PLASMA 2023-06-26 15:01:41 Doctor Unass igned, [facility] [facility] US PELVIS LIMITED 2023-06-26 12:04:00 [facility] 2023-06-26 12:04:00 [facility] WITHOUT DIFF 2023-06-26 12:00:00 [facility] / INR 2023-06-26 12:00:[address] [facility] ACTIVATED PARTIAL THRMPLAS SANJUANA 2023-06-26 12:00:[address] [facility] FIBRINOGEN 2023-06-26 12:00:00 [facility]FF 2023-06-26 12:00:00 Verena [facility] PROTHROMBIN TIME / INR 2023-06-26 12:00:[address] [facility] ACTIVATED PARTIAL THRMPLAS SANJUANA 2023-06-26 12:00:00 [facility] 2023-06-26 12:00:00 [facility] VENOUS 2023-06-26 11:47:[address] [facility] 2023-06-26 11:47:[address] [facility] TRANSFUSE PACKED RBC 2023-06-26 11:35:[address] [facility] TRANSFUSE PACKED RBC 2023-06-26 11:35:[address] [facility] PREPARE PACKED RBC 2023-06-26 11:19:[address] [facility] PREPARE PACKED RBC 2023-06-26 11:19:[address] [facility] DILATION AND CURETTAGE 2023-06-26 09:48:[address] [facility] DILATION AND CURETTAGE 2023-06-26 09:48:[address] [facility] HB ABO GROUPING 2023-06-26 08:58:00 Amari [facility] HB ABO GROUPING 2023-06-26 08:58:00 Amari [facility] POCT GLUCOSE (AUTOMATED) 2023-06-26 08:39:00 Ballesteros, Amari [facility] POCT GLUCOSE (AUTOMATED) 2023-06-26 08:39:00 [facility] SGOT (ASPARTATE AMINO TRANSFER) 2023-06-26 07:54:00 Amari Ballesteros [facility] CREATININE 2023-06-26 07:54:00 Amari Ballesteros [facility] ALANINE AMINO TRANSFERASE(SGPT 2023-06-26 07:54:00 Amari Ballesteros [facility] LACTATE DEHYDROGENASE 2023-06-26 07:54:[address] [facility] URIC ACID 2023-06-26 07:54:00 BallesterosAmari [facility] CBC WITH DIFF 2023-06-26 07:54:00 Amari Ballesteros [facility] URINALYSIS 2023-06-26 07:54:00 Amari Ballesteros [facility] PROTEIN CREAT RATIO URINE RANDOM 2023-06-26 07:54:00 Amari Ballesteros [facility] SGOT (ASPARTATE AMINO TRANSFER) 2023-06-26 07:54:00 Amari Ballesteros [facility] CREATININE 2023-06-26 07:54:00 Amari Ballesteros [facility] ALANINE AMINO TRANSFERASE(SGPT 2023-06-26 07:54:00 Amari Ballesteros [facility] LACTATE DEHYDROGENASE 2023-06-26 07:54:[address] [facility] URIC ACID 2023-06-26 07:54:00 Amari Ballesteros [facility] CBC WITH DIFF 2023-06-26 07:54:00 Amari Ballesteros [facility] URINALYSIS 2023-06-26 07:54:00 Amari Ballesteros [facility] PROTEIN CREAT RATIO URINE RANDOM 2023-06-26 07:54:00 [facility] ASSIGNMENT OF BENEFITS 2023-06-26 06:21:08 Docto r Unassigned, [facility] [facility] ASSIGNMENT OF BENEFITS 2023-06-26 06:21:08 Docto r Unassigned, [facility] CONSENT/REFUSAL FOR DIAGNOSIS AND TREATMENT 2023-06-26 06:20:04 Doctor Unassigned, [facility] POCT GLUCOSE (AUTOMATED) 2023-06-21 19:40:[address] [facility] POCT GLUCOSE (AUTOMATED) 2023-06-21 19:40:00 [facility] CBC WITH DIFF 2023-06-21 19:35:00 [facility] CBC WITH DIFF 2023-06-21 19:35:00 [facility] GLUCOSE (AUTOMATED) 2023-06-21 10:10:00 Maddison [facility]enyon [facility] POCT GLUCOSE (AUTOMATED) 2023-06-21 10:10:00 Carlos [facility] CBC WITH DIFF 2023-06-21 08:38:00 Petra Burnett [facility] CBC WITH DIFF 2023-06-21 08:38:00 Petra Burnett [facility] CBC WITH DIFF 2023-06-20 16:27:[address] [facility] CBC WITH DIFF 2023-06-20 16:27:[address] [facility] SURGICAL PATHOLOGY EXAM 2023-06-20 15:26:00 Tim Ugarte [facility] TUBAL LIGATION 2023-06-20 14:27:00 Monie hughes [facility] CBC WITH DIFF 2023-06-20 12:27:00 Trini Acosta [facility] CBC WITH DIFF 2023-06-20 12:27:00 Trini Acosta [facility] CBC WITH DIFF 2023-06-20 10:26:00 Petra Burnett [facility] CBC WITH DIFF 2023-06-20 10:26:00 Barake, Petra [facility] VENOUS CORD GAS 2023-06-20 08:08:00 Barake, Petra Clark [facility] VENOUS CORD GAS 2023-06-20 08:08:00 Barsadie, Petra Clark [facility] POCT GLUCOSE (AUTOMATED) 2023-06-20 05:02:00 [facility]SE ([facility]OMATED) 2023-06-20 05:02:00 [facility] CENTRAL NEURAXIAL BLOCK 2023-06-20 03:07:[address] [facility] PROTHROMBIN TIME / INR 2023-06-20 02:26:00 Barake, David [facility] ACTIVATED PARTIAL THRMPLAS SANJUANA 2023-06-20 02:26:00 Barake, [facility] PROTHROMBIN TIME / INR 2023-06-20 02:26:00 Barake, David day [facility] ACTIVATED PARTIAL THRMPLAS SANJUANA 2023-06-20 02:26:00 Barake, [facility] HEPATITIS B SURFACE ANTIGEN 2023-06-20 01:30:00 Barsadie [facility] HB ABO GROUPING 2023-06-20 01:30:00 BarPetra noel [facility] HIV 1/2 AG-AB WITH REFLEX 2023-06-20 01:30:00 Barsadie [facility] SYPHILIS IGG/IGM 2023-06-20 01:30:00 BarPetra noel [facility] HEPATITIS B SURFACE ANTIGEN 2023-06-20 01:30:00 Barsadie [facility] HB ABO GROUPING 2023-06-20 01:30:00 BarPetra noel Amber [facility] HIV 1/2 AG-AB WITH REFLEX 2023-06-20 01:30:00 Barsadie, [facility] SYPHILIS IGG/IGM 2023-06-20 01:30:00 BarPetra noel [facility] POCT GLUCOSE (AUTOMATED) 2023-06-20 01:02:00 Maddison kenyon [facility] POCT GLUCOSE (AUTOMATED) 2023-06-20 01:02:[address] [facility] NON-STRESS TEST 2023-06-17 16:57:[address] [facility] POCT URINALYSIS 2023-06-17 13:43:[address] [facility] URINALYSIS 2023-06-14 21:04:00 Chelsea Reese [facility] SGOT (ASPARTATE AMINO TRANSFER) 2023-06-14 19:34:00 El-Eishy, Alfarooq Y [facility] CREATININE 2023-06-14 19:34:00 El-Eishy, Alfarooq Y [facility] ALANINE AMINO TRANSFERASE(SGPT 2023-06-14 19:34:00 El-Eishy, Alfarooq Y [facility] LACTATE DEHYDROGENASE 2023-06-14 19:34:00 El-Eishy Al clover Y [facility] URIC ACID 2023-06-14 19:34:00 El-Eishy, Alfarooq Y [facility] CBC WITH DIFF 2023-06-14 19:34:00 El-Eishy, Alfarooq Y [facility] HEPATITIS B SURFACE ANTIGEN 2023-06-14 19:34:00 El-Eishy, Alfarooq Y [facility] POCT GLUCOSE (AUTOMATED) 2023-06-14 19:01:[address] [facility] NON-STRESS TEST 2023-06-14 14:19:[address] [facility] POCT URINALYSIS 2023-06-14 13:21:[address] [facility] GLYCOSYLATED HEMOGLOBIN (A1C) 2023-06-05 20:12:[address] [facility] HB ABO GROUPING 2023-06-05 20:12:00 Janette [facility] URINALYSIS 2023-06-05 19:19:[address] [facility] URINE CULTURE 2023-06-05 19:19:[address] [facility] POCT GLUCOSE (AUTOMATED) 2023-06-05 19:00:[address] [facility] POCT URINALYSIS 2023-06-02 15:05:[address] [facility] SECOND AND THIRD TRIMESTER ULTRASOUND 2023-06-01 16:16:[address] [facility] NON-STRESS TEST 2023-05-31 14:37:[address] [facility] POCT URINALYSIS 2023-05-31 13:16:[address] [facility] NON-STRESS TEST 2023-05-26 17:23:[address] [facility] POCT URINALYSIS 2023-05-26 15:11:[address] [facility] NON-STRESS TEST 2023-05-23 19:39:[address] [facility] POCT URINALYSIS 2023-05-23 19:13:[address] [facility] NON-STRESS TEST 2023-05-20 00:30:[address] [facility] POCT URINALYSIS 2023-05-19 18:49:[address] [facility] NON-STRESS TEST 2023-05-16 23:30:[address] [facility] URINALYSIS 2023-05-16 19:13:00 Miriam Rice Un iversity [facility] POCT GLUCOSE (AUTOMATED) 2023-05-16 19:09:[address] [facility] POCT URINALYSIS 2023-05-16 14:17:[address] [facility] CONSENT/REFUSAL FOR DIAGNOSIS AND TREATMENT 2023-05-16 05:01:00 Doctor Unassigned, [facility] [facility] URINALYSIS 2023-05-13 22:22:00 [facility] PO[facility] GLUCOSE (AUTOMATED) 2023-05-13 21:25:[address] [facility] POCT GLUCOSE(AGE >30DAYS) 2023-05-13 15:26:[address] [facility] POCT GLUCOSE (AUTOMATED) 2023-05-13 15:13:[address] [facility] NON-STRESS TEST 2023-05-13 15:00:[address] [facility] POCT URINALYSIS 2023-05-13 13:33:[address] [facility] POCT GLUCOSE (AUTOMATED) 2023-05-09 15:53:00 Cyo [facility] POCT GLUCOSE (AUTOMATED) 2023-05-09 13:12:00 Coy [facility] POCT GLUCOSE (AUTOMATED) 2023-05-09 09:19:00 Coy [facility] POCT GLUCOSE (AUTOMATED) 2023-05-09 05:08:00 Coy [facility] POCT GLUCOSE (AUTOMATED) 2023-05-09 00:44:00 Coy [facility] POCT GLUCOSE (AUTOMATED) 2023-05-08 22:00:00 Coy [facility] POCT GLUCOSE (AUTOMATED) 2023-05-08 18:00:00 Coy [facility] POCT GLUCOSE (AUTOMATED) 2023-05-08 15:52:00 Coy [facility] POCT GLUCOSE (AUTOMATED) 2023-05-08 13:22:00 Coy [facility] POCT GLUCOSE (AUTOMATED) 2023-05-08 09:16:00 Coy [facility] POCT GLUCOSE (AUTOMATED) 2023-05-08 05:45:00 Coy [facility] POCT GLUCOSE (AUTOMATED) 2023-05-08 02:11:00 Coy [facility] POCT GLUCOSE (AUTOMATED) 2023-05-07 21:08:00 Marshall, Jake gilbert [facility] POCT GLUCOSE (AUTOMATED) 2023-05-07 17:43:[address] [facility] POCT GLUCOSE (AUTOMATED) 2023-05-07 13:15:[address] [facility] CBC WITH DIFF 2023-05-07 12:19:[address] [facility] HB ABO GROUPING 2023-05-07 12:19:[address] [facility] HIV 1/2 AG-AB WITH REFLEX 2023-05-07 12:19:[address] [facility] SYPHILIS IGG/IGM 2023-05-07 12:19:[address] [facility] URINALYSIS 2023-05-07 11:15:[address] [facility] URINE CULTURE 2023-05-07 11:15:[address] [facility] GC & CHLAMYDIA AMPLIFIED ASSAY 2023-05-07 11:15:[address] [facility] POCT GLUCOSE (AUTOMATED) 2023-05-07 09:38:[address] [facility] HOSPITAL ADMISSION 2023-05-07 05:01:00 Doctor Un assigned, [facility] [facility] POCT GLUCOSE (AUTOMATED) 2023-05-05 02:15:00 Adum, Tova Lopez [facility] POCT GLUCOSE (AUTOMATED) 2023-05-04 19:27:00 Adum, Tova Lopez [facility] POCT GLUCOSE (AUTOMATED) 2023-05-04 16:27:00 Adum, Tova Lopez [facility] US BIOPHYSICAL PROFILE 2023-05-04 14:37:00 Adum, Tayler Lopez [facility] US PELVIS > 14 WEEKS 2023-05-04 14:30:00 Adum, Tayler Lopez [facility] POCT GLUCOSE (AUTOMATED) 2023-05-04 12:26:00 Adum, Tova Lopez [facility] URINE DRUG (IMMUNOASSAY) - COMPREHENSIVE DRUG SCREEN W/O REFLEX 2023-05-04 12:09:00 Adum, Tayler Lopez [facility] CBC WITH DIFF 2023-05-04 08:18:00 Adum, Tayler Groves [facility] HB ABO GROUPING 2023-05-04 08:18:00 Adum, [facility] HIV 1/2 AG-AB WITH REFLEX 2023-05-04 08:18:00 Adum, Shiela Lopez [facility] URINE CULTURE 2023-05-04 00:58:00 Adum, Tayler Groves [facility] ADC CLC OR LCC ONLY - WET PREP 2023-05-03 23:45:00 Adum, Tayler Lopez [facility] POCT GLUCOSE (AUTOMATED) 2023-05-03 23:42:00 Adum, Tova Lopez [facility] ASSIGNMENT OF BENEFITS 2023-05-03 22:40:35 Docto r Unassigned, [facility] CONSENT/REFUSAL FOR DIAGNOSIS AND TREATMENT 2023-05-03 22:39:39 Doctor Unassigned, [facility] [facility] POCT URINALYSIS 2023-04-29 15:29:[address] [facility] AMYLASE 2023-04-20 21:35:00 Amari Ballesteros [facility] LIPASE 2023-04-20 21:35:00 Amari Ballesteros [facility] COMP. METABOLIC PANEL ([id number]) 2023-04-20 21:35:[address] [facility] POCT GLUCOSE (AUTOMATED) 2023-04-20 20:27:[address] [facility] CONSENT/REFUSAL FOR DIAGNOSIS AND TREATMENT 2023-04-20 19:31:45 Doctor Unassigned, [facility] L&D VISIT (NON-DELIVERED) 2023-04-20 05:01:00 Do ctor Unassigned, [facility] FREE T4 2023-04-14 21:14:00 Isabell Curry [facility] THYROID STIMULATING HORMONE 2023-04-14 21:14:[address] [facility] HIV 1/2 AG-AB WITH REFLEX 2023-04-14 21:14:[address] [facility] SYPHILIS IGG/IGM 2023-04-14 21:14:[address] [facility] TDAP VACCINE, >11 YRS, IM 2023-04-14 20:38:[address] [facility] POCT URINALYSIS 2023-04-14 00:00:[address] [facility] SECOND AND THIRD TRIMESTER ULTRASOUND 2023-04-06 17:13:[address] [facility] CBC WITH DIFF 2023-03-31 21:06:[address] [facility] POCT URINALYSIS 2023-03-31 20:34:[address] [facility] STERILIZATION CONSENT FORM 2023-03-31 05:01:00 Doctor Unassigned, [facility] [facility] NO SHOW OR MISSED APPOINTMENT POLICY ACKNOWLEDGEMENT 2023-03-17 17:58:12 Doctor Unassigned, [facility] POCT URINALYSIS 2023-03-17 00:00:[address] [facility] POCT GLUCOSE(AGE >30DAYS) 2023-02-10 21:03:[address] [facility] POCT GLUCOSE (AUTOMATED) 2023-02-10 20:57:[address] [facility] POCT URINALYSIS 2023-02-10 20:34:[address] [facility] POCT URINALYSIS 2023-01-20 15:42:[address] [facility] POCT URINALYSIS 2023-01-06 19:13:[address] [facility] ASSIGNMENT OF BENEFITS 2023-01-03 14:19:35 Docto r Unassigned, [facility] CONSENT/REFUSAL FOR DIAGNOSIS AND TREATMENT 2023-01-03 13:47:51 Doctor Unassigned, [facility] POCT URINALYSIS GLUCOSE & PROTEIN 2022-12-28 18:17:[address] [facility] DISCLOSURE AND CONSENT, MEDICAL AND SURGICAL PROCEDURES 2022-12-23 05:01:00 Doctor Unassigned, [facility] POCT URINALYSIS 2022-12-22 14:56:[address] [facility] FIRST TRIMESTER ULTRASOUND 2022-12-17 18:24:[address] [facility] POCT URINALYSIS 2022-12-16 18:12:[address] [facility] POCT TEST 2022-11-08 19:58:[address] [facility] POCT URINALYSIS W/O SPECIFIC GRAVITY 2022-11-08 19:58:00 Damian Marks [facility] PATIENT FINANCIAL POLICY 2022-11-08 19:27:35 Doctor Unassigned, [facility] GARDASIL 9 (HPV 9V) VACCINE 2022-09-07 18:58:[address] [facility] GARDASIL 9 (HPV 9V) VACCINE 2022-04-05 19:09:[address] [facility] Encounters Start Date/Time End Date/Time Encounter Type Admission Type Attending [facility] Facility Care Department Encounter ID Source 2021-09-30 12:01:36 Outpatient Babak Woodall [facility] [id number] [facility] 2021-09-30 11:59:25 Outpatient Babak Woodall [facility] [id number] [facility] 2021-09-30 11:58:56 Outpatient [facility] [id number] [facility] 2021-09-30 11:24:40 Outpatient MikeyVelma ponce [facility] [id number] [facility] 2021-09-30 11:15:27 Outpatient Velma Liu [facility] [id number] [facility] 2021-07-07 03:18:03 Emergency [facility] [id number] [facility] 2021-07-05 23:25:56 Emergency [facility] [id number] [facility] 2023-08-19 09:56:29 2023-08-19 23:59:00 Outpatient R ANURAG CHRISTIAN [facility] [id number] [facility] 2023-08-19 09:56:29 2023-08-19 23:59:00 Hospital Encounter Anurag Christian [facility] [id number] [facility] 2023-08-09 10:24:05 2023-08-09 23:59:00 Hospital Encounter Anurag Christian [facility] [id number] [facility] 2023-08-09 00:00:00 2023-08-09 23:59:00 Outpatient R ANURAG CHRISTIAN [facility] [id number] [facility] 2023-08-04 00:00:00 2023-08-04 00:00:00 Telephone Isabell Curry [facility] 1..840.114 [id number] [id number] [facility] 2023-08-03 07:45:00 2023-08-03 08:59:22 Outpatient R ISABELL CURRY [facility] [id number] [facility] 2023-08-03 07:45:00 2023-08-03 08:59:22 Office Visit Isabell Curry [facility] 1..840.114 350.1.13.10 4.2.7.2.686 [id number] 107 [id number] [facility] 2023-08-02 10:00:00 2023-08-02 10:15:[address] [facility] Anurag [facility] 1..114 350.1.13.10 4.2.7.2.686 [id number] [facility] 2023-08-02 09:30:00 2023-08-02 10:00:00 Office Visit Alf Pond [facility] 1..114 350.1.13.10 4.2.7.2.686 [id number] [id number] [facility] 2023-08-02 09:30:00 2023-08-02 09:30:00 Outpatient R ANURAG CHRISTIAN [facility] [id number] [facility] 2023-07-12 08:45:00 2023-07-12 09:24:00 Outpatient R ISABELL CURRY [facility] [id number] [facility] 2023-07-12 08:45:00 2023-07-12 09:24:00 Routine Visit Isabell Curry [facility] 1..114 350.1.13.10 4.2.7.2.686 [id number] 107 [id number] [facility] 2023-07-01 09:30:00 2023-07-01 10:59:11 Outpatient R DAMIAN MARKS [facility] [id number] [facility] 2023-07-01 09:30:00 2023-07-01 10:59:11 Nurse Visit Visit, Frankie-Rmchp Nurse Damian Marks [facility] 1..114 350.1.13.10 4.2.7.2.686 [id number] [facility] 2023-06-26 01:37:00 2023-06-28 11:40:00 Inpatient X AMARI BALLESTEROS [facility] [id number] [facility] 2023-06-26 01:37:00 2023-06-28 11:40:00 Hospital Encounter Amari Ballesteros Marvin Zarate [facility] 1.2.840.114 350.1.13.10 4.2.7.2.686 [id number] [id number] [facility] 2023-06-27 20:02:23 2023-06-27 20:02:23 Anesthesia Event Akua Flores [facility] 1.2.840.114 350.1.13.10 4.2.7.2.686 [id number] [id number] [facility] 2023-06-26 04:30:00 2023-06-26 05:40:00 Surgery Amari Ballesteros [facility] 1.2.840.114 350.1.13.10 4.2.7.2.686 [id number] [facility] 2023-06-26 03:56:00 2023-06-26 03:56:00 Anesthesia Event Tulio Albarado [facility] 1.2.840.114 350.1.13.10 4.2.7.2.686 [id number] [id number] [facility] 2023-06-26 00:00:00 2023-06-26 00:00:00 Orders Only Doctor Unassigned, Olcott [facility] 1.2.840.114 350.1.13.10 4.2.7.2.686 [id number] [facility] 2023-06-24 00:00:00 2023-06-24 00:00:00 Patient Secure Msg Doctor Unassigned, Olcott [facility] 1.2.840.114 350.1.13.10 4.2.7.2.686 [id number] [facility] 2023-06-19 19:00:00 2023-06-21 19:24:00 Inpatient X SHARON COLEMAN NKECHINYERE [facility] [id number] [facility] 2023-06-19 19:00:00 2023-06-21 19:24:00 Hospital Encounter remi [facility] 1.2.840.114 350.1.13.10 4.2.7.2.686 [id number] [facility] 2023-06-20 10:00:00 2023-06-20 11:34:00 Surgery Monie sky [facility] 1.2.840.114 350.1.13.10 4.2.7.2.686 [id number] [id number] [facility] 2023-06-19 21:53:00 2023-06-20 08:07:00 Anesthesia Event [facility] 1.2.840.114 350.1.13.10 4.2.7.2.686 [id number] [facility] 2023-06-17 08:30:00 2023-06-17 09:35:57 Outpatient R ISABELL CURRY [facility] [id number] [facility] 2023-06-17 08:30:00 2023-06-17 09:35:57 Routine Visit Isabell Curry [facility] 1.2.840.114 350.1.13.10 4.2.7.2.686 [id number] 107 [id number] [facility] 2023-06-14 12:04:00 2023-06-14 17:20:00 Outpatient X CHELSEA REESE [facility] [id number] [facility] 2023-06-14 12:04:00 2023-06-14 17:20:00 Hospital Encounter Chelsea Reese [facility] 1.840.114 350.1.13.10 4.2.7.2.686 [id number] [facility] 2023-06-14 08:30:00 2023-06-14 09:15:03 Outpatient ISABELL SO [facility] [id number] [facility] 2023-06-14 08:30:00 2023-06-14 09:15:03 Routine Visit Isabell Curry [facility] 1..840.114 350.1.13.10 4.2.7.2.686 [id number] 107 [id number] [facility] 2023-06-10 08:45:00 2023-06-10 08:45:00 Outpatient ISABELL SO [facility] [id number] [facility] 2023-06-07 14:30:00 2023-06-07 14:30:00 Outpatient ISABELL SO [facility] [id number] [facility] 2023-06-05 12:07:00 2023-06-05 18:10:00 Outpatient X JONATHAN HARMON SHANNON [facility] [id number] [facility] 2023-06-05 12:07:00 2023-06-05 18:10:00 Hospital Encounter Jonathan Harmon [facility] 1.840.114 350.1.13.10 4.2.7.2.686 [id number] [facility] 2023-06-02 10:00:00 2023-06-02 10:50:11 [facility]patient [facility] [id number] [facility] 2023-06-02 10:00:00 2023-06-02 10:50:11 Routine Visit Risk, Ang-Rmchp-N p/[facility] 1.2840.114 350.1.13.10 4.2.7.2.686 [id number] 107 [id number] [facility] 2023-06-01 11:00:00 2023-06-01 11:22:40 Outpatient P AUDIE WYNN [facility] [id number] [facility] 2023-06-01 11:00:00 2023-06-01 11:22:40 Jumbo Operator Visit 2, [facility] Room Audie Wynn [facility] 1.840.114 350.1.13.10 4.2.7.2.686 [id number] [facility] 2023-05-31 07:45:00 2023-05-31 09:22:12 Outpatient R ISABELL CURRY [facility] [id number] [facility] 2023-05-31 07:45:00 2023-05-31 09:22:12 Routine Visit Isabell Curry [facility] 1.2840.114 350.1.13.10 4.2.7.2.686 [id number] [facility] 2023-05-26 10:00:00 2023-05-26 11:14:01 Outpatient R ISABELL CURRY [facility] [id number] [facility] 2023-05-26 10:00:00 2023-05-26 11:14:01 Routine Visit Isabell Curry [facility] 1.2840.114 350.1.13.10 4.2.7.2.686 [id number] 107 [id number] [facility] 2023-05-23 14:15:00 2023-05-23 14:30:00 Routine Visit Provider, Angeles Clark [facility] 1..840.114 350.1.13.10 4.2.7.2.686 [id number] 107 [id number] [facility] 2023-05-23 14:15:00 2023-05-23 14:15:00 Outpatient ANGELES BELL [facility] [id number] [facility] 2023-05-19 14:00:00 2023-05-19 14:34:49 Outpatient ISABELL SO [facility] [id number] [facility] 2023-05-19 14:00:00 2023-05-19 14:34:49 Routine Visit Isabell Curry [facility] 1..840.114 350.1.13.10 4.2.7.2.686 [id number] 107 [id number] [facility] 2023-05-16 13:07:00 2023-05-16 19:05:00 Outpatient X FRED P[facility]REZ [facility] [id number] [facility] 2023-05-16 13:07:00 2023-05-16 19:05:00 Hospital Encounter Fred Pérez [facility] 1..840.114 350.1.13.10 4.2.7.2.686 [id number] [facility] 2023-05-16 10:15:00 2023-05-16 10:25:14 Outpatient ANGELES BELL [facility] [id number] [facility] 2023-05-16 10:15:00 2023-05-16 10:25:14 [facility] 1.840.114 350.1.13.10 4.2.7.2.686 [id number] 107 [id number] [facility] 2023-05-16 09:30:00 2023-05-16 09:30:00 Outpatient R [facility] [id number] [facility] 2023-05-13 12:08:00 2023-05-13 18:51:00 Outpatient X YEIMY WINKLERY [facility] [id number] [facility] 2023-05-13 12:08:00 2023-05-13 18:51:00 Hospital Encounter Peterson, [facility] 1.840.114 350.1.13.10 4.2.7.2.686 [id number] [facility] 2023-05-13 08:45:00 2023-05-13 10:01:09 Outpatient R DAMIAN MARKS [facility] [id number] [facility] 2023-05-13 08:45:00 2023-05-13 10:01:09 Routine Visit Damian Marks [facility] 1.840.114 350.1.13.10 4.2.7.2.686 [id number] [facility] 2023-05-07 04:09:00 2023-05-09 13:07:00 Inpatient X CY MARSHALL [facility] [id number] [facility] 2023-05-07 04:09:00 2023-05-09 13:07:00 Hospital Encounter MarshallCy [facility] 1.840.114 350.1.13.10 4.2.7.2.686 [id number] [facility] 2023-05-07 00:00:00 2023-05-07 00:00:00 Orders Only Doctor Unassigned, Olcott [facility] 1.84114 350.1.13.10 4.2.7.2.686 [id number] [facility] 2023-05-03 17:52:00 2023-05-05 08:52:00 Outpatient P TAYLER ALICEA [facility] [id number] [facility] 2023-05-03 17:52:00 2023-05-05 08:52:00 Hospital Encounter Tayler Alicea [facility] 1.840.114 350.1.13.10 4.2.7.2.686 [id number] [facility] 2023-05-04 11:00:00 2023-05-04 11:00:00 Outpatient P [facility] [id number] [facility] 2023-05-03 00:00:00 2023-05-03 00:00:00 Orders Only Doctor Unassigned, Olcott [facility] 1.840.114 350.1.13.10 4.2.7.2.686 [id number] [facility] 2023-04-29 10:30:00 2023-04-29 10:55:28 Outpatient R ISABELL CURRY [facility] [id number] [facility] 2023-04-29 10:30:00 2023-04-29 10:55:28 Routine Visit Isabell Curry [facility] 1.84.114 350.1.13.10 4.2.7.2.686 [id number] [facility] 2023-04-20 14:46:00 2023-04-20 19:21:00 Outpatient X AMARI BALLESTEROS [facility] [id number] [facility] 2023-04-20 14:46:00 2023-04-20 19:21:00 Emergency Amari Ballesteros [facility] 1..114 350.1.13.10 4.2.7.2.686 [id number] [facility] 2023-04-20 00:00:00 2023-04-20 00:00:00 Abstract Phuong Ferrera [facility] 1.2.840.114 350.1.13.10 4.2.7.2.686 [id number] [facility] 2023-04-20 00:00:00 2023-04-20 00:00:00 Telephone Isabell Curry [facility] 1.2.840.114 350.1.13.10 4.2.7.2.686 [id number] 107 [id number] [facility] 2023-04-14 15:30:00 2023-04-14 16:48:22 Outpatient R ISABELL CURRY [facility] [id number] [facility] 2023-04-14 15:30:00 2023-04-14 16:48:22 Routine Visit Isabell Curry [facility] 1.2.840.114 350.1.13.10 4.2.7.2.686 [id number] 107 [id number] [facility] 2023-04-07 13:30:00 2023-04-07 13:30:00 Outpatient R [facility] [id number] [facility] 2023-04-06 11:00:00 2023-04-06 12:22:49 Outpatient AUDIE YUSUF SANGEETA [facility] [id number] [facility] 2023-04-06 11:00:00 2023-04-06 12:22:49 Jumbo Operator Visit 1, [facility] Room Franklyn Winkler Sangeeta [facility] 1.2.840.114 350.1.13.10 4.2.7.2.686 [id number] [facility] 2023-03-31 15:45:00 2023-03-31 16:20:38 Outpatient R ANDREWHawkISABELL [facility] [id number] [facility] 2023-03-31 15:45:00 2023-03-31 16:20:38 Routine Visit Isabell Curry [facility] 1.840.114 350.1.13.10 4.2.7.2.686 [id number] 107 [id number] [facility] 2023-03-31 00:00:00 2023-03-31 00:00:00 Orders Only Doctor Unassigned, Olcott [facility] 1..114 350.1.13.10 4.2.7.2.686 [id number] [facility] 2023-03-17 13:00:00 2023-03-17 13:47:51 Outpatient R PHUONG FERRERA [facility] [id number] [facility] 2023-03-17 13:00:00 2023-03-17 13:47:51 Routine Visit Risk, Ang-Rmchp-N p/High Phuong Ferrera [facility] CH[facility] 1..114 350.1.13.10 4.2.7.2.686 [id number] 107 [id number] [facility] 2023-03-17 00:00:00 2023-03-17 00:00:00 Orders Only Doctor Unassigned, Olcott [facility] 1..114 350.1.13.10 4.2.7.2.686 [id number] [facility] 2023-03-14 00:00:00 2023-03-14 00:00:00 Abstract Phuong Ferrera [facility] 1.840.114 350.1.13.10 4.2.7.2.686 [id number] [facility] 2023-03-10 13:00:00 2023-03-10 13:00:00 Outpatient R [facility] [id number] [facility] 2023-03-09 11:15:00 2023-03-09 11:15:00 Outpatient P [facility] [id number] [facility] 2023-02-27 00:00:00 2023-02-27 00:00:00 Nurse Triage Sonali Meza [facility] 1..114 350.1.13.10 4.2.7.2.686 [id number] [facility] 2023-02-23 00:00:00 2023-02-23 00:00:00 Abstract Phuong Ferrera [facility] 1.0.114 350.1.13.10 4.2.7.2.686 [id number] [facility] 2023-02-23 00:00:00 2023-02-23 00:00:00 Case Management Phuong Ferrera [facility] 1.0.114 350.1.13.10 4.2.7.2.686 [id number] [facility] 2023-02-10 15:30:00 2023-02-10 15:59:21 Outpatient R ISABELL CURRY [facility] [id number] [facility] 2023-02-10 15:30:00 2023-02-10 15:59:21 Routine Visit Damian Marks Brenda A [facility] 1.840.114 350.1.13.10 4.2.7.2.686 [id number] [facility] 2023-02-10 00:00:00 2023-02-10 00:00:00 Abstract Phuong Ferrera [facility] 1.840.114 350.1.13.10 4.2.7.2.686 [id number] [facility] 2023-02-09 10:45:00 2023-02-09 12:42:48 Jumbo Operator Visit 1, [facility] 1..114 350.1.13.10 4.2.7.2.686 [id number] [facility] 2023-02-09 10:45:00 2023-02-09 10:45:00 Outpatient P AUDIE WYNN [facility] [id number] [facility] 2023-02-01 16:00:00 2023-02-01 16:00:00 [facility] [id number] [facility] 2023-01-28 11:00:00 2023-01-28 11:00:00 Outpatient R ISABELL CURRY [facility] [id number] [facility] 2023-01-20 10:30:00 2023-01-20 11:10:16 Outpatient R PHUONG FERRERA [facility] [id number] [facility] 2023-01-20 10:30:00 2023-01-20 11:10:16 Routine Visit Risk, Ang-Rmchp-N p/High Phuong Ferrera [facility] 1.840.114 350.1.13.10 4.2.7.2.686 [id number] 107 [id number] [facility] 2023-01-14 08:45:00 2023-01-14 09:09:07 Outpatient R PK SEQUEIRA [facility] [id number] [facility] 2023-01-14 08:45:00 2023-01-14 09:09:07 Routine Visit Pgy2 Pk Sequeira [facility] 1..840.114 350.1.13.10 4.2.7.2.686 [id number] [facility] 2023-01-06 14:00:00 2023-01-06 14:32:22 Outpatient PHUONG GARCIA [facility] [id number] [facility] 2023-01-06 14:00:00 2023-01-06 14:32:22 Routine Visit Risk, Ang-Rmchp-N p/High Phuong Ferrera [facility] 1..840.114 350.1.13.10 4.2.7.2.686 [id number] 107 [id number] [facility] 2023-01-03 08:52:00 2023-01-03 09:23:00 Emergency X CÉSAR BECKER [facility] [id number] [facility] 2023-01-03 08:52:00 2023-01-03 09:23:00 Emergency César Becker B [facility] 1..840.114 350.1.13.10 4.2.7.2.686 [id number] [facility] 2022-12-30 10:45:00 2022-12-30 10:45:00 Outpatient PHUONG GARCIA [facility] [id number] [facility] 2022-12-28 13:30:00 2022-12-28 14:35:26 Outpatient NILTON KIM [facility] [id number] [facility] 2022-12-28 13:30:00 2022-12-28 14:35:26 Routine Visit Pgy1 Nilton Pascual [facility] 1.0.114 350.1.13.10 4.2.7.2.686 [id number] [facility] 2022-12-23 14:30:00 2022-12-23 15:42:57 Outpatient R PK SEQUEIRA [facility] [id number] [facility] 2022-12-23 14:30:00 2022-12-23 15:42:57 [facility] 1.0.114 350.1.13.10 4.2.7.2.686 [id number] [facility] 2022-12-23 10:00:00 2022-12-23 10:00:00 Outpatient R TAYLER ALICEA [facility] [id number] [facility] 2022-12-23 00:00:00 2022-12-23 00:00:00 Orders Only Doctor Unassigned, Olcott [facility] .0.114 350.1.13.10 4.2.7.2.686 [id number] [facility] 2022-12-22 10:15:00 2022-12-22 10:15:00 Routine Visit Damian Marks [facility] 1..114 350.1.13.10 4.2.7.2.686 [id number] [facility] 2022-12-22 10:15:00 2022-12-22 10:05:16 Outpatient R DAMIAN MARKS [facility] [id number] [facility] 2022-12-22 00:00:00 2022-12-22 00:00:00 Abstract Damian Marks [facility] 1.0.114 350.1.13.10 4.2.7.2.686 [id number] 107 [id number] [facility] 2022-12-21 00:00:00 2022-12-21 00:00:00 Telephone Damian Marks [facility] 1..114 350.1.13.10 4.2.7.2.686 [id number] [facility] 2022-12-20 00:00:00 2022-12-20 00:00:[address] [facility] 1.114 350.1.13.10 4.2.7.2.686 [id number] [facility] 2022-12-19 17:00:00 2022-12-19 17:49:22 Outpatient R MATTI DONIS [facility] [id number] [facility] 2022-12-19 17:00:00 2022-12-19 17:20:00 Urgent Care Matti Donis Unknown, Attending [facility] 1.114 350.1.13.10 4.2.7.2.686 [id number] [facility] 2022-12-17 14:30:00 2022-12-17 14:45:[address] [facility] Kristopher [facility] 1.114 350.1.13.10 4.2.7.2.686 [id number] [facility] 2022-12-17 14:30:00 2022-12-17 14:30:00 Outpatient R KRISTOPHER BARBARA [facility] [id number] [facility] 2022-12-17 14:15:00 2022-12-17 14:15:00 Jumbo Operator Visit Lab, [facility] 1.114 350.1.13.10 4.2.7.2.686 [id number] [facility] 2022-12-17 13:00:00 2022-12-17 13:34:03 Jumbo Operator Visit 1, [facility] 1.2840.114 350.1.13.10 4.2.7.2.686 [id number] [facility] 2022-12-16 13:15:00 2022-12-16 13:29:23 Outpatient R PHUONG FERRERA [facility] [id number] [facility] 2022-12-16 13:15:00 2022-12-16 13:29:23 Routine Visit Risk, Frankie-Rmchp-N p/High Phuong Ferrera [facility] 1.0.114 350.1.13.10 4.2.7.2.686 [id number] [facility] 2022-12-10 11:30:00 2022-12-10 12:00:00 Jumbo Operator Visit Ultrasound, [facility] Fred Pérez Chasey Ikuvbogie [facility] 1.0.114 350.1.13.10 4.2.7.2.686 [id number] [facility] 2022-12-10 11:30:00 2022-12-10 11:30:00 Outpatient P ZULMA WARNER [facility] [id number] [facility] 2022-12-10 00:00:00 2022-12-10 00:00:00 Abstract Damian Marks [facility] 1.840.114 350.1.13.10 4.2.7.2.686 [id number] [facility] 2022-11-25 13:30:00 2022-11-25 13:30:00 Outpatient ISABELL SO [facility] [id number] [facility] 2022-11-23 00:00:00 2022-11-23 00:00:00 Telephone Damian Marks [facility] 1.2.840.114 350.1.13.10 4.2.7.2.686 [id number] [facility] 2022-11-22 08:30:00 2022-11-22 08:30:00 Outpatient ISABELL SO [facility] [id number] [facility] 2022-11-22 08:30:00 2022-11-22 08:30:00 Jumbo Operator Visit Lab, Isabell Kearns [facility] 1.840.114 350.1.13.10 4.2.7.2.686 [id number] [facility] 2022-11-11 00:00:00 2022-11-11 00:00:00 Telephone Damian Marks [facility] 1.2.840.114 350.1.13.10 4.2.7.2.686 [id number] [facility] 2022-11-10 08:30:00 2022-11-10 10:13:43 Jumbo Operator Visit Lab, Isabell Kearns [facility] .840.114 350.1.13.10 4.2.7.2.686 [id number] [facility] 2022-11-10 08:30:00 2022-11-10 08:30:00 Outpatient ISABELL SO [facility] [id number] [facility] 2022-11-10 00:00:00 2022-11-10 00:00:00 Telephone Damian Marks [facility] 1.2.840.114 350.1.13.10 4.2.7.2.686 [id number] [facility] 2022-11-08 14:00:00 2022-11-08 15:29:44 Outpatient R DAMIAN MARKS [facility] [id number] [facility] 2022-11-08 14:00:00 2022-11-08 15:29:44 Initial Visit Damian Marks [facility] 1.2.840.114 350.1.13.10 4.2.7.2.686 [id number] [facility] 2022-11-08 00:00:00 2022-11-08 00:00:00 Orders Only Doctor Unassigned, [place] [facility] 1.2.840.114 350.1.13.10 4.2.7.2.686 [id number] [facility] 2022-09-07 13:00:00 2022-09-07 13:00:00 Nurse Visit Nurse, Frankie Rmchp Exp Cprit ObIsabell Best [facility] 1..840.114 350.1.13.10 4.2.7.2.686 [id number] [facility] 2022-09-07 13:00:00 2022-09-07 12:57:50 Outpatient ISABELL SO [facility] [id number] [facility] 2022-04-05 13:15:00 2022-04-05 13:59:51 Outpatient R DAMIAN MARKS [facility] [id number] [facility] 2022-04-05 13:15:00 2022-04-05 13:59:51 Office Visit Damian Marks [facility] 1.840.114 350.1.13.10 4.2.7.2.686 [id number] [facility] 2022-03-12 15:45:00 2022-03-12 16:09:04 Outpatient R DAMIAN MARKS [facility] [id number] [facility] 2022-03-12 15:45:00 2022-03-12 16:09:04 Routine Visit Damian Marks [facility] 1.840.114 350.1.13.10 4.2.7.2.686 [id number] 107 [id number] [facility] 2022-03-04 00:00:00 2022-03-04 00:00:00 Orders Only Doctor Unassigned, Olcott [facility] 1.840.114 350.1.13.10 4.2.7.2.686 [id number] [facility] 2022-03-01 15:00:00 2022-03-01 15:00:00 Outpatient R [facility] [id number] [facility] 2022-02-25 15:00:00 2022-02-25 15:00:00 Outpatient R [facility] [id number] [facility] 2022-02-23 15:15:00 2022-02-23 15:15:00 Outpatient R [facility] [id number] [facility] 2022-02-17 00:45:00 2022-02-19 14:32:00 Inpatient ZULMA BRIONES [facility] [id number] [facility] 2022-02-17 00:45:00 2022-02-19 14:32:00 Hospital Encounter Kimber Verdin Chasey Ikuvjose [facility] 1.840.114 350.1.13.10 4.2.7.2.686 [id number] [facility] 2022-02-19 00:00:00 2022-02-19 00:00:00 Encounter 1.2.840.1 [id number] 3.104.2.7 .[id number] 1.2.840.114 350.1.13.10 4.2.7.2.696 [id number] [facility] 2022-02-18 13:00:00 2022-02-18 13:00:00 Outpatient R [facility] [id number] [facility] 2022-02-17 12:42:00 2022-02-17 17:32:00 Anesthesia Event Efrain, Rickie Roberts, [facility] 1.840.114 350.1.13.10 4.2.7.2.686 [id number] [facility] 2022-02-15 15:00:00 2022-02-15 15:34:22 Outpatient P CHELSEA REESE [facility] [id number] [facility] 2022-02-15 15:00:00 2022-02-15 15:30:00 Jumbo Operator Visit Ultrasound, [facility] Damian Marks Hassan M [facility] 1..840.114 350.1.13.10 4.2.7.2.686 [id number] [facility] 2022-02-15 14:00:00 2022-02-15 15:08:09 Outpatient R DAMIAN MARKS [facility] [id number] [facility] 2022-02-15 14:00:00 2022-02-15 15:08:09 Routine Visit Damian Marks [facility] 1.2.840.114 350.1.13.10 4.2.7.2.686 [id number] 107 [id number] [facility] 2022-02-15 14:00:00 2022-02-15 14:00:00 Outpatient R DAMIAN MARKS [facility] [id number] [facility] 2022-02-15 00:00:00 2022-02-15 00:00:00 Abstract Damian aMrks [facility] 1..114 350.1.13.10 4.2.7.2.686 [id number] [facility] 2022-02-13 00:00:00 2022-02-13 00:00:00 [facility] 350.1.13.10 4.2.7.2.686 [id number] [facility] 2022-02-11 13:15:00 2022-02-11 13:41:32 Outpatient R KAIT STEWARD [facility] [id number] [facility] 2022-02-11 13:15:00 2022-02-11 13:41:32 Routine Visit Risk, Ang-Rmchp-N p/High Kait Steward Emilia [facility] 1.84.114 350.1.13.10 4.2.7.2.686 [id number] [facility] 2022-02-08 10:45:00 2022-02-08 11:25:06 Outpatient R DAMIAN MARKS [facility] [id number] [facility] 2022-02-08 10:45:00 2022-02-08 11:25:06 Routine Visit Damian Marks [facility] 1..114 350.1.13.10 4.2.7.2.686 [id number] 107 [id number] [facility] 2022-02-08 00:00:00 2022-02-08 00:00:00 Orders Only Doctor Unassigned, Olcott [facility] 1.840.114 350.1.13.10 4.2.7.2.686 [id number] [facility] 2022-01-28 11:00:00 2022-01-28 11:00:00 Outpatient R DAMIAN MARKS [facility] [id number] [facility] 2022-01-21 00:00:00 2022-01-21 00:00:00 Abstract Damina Marks [facility] 1..840.114 350.1.13.10 4.2.7.2.686 [id number] [facility] 2022-01-18 15:00:00 2022-01-18 15:30:00 Jumbo Operator Visit Ultrasound, Chelsea Turner [facility] 1..840.114 350.1.13.10 4.2.7.2.686 [id number] [facility] 2022-01-18 15:00:00 2022-01-18 15:00:00 Outpatient P [facility] [id number] [facility] 2022-01-18 15:00:00 2022-01-18 15:00:00 Outpatient P CHELSEA REESE [facility] [id number] [facility] 2022-01-14 11:00:00 2022-01-14 11:50:30 Outpatient R DAMIAN MARKS [facility] [id number] [facility] 2022-01-14 11:00:00 2022-01-14 11:50:30 Routine Visit Damian Marks [facility] 1..840.114 350.1.13.10 4.2.7.2.686 [id number] 107 [id number] [facility] 2022-01-13 15:00:00 2022-01-13 15:00:00 Outpatient R JACINTA BECK [facility] [id number] [facility] 2022-01-13 15:00:00 2022-01-13 15:00:00 Outpatient R JACINTA BECK [facility] [id number] [facility] 2021-12-31 14:00:00 2021-12-31 14:25:05 Outpatient R DAMIAN MARKS [facility] [id number] [facility] 2021-12-31 14:00:00 2021-12-31 14:25:05 Routine Visit Damian Marks [facility] 1..840.114 350.1.13.10 4.2.7.2.686 [id number] 107 [id number] [facility] 2021-12-31 00:00:00 2021-12-31 00:00:00 Orders Only Doctor Unassigned, Olcott [facility] 1.840.114 350.1.13.10 4.2.7.2.686 [id number] [facility] 2021-12-21 10:00:00 2021-12-21 10:00:00 Outpatient R BLANK ANN [facility] [id number] [facility] 2021-12-17 14:45:00 2021-12-17 14:45:00 Outpatient R DAMIAN MARKS [facility] [id number] [facility] 2021-12-16 00:00:00 2021-12-16 00:00:00 Abstract Damian Marks [facility] 1..840.114 350.1.13.10 4.2.7.2.686 [id number] [facility] 2021-12-14 15:00:00 2021-12-14 15:47:10 Jumbo Operator Visit Ultrasound, Chelsea Turner [facility] 1.2.840.114 350.1.13.10 4.2.7.2.686 [id number] [facility] 2021-12-14 15:00:00 2021-12-14 15:00:00 Outpatient P CHELSEA REESE [facility] [id number] [facility] 2021-12-08 19:57:00 2021-12-08 21:18:00 Outpatient P AMARI BALLESTEROS [facility] [id number] [facility] 2021-12-08 19:57:00 2021-12-08 21:18:00 Hospital Encounter Amari Ballesteros [facility] 1.840.114 350.1.13.10 4.2.7.2.686 [id number] [facility] 2021-12-08 00:00:00 2021-12-08 00:00:00 Nurse Triage Bev Peguero [facility] 1.2.840.114 350.1.13.10 4.2.7.2.686 [id number] [facility] 2021-12-08 00:00:00 2021-12-08 00:00:00 Orders Only Doctor Unassigned, Olcott [facility] 1.2.840.114 350.1.13.10 4.2.7.2.686 [id number] [facility] 2021-12-07 10:30:00 2021-12-07 10:45:00 Telemedici ne Visit Faculty, Estrella Burleson [facility] 1.2840.114 350.1.13.10 4.2.7.2.686 [id number] 107 [id number] [facility] 2021-12-07 10:30:00 2021-12-07 10:30:00 Outpatient R ESTRELLA JONES [facility] [id number] [facility] 2021-11-27 00:00:00 2021-11-27 00:00:00 Abstract Damian Marks [facility] 1.2.840.114 350.1.13.10 4.2.7.2.686 [id number] [facility] 2021-11-26 12:45:00 2021-11-26 13:27:05 Outpatient R HEIDYKEESHAGABO DAMIAN [facility] [id number] [facility] 2021-11-26 12:45:00 2021-11-26 13:27:05 Routine Visit Heidyrashard Damian Mario [facility] 1.2.840.114 350.1.13.10 4.2.7.2.686 [id number] 107 [id number] [facility] 2021-11-10 00:00:00 2021-11-10 00:00:00 Abstract Damian Marks [facility] 1.2.840.114 350.1.13.10 4.2.7.2.686 [id number] 107 [id number] [facility] 2021-11-09 14:30:00 2021-11-09 16:57:20 Telemedici ne Visit Faculty, Franklyn Schafer [facility] 1.2.840.114 350.1.13.10 4.2.7.2.686 [id number] [facility] 2021-11-09 13:00:00 2021-11-09 14:20:34 Jumbo Operator Visit Ultrasound, Franklyn Mcleod Hassan M [facility] 1.840.114 350.1.13.10 4.2.7.2.686 [id number] [facility] 2021-11-09 13:00:00 2021-11-09 14:20:34 Outpatient P CHELSEA REESE [facility] [id number] [facility] 2021-11-09 00:00:00 2021-11-09 00:00:00 Orders Only Doctor Unassigned, Olcott [facility] 1..114 350.1.13.10 4.2.7.2.686 [id number] [facility] 2021-10-29 11:00:00 2021-10-29 12:14:48 Routine Visit Risk, Ang-Rmchp-N p/High Velma John [facility] 1..114 350.1.13.10 4.2.7.2.686 [id number] 107 [id number] [facility] 2021-10-29 11:00:00 2021-10-29 12:14:48 Outpatient R VELMA JOHN [facility] [id number] [facility] 2021-10-15 00:00:00 2021-10-15 00:00:00 Telephone Damian Marks [facility] 1.84.114 350.1.13.10 4.2.7.2.686 [id number] 107 [id number] [facility] 2021-10-15 00:00:00 2021-10-15 00:00:00 Orders Only Doctor Unassigned, Olcott [facility] 1.84.114 350.1.13.10 4.2.7.2.686 [id number] [facility] 2021-10-12 14:30:00 2021-10-12 15:00:00 Telemedici ne Visit Faculty, Frankie SimentalEstrella Jose [facility] 1.840.114 350.1.13.10 4.2.7.2.686 [id number] [facility] 2021-10-12 14:30:00 2021-10-12 14:30:00 Outpatient R ESTRELLA JONES [facility] [id number] [facility] 2021-09-28 15:30:00 2021-09-28 15:59:59 Outpatient R AUDIE WYNN [facility] [id number] [facility] 2021-09-28 15:30:00 2021-09-28 15:59:59 Routine Visit Faculty, Frankie Simentalsasha López Palacioeeta [facility] 1..840.114 350.1.13.10 4.2.7.2.686 [id number] 107 [id number] [facility] 2021-09-23 16:00:00 2021-09-23 16:16:33 Outpatient R DAMIAN MARKS [facility] [id number] [facility] 2021-09-23 16:00:00 2021-09-23 16:16:33 Routine Visit Damian Marks [facility] 1..840.114 350.1.13.10 4.2.7.2.686 [id number] 107 [id number] [facility] 2021-09-01 04:43:00 2021-09-01 05:55:00 Emergency X JOHN SEN [facility] [id number] [facility] 2021-09-01 04:43:00 2021-09-01 05:55:00 Emergency John Sen [facility] 1..840.114 350.1.13.10 4.2.7.2.686 [id number] [facility] 2021-08-29 00:00:00 2021-08-29 00:00:00 Telephone Kait Beach [facility] 1..840.114 350.1.13.10 4.2.7.2.686 [id number] [facility] 2021-08-28 15:15:00 2021-08-28 15:30:00 Laboratory Only Only, Ang Db Test Unknown, Attending [facility] 1..840.114 350.1.13.10 4.2.7.2.686 [id number] [facility] 2021-08-28 15:15:00 2021-08-28 15:15:00 Outpatient R [facility] [id number] [facility] 2021-08-27 10:30:00 2021-08-27 10:30:00 Outpatient R DAMIAN MARKS [facility] [id number] [facility] 2021-08-20 16:00:00 2021-08-20 16:40:14 Outpatient R RICHARD LAY [facility] [id number] [facility] 2021-08-20 16:00:00 2021-08-20 16:40:14 Routine Visit Risk, Brittney-N p/High Richard Lay N [facility] 1..840.114 350.1.13.10 4.2.7.2.686 [id number] 107 [id number] [facility] 2021-08-13 10:15:00 2021-08-13 11:30:36 Outpatient R ZENA ARCINIEGA [facility] [id number] [facility] 2021-08-13 09:59:09 2021-08-13 11:30:36 Routine Visit Provider, Zena Campos [facility] .840.114 350.1.13.10 4.2.7.2.686 [id number] 107 [id number] [facility] 2021-08-11 00:00:00 2021-08-11 00:00:00 Telephone Zena Arciniega [facility] 1.2840.114 350.1.13.10 4.2.7.2.686 [id number] [facility] 2021-08-07 08:26:48 2021-08-07 08:26:59 Jumbo Operator Visit Lab, Richard Poe [facility] 1.840.114 350.1.13.10 4.2.7.2.686 [id number] 107 [id number] [facility] 2021-08-07 08:00:00 2021-08-07 08:00:00 Outpatient R RICHARD LAY [facility] [id number] [facility] 2021-08-05 15:58:42 2021-08-05 16:19:13 Jumbo Operator Visit Ultrasound, Zena Hernandez Gay Jain, Sangeeta [facility] .840.114 350.1.13.10 4.2.7.2.686 [id number] [facility] 2021-08-05 09:30:00 2021-08-05 10:39:19 Outpatient R ZENA ARCINIEGA [facility] [id number] [facility] 2021-08-05 09:15:10 2021-08-05 10:39:19 Initial Visit Provider, Zena Campos [facility] 1.2840.114 350.1.13.10 4.2.7.2.686 [id number] [facility] 2021-08-05 00:00:00 2021-08-05 00:00:00 Orders Only Doctor Unassigned, Olcott [facility] 1.2840.114 350.1.13.10 4.2.7.2.686 [id number] [facility] 2021-08-05 00:00:00 2021-08-05 00:00:00 Letter (Out) Zena Arciniega [facility] 1.2.840.114 350.1.13.10 4.2.7.2.686 [id number] 107 [id number] [facility] 2021-06-15 10:48:59 2021-06-15 11:34:57 Routine Visit Richard Lay [facility] 1.2.840.114 350.1.13.10 4.2.7.2.686 [id number] 107 [id number] [facility] 2021-06-15 11:00:00 2021-06-15 11:00:00 Outpatient R RICHARD LAY [facility] [id number] [facility] 2021-06-15 08:45:00 2021-06-15 08:45:00 Outpatient R [facility] [id number] [facility] 2021-06-09 00:00:00 2021-06-09 00:00:00 Telephone Richard Lay [facility] 1..840.114 350.1.13.10 4.2.7.2.686 [id number] [facility] 2021-06-08 15:15:00 2021-06-08 15:15:00 Outpatient RICHARD ABREU [facility] [id number] [facility] 2021-06-08 14:35:26 2021-06-08 14:42:20 Jumbo Operator Visit Lab, Ang-Rmchp Richard Lya [facility] 1.2.840.114 350.1.13.10 4.2.7.2.686 [id number] 107 [id number] [facility] 2021-06-08 00:00:00 2021-06-08 00:00:00 Telephone Damian Marks [facility] 1.2.840.114 350.1.13.10 4.2.7.2.686 [id number] [facility] 2021-06-06 09:11:00 2021-06-06 10:58:00 Emergency Tamy Lay [facility] 1.2.840.114 350.1.13.10 4.2.7.2.686 [id number] [facility] 2021-06-05 00:00:00 2021-06-05 00:00:00 Telephone Damian Marks [facility] 1.2.840.114 350.1.13.10 4.2.7.2.686 [id number] 107 [id number] [facility] 2021-06-05 00:00:00 2021-06-05 00:00:00 Telephone Damian Marks [facility] 1.2.840.114 350.1.13.10 4.2.7.2.686 [id number] 107 [id number] [facility] 2021-06-03 14:13:05 2021-06-03 15:37:15 Initial Visit Damian Marks [facility] 1.2.840.114 350.1.13.10 4.2.7.2.686 [id number] [facility] 2021-06-03 14:00:00 2021-06-03 14:00:00 Outpatient R [facility] [id number] [facility] 2021-06-03 00:00:00 2021-06-03 00:00:00 Orders Only Doctor Unassigned, Olcott [facility] 1.2840.114 350.1.13.10 4.2.7.2.686 [id number] [facility] 2021-02-26 10:30:00 2021-02-26 10:30:00 Outpatient R DORA CESAR [facility] [id number] [facility] 2021-02-12 00:00:00 2021-02-12 00:00:00 Patient Secure Msg Doctor Unassigned, Olcott [facility] 1.2840.114 350.1.13.10 4.2.7.2.686 [id number] [facility] 2021-02-08 19:26:00 2021-02-08 21:21:00 Emergency Cynthia Guerrero [facility] 1.2840.114 350.1.13.10 4.2.7.2.686 [id number] 2021-02-08 19:26:00 2021-02-08 21:21:00 Emergency Glenryo Guerrerokaleighjimmie [facility] 1.2840.114 350.1.13.10 4.2.7.2.686 [id number] [facility] 2021-02-06 16:00:00 2021-02-06 16:00:00 Outpatient R MATTHIAS MERCADO [facility] [id number] [facility] 2020-12-31 00:00:00 2020-12-31 00:00:00 Patient Secure Msg Doctor Unassigned, Olcott [facility] 1.2840.114 350.1.13.10 4.2.7.2.686 [id number] [facility] 2020-12-22 13:28:52 2020-12-22 14:08:23 Office Visit Jacinta Beck [facility] 1.2.840.114 350.1.13.10 4.2.7.2.686 [id number] [facility] 2020-12-22 13:28:52 2020-12-22 14:08:23 Office Visit Jacinta Beck [facility] 1.2.840.114 350.1.13.10 4.2.7.2.686 [id number] 2020-12-22 13:45:00 2020-12-22 13:45:00 Outpatient R EBONY [facility] [id number] [facility] 2020-12-11 08:30:00 2020-12-11 08:30:00 [id number] 2020-12-03 12:48:44 2020-12-03 23:59:00 Hospital Encounter Jacinta Beck [facility] 1.2.840.114 350.1.13.10 4.2.7.2.686 [id number] [facility] 2020-12-03 00:00:00 2020-12-03 00:00:00 [facility] [id number] 2020-11-25 15:39:25 2020-11-25 16:27:30 Office Visit Ebony [facility] 1.2.840.114 350.1.13.10 4.2.7.2.686 [id number] [facility] 2020-11-25 14:06:26 2020-11-25 15:26:29 Office Visit Dora Cesar [facility] [address] 1.2.840.114 350.1.13.10 4.2.7.2.686 [id number] [facility] 2020-11-25 14:15:00 2020-11-25 14:15:00 Outpatient R DORA CESAR [facility] [id number] [facility] 2020-11-25 00:00:00 2020-11-25 00:00:00 Patient Outreach Faustino Gallitoasya Alvarez [facility] 1.2.840.114 350.1.13.10 4.2.7.2.686 [id number] [facility] 2020-11-24 00:00:00 2020-11-24 00:00:00 Telephone Jacinta Beck [facility] Building 1.2.840.114 350.1.13.10 4.2.7.2.686 [id number] [facility] 2020-11-21 00:00:00 2020-11-21 00:00:00 Case Management Dora Cesar [facility] 1.2.840.114 350.1.13.10 4.2.7.2.686 [id number] [facility] 2020-11-17 14:08:23 2020-11-17 23:59:00 Hospital Encounter Dora Cesar [facility] 1.2.840.114 350.1.13.10 4.2.7.2.686 [id number] [facility] 2020-11-17 00:00:00 2020-11-17 00:00:00 Outpatient R DORA CESAR [facility] [id number] [facility] 2020-11-17 00:00:00 2020-11-17 00:00:00 Orders Only Doctor Unassigned, [place] [facility] 1.840.114 350.1.13.10 4.2.7.2.686 [id number] [facility] 2020-11-12 00:00:00 2020-11-12 00:00:00 Case Management Dora Cesar [facility] 1.840.114 350.1.13.10 4.2.7.2.686 [id number] [facility] 2020-11-07 08:45:32 2020-11-07 09:05:32 Jumbo Operator Visit Lab, [facility] Dora Diez [facility] 1.0.114 350.1.13.10 4.2.7.2.686 [id number] [facility] 2020-11-07 08:40:00 2020-11-07 08:40:00 Outpatient R TALI ENIOMAVIS [facility] [id number] [facility] 2020-11-03 10:45:29 2020-11-03 11:05:29 Jumbo Operator Visit Lab, [facility] Fam Dora Mcgee [facility] 1.0.114 350.1.13.10 4.2.7.2.686 [id number] [facility] 2020-11-03 09:52:26 2020-11-03 10:45:01 Office Visit Dora Cesar [facility] 1..114 350.1.13.10 4.2.7.2.686 [id number] [facility] 2020-11-03 10:00:00 2020-11-03 10:00:00 Outpatient R TALI ENIOMAVIS [facility] [id number] [facility] 2020-10-15 10:01:00 2020-10-15 10:01:00 Outpatient Raju_P [facility] [id number] [facility] 2020-03-14 13:00:00 2020-03-14 13:00:00 Outpatient JACINTA DIEGO [facility] [id number] [facility] 2020-03-05 14:40:00 2020-03-05 14:40:[address] [facility] [id number] Common [facility] 2020-02-13 16:00:00 2020-02-13 16:00:00 [facility] [id number] [facility] 2020-02-11 00:24:00 2020-02-11 00:24:00 [facility] [id number] [facility] 2020-02-07 08:40:00 2020-02-07 08:40:00 [facility] [id number] [facility] 2020-01-25 14:00:00 2020-01-25 14:00:00 Outpatient [facility] [id number] [facility] 2020-01-11 09:00:00 2020-01-11 09:00:00 Outpatient JACINTA DIEGO [facility] [id number] [facility] 2019-12-20 08:24:00 2019-12-20 08:24:00 [facility] [id number] [facility] 2019-12-17 14:40:00 2019-12-17 14:40:00 [facility] [id number] [facility] 2019-12-17 13:08:00 2019-12-17 13:08:00 [facility] [id number] [facility] 2019-11-27 13:00:00 2019-11-27 13:00:00 Outpatient [facility] [id number] [facility] 2019-11-27 08:51:00 2019-11-27 08:51:00 Outpatient [facility] [id number] [facility] 2019-10-23 09:00:00 2019-10-23 09:00:00 Outpatient [facility] [id number] [facility] 2019-02-20 11:40:00 2019-02-20 11:40:00 Outpatient [facility] [id number] [facility] 2018-11-23 10:30:00 2018-11-23 10:30:00 Outpatient [facility] [id number] [facility] Results Test Description Test Time Test Comments Results Result Co mments Source [facility] GLUCOSE (AUTOMATED)2023-06-28 05:08:27* Test Item Value Reference Range Interpretation Comme nts POCT GLU (test code = 8442610773) 133 mg/dL 70-110 H Lab Interpretation (test cod e = 19571-5) Abnormal [facility] GLUCOSE (AUTOMATED)2023-06-28 00:12:05* Test Item Value Reference Range Interpretation Comme nts POCT GLU (test code = 0968133611) 120 mg/dL 70-110 H Lab Interpretation (test cod e = 73637-6) Abnormal [facility] GLUCOSE (AUTOMATED)2023-06-27 16:36:37* Test Item Value Reference Range Interpretation Comme nts POCT GLU (test code = 5115903967) 146 mg/dL 70-110 H Lab Interpretation (test cod e = 85992-0) Abnormal [facility] GLUCOSE (AUTOMATED)2023-06-27 16:36:37* Test Item Value Reference Range Interpretation Comme nts POCT GLU (test code = 6365255915) 146 mg/dL 70-110 H Lab Interpretation (test cod e = 69037-1) Abnormal [facility] ACUTE CARE [id number] 13:47:55* Test Item Value Reference Range Interpretation Comme nts PH (test code = 4056362755) 7.31 7.32-7.42 L PCO2 ROHAN (test code = 9231697773) 38 See_Comment L [Automated messa ge] The system which generated this result transmitted reference range: 41 - 51 mmHg. The reference range was not used to interpret this result as normal/abnormal. PO2 ROHAN (test code = 6940311938) 129 See_Comment HH [Automated messa ge] The system which generated this result transmitted reference range: 25 - 40 mmHg. The reference range was not used to interpret this result as normal/abnormal. AC VBE(BEAKER) (test code = 7421822824) -7.0 See_Comment [Automated me ssage] The system which generated this result transmitted reference range: -3.0 - 3.0 mEq/L. The reference range was not used to interpret this result as normal/abnormal. HCO3 ROHAN (test code = 1928710890) 19 See_Comment L [Automated messa ge] The system which generated this result transmitted reference range: 24 - 28 mEq/L. The reference range was not used to interpret this result as normal/abnormal. %O2HB (test code = 5411789170) 99.0 % 95.0-98.0 H NA (test code = 3496390037) 139 mmol/L 135-145 K+ (test code = 3773235034) 3.9 mmol/L 3.5-5.0 AC CA IONZ (test code = 3033298746) 4.30 mg/dL 4.50-5.30 L GLUCOSE (test code = 9057930417) 157 mg/dL 70-110 H AC Hematocrit (test code = 6182603124) 15 See_Comment LL [Automated me ssage] The system which generated this result transmitted reference range: 40 - 54 VOL %. The reference range was not used to interpret this result as normal/abnormal. THB (test code = 3017865597) 5.1 g/dL 12.0-16.0 LL AC TCO2 ROHAN (test code = 2383282200) 21 mmol/L See_Comment L [Automated messa ge] The system which generated this result transmitted reference range: 24-29 mmol/L. The reference range was not used to interpret this result as normal/abnormal. Lab Interpretation (test code = 16912-3) Abnormal [facility] ACUTE CARE [id number] 13:47:55* Test Item Value Reference Range Interpretation Comme nts PH (test code = 6327740952) 7.31 7.32-7.42 L PCO2 ROHAN (test code = 0502567513) 38 See_Comment L [Automated messa ge] The system which generated this result transmitted reference range: 41 - 51 mmHg. The reference range was not used to interpret this result as normal/abnormal. PO2 ROHAN (test code = 6062699273) 129 See_Comment HH [Automated messa ge] The system which generated this result transmitted reference range: 25 - 40 mmHg. The reference range was not used to interpret this result as normal/abnormal. AC VBE(BEAKER) (test code = 5079393664) -7.0 See_Comment [Automated me ssage] The system which generated this result transmitted reference range: -3.0 - 3.0 mEq/L. The reference range was not used to interpret this result as normal/abnormal. HCO3 ROHAN (test code = 0126024467) 19 See_Comment L [Automated messa ge] The system which generated this result transmitted reference range: 24 - 28 mEq/L. The reference range was not used to interpret this result as normal/abnormal. %O2HB (test code = 0687914931) 99.0 % 95.0-98.0 H NA (test code = 3153049176) 139 mmol/L 135-145 K+ (test code = 8090296224) 3.9 mmol/L 3.5-5.0 AC CA IONZ (test code = 1645939101) 4.30 mg/dL 4.50-5.30 L GLUCOSE (test code = 5463354036) 157 mg/dL 70-110 H AC Hematocrit (test code = 5728021069) 15 See_Comment LL [Automated me ssage] The system which generated this result transmitted reference range: 40 - 54 VOL %. The reference range was not used to interpret this result as normal/abnormal. THB (test code = 5566397806) 5.1 g/dL 12.0-16.0 LL AC TCO2 ROHAN (test code = 5191099620) 21 mmol/L See_Comment L [Automated messa ge] The system which generated this result transmitted reference range: 24-29 mmol/L. The reference range was not used to interpret this result as normal/abnormal. Lab Interpretation (test code = 85571-7) Abnormal [facility] GLUCOSE (AUTOMATED)2023-06-27 11:18:43* Test Item Value Reference Range Interpretation Comme nts POCT GLU (test code = 8994008610) 137 mg/dL 70-110 H Lab Interpretation (test cod e = 77668-7) Abnormal [facility] GLUCOSE (AUTOMATED)2023-06-27 11:18:43* Test Item Value Reference Range Interpretation Comme nts POCT GLU (test code = 0821816862) 137 mg/dL 70-110 H Lab Interpretation (test cod e = 00866-5) Abnormal [facility] GLUCOSE (AUTOMATED)2023-06-27 04:33:00* Test Item Value Reference Range Interpretation Comme nts POCT GLU (test code = 1399985670) 113 mg/dL 70-110 H Lab Interpretation (test cod e = 51966-0) Abnormal [facility] GLUCOSE (AUTOMATED)2023-06-27 04:33:00* Test Item Value Reference Range Interpretation Comme nts POCT GLU (test code = 8974919667) 113 mg/dL 70-110 H Lab Interpretation (test cod e = 98761-2) Abnormal [facility] GLUCOSE (AUTOMATED)2023-06-26 22:06:34* Test Item Value Reference Range Interpretation Comme nts POCT GLU (test code = 9822315961) 88 mg/dL 70-110 Lab Interpretation (test cod e = 90061-1) Normal [facility] GLUCOSE (AUTOMATED)2023-06-26 22:06:34* Test Item Value Reference Range Interpretation Comme nts POCT GLU (test code = 8035103675) 88 mg/dL 70-110 Lab Interpretation (test cod e = 67933-8) Normal [facility] WITH [id number] 17:45:08* Test Item Value Reference Range Interpretation Comme nts WBC (test code = 6690-2) 12.06 See_Comment H [Automated messa ge] The system which generated this result transmitted reference range: 4.30 - 11.10 10*3/?L. The reference range was not used to interpret this result as normal/abnormal. RBC (test code = 789-8) 3.20 See_Comment L [Automated messa ge] The system which generated this result transmitted reference range: 3.93 - 5.25 10*6/?L. The reference range was not used to interpret this result as normal/abnormal. HGB (test code = 718-7) 9.3 g/dL 11.6-15.0 L HCT (test code = 4544-3) 27.2 % 35.7-45.2 L MCV (test code = 787-2) 85.0 fL 80.6-95.5 MCH (test code = 785-6) 29.1 pg 25.9-32.8 MCHC (test code = 786-4) 34.2 g/dL 31.6-35.1 RDW-SD (test code = 20205-1) 43.8 fL 39.0-49.9 RDW-CV (test code = 788-0) 14.2 % 12.0-15.5 PLT (test code = 777-3) 260 See_Comment [Automated messa ge] The system which generated this result transmitted reference range: 166 - 358 10*3/?L. The reference range was not used to interpret this result as normal/abnormal. MPV (test code = 60230-9) 10.2 fL 9.5-12.9 NRBC/100 WBC (test code = 8051456004) 0.3 See_Comment [Automated me ssage] The system which generated this result transmitted reference range: 0.0 - 10.0 /100 WBCs. The reference range was not used to interpret this result as normal/abnormal. NRBC x10^3 (test code = 7204855345) 0.04 See_Comment [Automated messa ge] The system which generated this result transmitted reference range: 10*3/?L. The reference range was not used to interpret this result as normal/abnormal. GRAN MAT (NEUT) % (test code = 770-8) 76.1 % IMM GRAN % (test code = 5052643796) 1.60 % LYMPH % (test code = 736-9) 17.9 % MONO % (test code = 5905-5) 3.9 % EOS % (test code = 713-8) 0.1 % BASO % (test code = 706-2) 0.4 % GRAN MAT x10^3(ANC) (test code = 8353291926) 9.18 10*3/uL 1.88-7.09 H IMM GRAN x10^3 (test code = 6257963066) 0.19 10*3/uL 0.00-0.06 H LYMPH x10^3 (test code = 731-0) 2.16 10*3/uL 1.32-3.29 MONO x10^3 (test code = 742-7) 0.47 10*3/uL 0.33-0.92 EOS x10^3 (test code = 711-2) 0.03-0.39 L BASO x10^3 (test code = 704-7) 0.05 10*3/uL 0.01-0.07 Lab Interpretation (test code = 69712-1) Abnormal [facility] WITH [id number] 17:45:08* Test Item Value Reference Range Interpretation Comme nts WBC (test code = 6690-2) 12.06 See_Comment H [Automated messa ge] The system which generated this result transmitted reference range: 4.30 - 11.10 10*3/?L. The reference range was not used to interpret this result as normal/abnormal. RBC (test code = 789-8) 3.20 See_Comment L [Automated messa ge] The system which generated this result transmitted reference range: 3.93 - 5.25 10*6/?L. The reference range was not used to interpret this result as normal/abnormal. HGB (test code = 718-7) 9.3 g/dL 11.6-15.0 L HCT (test code = 4544-3) 27.2 % 35.7-45.2 L MCV (test code = 787-2) 85.0 fL 80.6-95.5 MCH (test code = 785-6) 29.1 pg 25.9-32.8 MCHC (test code = 786-4) 34.2 g/dL 31.6-35.1 RDW-SD (test code = 53350-2) 43.8 fL 39.0-49.9 RDW-CV (test code = 788-0) 14.2 % 12.0-15.5 PLT (test code = 777-3) 260 See_Comment [Automated messa ge] The system which generated this result transmitted reference range: 166 - 358 10*3/?L. The reference range was not used to interpret this result as normal/abnormal. MPV (test code = 91639-5) 10.2 fL 9.5-12.9 NRBC/100 WBC (test code = 8137583092) 0.3 See_Comment [Automated DidLog ssage] The system which generated this result transmitted reference range: 0.0 - 10.0 /100 WBCs. The reference range was not used to interpret this result as normal/abnormal. NRBC x10^3 (test code = 6594865010) 0.04 See_Comment [Automated messa ge] The system which generated this result transmitted reference range: 10*3/?L. The reference range was not used to interpret this result as normal/abnormal. GRAN MAT (NEUT) % (test code = 770-8) 76.1 % IMM GRAN % (test code = 6221926987) 1.60 % LYMPH % (test code = 736-9) 17.9 % MONO % (test code = 5905-5) 3.9 % EOS % (test code = 713-8) 0.1 % BASO % (test code = 706-2) 0.4 % GRAN MAT x10^3(ANC) (test code = 7336363122) 9.18 10*3/uL 1.88-7.09 H IMM GRAN x10^3 (test code = 6747464075) 0.19 10*3/uL 0.00-0.06 H LYMPH x10^3 (test code = 731-0) 2.16 10*3/uL 1.32-3.29 MONO x10^3 (test code = 742-7) 0.47 10*3/uL 0.33-0.92 EOS x10^3 (test code = 711-2) 0.03-0.39 L BASO x10^3 (test code = 704-7) 0.05 10*3/uL 0.01-0.07 Lab Interpretation (test code = 10049-7) Abnormal [facility] GLUCOSE (AUTOMATED)2023-06-26 17:40:21* Test Item Value Reference Range Interpretation Comme nts POCT GLU (test code = 1621796381) 163 mg/dL 70-110 H Lab Interpretation (test cod e = 94625-6) Abnormal [facility] GLUCOSE (AUTOMATED)2023-06-26 17:40:21* Test Item Value Reference Range Interpretation Comme nts POCT GLU (test code = 9093489633) 163 mg/dL 70-110 H Lab Interpretation (test cod e = 68985-1) Abnormal [facility] WITHOUT [id number] 16:59:07* Test Item Value Reference Range Interpretation Comme nts WBC (test code = 6690-2) 11.88 See_Comment H [Automated message] The system which generated this result transmitted reference range: 4.30 - 11.10 10*3/?L. The reference range was not used to interpret this result as normal/abnormal. RBC (test code = 789-8) 3.19 See_Comment L [Automated message] The system which generated this result transmitted reference range: 3.93 - 5.25 10*6/?L. The reference range was not used to interpret this result as normal/abnormal. HGB (test code = 718-7) 9.4 g/dL 11.6-15.0 L HCT (test code = 4544-3) 27.1 % 35.7-45.2 L MCH (test code = 785-6) 29.5 pg 25.9-32.8 MCV (test code = 787-2) 85.0 fL 80.6-95.5 MCHC (test code = 786-4) 34.7 g/dL 31.6-35.1 PLT (test code = 777-3) 255 See_Comment [Automated message] The system which generated this result transmitted reference range: 166 - 358 10*3/?L. The reference range was not used to interpret this result as normal/abnormal. MPV (test code = 19618-4) 10.0 fL 9.5-12.9 RDW-CV (test code = 788-0) 14.1 % 12.0-15.5 RDW-SD (test code = 13302-2) 43.2 fL 39.0-49.9 NRBC x10^3 (test code = 4611444610) 0.03 See_Comment [Automated messa ge] The system which generated this result transmitted reference range: 10*3/?L. The reference range was not used to interpret this result as normal/abnormal. NRBC/100 WBC (test code = 1973762123) 0.3 See_Comment [Automated messa ge] The system which generated this result transmitted reference range: 0.0 - 10.0 /100 WBCs. The reference range was not used to interpret this result as normal/abnormal. IPF % (test code = 0388160853) Lab Interpretation (test code = 49048-7) Abnormal [facility] WITHOUT [id number] 16:59:07* Test Item Value Reference Range Interpretation Comme nts WBC (test code = 6690-2) 11.88 See_Comment H [Automated message] The system which generated this result transmitted reference range: 4.30 - 11.10 10*3/?L. The reference range was not used to interpret this result as normal/abnormal. RBC (test code = 789-8) 3.19 See_Comment L [Automated message] The system which generated this result transmitted reference range: 3.93 - 5.25 10*6/?L. The reference range was not used to interpret this result as normal/abnormal. HGB (test code = 718-7) 9.4 g/dL 11.6-15.0 L HCT (test code = 4544-3) 27.1 % 35.7-45.2 L MCH (test code = 785-6) 29.5 pg 25.9-32.8 MCV (test code = 787-2) 85.0 fL 80.6-95.5 MCHC (test code = 786-4) 34.7 g/dL 31.6-35.1 PLT (test code = 777-3) 255 See_Comment [Automated message] The system which generated this result transmitted reference range: 166 - 358 10*3/?L. The reference range was not used to interpret this result as normal/abnormal. MPV (test code = 25243-7) 10.0 fL 9.5-12.9 RDW-CV (test code = 788-0) 14.1 % 12.0-15.5 RDW-SD (test code = 80700-7) 43.2 fL 39.0-49.9 NRBC x10^3 (test code = 1038123672) 0.03 See_Comment [Automated messa ge] The system which generated this result transmitted reference range: 10*3/?L. The reference range was not used to interpret this result as normal/abnormal. NRBC/100 WBC (test code = 0676648840) 0.3 See_Comment [Automated messa ge] The system which generated this result transmitted reference range: 0.0 - 10.0 /100 WBCs. The reference range was not used to interpret this result as normal/abnormal. IPF % (test code = 4672359814) Lab Interpretation (test code = 80625-7) Abnormal [facility] [id number] 15:55:23* Test Item Value Reference Range Interpretation Comme nts RETIC Count Automated (test code = 6359686330) 2.42 % 0.51-1.90 H RETIC Absolute Count (test code = 6434675329) 0.0765 See_Comment [Automa jade message] The system which generated this result transmitted reference range: 0.0230 - 0.0950 10*6/?L. The reference range was not used to interpret this result as normal/abnormal. IRF % (test code = 3780576161) 34.50 % 2.10-12.60 H RETIC-HE (test code = 7694562023) 27.4 pg 28.1-35.8 L Lab Interpretation (test code = 34173-6) Abnormal [facility] [id number] 15:55:23* Test Item Value Reference Range Interpretation Comme nts RETIC Count Automated (test code = 8577319433) 2.42 % 0.51-1.90 H RETIC Absolute Count (test code = 5551505954) 0.0765 See_Comment [Automa jade message] The system which generated this result transmitted reference range: 0.0230 - 0.0950 10*6/?L. The reference range was not used to interpret this result as normal/abnormal. IRF % (test code = 0506084323) 34.50 % 2.10-12.60 H RETIC-HE (test code = 6775643871) 27.4 pg 28.1-35.8 L Lab Interpretation (test code = 47187-8) Abnormal [facility] Plasma (in units)~2023-06-26 15:01:41 * Test Item Value Reference Range Interpretation Comme [facility] Unit Blood Type (test code = 4410) A Pos ISBT Blood Type Code (test code = 459735) 6200 Unit Number (test code = 4411) [id number] Blood Expiration Date & Time (test code = 356509) 173627260394 Status Information (test code = 4412) Returned from Issue Product Identification (test code = 4413) FFP Product Code (test code = 4414) [id number] Performed at [facility] Laboratory Services [facility] Blood [address] [place] [address] Free: [phone] No. [id number] [facility] Packed RBC (in units)2023-06-26 15:01:41* Test Item Value Reference Range Interpretation Comme [facility] Unit Blood Type (test code = 4410) O Pos ISBT Blood Type Code (test code = 053214) 5100 Unit Number (test code = 4411) [id number] Blood Expiration Date & Time (test code = 142185) 745989943882 Status Information (test code = 4412) Returned from Issue Product Identification (test code = 4413) Red Blood Cells Product Code (test code = 4414) [id number] Performed at [facility] Laboratory Services [facility] Blood [address] [place], [place] [address]Toll Free: [phone] No. [id number] [facility] Plasma (in units)~2023-06-26 15:01:41 * Test Item Value Reference Range Interpretation Comme [facility] Unit Blood Type (test code = 4410) A Pos ISBT Blood Type Code (test code = 900212) 6200 Unit Number (test code = 4411) [id number] Blood Expiration Date & Time (test code = 761766) 474258792276 Status Information (test code = 4412) Returned from Issue Product Identification (test code = 4413) FFP Product Code (test code = 4414) [id number] Performed at [facility] Blood [address] [place], [place] [address]Toll Free: [phone] No. [id number] [facility] Packed RBC (in units)2023-06-26 15:01:41* Test Item Value Reference Range Interpretation Comme [facility] Unit Blood Type (test code = 4410) O Pos ISBT Blood Type Code (test code = 261529) 5100 Unit Number (test code = 4411) [id number] Blood Expiration Date & Time (test code = 737731) 719132594217 Status Information (test code = 4412) Returned from Issue Product Identification (test code = 4413) Red Blood Cells Product Code (test code = 4414) [id number] Performed at [facility] Blood [address] [place], [place] [address]Toll Free: [phone] No. [id number] [facility] CenterFIBRINOGEN2023-10-22 12:44:36* Test Item Value Reference Range Interpretation Comme nts Fibrinogen (test code = 3892520605) 299 mg/dL 214-470 Lab Interpretation (test cod e = 18222-0) Normal [facility]2023-10-22 12:44:36* Test Item Value Reference Range Interpretation Comme [facility] Fibrinogen (test code = 8365390073) 299 mg/dL 214-470 Lab Interpretation (test cod e = 62981-0) Normal [facility]eraPTT2023-10-22 12:41:15* Test Item Value Reference Range Interpretation Comme nts APTT Patient (test code = 3173-2) 28 See_Comment [Automated message] The system which generated this result transmitted reference range: 23 - 38 Seconds. The reference range was not used to interpret this result as normal/abnormal. KRISTIAN (test code = KRISTIAN) The [facility] patient population mean normal value for aPTT is 30 seconds. Lab Interpretation (test code = 60959-9) Normal [facility]TT2023-10-22 12:41:15* Test Item Value Reference Range Interpretation Comme nts APTT Patient (test code = 3173-2) 28 See_Comment [Automated message] The system which generated this result transmitted reference range: 23 - 38 Seconds. The reference range was not used to interpret this result as normal/abnormal. KRISTIAN (test code = KRISTIAN) The [facility] patient population mean normal value for aPTT is 30 seconds. Lab Interpretation (test code = 45833-3) Normal [facility] CenterProthrombin Time / [id number] 12:39:14* Test Item Value Reference Range Interpretation Comme nts PROTIME PATIENT (test code = 5964-2) 14.9 See_Comment H [Automated [employer] ge] The system which generated this result transmitted reference range: 12.0 - 14.7 Seconds. The reference range was not used to interpret this result as normal/abnormal. INR (test code = 6301-6) 1.2 Normal INR <1.1; Warfarin Therapeutic range 2.0 to 3.0 or 2.5 to 3.5, depending upon the indications. Lab Interpretation (test code = 74230-8) Abnormal [facility] CenterProthrombin Time / [id number] 12:39:14* Test Item Value Reference Range Interpretation Comme nts PROTIME PATIENT (test code = 5964-2) 14.9 See_Comment H [Automated messa ge] The system which generated this result transmitted reference range: 12.0 - 14.7 Seconds. The reference range was not used to interpret this result as normal/abnormal. INR (test code = 6301-6) 1.2 Normal INR <1.1; Warfarin Therapeutic range 2.0 to 3.0 or 2.5 to 3.5, depending upon the indications. Lab Interpretation (test code = 99214-3) Abnormal [facility] CenterCBC WITHOUT [id number] 12:10:14* Test Item Value Reference Range Interpretation Comme nts WBC (test code = 6690-2) 9.23 See_Comment [Automated message] The system which generated this result transmitted reference range: 4.30 - 11.10 10*3/?L. The reference range was not used to interpret this result as normal/abnormal. RBC (test code = 789-8) 1.94 See_Comment L [Automated message] The system which generated this result transmitted reference range: 3.93 - 5.25 10*6/?L. The reference range was not used to interpret this result as normal/abnormal. HGB (test code = 718-7) 5.5 g/dL 11.6-15.0 L HCT (test code = 4544-3) 17.1 % 35.7-45.2 L MCH (test code = 785-6) 28.4 pg 25.9-32.8 MCV (test code = 787-2) 88.1 fL 80.6-95.5 MCHC (test code = 786-4) 32.2 g/dL 31.6-35.1 PLT (test code = 777-3) 230 See_Comment [Automated message] The system which generated this result transmitted reference range: 166 - 358 10*3/?L. The reference range was not used to interpret this result as normal/abnormal. MPV (test code = 85231-6) 10.3 fL 9.5-12.9 RDW-CV (test code = 788-0) 15.4 % 12.0-15.5 RDW-SD (test code = 02688-3) 49.4 fL 39.0-49.9 NRBC x10^3 (test code = 7745860192) 0.03 See_Comment [Automated [employer]] The system which generated this result transmitted reference range: 10*3/?L. The reference range was not used to interpret this result as normal/abnormal. NRBC/100 WBC (test code = 4225547994) 0.3 See_Comment [Automated [employer]] The system which generated this result transmitted reference range: 0.0 - 10.0 /100 WBCs. The reference range was not used to interpret this result as normal/abnormal. IPF % (test code = 5221094865) Lab Interpretation (test code = 04987-8) Abnormal [facility] WITHOUT [id number] 12:10:14* Test Item Value Reference Range Interpretation Comme nts WBC (test code = 6690-2) 9.23 See_Comment [Automated message] The system which generated this result transmitted reference range: 4.30 - 11.10 10*3/?L. The reference range was not used to interpret this result as normal/abnormal. RBC (test code = 789-8) 1.94 See_Comment L [Automated message] The system which generated this result transmitted reference range: 3.93 - 5.25 10*6/?L. The reference range was not used to interpret this result as normal/abnormal. HGB (test code = 718-7) 5.5 g/dL 11.6-15.0 L HCT (test code = 4544-3) 17.1 % 35.7-45.2 L MCH (test code = 785-6) 28.4 pg 25.9-32.8 MCV (test code = 787-2) 88.1 fL 80.6-95.5 MCHC (test code = 786-4) 32.2 g/dL 31.6-35.1 PLT (test code = 777-3) 230 See_Comment [Automated message] The system which generated this result transmitted reference range: 166 - 358 10*3/?L. The reference range was not used to interpret this result as normal/abnormal. MPV (test code = 01368-2) 10.3 fL 9.5-12.9 RDW-CV (test code = 788-0) 15.4 % 12.0-15.5 RDW-SD (test code = 52670-2) 49.4 fL 39.0-49.9 NRBC x10^3 (test code = 5610272870) 0.03 See_Comment [Automated [employer]] The system which generated this result transmitted reference range: 10*3/?L. The reference range was not used to interpret this result as normal/abnormal. NRBC/100 WBC (test code = 2880166124) 0.3 See_Comment [Automated [employer]] The system which generated this result transmitted reference range: 0.0 - 10.0 /100 WBCs. The reference range was not used to interpret this result as normal/abnormal. IPF % (test code = 0739002559) Lab Interpretation (test code = 69218-4) [facility]normal [facility] Packed RBC (in units), 1 Units 2023-06-26 11:19:18* Test Item Value Reference Range Interpretation Comme nts Cross Match Result (test code = 4409) Compatible ISBT Blood Type Code (test code = 780636) 5100 Unit Blood Type (test code = 4410) O Pos Unit Number (test code = 4411) [id number] Blood Expiration Date & Time (test code = 551261) 842357795071 Status Information (test code = 4412) Issued Product Identification (test code = 4413) Red Blood Cells Product Code (test code = 4414) [id number] Performed at [facility] Blood [address] [place] [address] Free: [phone] No. [id number] [facility] Packed RBC (in units), 1 Units 2023-06-26 11:19:18* Test Item Value Reference Range Interpretation Comme nts Cross Match Result (test code = 4409) Compatible ISBT Blood Type Code (test code = 474429) 5100 Unit Blood Type (test code = 4410) O Pos Unit Number (test code = 4411) [id number] Blood Expiration Date & Time (test code = 557197) [id number] Status Information (test code = 4412) Issued Product Identification (test code = 4413) Red Blood Cells Product Code (test code = 4414) [id number] Performed at [facility] Blood [address] [place], [place] [address]Toll Free: [phone] No. [id number] [facility] GLUCOSE (AUTOMATED)2023-06-26 08:40:48* Test Item Value Reference Range Interpretation Comme nts POCT GLU (test code = 5622690279) 103 mg/dL 70-110 Lab Interpretation (test cod e = 90884-2) Normal [facility] GLUCOSE (AUTOMATED)2023-06-26 08:40:48* Test Item Value Reference Range Interpretation Comme nts POCT GLU (test code = 1834456117) 103 mg/dL 70-110 Lab Interpretation (test cod e = 28257-9) Normal [facility] [id number] 16:58:46* Test Item Value Reference Range Interpretation Comme nts Case Report (test code = 6624703759) Surgical Pathology ?Case: [id number] ? Authorizing Provider: ?Fred Peng, ? Collected: ? 06/20/2023 1026 ? MD ? Ordering Location: ? ? Obstetrics and Gynecology ?Received: ?06/20/2023 1324 ? (RANDA 3A) ?Pathologist: ? Nyasia Bass MD ?Specimens: ? A) - FALLOPIAN TUBE, LEFT ? B) - FALLOPIAN TUBE, RIGHT ? Final Diagnosis (test code = 3716964769) [id number] FuZzEwMzNcZnRuYmpcdWMx FTuxueZnBQnheTivIPB8KU BkFR2qxQwfnAt1mPpiSYUd ikG9wWOxVZejh4bqJNN7c2 ertsyfBWKzMDgtKh1aeLGy tLcsSiLfRUPcZFj9zV70RZ DapD2yyQKwKOx0CHOteRNu mxKjTbCgHXFxqPKybZP9IS DyPH4xxygdNWxaFPveZVDh qeT9MQTkcUUmG2OwEMBkIB 2igxstRUS0TUtwQMLxSMA1 FmKcWCGjc5Edvyc0TwLnkK FyZFxwbGFpblxmczIwXHBh meREByPQLReAU0KJQL5nUK KMIAyhVCCMYZqkM5TGQHYG GAKZSXTID3ZEBEuNUvnwTI Hfraz5JALiYCB/YZY9XqX7 PC3tcItoDaznF8s3NIAbSX A/SBa3CRRqWIL/Ek7wTUrH LE1SLYYFS3tIQ6eDWIKWSE 8XAShvF23SRXgJXGSsS7BA D9UtN9KAEWpULuEXDBWHWJ lGSUVEIFxwYXJcZnMyMlxw YXJcZnMyMCBCLiBGQUxMT1 MWIY9mISPWUCpkHpxAHXQv DSXON44CCjNOCPJPOWGVR8 CNQ120GClkFEFhyJwiUvku G5x9RAPvZAN/EIN1DaY6AS 3kpBuvWkibDf0chCoeQyus T94QEBuZO0MJOXUGZJ8FX1 uYEwVKLFTJK9XeUIKXMGEL OTURSDNWU4ACBRHVP0OLF6 4gSURFTlRJRklFRCBccGFy XHBhcmRccGFyXGZzMjIgRG nhfCOXuQ1zLDZ5c99lAYRU RCAgMTAvMTcvMjAyMyAgNT oxMyBQTVxwYXJcZnMyMFxw UYC8k4wcxNZqJLVcgULkRm YsNBUpAUXsb0zhIMXooHHu ZzEwMzNcZnRuYmpcdWMxXG BrTpMhp4yar311wUOhc2yw UDQwYbB9wKLtOVJcoOefyn o8lHkaYyQaXMLno4dtvcLl ZmNoYXJzZXQwIEFyaWFsO3 70IMVoHXwte6lsq9JlPHZi wYOzj2G1WJGLVCtqSyZvU3 66r5inh6sdzuJdpQM6DAOh BXE9BYuhpfJabqM3KIgwmC PsMzP0EApentNfCUpabhCv qrTgBha0KYMgB439RCY2iJ axy4qgBLT0GTMgHWCpAqwt Lu2wyFLrE111FMBkQEIRAU JosGi3OWGevlQyblUttXKS r146F841p1niDQOvlfTwdR fEnxstl5vjD948GMMidWPk lrCrSeAnALGhyQUhwPH1ZX KvPE9vkomoEXvoRLxpJLRq wkS0BTWkjWQhE7TfOFBtRT 9jwioiCYT5KFotTFHwOCX4 BqXkKUAhh4Vzcvx4OkYkgi 5rbe55UFU9f2MovOojDTD3 BBR9VbDsLu8qnZCnDTVlHU 5dRgCufZXzRCAhjt36pAee OTyathZglQ3fDvJdKEDvmR TpFKBhCM6gqJCeIGCuhU8s cmxjXHBnYnJkcmhlYWRccG myouWzVt3hgYgpUPF4ZJik O3wxwF5rEaJ4FCqvB0lpaD 4pLCx3FUjssIQ1NUPxbT5f LZ2zyazjb2faVGuhKHyqVZ WmdfE4nuI3RRMueVTcM0Jm dT2mFOMjUN5bvrtso8esII Y8RDzxSGSpRYC2EsXmZFSs v4Nhzuj0CmRzw6MkbHEyPJ ovJ01vo565GYWjqnKwT9ml bGFpblxwbGFpblxmMFxmcz A2DBCdIHLpPQmtJUKiVQJx MjBcbGFuZzEwMzNcaGljaF jvYJcuZeFkZEYyDOwsB8vz ToIjX6DsKFYxYaYkkCOoUA vnaVM8YBAjDKBsw84xzWm8 CVDtwjszm2DyJWPonGXouO TlpF7kcrUvy4nlPIDnUGAz WUQbS3MjYNR9rEVkGRHpdM UmzRR7UH5fgoOwQW7uRTHq YnkgcmVzaWRlbnRzLCBmZW vck4ijVX9eDQJurUsdmR5y jHR4ABJvj1lztMQyaXBjb8 qzg9BzmkSaWCnvJUUgFMtj FNMnPTXrJJ5xCNZinWXskv Zxf9F2OpxetVKjrybsUpbj krG2TUaqoqcwFOYuVFptJ6 dqPhCqFCXcrXzrKvtlf6Bu XGYyXGZzMjhccGFyfX0= Clinical Information (test code = 1625557069) 28yo s/p @ 38.1wk MPDPS Gross Description (test code = 1370181225) t4xkjWXoZKBycWUJNAR3CW KnIC3diXeveMs2bTzgSTZy nwY6wYJyEDhof6kbJVK9g8 vhtbTCUdeqTCPfUC9dYAyc IFXbZX5yZeBtNAUlFqLeEW BhcGVydzEyMjQwXHBhcGVy eDA1RXHkYC3cwstxSBtuFU qhJHCuhcH9PMQpyEPmN8Mj JOQpGY4mjhaaGRO0BAGXRo dgMa7byBMtlDzdGlCzBdXn YXJzZXQwXGZuaWwgQXJpYW u9gZ6LIddgZWR5XRZEFffx DtfobNwag7WcvIScZCCmOR xcaWQgNTEwMDAgXFxkYiBP EvPxTuE6FdK6APA6XpC8YZ z0NTFFBQXqCsv6MscgEWU2 YQc1OSFcBH1dJFfqoXQfLL yjUnvwKQwyI838LXplTVDy P0GqA6TaAHwnJoKoBTldVG ShQOXyVVrkFGUvV3VHRIWq GDCxOLM9GBPsDWt7ZUctX9 FPGPBgKCWnSGL6ZrO8XjQ4 DPm6WWWOTn4cJRzfLegwNY n9GjI2EYi6FYWiJKFgDbCz BVUqSVKtMReqyKBrEL5kqH atJHSkAP6RKCBeEUwqGPEv GzXiQ4EZL1zMJU6xAGestP JjaFxmczIyXHBhciANClxw LRXkMT0ZYJYuEWquHId0yz EfUDOyAmNnCSIlB09hz4MP y0UuFT9JMBn8dyWozndejE 0eGDHpobEnWAeZzKKzsN3a dbYHLApzCETjW8FzqtOlRU xzKYOqek0llVlsEPelKvVp ZTJun2a7eVV8fKXxaHE2nE UjwPzbLY7olVJpGJZMKR51 bWJlciwgImZhbGxvcGlhbi T5yPLyLCLlFCB6FpCyfkTh W90jx1essRXai0IwPTUvhI 2mbZXfkRHgTXAyobgnz9St vWEckOQbTnOiIAunx6JxUQ 6rvPOrDAFpGL5vAHSoKWzc FZatlpo3hMKcqHKbDrAmP5 2bgE3oKEnffTS2KVVkDXnw tJmpAAKxtVAtdsTetQL3no Quo5MugB2uNHDsxo62E3mp vWsoSWf2oLAdJAS4oEvqeT BpcyBzZXJpYWxseSBzZWN0 kN7fBGMlpC6dkdG2WFFdOY Prwu9hcV5iVIUagw8fh3n7 IHVucmVtYXJrYWJsZSBjdX Pwe5PlXcAjBKMzZCTITAMi CNLpunKjlFc5GQWaSAY8pU 5fnhSvpgFlk7LfiMg1kLNu IGluIEExLlxwYXIgDQpcc2 EzMFxlcGljWHNhMzAgDQpc ZRWcC39ly2ISr7Yoq1vcaD cxo7RukJOlDO5sgKOiEA1J d6azDTLdwDYcPLA0SVutj3 hfLWkmMPU9GPToWrXiELEj BL3CCfWcDMw9OqItCNtcOU m1CYu8XZ9QXjGvOPFjNdvf QyOnEJRaOOh6MHznLH4XGE J0Tcj8AgY0CsPmDLF8Julf XDg3LPHfSArqiwJhUCaaDm ecLGlcI94mkEHiAFzaZlMh VMlicBlhPSByRDO7OB9EDM QqDxBdQ0OVU9pQDB4iXakj czIyXHBhciANClxwYXJkIA 4RUBFjSIacJMl3htQsWSQw QsGkUUEfW57iz3LSk2WsDP 1ZVZm1ftAleohifK6eOJKr ggYnp7IaQIdevCqhTPKrRd VmLGtQbBDnjB7esjPLWPha RGUbD2KeucUoZYtvVNWykw 4yqGunORijAoJbXNPrc1d2 bCB8fSVkwAX2lSMubMnzBZ 0yrVFhSKQOIT69dVJkynjd GqZinVcazKnnftU9nVVpOW UqwKjeoWNaYO3yLMJnftRq u3KsYE3fFVWow7jyT2fzVU Twtk8ysY5hEGDcE99bxxMf v0XnPiFffW2odLJsNVU4Rd KmPFMsPXIvuSEspuKaAB2j oMhwNbnaMX65HXFxEDqhJK KxUB0uqHEyBWM3oCBaGTAa C1gsMITdu9K2aREgPDV7yq OwPgZ4vIRlpSpfRIByJYZr kU5xmquag4fkU2zzuZZqc7 RrlORwhBpki6UjuFijyiEg XILmKYOscsOxaNK3YQ2ijL jqvkqfU2Gjp8ZlhQT6peAg rUMzu7UwnCRnM2Q4PQN6yo EfT5DsBmUbLoEbqdFiHI22 KFVvzaDnd9QuxUdbrvKzPX ViKGL4Rt1etLMjISUihcZV GS1pxHFmTJ3XCWWfRLkkbK ljWHNiMCANClxwYXIgDQpc i3YnMDgzhIqvXKEpJbWrXQ fQhKhvGJSRP9hsoXUqOEqz ETHBDQfJN3KIKT3BULOmiH MDCWL0CV6sPFptPRZkB9By U9OnwdJ9p9cfhQqed7FvfO ItZI8mqRAlEO9EQOYlbgJo DQp9 Disclaimer (test code = 0178320219) w4vfjOTmMOEfn8ppICCcpD FuZzEwMzNcZnRuYmpcdWMx HObbxoXzJWhhf8ZeZ6AgEo AwMFxhbnNpXGRlZmxhbmcx RKMnQYR4roUcKGWaDFljBD JtUOlzQe7rdREytMjvIgCk AVHhc2zkfrLUPCfaLjNaM3 71UJTbONfou2ruf2NeMMYv uQIlu6B8YMDFuiznlJb9qN vdM98gy1R3GovfM7fhCQZa ECMzM4TeEV5cGDQkZfp8RW O3NGT7JTYrVFOnQ1EdCC0d PRGiqPNrLOk0c9cwxYheOX QmMPI7s5daVOudhwFnOA3s cs8rpUb1m6muosZdOBArFI TbuROJLAMvV2MdeKgoQu2t zEg9oKpuFketGYN4Lhc1DQ 4fjn04vnl9cSakCVRrgxgu KoZ9AZnbAGSqywkbJAr2KP ylXJOcxEP9EHIygOBvA6Hn EGVaYZ4dfgc6CQN9ELkqXN VmTiN0SWKhuWPoCIMlbBon MOiol880DEP3FfLrSM8wV4 Caf5V9cJ8pxICuVRWcaWJi UjFrVERytr5gyAGcZQlns1 XmGJJ3tcY4cJHxyRWeUGXp FV89Nfzyt3MzOwudu0RfZ0 3yhBG9HMeom2uzVN9nBhZ3 leUeABlof1sczX2xRlH4BN jlMO6sJZ1kZKRvmS8nlwep XHBnYnJkcmhlYWRccGdicm RtPh8sbJvqQIV3QZucJ5ca fY0gRfF6SSzaE7qbcW0wKK g6THudbMO2ABKfcO8bTK5o vqeiz7mcMDcfWInxJIZoxe U2jrD6MEGftOWiH2RxwT0m HBYlEY2mviuwa2xyGRV0AL ckACClRRN4HoFpEYLpi5Vs yqr6JbUck1IgvUKuCGkxC1 7gp930YBPpmqGyR8pwiDVd sozagJEhkyygXEocklY7BL QvopUgj4EnZPNlMYD9FBgu MQwusTEcMJHchFkgb1rpC4 RscGFyXHBsYWluXGYxXGZz MjBcbGFuZzEwMzNcaGljaF pgKSlyAuWjVTLwOXatG0eu DgKrT9PzPVIfKaPucJExW5 ggVGhpcyByZXBvcnQgbWF5 CXfpT0h5TRNqdjSiwMz2hl PfUgYlNDVdPVB9MQussECk NGQib8DscbnboKFxVq9uoX RkUYNtaC8fONSoHVOwELgx VC9lzKx1GZESaOBbwBIvMy DXRWNpYC63bzCdIJWIpyai f3F5MMagYJPgz8XjvVTkN5 rpd4XxPGLfe97tCO2mf0H0 o4zqEKV8VW5sb1NvOXDtcO TrrHWgZTKfi5Yedamez7Fi RHGqkuEzz1JhPWPhhcVpbK RuLPVtyfKjmw7wlhLbJUEi BEWhF2HcagwhgRcphvEzYP Hhkp4yyaLgWIE2DMHRQDQg KURbn8PneZ6leBRHDPP2zF Chpq3sriTUgLFkGTHhww59 ZDJbUG0dF5edPXRqVCOuuz TfmHSxc2KeFEJerJK2qYOr AT2AMcINb81jDYYeFZRPbk GmXZAuuQudkQF8puH6pS1s IChGREEpLlx+IFRoZSBGRE ZhWV8crwYyx8JfnnDmfGzz PRMxeWFwp9EbtHMkv5LwaW vpf5PqxEQzcWQoIQ4gFUVm clxwYXIgVVRNQiBMYWJvcm T3q4QiWTSsWBVfOOX1aQyw fng3HKBjhK8bHPBzI4mrhp vbSDazHLPrf9SyuL1hsOKN qPOrd9CzxWYukLUWzHZkGI 4nwbHmFAjIIQqPNDA1hlJa KDFgx2AgRRvnM3eyU57qrB dvvMs9dUB6ZZB5yQ1bWyh+ IFxwYXJccGFyIEFwcHJvcH FfSOWiuAmnclDwZ1NtpsRw qQ8ewMMqbhOjCU3zRS1wS0 C0gFWaKZAgkbOmn8okYIcx dmUgYmVlbiByZXZpZXdlZC Pjl5TbAYraYBX2HGbnvkGg bmNsdWRpbmcgSCZFLCBTcG FzhTPlHJE4EQkyjbLavbJh ZM6htR1pbFkwnI1bmBNjbP A1gayyGFVxFRVweWjgUKZz NK3jjZaakF9hYvWvTuQcMD qvRZ9fTQOdR3obaXGeTWVz HCCuG5dhMoBepT2wwNfqKI xjZjJcZnMyMFxwYXJccGFy XHBsYWluXGYxXGZzMjBcbG FuZzEwMzNcaGljaFxmMVxk ZjQgBPYyNXwbM0flJjLxO1 PfCHDwOwNkuSYqL5ugJDjq AAJ5VRWmCO5jlSHsUU16jX Xrc9bwDIcgrPaasj7iR69y qGScXKuxiKzeXMPlh13ix6 QzZSOdwyRlhq7uHYQfsiF7 wL7bKVRcxQqoPMFjsNNhLT Rks9IeDDzmxHRnoqPaHPie GNJnXFYoeEBgpbA3ahIjbn OwdbHnIWFgwWoeNHPnh2Qn EAFzVEmsa3Mfuu3wsPVlQC OhoaKCcByzbDNtjL1iX4Il GISuJCHdcj4nALEcfQ4cIR zrn2RxdczyTGEuQRInJSWx gqKotn2rCSHhdHURSP6FHB ougCPqt9HwdrImH8fJKFA9 NUQwNjYwMjgxKSBleGNlcH CiUFEmbv76CULblT3cjXcw VWVzdR1sxL1ktHhseB6qGy YfOxZlELucKN6nGPWrW0fx uNOyRNAvARWjB3wgIdPizJ 9jaFxmMVxjZjJcZnMyMFxw YXJ9fQ== Embedded Images (test code = 5064687351) [facility] WITH [id number] 19:47:49* Test Item Value Reference Range Interpretation Comme nts WBC (test code = 6690-2) 10.09 See_Comment [Automated messa ge] The system which generated this result transmitted reference range: 4.30 - 11.10 10*3/?L. The reference range was not used to interpret this result as normal/abnormal. RBC (test code = 789-8) 3.14 See_Comment L [Automated messa ge] The system which generated this result transmitted reference range: 3.93 - 5.25 10*6/?L. The reference range was not used to interpret this result as normal/abnormal. HGB (test code = 718-7) 8.5 g/dL 11.6-15.0 L HCT (test code = 4544-3) 25.4 % 35.7-45.2 L MCV (test code = 787-2) 80.9 fL 80.6-95.5 MCH (test code = 785-6) 27.1 pg 25.9-32.8 MCHC (test code = 786-4) 33.5 g/dL 31.6-35.1 RDW-SD (test code = 32511-8) 44.0 fL 39.0-49.9 RDW-CV (test code = 788-0) 15.2 % 12.0-15.5 PLT (test code = 777-3) 256 See_Comment [Automated messa ge] The system which generated this result transmitted reference range: 166 - 358 10*3/?L. The reference range was not used to interpret this result as normal/abnormal. MPV (test code = 80662-9) 11.1 fL 9.5-12.9 NRBC/100 WBC (test code = 2276606352) 0.0 See_Comment [Automated [employer]] The system which generated this result transmitted reference range: 0.0 - 10.0 /100 WBCs. The reference range was not used to interpret this result as normal/abnormal. NRBC x10^3 (test code = 3515710905) See_Comment [Automated messa ge] The system which generated this result transmitted reference range: 10*3/?L. The reference range was not used to interpret this result as normal/abnormal. GRAN MAT (NEUT) % (test code = 770-8) 67.0 % IMM GRAN % (test code = 4837095922) 1.20 % LYMPH % (test code = 736-9) 26.4 % MONO % (test code = 5905-5) 4.4 % EOS % (test code = 713-8) 0.7 % BASO % (test code = 706-2) 0.3 % GRAN MAT x10^3(ANC) (test code = 6966561557) 6.77 10*3/uL 1.88-7.09 IMM GRAN x10^3 (test code = 1098908693) 0.12 10*3/uL 0.00-0.06 H LYMPH x10^3 (test code = 731-0) 2.66 10*3/uL 1.32-3.29 MONO x10^3 (test code = 742-7) 0.44 10*3/uL 0.33-0.92 EOS x10^3 (test code = 711-2) 0.07 10*3/uL 0.03-0.39 BASO x10^3 (test code = 704-7) 0.03 10*3/uL 0.01-0.07 Lab Interpretation (test code = 53086-4) Abnormal [facility] WITH [id number] 19:47:49* Test Item Value Reference Range Interpretation Comme nts WBC (test code = 6690-2) 10.09 See_Comment [Automated messa ge] The system which generated this result transmitted reference range: 4.30 - 11.10 10*3/?L. The reference range was not used to interpret this result as normal/abnormal. RBC (test code = 789-8) 3.14 See_Comment L [Automated messa ge] The system which generated this result transmitted reference range: 3.93 - 5.25 10*6/?L. The reference range was not used to interpret this result as normal/abnormal. HGB (test code = 718-7) 8.5 g/dL 11.6-15.0 L HCT (test code = 4544-3) 25.4 % 35.7-45.2 L MCV (test code = 787-2) 80.9 fL 80.6-95.5 MCH (test code = 785-6) 27.1 pg 25.9-32.8 MCHC (test code = 786-4) 33.5 g/dL 31.6-35.1 RDW-SD (test code = 18719-3) 44.0 fL 39.0-49.9 RDW-CV (test code = 788-0) 15.2 % 12.0-15.5 PLT (test code = 777-3) 256 See_Comment [Automated messa ge] The system which generated this result transmitted reference range: 166 - 358 10*3/?L. The reference range was not used to interpret this result as normal/abnormal. MPV (test code = 46916-6) 11.1 fL 9.5-12.9 NRBC/100 WBC (test code = 8041345187) 0.0 See_Comment [Automated [employer] ssage] The system which generated this result transmitted reference range: 0.0 - 10.0 /100 WBCs. The reference range was not used to interpret this result as normal/abnormal. NRBC x10^3 (test code = 8954187933) See_Comment [Automated [employer]] The system which generated this result transmitted reference range: 10*3/?L. The reference range was not used to interpret this result as normal/abnormal. GRAN MAT (NEUT) % (test code = 770-8) 67.0 % IMM GRAN % (test code = 5129619788) 1.20 % LYMPH % (test code = 736-9) 26.4 % MONO % (test code = 5905-5) 4.4 % EOS % (test code = 713-8) 0.7 % BASO % (test code = 706-2) 0.3 % GRAN MAT x10^3(ANC) (test code = 2042165212) 6.77 10*3/uL 1.88-7.09 IMM GRAN x10^3 (test code = 0108589144) 0.12 10*3/uL 0.00-0.06 H LYMPH x10^3 (test code = 731-0) 2.66 10*3/uL 1.32-3.29 MONO x10^3 (test code = 742-7) 0.44 10*3/uL 0.33-0.92 EOS x10^3 (test code = 711-2) 0.07 10*3/uL 0.03-0.39 BASO x10^3 (test code = 704-7) 0.03 10*3/uL 0.01-0.07 Lab Interpretation (test code = 90695-4) Abnormal [facility] GLUCOSE (AUTOMATED)2023-06-21 19:42:34* Test Item Value Reference Range Interpretation Comme nts POCT GLU (test code = 1981535620) 137 mg/dL 70-110 H Lab Interpretation (test cod e = 13810-9) Abnormal [facility] GLUCOSE (AUTOMATED)2023-06-21 19:42:34* Test Item Value Reference Range Interpretation Comme nts POCT GLU (test code = 8043326740) 137 mg/dL 70-110 H Lab Interpretation (test cod e = 09194-4) Abnormal [facility] GLUCOSE (AUTOMATED)2023-06-21 10:11:32* Test Item Value Reference Range Interpretation Comme nts POCT GLU (test code = 0798372646) 97 mg/dL 70-110 Lab Interpretation (test cod e = 42210-7) Normal [facility] GLUCOSE (AUTOMATED)2023-06-21 10:11:32* Test Item Value Reference Range Interpretation Comme nts POCT GLU (test code = 5043594864) 97 mg/dL 70-110 Lab Interpretation (test cod e = 21826-6) Normal [facility] ONLY - SYPHILIS [id number] 17:11:48* Test Item Value Reference Range Interpretation Comme nts Syphilis IgG/IgM (test code = 39331-5) Non-reactive Non-reactive KRISTIAN (test code = KRISTIAN) Non-reactive - No serologic evidence of T. pallidum infection. Cannot exclude incubating or early syphilis. Submit a second specimen in 2-4 weeks if syphilis is clinically suspected. Equivocal - Further testing to follow. Reactive - Further testing to follow. Lab Interpretation (test code = 27823-9) Normal [facility] ONLY - SYPHILIS [id number] 17:11:48* Test Item Value Reference Range Interpretation Comme nts Syphilis IgG/IgM (test code = 28342-8) Non-reactive Non-reactive KRISTIAN (test code = KRISTIAN) Non-reactive - No serologic evidence of T. pallidum infection. Cannot exclude incubating or early syphilis. Submit a second specimen in 2-4 weeks if syphilis is clinically suspected. Equivocal - Further testing to follow. Reactive - Further testing to follow. Lab Interpretation (test code = 09505-8) Normal [facility] WITH [id number] 16:37:24* Test Item Value Reference Range Interpretation Comme nts WBC (test code = 6690-2) 16.73 See_Comment H [Automated message] The system which generated this result transmitted reference range: 4.30 - 11.10 10*3/?L. The reference range was not used to interpret this result as normal/abnormal. RBC (test code = 789-8) 3.28 See_Comment L [Automated message] The system which generated this result transmitted reference range: 3.93 - 5.25 10*6/?L. The reference range was not used to interpret this result as normal/abnormal. HGB (test code = 718-7) 8.6 g/dL 11.6-15.0 L HCT (test code = 4544-3) 26.3 % 35.7-45.2 L MCV (test code = 787-2) 80.2 fL 80.6-95.5 L MCH (test code = 785-6) 26.2 pg 25.9-32.8 MCHC (test code = 786-4) 32.7 g/dL 31.6-35.1 RDW-SD (test code = 51171-5) 43.4 fL 39.0-49.9 RDW-CV (test code = 788-0) 14.9 % 12.0-15.5 PLT (test code = 777-3) 261 See_Comment [Automated message] The system which generated this result transmitted reference range: 166 - 358 10*3/?L. The reference range was not used to interpret this result as normal/abnormal. MPV (test code = 18497-6) 11.7 fL 9.5-12.9 NRBC/100 WBC (test code = 2293375016) 0.0 See_Comment [Automated message] The system which generated this result transmitted reference range: 0.0 - 10.0 /100 WBCs. The reference range was not used to interpret this result as normal/abnormal. NRBC x10^3 (test code = 4012043944) See_Comment [Automated message] The system which generated this result transmitted reference range: 10*3/?L. The reference range was not used to interpret this result as normal/abnormal. GRAN MAT (NEUT) % (test code = 770-8) 83.3 % IMM GRAN % (test code = 4203900321) 0.50 % LYMPH % (test code = 736-9) 12.5 % MONO % (test code = 5905-5) 3.5 % EOS % (test code = 713-8) 0.0 % BASO % (test code = 706-2) 0.2 % GRAN MAT x10^3(ANC) (test code = 6002871868) 13.93 10*3/uL 1.88-7.09 H IMM GRAN x10^3 (test code = 8050063789) 0.09 10*3/uL 0.00-0.06 H LYMPH x10^3 (test code = 731-0) 2.09 10*3/uL 1.32-3.29 MONO x10^3 (test code = 742-7) 0.58 10*3/uL 0.33-0.92 EOS x10^3 (test code = 711-2) 0.03-0.39 L BASO x10^3 (test code = 704-7) 0.04 10*3/uL 0.01-0.07 Lab Interpretation (test code = 79662-9) Abnormal [facility] WITH [id number] 16:37:24* Test Item Value Reference Range Interpretation Comme nts WBC (test code = 6690-2) 16.73 See_Comment H [Automated message] The system which generated this result transmitted reference range: 4.30 - 11.10 10*3/?L. The reference range was not used to interpret this result as normal/abnormal. RBC (test code = 789-8) 3.28 See_Comment L [Automated message] The system which generated this result transmitted reference range: 3.93 - 5.25 10*6/?L. The reference range was not used to interpret this result as normal/abnormal. HGB (test code = 718-7) 8.6 g/dL 11.6-15.0 L HCT (test code = 4544-3) 26.3 % 35.7-45.2 L MCV (test code = 787-2) 80.2 fL 80.6-95.5 L MCH (test code = 785-6) 26.2 pg 25.9-32.8 MCHC (test code = 786-4) 32.7 g/dL 31.6-35.1 RDW-SD (test code = 81862-6) 43.4 fL 39.0-49.9 RDW-CV (test code = 788-0) 14.9 % 12.0-15.5 PLT (test code = 777-3) 261 See_Comment [Automated message] The system which generated this result transmitted reference range: 166 - 358 10*3/?L. The reference range was not used to interpret this result as normal/abnormal. MPV (test code = 56108-5) 11.7 fL 9.5-12.9 NRBC/100 WBC (test code = 2203323911) 0.0 See_Comment [Automated message] The system which generated this result transmitted reference range: 0.0 - 10.0 /100 WBCs. The reference range was not used to interpret this result as normal/abnormal. NRBC x10^3 (test code = 2680249501) See_Comment [Automated message] The system which generated this result transmitted reference range: 10*3/?L. The reference range was not used to interpret this result as normal/abnormal. GRAN MAT (NEUT) % (test code = 770-8) 83.3 % IMM GRAN % (test code = 1536200490) 0.50 % LYMPH % (test code = 736-9) 12.5 % MONO % (test code = 5905-5) 3.5 % EOS % (test code = 713-8) 0.0 % BASO % (test code = 706-2) 0.2 % GRAN MAT x10^3(ANC) (test code = 4238726345) 13.93 10*3/uL 1.88-7.09 H IMM GRAN x10^3 (test code = 3259988504) 0.09 10*3/uL 0.00-0.06 H LYMPH x10^3 (test code = 731-0) 2.09 10*3/uL 1.32-3.29 MONO x10^3 (test code = 742-7) 0.58 10*3/uL 0.33-0.92 EOS x10^3 (test code = 711-2) 0.03-0.39 L BASO x10^3 (test code = 704-7) 0.04 10*3/uL 0.01-0.07 Lab Interpretation (test code = 97204-1) Abnormal [facility] WITH [id number] 11:05:16* Test Item Value Reference Range Interpretation Comme nts WBC (test code = 6690-2) 16.65 See_Comment H [Automated message] The system which generated this result transmitted reference range: 4.30 - 11.10 10*3/?L. The reference range was not used to interpret this result as normal/abnormal. RBC (test code = 789-8) 3.83 See_Comment L [Automated message] The system which generated this result transmitted reference range: 3.93 - 5.25 10*6/?L. The reference range was not used to interpret this result as normal/abnormal. HGB (test code = 718-7) 9.9 g/dL 11.6-15.0 L HCT (test code = 4544-3) 31.8 % 35.7-45.2 L MCV (test code = 787-2) 83.0 fL 80.6-95.5 MCH (test code = 785-6) 25.8 pg 25.9-32.8 L MCHC (test code = 786-4) 31.1 g/dL 31.6-35.1 L RDW-SD (test code = 86452-9) 44.3 fL 39.0-49.9 RDW-CV (test code = 788-0) 14.8 % 12.0-15.5 PLT (test code = 777-3) 266 See_Comment [Automated message] The system which generated this result transmitted reference range: 166 - 358 10*3/?L. The reference range was not used to interpret this result as normal/abnormal. MPV (test code = 00728-3) 11.8 fL 9.5-12.9 NRBC/100 WBC (test code = 6740545733) 0.0 See_Comment [Automated message] The system which generated this result transmitted reference range: 0.0 - 10.0 /100 WBCs. The reference range was not used to interpret this result as normal/abnormal. NRBC x10^3 (test code = 8960343851) See_Comment [Automated message] The system which generated this result transmitted reference range: 10*3/?L. The reference range was not used to interpret this result as normal/abnormal. GRAN MAT (NEUT) % (test code = 770-8) 75.8 % IMM GRAN % (test code = 1213963083) 0.40 % LYMPH % (test code = 736-9) 19.3 % MONO % (test code = 5905-5) 4.1 % EOS % (test code = 713-8) 0.2 % BASO % (test code = 706-2) 0.2 % GRAN MAT x10^3(ANC) (test code = 8071182247) 12.60 10*3/uL 1.88-7.09 H IMM GRAN x10^3 (test code = 4385370459) 0.07 10*3/uL 0.00-0.06 H LYMPH x10^3 (test code = 731-0) 3.22 10*3/uL 1.32-3.29 MONO x10^3 (test code = 742-7) 0.69 10*3/uL 0.33-0.92 EOS x10^3 (test code = 711-2) 0.04 10*3/uL 0.03-0.39 BASO x10^3 (test code = 704-7) 0.03 10*3/uL 0.01-0.07 Lab Interpretation (test code = 54731-2) Abnormal [facility] WITH [id number] 11:05:16* Test Item Value Reference Range Interpretation Comme nts WBC (test code = 6690-2) 16.65 See_Comment H [Automated message] The system which generated this result transmitted reference range: 4.30 - 11.10 10*3/?L. The reference range was not used to interpret this result as normal/abnormal. RBC (test code = 789-8) 3.83 See_Comment L [Automated message] The system which generated this result transmitted reference range: 3.93 - 5.25 10*6/?L. The reference range was not used to interpret this result as normal/abnormal. HGB (test code = 718-7) 9.9 g/dL 11.6-15.0 L HCT (test code = 4544-3) 31.8 % 35.7-45.2 L MCV (test code = 787-2) 83.0 fL 80.6-95.5 MCH (test code = 785-6) 25.8 pg 25.9-32.8 L MCHC (test code = 786-4) 31.1 g/dL 31.6-35.1 L RDW-SD (test code = 35084-2) 44.3 fL 39.0-49.9 RDW-CV (test code = 788-0) 14.8 % 12.0-15.5 PLT (test code = 777-3) 266 See_Comment [Automated message] The system which generated this result transmitted reference range: 166 - 358 10*3/?L. The reference range was not used to interpret this result as normal/abnormal. MPV (test code = 08115-3) 11.8 fL 9.5-12.9 NRBC/100 WBC (test code = 6563427631) 0.0 See_Comment [Automated message] The system which generated this result transmitted reference range: 0.0 - 10.0 /100 WBCs. The reference range was not used to interpret this result as normal/abnormal. NRBC x10^3 (test code = 9277662696) See_Comment [Automated message] The system which generated this result transmitted reference range: 10*3/?L. The reference range was not used to interpret this result as normal/abnormal. GRAN MAT (NEUT) % (test code = 770-8) 75.8 % IMM GRAN % (test code = 5665164880) 0.40 % LYMPH % (test code = 736-9) 19.3 % MONO % (test code = 5905-5) 4.1 % EOS % (test code = 713-8) 0.2 % BASO % (test code = 706-2) 0.2 % GRAN MAT x10^3(ANC) (test code = 5364134758) 12.60 10*3/uL 1.88-7.09 H IMM GRAN x10^3 (test code = 2621249255) 0.07 10*3/uL 0.00-0.06 H LYMPH x10^3 (test code = 731-0) 3.22 10*3/uL 1.32-3.29 MONO x10^3 (test code = 742-7) 0.69 10*3/uL 0.33-0.92 EOS x10^3 (test code = 711-2) 0.04 10*3/uL 0.03-0.39 BASO x10^3 (test code = 704-7) 0.03 10*3/uL 0.01-0.07 Lab Interpretation (test code = 47756-8) Abnormal [facility] Cord [id number] 08:27:36* Test Item Value Reference Range Interpretation Comme nts VENOUS BASE EXCESS, CORD (test code = 8241310079) 0.6 mEq/L VENOUS PH, CORD (test code = 6611956475) 7.39 7.25-7.45 VENOUS PC02, CORD (test code = 6197785063) 44 See_Comment [Automated messa ge] The system which generated this result transmitted reference range: 27 - 49 mmHg. The reference range was not used to interpret this result as normal/abnormal. VENOUS PO2, CORD (test code = 7820666268) 25 See_Comment [Automated me ssage] The system which generated this result transmitted reference range: 17 - 41 mmHg. The reference range was not used to interpret this result as normal/abnormal. VENOUS BICARBONATE, CORD (test code = 2039014581) 26 See_Comment QUES [Automated message] The system which generated this result transmitted reference range: 12 - 29 mEq/L. The reference range was not used to interpret this result as normal/abnormal. [facility] Cord [id number] 08:27:36* Test Item Value Reference Range Interpretation Comme nts VENOUS BASE EXCESS, CORD (test code = 0305369992) 0.6 mEq/L VENOUS PH, CORD (test code = 7442216255) 7.39 7.25-7.45 VENOUS PC02, CORD (test code = 7186722476) 44 See_Comment [Automated messa ge] The system which generated this result transmitted reference range: 27 - 49 mmHg. The reference range was not used to interpret this result as normal/abnormal. VENOUS PO2, CORD (test code = 0720015237) 25 See_Comment [Automated me ssage] The system which generated this result transmitted reference range: 17 - 41 mmHg. The reference range was not used to interpret this result as normal/abnormal. VENOUS BICARBONATE, CORD (test code = 3566890951) 26 See_Comment QUES [Automated message] The system which generated this result transmitted reference range: 12 - 29 mEq/L. The reference range was not used to interpret this result as normal/abnormal. [facility] GLUCOSE (AUTOMATED)2023-06-20 05:03:09* Test Item Value Reference Range Interpretation Comme [facility] POCT GLU (test code = 9425291314) 100 mg/dL 70-110 Lab Interpretation (test cod e = 42391-6) Normal [facility] GLUCOSE (AUTOMATED)2023-06-20 05:03:09* Test Item Value Reference Range Interpretation Comme [facility] POCT GLU (test code = 1540780639) 100 mg/dL 70-110 Lab Interpretation (test cod e = 98290-3) Normal [facility] 1/2 AG-AB WITH [id number] 03:38:27* Test Item Value Reference Range Interpretation Comme [facility] HIV Semi-quantitative (test code = 93754-1) 0.10 Negative KRISTIAN (test code = KRISTIAN) Non-reactive for HIV-1 antigen and HIV-1/HIV-2 antibodies. ?No laboratory evidence of HIV infection. ?Repeat in 2-4 weeks if acute HIV infection is suspected. [facility] 1/2 AG-AB WITH [id number] 03:38:27* Test Item Value Reference Range Interpretation Comme [facility] HIV Semi-quantitative (test code = 01469-0) 0.10 Negative KRISTIAN (test code = KRISTIAN) Non-reactive for HIV-1 antigen and HIV-1/HIV-2 antibodies. ?No laboratory evidence of HIV infection. ?Repeat in 2-4 weeks if acute HIV infection is suspected. [facility] / [id number] 02:54:02* Test Item Value Reference Range Interpretation Comme nts PROTIME PATIENT (test code = 5964-2) 10.3 See_Comment [Automated messa ge] The system which generated this result transmitted reference range: 10.1 - 12.6 Seconds. The reference range was not used to interpret this result as normal/abnormal. INR (test code = 6301-6) 0.9 Normal INR <1.1; Warfarin Therapeutic range 2.0 to 3.0 or 2.5 to 3.5, depending upon the indications. Lab Interpretation (test code = 20775-8) Normal [facility]eraPTT2023-10-16 02:54:02* Test Item Value Reference Range Interpretation Comme [facility] APTT Patient (test code = 3173-2) 28 See_Comment [Automated messa ge] The system which generated this result transmitted reference range: 26 - 36 Seconds. The reference range was not used to interpret this result as normal/abnormal. Lab Interpretation (test code = 04070-3) Normal [facility]th[facility] Time / [id number] 02:54:02* Test Item Value Reference Range Interpretation Comme nts PROTIME PATIENT (test code = 5964-2) 10.3 See_Comment [Automated messa ge] The system which generated this result transmitted reference range: 10.1 - 12.6 Seconds. The reference range was not used to interpret this result as normal/abnormal. INR (test code = 6301-6) 0.9 Normal INR <1.1; Warfarin Therapeutic range 2.0 to 3.0 or 2.5 to 3.5, depending upon the indications. Lab Interpretation (test code = 16783-1) Normal [facility]2023-10-16 02:54:02* Test Item Value Reference Range Interpretation Comme nts APTT Patient (test code = 3173-2) 28 See_Comment [Automated messa ge] The system which generated this result transmitted reference range: 26 - 36 Seconds. The reference range was not used to interpret this result as normal/abnormal. Lab Interpretation (test code = 91173-0) Normal [facility] CenterHepatitis B Surface [id number] 02:43:45 * Test Item Value Reference Range Interpretation Comme nts HBsAg Semi-Quantitative (giovanni t code = 5195-3) 0.[address] [facility] CenterHepatitis B Surface [id number] 02:43:45 * Test Item Value Reference Range Interpretation Comme nts HBsAg Semi-Quantitative (giovanni t code = 5195-3) 0.[address] [facility] Center[facility] and Screen - ONCE [id number] 01:35:00 * Test Item Value Reference Range Interpretation Comme nts ABO & RH (test code = 20) O POSITIVE IAT (test code = 1185) Negative [facility] and Screen - ONCE [id number] 01:35:00 * Test Item Value Reference Range Interpretation Comme nts ABO & RH (test code = 20) O POSITIVE IAT (test code = 1185) Negative [facility] GLUCOSE (AUTOMATED)2023-06-20 01:08:58* Test Item Value Reference Range Interpretation Comme nts POCT GLU (test code = 6684944166) 160 mg/dL 70-110 H Lab Interpretation (test cod e = 64993-5) Abnormal [facility] GLUCOSE (AUTOMATED)2023-06-20 01:08:58* Test Item Value Reference Range Interpretation Comme nts POCT GLU (test code = 9758792397) 160 mg/dL 70-110 H Lab Interpretation (test cod e = 02522-2) Abnormal [facility] URINALYSIS W SPECIFIC [id number] 13:43:00* Test Item Value Reference Range Interpretation Comme nts POCT U SP GRAV (test code = 3255) . 1.005-1.025 POCT PH U (test code = 3254) 7 mg/dl 5-8 POCT U LEUK EST (test code = 3263) Trace Negative - Negative POCT U NIT (test code = 3262) Neg Negative - Negati ve POCT U PROT (test code = 3259) Trace Negative - Negat aarti POCT U GLU (test code = 3256) Nml Negative - Negati ve POCT U KETONE (test code = 3258) None Negative - Neg ative POCT U UROBILI (test code = 3260) . 0.2-1 POCT U BILI (test code = 3261) . Negative - Negat aarti POCT U BLD (test code = 3257) Trace Negative - Negati ve POCT U COLOR (test code = 3266) . POCT U APPEAR (test code = 3267) . [facility] CenterLactate [id number] 20:27:40* Test Item Value Reference Range Interpretation Comme nts LDH (test code = 5039838568) 149 U/L 120-246 Lab Interpretation (test cod e = 48562-7) Normal [facility] WITH [id number] 19:50:29* Test Item Value Reference Range Interpretation Comme nts WBC (test code = 6690-2) 7.72 See_Comment [Automated [employer]] The system which generated this result transmitted reference range: 4.30 - 11.10 10*3/?L. The reference range was not used to interpret this result as normal/abnormal. RBC (test code = 789-8) 4.51 See_Comment [Automated [employer]] The system which generated this result transmitted reference range: 3.93 - 5.25 10*6/?L. The reference range was not used to interpret this result as normal/abnormal. HGB (test code = 718-7) 11.9 g/dL 11.6-15.0 HCT (test code = 4544-3) 37.1 % 35.7-45.2 MCV (test code = 787-2) 82.3 fL 80.6-95.5 MCH (test code = 785-6) 26.4 pg 25.9-32.8 MCHC (test code = 786-4) 32.1 g/dL 31.6-35.1 RDW-SD (test code = 24603-7) 42.7 fL 39.0-49.9 RDW-CV (test code = 788-0) 14.6 % 12.0-15.5 PLT (test code = 777-3) 329 See_Comment [Automated [employer]] The system which generated this result transmitted reference range: 166 - 358 10*3/?L. The reference range was not used to interpret this result as normal/abnormal. MPV (test code = 82600-3) 11.3 fL 9.5-12.9 NRBC/100 WBC (test code = 2888293260) 0.0 See_Comment [Automated me ssage] The system which generated this result transmitted reference range: 0.0 - 10.0 /100 WBCs. The reference range was not used to interpret this result as normal/abnormal. NRBC x10^3 (test code = 7151095505) See_Comment [Automated messa ge] The system which generated this result transmitted reference range: 10*3/?L. The reference range was not used to interpret this result as normal/abnormal. GRAN MAT (NEUT) % (test code = 770-8) 61.7 % IMM GRAN % (test code = 8546732195) 0.40 % LYMPH % (test code = 736-9) 31.2 % MONO % (test code = 5905-5) 6.1 % EOS % (test code = 713-8) 0.3 % BASO % (test code = 706-2) 0.3 % GRAN MAT x10^3(ANC) (test code = 9156535082) 4.77 10*3/uL 1.88-7.09 IMM GRAN x10^3 (test code = 4501046012) 0.03 10*3/uL 0.00-0.06 LYMPH x10^3 (test code = 731-0) 2.41 10*3/uL 1.32-3.29 MONO x10^3 (test code = 742-7) 0.47 10*3/uL 0.33-0.92 EOS x10^3 (test code = 711-2) 0.03-0.39 L BASO x10^3 (test code = 704-7) 0.01-0.07 Lab Interpretation (test code = 11441-6) Abnormal [facility] GLUCOSE (AUTOMATED)2023-06-14 19:12:38* Test Item Value Reference Range Interpretation Comme nts POCT GLU (test code = 5560257168) 94 mg/dL 70-110 Lab Interpretation (test cod e = 13030-8) Normal [facility] URINALYSIS W SPECIFIC [id number] 13:21:00* Test Item Value Reference Range Interpretation Comme nts POCT U SP GRAV (test code = 3255) . 1.005-1.025 A POCT PH U (test code = 3254) 7 mg/dl 5-8 POCT U LEUK EST (test code = 3263) Trace Negative - Negative POCT U NIT (test code = 3262) Neg Negative - Negati ve POCT U PROT (test code = 3259) Trace Negative - Negat aarti POCT U GLU (test code = 3256) Neg Negative - Negati ve POCT U KETONE (test code = 3258) None Negative - Neg ative POCT U UROBILI (test code = 3260) . 0.2-1 POCT U BILI (test code = 3261) . Negative - Negat aarti POCT U BLD (test code = 3257) Trace Negative - Negati ve POCT U COLOR (test code = 3266) POCT U APPEAR (test code = 3267) Lab Interpretation (test cod e = 15899-9) Abnormal [facility] CenterGLYCOSYLATED HEMOGLOBIN (A1C)2023-06-05 20:39:15* Test Item Value Reference Range Interpretation Comme nts HGB A1C (test code = 4548-4) 6.6 % 4.0-5.7 H KRISTIAN (test code = KRISTIAN) Reference RangesNormal: <5.7%Prediabetes: 5.7 - 6.4%Diabetes: > 6.5% Lab Interpretation (test code = 92622-9) Abnormal [facility] and Screen - ONCE [id number] 20:20:00* Test Item Value Reference Range Interpretation Comme nts ABO & RH (test code = 20) O POSITIVE IAT (test code = 1185) Negative [facility] GLUCOSE (AUTOMATED)2023-06-05 19:10:38* Test Item Value Reference Range Interpretation Comme nts POCT GLU (test code = 9379608079) 149 mg/dL 70-110 H Lab Interpretation (test cod e = 25725-2) Abnormal [facility] URINALYSIS W SPECIFIC [id number] 15:05:00* Test Item Value Reference Range Interpretation Comme nts POCT U SP GRAV (test code = 3255) . 1.005-1.025 POCT PH U (test code = 3254) 6 mg/dl 5-8 POCT U LEUK EST (test code = 3263) Trace Negative - Negative POCT U NIT (test code = 3262) Neg Negative - Negati ve POCT U PROT (test code = 3259) Trace Negative - Negat aarti POCT U GLU (test code = 3256) Neg Negative - Negati ve POCT U KETONE (test code = 3258) Small Negative - Neg ative POCT U UROBILI (test code = 3260) . 0.2-1 POCT U BILI (test code = 3261) . Negative - Negat aarti POCT U BLD (test code = 3257) Trace Negative - Negati ve POCT U COLOR (test code = 3266) POCT U APPEAR (test code = 3267) [facility] URINALYSIS W SPECIFIC [id number] 13:16:00* Test Item Value Reference Range Interpretation Comme nts POCT U SP GRAV (test code = 3255) . 1.005-1.025 POCT PH U (test code = 3254) 7 mg/dl 5-8 POCT U LEUK EST (test code = 3263) Trace Negative - Negative POCT U NIT (test code = 3262) Neg Negative - Negati ve POCT U PROT (test code = 3259) Trace Negative - Negat aarti POCT U GLU (test code = 3256) Neg Negative - Negati ve POCT U KETONE (test code = 3258) None Negative - Neg ative POCT U UROBILI (test code = 3260) . 0.2-1 POCT U BILI (test code = 3261) . Negative - Negat aarti POCT U BLD (test code = 3257) Trace Negative - Negati ve POCT U COLOR (test code = 3266) POCT U APPEAR (test code = 3267) [facility] URINALYSIS W SPECIFIC [id number] 13:16:00* Test Item Value Reference Range Interpretation Comme nts POCT U SP GRAV (test code = 3255) . 1.005-1.025 POCT PH U (test code = 3254) 7 mg/dl 5-8 POCT U LEUK EST (test code = 3263) Trace Negative - Negative POCT U NIT (test code = 3262) Neg Negative - Negati ve POCT U PROT (test code = 3259) Trace Negative - Negat aarti POCT U GLU (test code = 3256) Neg Negative - Negati ve POCT U KETONE (test code = 3258) None Negative - Neg ative POCT U UROBILI (test code = 3260) . 0.2-1 POCT U BILI (test code = 3261) . Negative - Negat aarti POCT U BLD (test code = 3257) Trace Negative - Negati ve POCT U COLOR (test code = 3266) POCT U APPEAR (test code = 3267) [facility] URINALYSIS W SPECIFIC [id number] 15:11:00* Test Item Value Reference Range Interpretation Comme nts POCT U SP GRAV (test code = 3255) . 1.005-1.025 POCT PH U (test code = 3254) 7 mg/dl 5-8 POCT U LEUK EST (test code = 3263) 1+ Negative - Negative POCT U NIT (test code = 3262) Neg Negative - Negati ve POCT U PROT (test code = 3259) 1+ Negative - Negat aarti POCT U GLU (test code = 3256) Neg Negative - Negati ve POCT U KETONE (test code = 3258) Small Negative - Neg ative POCT U UROBILI (test code = 3260) . 0.2-1 POCT U BILI (test code = 3261) . Negative - Negat aarti POCT U BLD (test code = 3257) Large Negative - Negati ve POCT U COLOR (test code = 3266) POCT U APPEAR (test code = 3267) [facility] URINALYSIS W SPECIFIC [id number] 15:11:00* Test Item Value Reference Range Interpretation Comme nts POCT U SP GRAV (test code = 3255) . 1.005-1.025 POCT PH U (test code = 3254) 7 mg/dl 5-8 POCT U LEUK EST (test code = 3263) 1+ Negative - Negative POCT U NIT (test code = 3262) Neg Negative - Negati ve POCT U PROT (test code = 3259) 1+ Negative - Negat aarti POCT U GLU (test code = 3256) Neg Negative - Negati ve POCT U KETONE (test code = 3258) Small Negative - Neg ative POCT U UROBILI (test code = 3260) . 0.2-1 POCT U BILI (test code = 3261) . Negative - Negat aarti POCT U BLD (test code = 3257) Large Negative - Negati ve POCT U COLOR (test code = 3266) POCT U APPEAR (test code = 3267) [facility] URINALYSIS W SPECIFIC [id number] 19:13:00* Test Item Value Reference Range Interpretation Comme nts POCT U SP GRAV (test code = 3255) . 1.005-1.025 POCT PH U (test code = 3254) . 5-8 POCT U LEUK EST (test code = 3263) . Negative - N egative POCT U NIT (test code = 3262) . Negative - Negati ve POCT U PROT (test code = 3259) 1+ Negative - Negat aarti POCT U GLU (test code = 3256) 1+ Negative - Negati ve POCT U KETONE (test code = 3258) . Negative - Neg ative POCT U UROBILI (test code = 3260) .. 0.2-1 POCT U BILI (test code = 3261) . Negative - Negat aarti POCT U BLD (test code = 3257) . Negative - Negati ve POCT U COLOR (test code = 3266) . POCT U APPEAR (test code = 3267) . [facility] URINALYSIS W SPECIFIC [id number] 18:49:00* Test Item Value Reference Range Interpretation Comme nts POCT U SP GRAV (test code = 3255) . 1.005-1.025 POCT PH U (test code = 3254) 6 mg/dl 5-8 POCT U LEUK EST (test code = 3263) 1+ Negative - Negative POCT U NIT (test code = 3262) Neg Negative - Negati ve POCT U PROT (test code = 3259) 1+ Negative - Negat aarti POCT U GLU (test code = 3256) Large Negative - Negati ve POCT U KETONE (test code = 3258) None Negative - Neg ative POCT U UROBILI (test code = 3260) . 0.2-1 POCT U BILI (test code = 3261) . Negative - Negat aarti POCT U BLD (test code = 3257) Trace Negative - Negati ve POCT U COLOR (test code = 3266) POCT U APPEAR (test code = 3267) [facility] GLUCOSE (AUTOMATED)2023-05-16 19:11:05* Test Item Value Reference Range Interpretation Comme nts POCT GLU (test code = 7657743730) 88 mg/dL 70-110 Lab Interpretation (test cod e = 65288-1) Normal [facility] URINALYSIS W SPECIFIC [id number] 14:17:00* Test Item Value Reference Range Interpretation Comme nts POCT U SP GRAV (test code = 3255) . 1.005-1.025 POCT PH U (test code = 3254) . 5-8 POCT U LEUK EST (test code = 3263) . Negative - N egative POCT U NIT (test code = 3262) . Negative - Negati ve POCT U PROT (test code = 3259) 1+ Negative - Negat aarti POCT U GLU (test code = 3256) Neg Negative - Negati ve POCT U KETONE (test code = 3258) . Negative - Neg ative POCT U UROBILI (test code = 3260) . 0.2-1 POCT U BILI (test code = 3261) . Negative - Negat aarti POCT U BLD (test code = 3257) .. Negative - Negati ve POCT U COLOR (test code = 3266) POCT U APPEAR (test code = 3267) [facility] GLUCOSE (AUTOMATED)2023-05-13 21:26:34* Test Item Value Reference Range Interpretation Comme nts POCT GLU (test code = 0607613057) 86 mg/dL 70-110 Lab Interpretation (test cod e = 59378-5) Normal [facility] GLUCOSE(AGE >30DAYS)2023-05-13 15:26:00* Test Item Value Reference Range Interpretation Comme nts POCT Glu (age>30days) (test code = 3342) 163 mg/dL 70-110 A Lab Interpretation (test cod e = 50482-4) Abnormal [facility] GLUCOSE (AUTOMATED)2023-05-13 15:20:39* Test Item Value Reference Range Interpretation Comme nts POCT GLU (test code = 5366537199) 163 mg/dL 70-110 H Lab Interpretation (test cod e = 46220-3) Abnormal [facility] URINALYSIS W SPECIFIC [id number] 13:34:00* Test Item Value Reference Range Interpretation Comme nts POCT U SP GRAV (test code = 3255) . 1.005-1.025 POCT PH U (test code = 3254) . 5-8 POCT U LEUK EST (test code = 3263) . Negative - N egative POCT U NIT (test code = 3262) . Negative - Negati ve POCT U PROT (test code = 3259) 1+ Negative - Negat aarti POCT U GLU (test code = 3256) 1+ Negative - Negati ve POCT U KETONE (test code = 3258) . Negative - Neg ative POCT U UROBILI (test code = 3260) . 0.2-1 POCT U BILI (test code = 3261) . Negative - Negat aarti POCT U BLD (test code = 3257) . Negative - Negati ve POCT U COLOR (test code = 3266) POCT U APPEAR (test code = 3267) [facility] GLUCOSE (AUTOMATED)2023-05-09 15:56:48* Test Item Value Reference Range Interpretation Comme nts POCT GLU (test code = 1362294620) 105 mg/dL 70-110 Lab Interpretation (test cod e = 77013-2) Normal [facility] GLUCOSE (AUTOMATED)2023-05-09 13:14:51* Test Item Value Reference Range Interpretation Comme nts POCT GLU (test code = 4694935460) 99 mg/dL 70-110 Lab Interpretation (test cod e = 17032-8) Normal [facility] GLUCOSE (AUTOMATED)2023-05-09 09:28:08* Test Item Value Reference Range Interpretation Comme nts POCT GLU (test code = 9317940024) 140 mg/dL 70-110 H Lab Interpretation (test cod e = 98636-9) Abnormal [facility] GLUCOSE (AUTOMATED)2023-05-09 05:16:01* Test Item Value Reference Range Interpretation Comme nts POCT GLU (test code = 0705894850) 127 mg/dL 70-110 H Lab Interpretation (test cod e = 28116-2) Abnormal [facility] – [place] GLUCOSE (AUTOMATED)2023-05-09 05:16:01* Test Item Value Reference Range Interpretation Comme nts POCT GLU (test code = 3103103573) 98 mg/dL 70-110 Lab Interpretation (test cod e = 23166-0) Normal [facility] GLUCOSE (AUTOMATED)2023-05-09 05:16:01* Test Item Value Reference Range Interpretation Comme nts POCT GLU (test code = 4283677689) 119 mg/dL 70-110 H Lab Interpretation (test cod e = 25375-3) Abnormal [facility] GLUCOSE (AUTOMATED)2023-05-09 05:16:01* Test Item Value Reference Range Interpretation Comme nts POCT GLU (test code = 0015333202) 110 mg/dL 70-110 Lab Interpretation (test cod e = 25315-0) Normal [facility] GLUCOSE (AUTOMATED)2023-05-09 05:11:25* Test Item Value Reference Range Interpretation Comme nts POCT GLU (test code = 9810389933) 106 mg/dL 70-110 Lab Interpretation (test cod e = 78663-0) Normal [facility] GLUCOSE (AUTOMATED)2023-05-09 00:46:59* Test Item Value Reference Range Interpretation Comme nts POCT GLU (test code = 2888818307) 192 mg/dL 70-110 H Lab Interpretation (test cod e = 18470-1) Abnormal [facility] GLUCOSE (AUTOMATED)2023-05-08 22:02:57* Test Item Value Reference Range Interpretation Comme nts POCT GLU (test code = 3272903362) 124 mg/dL 70-110 H Lab Interpretation (test cod e = 66033-1) Abnormal [facility] GLUCOSE (AUTOMATED)2023-05-08 18:05:35* Test Item Value Reference Range Interpretation Comme nts POCT GLU (test code = 0971669682) 161 mg/dL 70-110 H Notified Provide r Lab Interpretation (test code = 38969-8) Abnormal [facility] [place] GLUCOSE (AUTOMATED)2023-05-08 15:53:19* Test Item Value Reference Range Interpretation Comme nts POCT GLU (test code = 3601099757) 149 mg/dL 70-110 H Lab Interpretation (test cod e = 43636-8) Abnormal [facility] [place] GLUCOSE (AUTOMATED)2023-05-08 13:23:11* Test Item Value Reference Range Interpretation Comme nts POCT GLU (test code = 3172856960) 109 mg/dL 70-110 Lab Interpretation (test cod e = 11925-4) Normal [facility] GLUCOSE (AUTOMATED)2023-05-07 17:44:50* Test Item Value Reference Range Interpretation Comme nts POCT GLU (test code = 9614331845) 121 mg/dL 70-110 H Lab Interpretation (test cod e = 72746-5) Abnormal [facility] GLUCOSE (AUTOMATED)2023-05-07 13:15:54* Test Item Value Reference Range Interpretation Comme nts POCT GLU (test code = 1539721351) 112 mg/dL 70-110 H Lab Interpretation (test cod e = 35323-6) Abnormal [facility] GLUCOSE (AUTOMATED)2023-05-07 09:39:46* Test Item Value Reference Range Interpretation Comme nts POCT GLU (test code = 1459276184) 135 mg/dL 70-110 H Lab Interpretation (test cod e = 53234-5) Abnormal [facility] GLUCOSE (AUTOMATED)2023-05-05 02:17:06* Test Item Value Reference Range Interpretation Comme nts POCT GLU (test code = 8703124920) 119 mg/dL 70-110 H Lab Interpretation (test cod e = 49290-6) Abnormal [facility] [place] GLUCOSE (AUTOMATED)2023-05-04 19:38:00* Test Item Value Reference Range Interpretation Comme nts POCT GLU (test code = 4398501887) 157 mg/dL 70-110 H Lab Interpretation (test cod e = 90754-7) Abnormal [facility] [place] GLUCOSE (AUTOMATED)2023-05-04 16:39:03* Test Item Value Reference Range Interpretation Comme nts POCT GLU (test code = 7567909100) 160 mg/dL 70-110 H Lab Interpretation (test cod e = 58072-5) Abnormal [facility] GLUCOSE (AUTOMATED)2023-05-04 12:37:19* Test Item Value Reference Range Interpretation Comme nts POCT GLU (test code = 8691306104) 142 mg/dL 70-110 H Lab Interpretation (test cod e = 90085-8) Abnormal [facility] GLUCOSE (AUTOMATED)2023-05-03 23:46:51* Test Item Value Reference Range Interpretation Comme nts POCT GLU (test code = 9514725895) 127 mg/dL 70-110 H Lab Interpretation (test cod e = 87169-0) Abnormal [facility] URINALYSIS W SPECIFIC [id number] 15:30:00* Test Item Value Reference Range Interpretation Comme nts POCT U SP GRAV (test code = 3255) . 1.005-1.025 POCT PH U (test code = 3254) 7 mg/dl 5-8 POCT U LEUK EST (test code = 3263) 1+ Negative - Negative POCT U NIT (test code = 3262) neg Negative - Negati ve POCT U PROT (test code = 3259) trace Negative - Negat aarti POCT U GLU (test code = 3256) neg Negative - Negati ve POCT U KETONE (test code = 3258) neg Negative - Neg ative POCT U UROBILI (test code = 3260) . 0.2-1 POCT U BILI (test code = 3261) . Negative - Negat aarti POCT U BLD (test code = 3257) neg Negative - Negati ve POCT U COLOR (test code = 3266) . POCT U APPEAR (test code = 3267) . [facility] 00:49:21* Test Item Value Reference Range Interpretation Comme nts LIPASE (test code = 5782072554) 26 U/L 0-220 Lab Interpretation (test cod e = 83594-9) [facility] 00:49:06* Test Item Value Reference Range Interpretation Comme nts NA (test code = 6071980612) 135 mmol/L 135-145 K (test code = 6095931498) 3.9 mmol/L 3.5-5.0 CL (test code = 2251109235) 101 mmol/L 98-108 CO2 TOTAL (test code = 9346099819) 22 mmol/L 23-31 L AGAP (test code = 1095077401) 12 2-16 BUN (test code = 9347277258) 8 mg/dL 7-23 GLUCOSE (test code = 6144908288) 95 mg/dL 70-110 CREATININE (test code = 3696004195) 0.37 mg/dL 0.50-1.04 L TOTAL BILI (test code = 8568406071) 0.7 mg/dL 0.1-1.1 CALCIUM (test code = 7882991749) 9.0 mg/dL 8.6-10.6 T PROTEIN (test code = 4493510048) 8.2 g/dL 6.3-8.2 ALBUMIN (test code = 6732852954) 4.0 g/dL 3.5-5.0 ALK PHOS (test code = 2848593579) 186 U/L 34-122 H ALTv (test code = 1742-6) 48 U/L 5-35 H AST(SGOT) (test code = 0090198681) 68 U/L 13-40 H eGFR (test code = 7321682492) 208.0 mL/min/1.73m2 KRISTIAN (test code = KRISTIAN) Association of Glomerular Filtration Rate (GFR) and Staging of Kidney Disease* + --+ --+ ------+| GFR (mL/min/1.73 m2) ?| With Kidney Damage ?| ?Without Kidney Damage+ --------+ --------+ +| ?>90 ?| ?Stage one ?| ? Normal ?+ ---+ ---+ -------+| ?60-89 ?| ?Stage two ?| ? Decreased GFR ? + --+ --+ ------+| ?30-59 ?| ?Stage three ?| ? Stage three ? + --+ --+ ------+| ?15-29 ?| ?Stage four ? | ? Stage four ?+ ---+ ---+ -------+| ?<15 (or dialysis) ? ?| ?Stage five ? | ? Stage five ?+ ---+ ---+ -------+ *Each stage assumes the associated GFR level has been in effect for at least three months. ?Stages 1 to 5, with or without kidney disease, indicate chronic kidney disease. Notes: Determination of stages one and two (with eGFR >59mL/min/1.73 m2) requires estimation of kidney damage for at least three months as defined by structural or functional abnormalities of the kidney, manifested by either:Pathological abnormalities or Markers of kidney damage (including abnormalities in the composition of the blood or urine or abnormalities in imaging tests). Lab Interpretation (test code = 03133-2) Abnormal [facility] 00:49:06* Test Item Value Reference Range Interpretation Comme nts AVILA (test code = 1881165531) 62 U/L 35-110 Lab Interpretation (test cod e = 49259-4) Normal [facility] GLUCOSE (AUTOMATED)2023-04-20 23:21:56* Test Item Value Reference Range Interpretation Comme nts POCT GLU (test code = 7682800579) 95 mg/dL 70-110 Lab Interpretation (test cod e = 87435-0) Normal [facility] URINALYSIS W SPECIFIC [id number] 21:18:00* Test Item Value Reference Range Interpretation Comme nts POCT U SP GRAV (test code = 3255) . 1.005-1.025 POCT PH U (test code = 3254) 6 mg/dl 5-8 POCT U LEUK EST (test code = 3263) 2+ Negative - Negative POCT U NIT (test code = 3262) negative Negative - Negati ve POCT U PROT (test code = 3259) trace Negative - Negat aarti POCT U GLU (test code = 3256) negative Negative - Negati ve POCT U KETONE (test code = 3258) small + Negative - Neg ative POCT U UROBILI (test code = 3260) . 0.2-1 POCT U BILI (test code = 3261) . Negative - Negat aarti POCT U BLD (test code = 3257) negative Negative - Negati ve POCT U COLOR (test code = 3266) . POCT U APPEAR (test code = 3267) . [facility] URINALYSIS W SPECIFIC [id number] 20:35:00* Test Item Value Reference Range Interpretation Comme nts POCT U SP GRAV (test code = 3255) . 1.005-1.025 POCT PH U (test code = 3254) 6 mg/dl 5-8 POCT U LEUK EST (test code = 3263) 2+ Negative - Negative POCT U NIT (test code = 3262) Neg Negative - Negati ve POCT U PROT (test code = 3259) 1+ Negative - Negat aarti POCT U GLU (test code = 3256) Neg Negative - Negati ve POCT U KETONE (test code = 3258) None Negative - Neg ative POCT U UROBILI (test code = 3260) . 0.2-1 POCT U BILI (test code = 3261) . Negative - Negat aarti POCT U BLD (test code = 3257) Trace Negative - Negati ve POCT U COLOR (test code = 3266) . POCT U APPEAR (test code = 3267) [facility] URINALYSIS W SPECIFIC [id number] 18:18:00* Test Item Value Reference Range Interpretation Comme nts POCT U SP GRAV (test code = 3255) . 1.005-1.025 POCT PH U (test code = 3254) 7 mg/dl 5-8 POCT U LEUK EST (test code = 3263) 2+ Negative - Negative POCT U NIT (test code = 3262) negative Negative - Negati ve POCT U PROT (test code = 3259) trace Negative - Negat aarti POCT U GLU (test code = 3256) 100 Negative - Negati ve POCT U KETONE (test code = 3258) negative Negative - Neg ative POCT U UROBILI (test code = 3260) . 0.2-1 POCT U BILI (test code = 3261) . Negative - Negat aarti POCT U BLD (test code = 3257) negative Negative - Negati ve POCT U COLOR (test code = 3266) . POCT U APPEAR (test code = 3267) . [facility] GLUCOSE(AGE >30DAYS)2023-02-10 21:04:00* Test Item Value Reference Range Interpretation Comme nts POCT Glu (age>30days) (test code = 3342) 93 mg/dL 70-110 [facility] GLUCOSE (AUTOMATED)2023-02-10 21:00:33* Test Item Value Reference Range Interpretation Comme nts POCT GLU (test code = 5231407754) 93 mg/dL 70-110 Lab Interpretation (test cod e = 73312-5) Normal [facility] URINALYSIS W SPECIFIC [id number] 20:35:00* Test Item Value Reference Range Interpretation Comme nts POCT U SP GRAV (test code = 3255) . 1.005-1.025 POCT PH U (test code = 3254) 7 mg/dl 5-8 POCT U LEUK EST (test code = 3263) 1+ Negative - Negative POCT U NIT (test code = 3262) Neg Negative - Negati ve POCT U PROT (test code = 3259) Trace Negative - Negat aarti POCT U GLU (test code = 3256) Neg Negative - Negati ve POCT U KETONE (test code = 3258) None Negative - Neg ative POCT U UROBILI (test code = 3260) . 0.2-1 POCT U BILI (test code = 3261) . Negative - Negat aarti POCT U BLD (test code = 3257) Trace Negative - Negati ve POCT U COLOR (test code = 3266) POCT U APPEAR (test code = 3267) . [facility] URINALYSIS W SPECIFIC [id number] 15:42:00* Test Item Value Reference Range Interpretation Comme nts POCT U SP GRAV (test code = 3255) . 1.005-1.025 POCT PH U (test code = 3254) 7 mg/dl 5-8 POCT U LEUK EST (test code = 3263) 2+ Negative - Negative POCT U NIT (test code = 3262) Neg Negative - Negati ve POCT U PROT (test code = 3259) Trace Negative - Negat aarti POCT U GLU (test code = 3256) Neg Negative - Negati ve POCT U KETONE (test code = 3258) Small Negative - Neg ative POCT U UROBILI (test code = 3260) . 0.2-1 POCT U BILI (test code = 3261) . Negative - Negat aarti POCT U BLD (test code = 3257) Trace Negative - Negati ve POCT U COLOR (test code = 3266) POCT U APPEAR (test code = 3267) [facility] URINALYSIS W SPECIFIC [id number] 19:13:00* Test Item Value Reference Range Interpretation Comme nts POCT U SP GRAV (test code = 3255) * 1.005-1.025 POCT PH U (test code = 3254) 7 mg/dl 5-8 POCT U LEUK EST (test code = 3263) 1+ Negative - Negative POCT U NIT (test code = 3262) negative Negative - Negati ve POCT U PROT (test code = 3259) trace Negative - Negat aarti POCT U GLU (test code = 3256) negative Negative - Negati ve POCT U KETONE (test code = 3258) negative Negative - Neg ative POCT U UROBILI (test code = 3260) * 0.2-1 POCT U BILI (test code = 3261) * Negative - Negat aarti POCT U BLD (test code = 3257) negative Negative - Negati ve POCT U COLOR (test code = 3266) POCT U APPEAR (test code = 3267) [facility] URINALYSIS GLUCOSE & [id number] 18:17:00* Test Item Value Reference Range Interpretation Comme nts POCT U PROT (test code = 3259) negative Negative - Negat aarti POCT U GLU (test code = 3256) negative Negative - Negati ve Lab Interpretation (test cod e = 22286-5) Normal [facility] URINALYSIS GLUCOSE & [id number] 18:17:00* Test Item Value Reference Range Interpretation Comme nts POCT U PROT (test code = 3259) negative Negative - Negat aarti POCT U GLU (test code = 3256) negative Negative - Negati ve Lab Interpretation (test cod e = 23556-8) Normal [facility] URINALYSIS W SPECIFIC [id number] 14:56:00* Test Item Value Reference Range Interpretation Comme nts POCT U SP GRAV (test code = 3255) . 1.005-1.025 POCT PH U (test code = 3254) . 5-8 POCT U LEUK EST (test code = 3263) . Negative - N egative POCT U NIT (test code = 3262) . Negative - Negati ve POCT U PROT (test code = 3259) 30+ Negative - Negat aarti POCT U GLU (test code = 3256) neg Negative - Negati ve POCT U KETONE (test code = 3258) . Negative - Neg ative POCT U UROBILI (test code = 3260) . 0.2-1 POCT U BILI (test code = 3261) . Negative - Negat aarti POCT U BLD (test code = 3257) . Negative - Negati ve POCT U COLOR (test code = 3266) . POCT U APPEAR (test code = 3267) . [facility] URINALYSIS W SPECIFIC [id number] 18:12:00* Test Item Value Reference Range Interpretation Comme nts POCT U SP GRAV (test code = 3255) . 1.005-1.025 POCT PH U (test code = 3254) 6 mg/dl 5-8 POCT U LEUK EST (test code = 3263) 2+ Negative - Negative POCT U NIT (test code = 3262) Neg Negative - Negati ve POCT U PROT (test code = 3259) 1+ Negative - Negat aarti POCT U GLU (test code = 3256) Trace Negative - Negati ve POCT U KETONE (test code = 3258) None Negative - Neg ative POCT U UROBILI (test code = 3260) . 0.2-1 POCT U BILI (test code = 3261) . Negative - Negat aarti POCT U BLD (test code = 3257) Trace Negative - Negati ve POCT U COLOR (test code = 3266) . POCT U APPEAR (test code = 3267) [facility] [id number] 19:58:00* Test Item Value Reference Range Interpretation Comme nts POCT PREG (test code = 1605) Positive On board controls acceptable with C Line (test code = 3572) Yes POCT PREG LOT # (test code = 3575) POCT PREG TEST DATE ( test code = 357) [facility] URINALYSIS W/O SPECIFIC [id number] 19:58:00* Test Item Value Reference Range Interpretation Comme nts POCT PH U (test code = 3254) 6 mg/dl 5-8 POCT U LEUK EST (test code = 3263) 2+ Negative - Negative POCT U NIT (test code = 3262) Neg Negative - Negati ve POCT U PROT (test code = 3259) Trace Negative - Negat aarti POCT U GLU (test code = 3256) 250 Negative - Negati ve POCT U KETONE (test code = 3258) None Negative - Neg ative POCT U BLD (test code = 3257) Trace Negative - Negati ve [facility] [id number] 19:58:00* Test Item Value Reference Range Interpretation Comme nts POCT PREG (test code = 1605) Positive On board controls acceptable with C Line (test code = 3574) Yes POCT PREG LOT # (test code = 3575) POCT PREG TEST DATE ( test code = 357) [facility] URINALYSIS W/O SPECIFIC [id number] 19:58:00* Test Item Value Reference Range Interpretation Comme nts POCT PH U (test code = 3254) 6 mg/dl 5-8 POCT U LEUK EST (test code = 3263) 2+ Negative - Negative POCT U NIT (test code = 3262) Neg Negative - Negati ve POCT U PROT (test code = 3259) Trace Negative - Negat aarti POCT U GLU (test code = 3256) 250 Negative - Negati ve POCT U KETONE (test code = 3258) None Negative - Neg ative POCT U BLD (test code = 3257) Trace Negative - Negati ve [facility] [id number] 19:58:00* Test Item Value Reference Range Interpretation Comme nts POCT PREG (test code = 1605) Positive On board controls acceptable with C Line (test code = 3574) Yes POCT PREG LOT # (test code = 3575) POCT PREG TEST DATE ( test code = 357) [facility] URINALYSIS W/O SPECIFIC [id number] 19:58:00* Test Item Value Reference Range Interpretation Comme nts POCT PH U (test code = 3254) 6 mg/dl 5-8 POCT U LEUK EST (test code = 3263) 2+ Negative - Negative POCT U NIT (test code = 3262) Neg Negative - Negati ve POCT U PROT (test code = 3259) Trace Negative - Negat aarti POCT U GLU (test code = 3256) 250 Negative - Negati ve POCT U KETONE (test code = 3258) None Negative - Neg ative POCT U BLD (test code = 3257) Trace Negative - Negati ve [facility] [id number] 19:58:00* Test Item Value Reference Range Interpretation Comme nts POCT PREG (test code = 1605) Positive On board controls acceptable with C Line (test code = 3574) Yes POCT PREG LOT # (test code = 3575) POCT PREG TEST DATE ( test code = 3576) [facility] URINALYSIS W/O SPECIFIC [id number] 19:58:00* Test Item Value Reference Range Interpretation Comme nts POCT PH U (test code = 3254) 6 mg/dl 5-8 POCT U LEUK EST (test code = 3263) 2+ Negative - Negative POCT U NIT (test code = 3262) Neg Negative - Negati ve POCT U PROT (test code = 3259) Trace Negative - Negat aarti POCT U GLU (test code = 3256) 250 Negative - Negati ve POCT U KETONE (test code = 3258) None Negative - Neg ative POCT U BLD (test code = 3257) Trace Negative - Negati ve [facility] History and Physical Notes Date/Time Note Provider Source 2023-05-16 13:21:08 [id number] ormatting of this note is different from the original.TRIAGE/L&D HISTORY & PHYSICALIDENTIFYING DATACandace Helga Martinez is 28 year old, /White, 33w1d, female with WILLIAM 07/03/2023, by Ultrasound. : 1995MRN: [id number] Care Physician: Isabell Sheehan COMPLAINTContractionsHISTORY OF PRESENT ILLNESSMaribell Martinez is a 28 year old at 33w1d who presents for contractions noted in clinic today.Patient denies vaginal bleeding, denies leakage of fluid, admits contractions. Patient denies headache, denies nausea/vomiting, denies RUQ pain, denies visual abnormalities.Endorses normal movement.PAST OBSTETRIC HISTORYOB History Para Term AB Living 4 2 1 1 1 2 SAB IAB Ectopic Multiple Live Births 1 0 0 0 2 # Outcome Date GA Lbr Alexis/2nd Weight Sex Delivery Anes PTL Lv 4 Current 3 02/17/22 34w2d 2370 g M NORMAL SPONT EPI JONO Complications: Other (See Comments) 2 SAB 06/07/21 6w6d 1 Term 03/04/16 38w6d 2778 g F VAGINAL EPI JONO PAST MEDICAL HISTORYProblem list: Patient Active Problem List Diagnosis Date Noted 33 weeks gestation of 05/16/2023 32 weeks gestation of 05/13/2023 Threatened labor, antepartum 05/07/2023 Obesity (BMI 30-39.9) 05/04/2023 Trichomonal vaginitis during in third trimester 04/30/2023 uterine contractions in second trimester, antepartum 04/21/2023 Tubal ligation status 04/01/2023 Multiparity 02/10/2023 Supervision of high-risk 12/22/2022 Pregestational diabetes mellitus, modified White class B 11/23/2022 Susceptible to varicella (non-immune), currently 11/10/2022 Rubella non-immune status, antepartum 11/10/2022 History of miscarriage 11/08/2022 History of delivery 11/08/2022 Obesity in 08/13/2021 Hypothyroidism during 08/13/2021 History of liver disease 08/13/2021 Vitamin D deficiency 11/12/2020 Mixed hyperlipidemia Fatty liver Migraines Hypertension in Chronic allergic rhinitis Operations: Past Surgical History: Procedure Laterality Date APPENDECTOMY @ 16 laparoscopic Past Medical History: Diagnosis Date Anemia not currently Asthma As child Chronic allergic rhinitis Depression with anxiety 11/03/2020 Fatty liver Gestational diabetes mellitus, antepartum 01/15/2016 History of gestational diabetes 06/02/2017 HTN (hypertension) 2020 not on meds Migraines Mixed hyperlipidemia Trichomonal vaginitis during in third trimester 04/30/2023 Type 2 diabetes mellitus Vitamin D deficiency 11/12/2020 CURRENT HEALTH STATUSMedications: No current facility-administered medications for this encounter. Allergies and drug reactions: Patient has no known allergies.HOME MEDICATIONSMedications Prior to Admission Medication Sig Dispense Refill Last Dose pyridoxine, vitamin B6, 50 mg tablet Take 1 tablet by mouth in the morning and 1 tablet in the evening. Unknown proMETHazine 12.5 mg tablet Take 1 tablet by mouth every 6 (six) hours as needed for Nausea and Vomiting (N/V) (Pt is ) for up to 30 doses. 30 tablet 1 Unknown blood sugar diagnostic (FREESTYLE LITE STRIPS) strip Check blood glucose 4x daily 100 Each 3 Unknown Blood-Glucose Meter (FREESTYLE LITE METER) Kit Check blood glucose 4x daily 1 Kit 0 Unknown lancets (FREESTYLE LANCETS) 28 gauge Misc Check glucose 4x daily 100 Each 3 Unknown vitamin w/FA tablet Take 1 tablet by mouth in the morning. 90 tablet 2 Unknown SOCIAL HISTORYTobacco History: Social History Tobacco Use Smoking Status Former Packs/day: 0.00 Years: 5.00 Additional pack years: 0.00 Total pack years: 0.00 Types: Cigarettes Quit date: 05/26/2021 Years since quittin.9 Smokeless Tobacco Never Drug History: Social History Substance and Sexual Activity Drug Use No Alcohol History: Social History Substance and Sexual Activity Alcohol Use No Alcohol/week: 0.0 standard drinks of alcohol FAMILY HISTORYFamily History Problem Relation Age of Onset Diabetes Mother High cholesterol Maternal Grandmother Hypertension Maternal Grandmother Colon Cancer Maternal Grandmother Glaucoma Maternal Grandmother Diabetes Maternal Grandmother Ovarian Cancer Paternal Grandmother Diabetes Paternal Grandmother Colon Cancer Father Diabetes Father Asthma Father Breast Cancer Other paternal aunt Prostate Cancer Paternal Grandfather diagnosed in his 60s Diabetes Paternal Grandfather Anxiety Sister Allergies Sister Asthma Sister Other - see comments Brother adhd Diabetes Maternal Grandfather Other - see comments Maternal Aunt liver disease REVIEW OF SYSTEMSGeneral: negativeSkin: negativeHEENT: negative, - HANeck: negativeHEME: negativeResp: negativeCardio: negativeGI: negative, - nausea, - vomitingGU: negativeEndo: negativeNeuro: negativeBack: negativeMSS: negativePsych: negativeVITAL SIGNSBP: (98-117)/(63-93) Temp: [36.3 ?C (97.3 ?F)-36.7 ?C (98 ?F)] Temp source: Oral (05/16 1328)Pulse: [101-128] Resp: [17-18] SpO2: [96 %-98 %] Height: [152.4 cm (5')] Weight: [81.7 kg (180 lb 1 oz)] BMI (calculated): [35.17] PHYSICAL EXAMINATIONSGeneral: patient alert and in no acute distressHEENT: symmetric, negative for massesLungs: unlabored breathingCardiology: peripheral pulses intact and regularAbdomen: soft, non-tender, non-distended, no liver, spleen or abnormal masses palpated and GravidExtremities: no clubbing, cyanosis, or edemaNeuro: patient moving all extremities, no facial droopGU: SVE: 2/50/-3 REVIEW OF LABORATORY, PATHOLOGY, AND RADIOLOGY DATALab results:Type & Screen Lab Results Component Value Date/Time IABORH O POSITIVE 05/07/2023 07:19 AM IAT Negative 05/07/2023 07:19 AM SerologiesLab Results Component Value Date/Time VZVIGG Negative 11/08/2022 03:20 PM VZVIGG <135 (L) 08/26/2015 02:35 PM RUBG Negative 11/08/2022 03:20 PM RUBG 1.11 08/26/2015 02:35 PM SYPIGG Non-reactive 05/07/2023 07:19 AM HBSAG Negative 11/08/2022 03:20 PM HBSAG 0.05 11/08/2022 03:20 PM ChlamydiaLab Results Component Value Date/Time VCAA Negative 05/07/2023 06:15 AM Group B StrepLab Results Component Value Date/Time CGB Negative 05/04/2023 12:23 AM GTTLab Results Component Value Date/Time GLUF 143 (H) 11/22/2022 08:27 AM RBYN6FC 221 (H) 11/22/2022 09:26 AM GLU3H 232 (H) 11/22/2022 11:26 AM CBCLab Results Component Value Date/Time HGB 10.2 (L) 05/07/2023 07:19 AM HGB 13.0 12/19/2015 01:41 PM HCT 31.5 (L) 05/07/2023 07:19 AM HCT 38.3 12/19/2015 01:41 PM PLT 356 05/07/2023 07:19 AM PLT 351 12/19/2015 01:41 PM Active Hospital Problems Diagnosis Date Noted 33 weeks gestation of 05/16/2023 Multiparity 02/10/2023 Supervision of high-risk 12/22/2022 Pregestational diabetes mellitus, modified White class B 11/23/2022 Failed 3hr gtt Rubella non-immune status, antepartum 11/10/2022 Susceptible to varicella (non-immune), currently 11/10/2022 History of delivery 11/08/2022 At 34 SPROM Hypothyroidism during 08/13/2021 Last on meds in 2021 Resolved Hospital Problems No resolved problems to display. Present on Admission: Multiparity Pregestational diabetes mellitus, modified White class B Rubella non-immune status, antepartum Susceptible to varicella (non-immune), currently Hypothyroidism during History of delivery Supervision of high-risk pregnancyPlacenta Accreta ScreeningPrior ? : NoPrior Uterine Surgery?: NoPlacenta low lying/previa in current ? : NoScreening outcome:A positive screening outcome indicates a history of prior delivery or prior uterine surgery, AND the presence of either a placenta low lying/previa or ultrasound suspicion of PASD in the current . Negative screening.ASSESSMENT AND PLANCandace Helga Martinez is a 28 year old at 33w1d by u(10) who presents for contractions.Contractions- Endorses contractions this am occurring every 5 minutes- Denies vaginal bleeding, leakage of fluid, endorses movement- SVE: /-3- Pt declines tylenol- labor labs sent- Plan: 2 hour recheck at 1845, PO hydrationClass B Diabetes- Dx by failed early 3h (1h 174, 3h 143, 221, 256, 232)- diet controlled- Did not bring logs, reports normal values- 24 hour urine protein: 190 (11/25)- HgA1c 5.7% 03/31/23- FSBG in triage 88 CHTN- Dx based on early elevated BP in - Not on meds- Baseline BP 120-140s/70s-90s- 24h urine protein 190 (11/10/22)- BP in triage: 98/63 Hx of Hypothyroidism- Not currently on meds- TSH 2.17 on (04/14) DPS- Consents signed and matured 03/31/23 Hx of Trichomoniasis- 04/21 dx on wet mount, s/p Flagyl- 05/03 No Trich seen on wet mount Antepartum course reviewed- BDM, sero negative, Rnot immune, VZVnot immune, HPV immune, O positive/IAT negative, GBS negative, Pap 12/22/20 NILM- H/H, plt: 10.2 / 31.2, 325 on 05/04/23- PP control plan: BT- [place] RMCHPFetus- Presentation on admission: cephalic - Fundal posterior placenta - EFW: 2286 g, 63%tile- FHT reactive and reassuring- Normal anatomy scanDispo: Patient feeling contractions, declines tylenol. Cervix is unchanged on 2h recheck. Patient desires a second 2h cervical recheck at 1845. Will check out to night team.D/w Dr. Sandoval Ramos MD ssociated attestation - Fred Peng MD - 05/16/2023 5:42 PM CDT Present and participated in the decision making for the triage assessment and plan. Agree with the resident note. 29917-8Oihhevp and physical ppbhHV2692606Lsqwc Fred Ugarte1.2.840.910699.1.13.104.2.7.2.268819Rpz on PuzetrlqklsbUlsMS6778-95-93R78:42:15Histor y and physical noteTXT1.2.840.757868.1.13.104.2.7.2.65171 9|[id number] for patient slzu62385-4Yoxtcac and physical noteLNUT[address] EkfcJhwhhlvkxMbtvccthuNNIY6425471737UZSEWQ QYTDDZCGUJMDSHSM0272-19-90B11:42:151.2.840 .378217.1.72.3.15|1.2.840.816251.1.13.104. 2.7.2.727879_[id number] [facility] 2023-05-07 04:16:48 A+3ndCxj8VUQkbOUTwZi VhVDgY1ZN0TwXgezBNbpaz IkZKU558C5mqRDtQKImCkN5847-92-66B87:16:48F ormatting of this note is different from the original.TRIAGE/L&D HISTORY & PHYSICALIDENTIFYING DATACandahernesto Martinez is 28 year old, /White, 31w6d, female with WILLIAM 07/03/2023, by Ultrasound. : 1995MRN: [id number] Care Physician: Isabell Sheehan COMPLAINTPTCtxHISTORY OF PRESENT ILLNESSCandahernesto Martinez is a 28 year old at 31w6d who presents for contractions. She began having intermittent contractions every 7 minutes this evening, starting around 0130. She states they are painful, about 6/10. Patient admits vaginal spotting, denies leakage of fluid, admits contractions. Patient denies headache, denies nausea/vomiting, denies RUQ pain, denies visual abnormalities.Endorses normal movement.PAST OBSTETRIC HISTORYOB History Para Term AB Living 4 2 1 1 1 2 SAB IAB Ectopic Multiple Live Births 1 0 0 0 2 # Outcome Date GA Lbr Alexis/2nd Weight Sex Delivery Anes PTL Lv 4 Current 3 02/17/22 34w2d 2370 g M NORMAL SPONT EPI JONO Complications: Other (See Comments) 2 SAB 06/07/21 6w6d 1 Term 03/04/16 38w6d 2778 g F VAGINAL EPI JONO PAST MEDICAL HISTORYProblem list: Patient Active Problem List Diagnosis Date Noted Obesity (BMI 30-39.9) 05/04/2023 31 weeks gestation of 05/04/2023 Trichomonal vaginitis during in third trimester 04/30/2023 uterine contractions in second trimester, antepartum 04/21/2023 Tubal ligation status 04/01/2023 Multiparity 02/10/2023 Supervision of high-risk 12/22/2022 Pregestational diabetes mellitus, modified White class B 11/23/2022 Susceptible to varicella (non-immune), currently 11/10/2022 Rubella non-immune status, antepartum 11/10/2022 History of miscarriage 11/08/2022 History of delivery 11/08/2022 Obesity in 08/13/2021 Hypothyroidism during 08/13/2021 History of liver disease 08/13/2021 Vitamin D deficiency 11/12/2020 Mixed hyperlipidemia Fatty liver Migraines Hypertension in Chronic allergic rhinitis Operations: Past Surgical History: Procedure Laterality Date APPENDECTOMY @ 16 laparoscopic Past Medical History: Diagnosis Date Anemia not currently Asthma As child Chronic allergic rhinitis Depression with anxiety 11/03/2020 Fatty liver Gestational diabetes mellitus, antepartum 01/15/2016 History of gestational diabetes 06/02/2017 HTN (hypertension) 2020 not on meds Migraines Mixed hyperlipidemia Trichomonal vaginitis during in third trimester 04/30/2023 Type 2 diabetes mellitus Vitamin D deficiency 11/12/2020 CURRENT HEALTH STATUSMedications: Current Facility-Administered Medications Medication Dose Route Frequency Last Rate Last Admin acetaminophen (TYLENOL) tablet 1,000 mg 1,000 mg Oral ONCE lactated ringers IV infusion 500 mL 500 mL Intravenous ONCE Allergies and drug reactions: Patient has no known allergies.HOME MEDICATIONSMedications Prior to Admission Medication Sig Dispense Refill Last Dose pyridoxine, vitamin B6, 50 mg tablet Take 1 tablet by mouth in the morning and 1 tablet in the evening. Unknown proMETHazine 12.5 mg tablet Take 1 tablet by mouth every 6 (six) hours as needed for Nausea and Vomiting (N/V) (Pt is ) for up to 30 doses. 30 tablet 1 Unknown blood sugar diagnostic (FREESTYLE LITE STRIPS) strip Check blood glucose 4x daily 100 Each 3 Unknown Blood-Glucose Meter (FREESTYLE LITE METER) Kit Check blood glucose 4x daily 1 Kit 0 Unknown lancets (FREESTYLE LANCETS) 28 gauge Misc Check glucose 4x daily 100 Each 3 Unknown vitamin w/FA tablet Take 1 tablet by mouth in the morning. 90 tablet 2 Unknown SOCIAL HISTORYTobacco History: Social History Tobacco Use Smoking Status Former Packs/day: 0.00 Years: 5.00 Additional pack years: 0.00 Total pack years: 0.00 Types: Cigarettes Quit date: 05/26/2021 Years since quittin.9 Smokeless Tobacco Never Drug History: Social History Substance and Sexual Activity Drug Use No Alcohol History: Social History Substance and Sexual Activity Alcohol Use No Alcohol/week: 0.0 standard drinks of alcohol FAMILY HISTORYFamily History Problem Relation Age of Onset Diabetes Mother High cholesterol Maternal Grandmother Hypertension Maternal Grandmother Colon Cancer Maternal Grandmother Glaucoma Maternal Grandmother Diabetes Maternal Grandmother Ovarian Cancer Paternal Grandmother Diabetes Paternal Grandmother Colon Cancer Father Diabetes Father Asthma Father Breast Cancer Other paternal aunt Prostate Cancer Paternal Grandfather diagnosed in his 60s Diabetes Paternal Grandfather Anxiety Sister Allergies Sister Asthma Sister Other - see comments Brother adhd Diabetes Maternal Grandfather Other - see comments Maternal Aunt liver disease REVIEW OF SYSTEMSGeneral: negative, (-) feverSkin: negativeHEENT: negative, - headache, - change in visionNeck: negativeHEME: negativeResp: negative, (-) shortness of breathCardio: negative, (-) chest painGI: negative, (-) nausea, (-) vomiting, (-) diarrheaGU: negative, (-) dysuriaEndo: negative, (-) diabetesNeuro: negativeBack: negativeMSS: negativePsych: negativeVITAL SIGNSBP: (114)/(81) Temp: [36.7 ?C (98 ?F)] Temp source: Oral (05/07 0431)Pulse: [85] Resp: [17] SpO2: [99 %] Height: --Weight: --BMI (calculated): --PHYSICAL EXAMINATIONSGeneral: patient alert and in no acute distressHEENT: symmetric, negative for massesLungs: unlabored breathingCardiology: peripheral pulses intact and regularAbdomen: soft, non-tender, non-distended, no liver, spleen or abnormal masses palpated and GravidExtremities: no clubbing, cyanosis, or edemaNeuro: patient moving all extremities, no facial droopGU: cervix appears 1cm dilated. Minimal brown discharge. SVE: REVIEW OF LABORATORY, PATHOLOGY, AND RADIOLOGY DATALab results:Type & Screen Lab Results Component Value Date/Time IABORH O Positive 05/04/2023 03:18 AM IAT Negative 05/04/2023 03:18 AM SerologiesLab Results Component Value Date/Time VZVIGG Negative 11/08/2022 03:20 PM VZVIGG <135 (L) 08/26/2015 02:35 PM RUBG Negative 11/08/2022 03:20 PM RUBG 1.11 08/26/2015 02:35 PM SYPIGG Non-reactive 05/04/2023 03:18 AM HBSAG Negative 11/08/2022 03:20 PM HBSAG 0.05 11/08/2022 03:20 PM ChlamydiaLab Results Component Value Date/Time VCAA Negative 05/04/2023 03:18 AM Group B StrepLab Results Component Value Date/Time CGB Negative 05/04/2023 12:23 AM GTTLab Results Component Value Date/Time GLUF 143 (H) 11/22/2022 08:27 AM RLMJ9GD 221 (H) 11/22/2022 09:26 AM GLU3H 232 (H) 11/22/2022 11:26 AM CBCLab Results Component Value Date/Time HGB 10.2 (L) 05/04/2023 03:18 AM HGB 13.0 12/19/2015 01:41 PM HCT 31.2 (L) 05/04/2023 03:18 AM HCT 38.3 12/19/2015 01:41 PM PLT 325 05/04/2023 03:18 AM PLT 351 12/19/2015 01:41 PM There are no hospital problems to display for this patient.Present on Admission:NonePlacenta Accreta ScreeningPrior ? : NoPrior Uterine Surgery?: NoPlacenta low lying/previa in current ? : NoScreening outcome:A positive screening outcome indicates a history of prior delivery or prior uterine surgery, AND the presence of either a placenta low lying/previa or ultrasound suspicion of PASD in the current . Negative screening.ASSESSMENT AND PLANCandace Helga Martinez is a 28 year old at 31w6d by u(10) who presents for contractions. contractions- Reports q7min contractions, 02/12 pain, coming and going, tender all over abdomen- SVE 3 - [place] q8min contracitons- Hx of delivery, 34w2d in 2021- s/p BMZ, benefit 05/05/23- Wet mount negative- GC/CT, UA/Ucx pending- GBS negative 05/04/23- IV bolus, 1g tylenol- 2h recheck: 3, pain not relieved- Plan: Will admit for labor. S/p BMZ series. Will give magnesium for neuro-protection. Indomethacin for tocolysis. Will consult Neonatology. Class B Diabetes- Dx by failed early 3h (1h 174, 3h 143, 221, 256, 232)- Has not brought logs in to clinic- Declined taking medication outpatient; will initiate SSI during labor with FSBG q4h, then q1h in active labor- FSBG on admission 135- Baseline EKG: pending- 24 hour urine protein: 190 (11/25)- HgA1c 5.7% 03/31/23CHTN- Dx based on early elevated BP in - no meds- Baseline BP 120-140s/70s-90s- 24h urine protein 190 (11/10/22)Hypothyroidism- No on meds- TSH 2.17 on (04/14)DPS- Consents signed and matured 03/31/23- Counseled and desires, see separate noteTrichomoniasis- 04/21 dx, was given Flagyl- 05/03 No Trich seen on wet mountAntepartum course reviewed- BDM, sero negative, Rnot immune, VZVnot immune, HPV immune, O positive/IAT negative, GBS negative, Pap 12/22/20 NILM- H/H, plt: 10.2 / 31.2, 325 on 05/04/23- PP control plan: BTL- [place] RMCHPFetus- Presentation on admission: cephalic - posterior placenta - EFW: 1926 g, 50%tile- FHT reactive and reassuring- Normal anatomy scanDispo: Admit to L&D for labor. Will give magnesium for neuro-protection. Indomethacin for tocolysis. Will consult Neonatology.D/w Dr. Marshall. Louie Jacobs MD ssociated attestation - Cy Marshall MD - 05/07/2023 9:57 AM CDT Attending Attestation:Patient discussed with Dr. Jacobs. Agree with assessment and plan as noted above. Personally edited for completion and accuracy.S: Maribell Martinez is a 28 year old at 31w6d. PTCx. Previously received BMZ steroids 05/03-. Class B DM. cHTN. O: BP 111/65 | Pulse 77 | Temp 36.7 ?C (98.1 ?F) (Axillary) | Resp 17 | LMP 09/17/2022 | SpO2 96% SVE: 1 cm to 3cm FHR: category one Bow[place]: q2-5minUS: 50%, cephalicA/P:28 year old at 31w6d PTL- 1m to 3cm dilated- previously received BMZ steroids- Magnesium for neuroprotection- Indocin for tocolysisClass B DM- not a candidate for repeat BMZ- SSI as needed.cHTN- monitor BPBengilbert Marshall [facility] Hospitalternal- Medicine/OBGYNPGY-239:53 WL62699-4Wolddyq and physical [id number], Benjamin1.2.840.045606.1.13.104.2.7.2.8369 92NtdqBbuorqofNC9060-36-36R13:57:29History and physical noteTXT1.2.840.000978.1.13.104.2.7.2.10058 9|[id number] for patient bkul53467-9Kelkprz and physical noteLNUTMBUT - [address] Pv[id number] HVVQLHRIOUTWYRHP5938-87-06T12:57:291.2.840 .316051.1.72.3.15|1.2.840.660928.1.13.104. 2.7.2.727879_[id number] [facility] 2023-05-04 06:13:17 QV7956SUDLc6khQ+z8bm iGZA98ydLGYPl06dLq+68j Xp8ts3z5ixy7oRTT1m+u8S1916-97-64M05:13:17F ormatting of this note is different from the original.TRIAGE HISTORY & PHYSICALIDENTIFYING DATACandahernesto Martinez is 28 year old, /White, 31w3d, female with WILLIAM 07/03/2023, by Ultrasound. : 1995MRN: [id number] Care Physician: Isabell Sheehan COMPLAINTVaginal pressureHISTORY OF PRESENT ILLNESSCandahernesto Martinez is a 28 year old female, presented with vaginal pressure.+FM. No VB, LOF, or CTX. No pre-eclampsia sx or other complaints. CARE:OB: RMCHPPregnancy complicated by hx of pTD at 34 weeks 02/2022 post PPROM- Unspecific Pregestational diabetes- diet controlled- Preexisting HTN- no meds- Trichomonas Vaginalis- treated last week, no DANIELLE yetPAST OBSTETRIC HISTORYOB History Para Term AB Living 4 2 1 1 1 2 SAB IAB Ectopic Multiple Live Births 1 0 0 0 2 # Outcome Date GA Lbr Alexis/2nd Weight Sex Delivery Anes PTL Lv 4 Current 3 02/17/22 34w2d 2370 g M NORMAL SPONT EPI JONO Complications: Other (See Comments) 2 SAB 06/07/21 6w6d 1 Term 03/04/16 38w6d 2778 g F VAGINAL EPI JONO PAST MEDICAL HISTORYProblem list: Patient Active Problem List Diagnosis Date Noted Obesity (BMI 30-39.9) 05/04/2023 31 weeks gestation of 05/04/2023 Trichomonal vaginitis during in third trimester 04/30/2023 uterine contractions in second trimester, antepartum 04/21/2023 Tubal ligation status 04/01/2023 Multiparity 02/10/2023 Supervision of high-risk 12/22/2022 Pregestational diabetes mellitus, modified White class B 11/23/2022 Susceptible to varicella (non-immune), currently 11/10/2022 Rubella non-immune status, antepartum 11/10/2022 History of miscarriage 11/08/2022 History of delivery 11/08/2022 Obesity in 08/13/2021 Hypothyroidism during 08/13/2021 History of liver disease 08/13/2021 Vitamin D deficiency 11/12/2020 Mixed hyperlipidemia Fatty liver Migraines Hypertension in Chronic allergic rhinitis Operations: Past Surgical History: Procedure Laterality Date APPENDECTOMY @ 16 laparoscopic Past Medical History: Diagnosis Date Anemia not currently Asthma As child Chronic allergic rhinitis Depression with anxiety 11/03/2020 Fatty liver Gestational diabetes mellitus, antepartum 01/15/2016 History of gestational diabetes 06/02/2017 HTN (hypertension) 2020 not on meds Migraines Mixed hyperlipidemia Trichomonal vaginitis during in third trimester 04/30/2023 Type 2 diabetes mellitus Vitamin D deficiency 11/12/2020 CURRENT HEALTH STATUSMedications: Current Facility-Administered Medications Medication Dose Route Frequency Last Rate Last Admin betamethasone acet,sod phos (CELESTONE SOLUSPAN) 6 mg/mL injection 12 mg 12 mg Intramuscular Q24H 12 mg at 05/04/23 0313 indomethacin (INDOCIN) capsule 25 mg 25 mg Oral Q4H Sliding Scale Insulin-Regular Subcutaneous AC+HS NaCl 0.9% (NS) IV infusion 1,000 mL 1,000 mL IV Infusion CONTINUOUS 125 mL/hr at 05/04/23 0658 Rate Verify at 05/04/23 0658 Allergies and drug reactions: Patient has no known allergies.HOME MEDICATIONSMedications Prior to Admission Medication Sig Dispense Refill Last Dose pyridoxine, vitamin B6, 50 mg tablet Take 1 tablet by mouth in the morning and 1 tablet in the evening. Unknown proMETHazine 12.5 mg tablet Take 1 tablet by mouth every 6 (six) hours as needed for Nausea and Vomiting (N/V) (Pt is ) for up to 30 doses. 30 tablet 1 Unknown blood sugar diagnostic (FREESTYLE LITE STRIPS) strip Check blood glucose 4x daily 100 Each 3 Unknown Blood-Glucose Meter (FREESTYLE LITE METER) Kit Check blood glucose 4x daily 1 Kit 0 Unknown lancets (FREESTYLE LANCETS) 28 gauge Misc Check glucose 4x daily 100 Each 3 Unknown vitamin w/FA tablet Take 1 tablet by mouth in the morning. 90 tablet 2 Unknown SOCIAL HISTORYTobacco History: Social History Tobacco Use Smoking Status Former Packs/day: 0.00 Years: 5.00 Additional pack years: 0.00 Total pack years: 0.00 Types: Cigarettes Quit date: 05/26/2021 Years since quittin.9 Smokeless Tobacco Never Drug History: Social History Substance and Sexual Activity Drug Use No Alcohol History: Social History Substance and Sexual Activity Alcohol Use No Alcohol/week: 0.0 standard drinks of alcohol FAMILY HISTORYFamily History Problem Relation Age of Onset Diabetes Mother High cholesterol Maternal Grandmother Hypertension Maternal Grandmother Colon Cancer Maternal Grandmother Glaucoma Maternal Grandmother Diabetes Maternal Grandmother Ovarian Cancer Paternal Grandmother Diabetes Paternal Grandmother Colon Cancer Father Diabetes Father Asthma Father Breast Cancer Other paternal aunt Prostate Cancer Paternal Grandfather diagnosed in his 60s Diabetes Paternal Grandfather Anxiety Sister Allergies Sister Asthma Sister Other - see comments Brother adhd Diabetes Maternal Grandfather Other - see comments Maternal Aunt liver disease REVIEW OF SYSTEMSGeneral: negativeConstitutional: negativeEyes: negativeENT/Mouth: negativeCardiovascular: negativeRespiratory: negativeGastrointestinal:negativeGenitouri nary: As aboveMusculoskeletal: negativeSkin/breast: negativeNeurological: negativePsychiatric: negativeEndocrine: negativeHemat/Lymph: negativeAllergic/Immuno:noneVITAL SIGNSBP: (102-130)/(66-87) Temp: [36.1 ?C (97 ?F)-36.8 ?C (98.2 ?F)] Temp source: Temporal Artery (05/04 0333)Pulse: [94-118] Resp: [16-18] SpO2: [96 %-100 %] Height: [154.9 cm (5' 1")] Weight: [82.6 kg (182 lb)-82.9 kg (182 lb 12.8 oz)] BMI (calculated): [0-34.39] PHYSICAL EXAMINATIONSGen: alert and oriented, well appearing, no distressCV: RRRResp: normal work of breathingAbd: gravid, soft, NTTPExt: no calf tenderness or edemaGU: Deferred- see RN examinationContractions None- SVE: Dilation: Effacement (%): 0 % / Station: Floating-Bow[place]: Ctx q 6-10mins REVIEW OF LABORATORY, PATHOLOGY, AND RADIOLOGY DATALab results:Type & Screen HIV Hep B Syphilis Chlamydia ABO & RH Date Value Ref Range Status 05/04/2023 O Positive Final No results found for: "HIVMULTIPLEX" No components found for: "HBSHBSAG" Syphilis IgG/IgM Date Value Ref Range Status 04/14/2023 Non-reactive Non-reactive Final C. trachomatis Nucleic Acid Date Value Ref Range Status 04/20/2023 Negative Negative Final IAT Date Value Ref Range Status 05/04/2023 Negative Final Varicella Rubella Glucose Group B Strep CBC VZV IgG antibody Date Value Ref Range Status 11/08/2022 Negative Negative Final Rubella screen IgG Date Value Ref Range Status 11/08/2022 Negative Negative Final GLUC 1 HR Date Value Ref Range Status 11/22/2022 221 (H) 120 - 170 mg/dL Final No results found for: "CGBS" HGB Date Value Ref Range Status 05/04/2023 10.2 (L) 11.6 - 15.0 g/dL Final HCT Date Value Ref Range Status 05/04/2023 31.2 (L) 35.7 - 45.2 % Final PLT Date Value Ref Range Status 05/04/2023 325 166 - 358 10*3/?L Final Placenta Accreta ScreeningPrior ? : NoPrior Uterine Surgery?: NoPlacenta low lying/previa in current ? : NoScreening outcome:A positive screening outcome indicates a history of prior delivery or prior uterine surgery, AND the presence of either a placenta low lying/previa or ultrasound suspicion of PASD in the current . Negative screening. Active Hospital Problems Diagnosis Date Noted Obesity (BMI 30-39.9) 05/04/2023 31 weeks gestation of 05/04/2023 uterine contractions in second trimester, antepartum 04/21/2023 Pregestational diabetes mellitus, modified White class B 11/23/2022 Failed 3hr gtt Hypertension in On meds with last Resolved Hospital Problems No resolved problems to display. Present on Admission: Obesity (BMI 30-39.9) uterine contractions in second trimester, antepartum 31 weeks gestation of Hypertension in Pregestational diabetes mellitus, modified White class BASSESSMENT AND PLANCandace Helga Martinez is a 28 year old at 31w3d who presents with .vaginal pressure and found to be having contractionsPreterm contractions- Contractions q 2-mins on admission and spaced out to g 2-6 mins after IVF bolus and terbutaline x 2She remained 1cm/thick x 3 by RN VE - Due to her prior hx of PTD and also cervical change from closed to 1cm since her last hospital encounter on 04/23 - will start Indomethacin and BMZx series for FLMPregestational DM( diet controlled)- BS on admission was 127- Patient has been NPO since admission- may have diabetic diet- Will start sliding scale due to giving steroidsPreexisting HTN- BP normotensive( 102-130/60-80) Fetus- [place] [address]-0Lqvvwrh and physical gcigMR9118-89-00L17:18:21History and physical noteTXT1.2.840.466989.1.13.104.2.7.2.44871 9|[id number] for patient aozr45686-7Gwvajvs and physical noteLNUTGALLUP INDIAN MEDICAL [facility] - [address]GzycMtriftfaqLnwdsvtsqHZPZ3719517337DQKSTA HUQBLKFJKBVXVKUL5988-28-18B92:18:211.2.840 .283068.1.72.3.15|1.2.840.817572.1.13.104. 2.7.2.727879_[id number] [facility] Notes Date/Time Note Provider Source 2023-05-09 10:12:23 YWPNXdANEkqgZR69gIm0 ChUqU90/yM lqgwiDN5QbQayn4H8RzatxvaX+3NDT GMym9294-28-26O85:12:23Formatt ing of this note might be different from the original.RN at bedside, pulse of readjusted, pt. Changed position in bed 93681-3Ltwhn FnbeNH1116-05-65Z62:12:54Nurse NoteTXT1.2.840.754775.1.13.104 .2.7.2.205759|[id number] lable for patient fdvf63055-3InmdGTSJOOMJSR[address] StreetTXTX[address] 442531FGPBUFIGAJJHDIIIPOTNGK15 28-05-04T10:12:541.2.840.86338 0.1.72.3.15|1.2.840.152797.1.1 3.104.2.7.2.727879_[id number] [facility] 2023-05-08 22:22:34 lz/s80EocKD92qClL9Q5 eFFbVl3Ras mRnlSpaoYisjpjJUxDs+YiywWLDwW9 zb0x6134-38-60F05:22:34Formatt ing of this note might be different from the original.Problem: PainGoal: Control of pain at or below patient's documented comfort goalOutcome: Progressing as expectedGoal: Reduction in pain sensationOutcome: Progressing as expected Problem: Intrapartum process (including labor pain)Goal: Absence of or reduction of complications of laborOutcome: Progressing as expectedGoal: Able to cope with painOutcome: Progressing as expectedGoal: Adequate to move to next level of careOutcome: Progressing as expectedGoal: Reduction in pain sensationOutcome: Progressing as expected 23451-2Xetd of care mefgLB5783-03-36G33:22:39Plan of care noteTXT1.2.840.434345.1.13.104 .2.7.2.007482|[id number] lable for patient mpzl03723-6EtwwPD508241982Gobf n Sadleir [address] StreetTXTX[address] 123054WVOZIVKBVRBXVMWJDRQTJQ61 28-05-03T22:22:391.2.840.19861 0.1.72.3.15|1.2.840.248979.1.1 3.104.2.7.2.727879_[id number] Velma Mason RN [facility] 2023-05-08 08:43:30 60bvKfh7Iyn6wjE8wkAF vtlgYUikX/ U58rGJI5EnaLyfHiI3VVlXa9RllkVt B7WZ1204-10-99Q80:43:30Formatt ing of this note might be different from the original.Problem: PainGoal: Control of pain at or below patient's documented comfort goalOutcome: Progressing as expectedGoal: Reduction in pain sensationOutcome: Progressing as expected Problem: Intrapartum process (including labor pain)Goal: Absence of or reduction of complications of laborOutcome: Progressing as expectedGoal: Able to cope with painOutcome: Progressing as expectedGoal: Adequate to move to next level of careOutcome: Progressing as expectedGoal: Reduction in pain sensationOutcome: Progressing as expected Problem: Intrapartum process (including labor pain)Goal: Absence of or reduction of complications of laborOutcome: Progressing as expectedGoal: Able to cope with painOutcome: Progressing as expectedGoal: Adequate to move to next level of careOutcome: Progressing as expectedGoal: Reduction in pain sensationOutcome: Progressing as expected 95598-9Znew of care ebbvAM3676-10-16Q60:43:41Plan of care noteTXT1.2.840.528503.1.13.104 .2.7.2.524075|[id number] lable for patient vpgg43135-2GgszGL791789301KdDe caden Andre RN[address] GgdrKqnzkefyeQpgfjquncYGYO2631 [id number]73 28-05-03T08:43:411.2.840.82615 0.1.72.3.15|1.2.840.885280.1.1 3.104.2.7.2.727879_[id number] Kassidy Andre RN [facility] 2023-05-07 19:35:32 QqVlINAky0rPgUd0PGAt mJ4sipxpZt ig4tGFgolKH1OxdbXoWK3aFaIcaUWK pt3D0816-02-19B34:35:32Formatt ing of this note might be different from the original.Problem: PainGoal: Control of pain at or below patient's documented comfort goalOutcome: Progressing as expectedGoal: Reduction in pain sensationOutcome: Progressing as expected Problem: Intrapartum process (including labor pain)Goal: Absence of or reduction of complications of laborOutcome: Progressing as expectedGoal: Able to cope with painOutcome: Progressing as expectedGoal: Adequate to move to next level of careOutcome: Progressing as expectedGoal: Reduction in pain sensationOutcome: Progressing as expected 00557-0Gfiz of care kvrnDT0226-13-12S41:35:35Plan of care noteTXT1.2.840.597696.1.13.104 .2.7.2.207295|[id number] lable for patient [id number] arnaldo Tinoco RN[address] StreetTXTX[address] 757301EEYZKSIEPJKBJMKBMMCYLG27 28-05-02T19:35:351.2.840.13752 0.1.72.3.15|1.2.840.026541.1.1 3.104.2.7.2.727879_[id number] Theresa Tinoco RN [facility] 2023-05-07 09:58:13 aazAg/p2QPD4JpJ+CaWI NwgQPE+pLH TqaZrjIeHwPdkWz4osK9B0WV24RGWp o6Me3892-31-26V89:58:13Formatt ing of this note might be different from the original.Problem: PainGoal: Control of pain at or below patient's documented comfort goalOutcome: Progressing as expectedGoal: Reduction in pain sensationOutcome: Progressing as expected 48459-7Nqve of care sfugQC8671-76-97A12:58:17Plan of care noteTXT1.2.840.856873.1.13.104 .2.7.2.600214|[id number] lable for patient augg89734-8VsncOD481952424Udaa B Cantu RN[address] XrykXlevwykhzHjkzdpvhbIJLY0372 032086BXJTGYPOBDPXYULKMHNFPO65 28-05-02T09:58:171.2.840.76192 0.1.72.3.15|1.2.840.208671.1.1 3.104.2.7.2.727879_[id number] Lily Osuna RN [facility] 2023-05-03 17:43:11 Hf/ZlYaCYS8jrEKWAJdN Q6g/4rmsK+ AABwnQxB7zQ7WNbY5K27RX5UxS/SqC zZEh3844-45-24V72:43:11Formatt ing of this note might be different from the original.; 31w2d gestation; c/o vaginal pressure; denies any vaginal bleeding or loss of fluid; reports normal movement. Report called to JOSEPH Peguero 15487-0Zakrptcrz department Triage kmsgTF8349-04-39F95:46:30[facility] Triage noteTXT1.2.840.150748.1.13.104 .2.7.2.273294|[id number] lable for patient drwg65229-6Rsgzobyik department [id number] John Stephens RN[address]vdGal[address]onGalvestonTXTX[address] [id number] 27-04-297:46:301.2.840.86861 0.1.72.3.15|1.2.840.666516.1.1 3.104.2.7.2.727879_[id number] Marguerite Stephens RN [facility] 2023-04-20 14:38:00 fMvy20d/kObViz2ISLdR 4EG0XUv3Kn AB3wLR7Ig2QEaBGMEB4aie9v14kCJo FBl64295-28-27O79:38:00Formatt ing of this note might be different from the original.Nurse Report Report given to JOSEPH Causey. Chief complaint, assessment findings, and orders reviewed. Plan of care discussed with both nurses. Patient/family members [place] [address]-6Bhigvkvvm department KkkqCT0493-11-71H74:13:46Emerg [facility] department NoteTXT1.2.840.671469.1.13.104 .2.7.2.932077|[id number] lable for patient bhkb50872-7JiidJSKLTEEZJJ[address]GalvestonGalvestonTXTX[address]495TBLGIMTWSIDWSKFYMVMAKH59 27-04-165:13:461.2.840.79307 0.1.72.3.15|1.2.840.457328.1.1 3.104.2.7.2.727879_[id number] [facility] 2023-04-20 14:34:14 fohbYmJlZyM7CUWxUNnB tcBA05PbTm YyPVO5vSOILcqjknI44tV2bhxUJ+IR lfGZ3028-98-65Y94:34:14Formatt ing of this note might be different from the original.CC: patient presents to the ER with complaints of upper back pain and a sharp right sided abdominal pain that began Tuesday. Patient states she took her nausea medication without relief. Patient is 29 weeks gestation with WILLIAM 07/03, has a history of pre-term labor and gestation diabetes and has bene classified as high risk .K1U8VAWw: see historyAwake, alert, oriented, resp reg unlabored, skin warm and dry, color appropriate for race, moves all ext without difficulty, amb without assistance. Appears in no distress. 15764-1Xnfrqsrrb department Triage zlriFF9996-87-66K13:36:39[facility] Triage noteTXT1.2.840.855558.1.13.104 .2.7.2.583188|[id number] lable for patient vxld70199-2Kugvoxglf department PsxkHX115310977Zpjrunsu M Rivera RN[address] RsghOitufqkdnHmhoecfzvNXXI2321 191891FKGMLRAAVULJMDYMMFCMMH01 27-04-16T14:36:391.2.840.54941 0.1.72.3.15|1.2.840.267506.1.1 3.104.2.7.2.727879_[id number] Priti Shelton RN [facility] 2023-04-20 12:58:34 KkBwaMdnB7LEEuYpGFms 1w0eOyjpfm VKxqBAedt1/gASzXbJNJWn0KfUVmn5 lTy43158-77-41N52:58:34Formatt ing of this note might be different from the original.Pt having vomiting, diarrhea, and decreased urine output since 04/17/23. Pt reports upper back pain, between her shoulder blades 04/14. Pt denies any fever, LOF, vaginal bleeding, contractions, and DFM. Pt advised to follow up with emergency room for evaluation. Strict er warnings given. Pt verbalized understanding. Kathrine Major RN 04/20/23 12:59 PM 79732-9Fysmawrfq encounter GpizGP7430-40-67V54:04:39Telep floyd encounter NoteTXT1.2.840.612327.1.13.104 .2.7.2.122649|[id number] lable for patient vnhv08968-5QxwvDELJTIOVWJ[address]TXTX[address] 590930PXMWYDMUKUAWIRJJKPRCDI29 27-04-163:04:391.2.840.17586 0.1.72.3.15|1.2.840.032106.1.1 3.104.2.7.2.727879_[id number] [facility] 2023-04-20 12:13:06 RQFLrNRVezJvSo1o0k2l k8qPK4U0xe 2uhmGmwvamzrRc4RTHMnALE9G7XLp3 4A3F3064-26-23Q28:13:06Formatt ing of this note might be different from the original.Maribell Martinez is a 28 year old femalePt states she is unable to keep anything down since Tuesday. Requesting advise.Please call [phone] (home) 46853-9Gybcaluyf encounter BtzwBA9459-94-27E69:14:25Telep floyd encounter NoteTXT1.2.840.030860.1.13.104 .2.7.2.855112|[id number] lable for patient unsy48393-5GubkSA750240832Hurs Bazan PasUT[address]TX[address] 515640KCFDOHCQRZWMFGTONPCRNI94 27-04-162:14:251.2.840.23702 0.1.72.3.15|1.2.840.535406.1.1 3.104.2.7.2.727879_[id number] Nicole Mackenzie [facility]
--- NOTE | 2023-09-19 15:15 | ER ---
Nurse's Notes [facility] Name: Capri Martinez Age: 28 yrs Sex: Female : 1995 Arrival Date: 09/19/2023 Time: 13:30 Bed 20 Private MD: Diagnosis: Cutaneous abscess of right labia majora Presentation: 09/19 14:01 Chief complaint: Patient states: abscess to right labia since Tuesday. Coronavirus aa5 screen: At this time, the client does not indicate any symptoms associated with coronavirus-19. Ebola Screen: Patient denies travel to an Ebola-affected area in the 21 days before illness onset. Initial Sepsis Screen: Does the patient meet any 2 criteria? No. Patient's initial sepsis screen is negative. Does the patient have a suspected source of infection? No. Patient's initial sepsis screen is negative. Risk Assessment: Do you want to hurt yourself or someone else? Patient reports no desire to harm self or others. Onset of symptoms was September 2023. 14:01 Method Of Arrival: Ambulatory aa5 14:01 Acuity: AYAKA 3 aa5 Triage Assessment: 14:20 General: Appears in no apparent distress. comfortable, Behavior is calm, cooperative. cm10 Pain: Complains of pain in right labia majora. EENT: No deficits noted. No signs and/or symptoms were reported regarding the EENT system. Neuro: No deficits noted. Level of Consciousness is awake, alert, Oriented to person, place, time, situation. Cardiovascular: No deficits noted. Patient's skin is warm and dry. Respiratory: No deficits noted. Airway is patent Respiratory effort is even, unlabored, Respiratory pattern is regular, symmetrical. GI: No deficits noted. No signs and/or symptoms were reported involving the gastrointestinal system. : No deficits noted. No signs and/or symptoms were reported regarding the genitourinary system. Derm: No deficits noted. No signs and/or symptoms reported regarding the dermatologic system. Abscess located on right labia majora. Musculoskeletal: No deficits noted. No signs and/or symptoms reported regarding the musculoskeletal system. Range of motion: intact in all extremities. Historical: - Allergies: 14: NKA; aa5 - PMHx: 14: fatty liver; Hypertensive disorder; aa5 - PSHx: 14:01 Appendectomy; aa5 - Immunization history:: Adult Immunizations unknown. - Social history:: Smoking status: Patient denies any tobacco usage or history of. - Family history:: not pertinent. Screenin:20 [facility] ED Fall Risk Assessment (Adult) History of falling in the last 3 months, cm10 including since admission No falls in past 3 months (0 pts) Confusion or Disorientation No (0 pts) Intoxicated or Sedated No (0 pts) Impaired Gait No (0 pts) Mobility Assist Device Used No (0 pt) Altered Elimination No (0 pt) Score/Fall Risk Level 0 - 2 = Low Risk Oriented to surroundings, Maintained a safe environment, Hourly rounding (assess needs \T\ fall precautionary measures) done. Abuse screen: Denies threats or abuse. Denies injuries from another. Nutritional screening: No deficits noted. Tuberculosis screening: No symptoms or risk factors identified. Vital Signs: 14:01 BP 122 / 85; Pulse 85; Resp 16 S; Temp 98.5(O); Pulse Ox 100% on R/A; Weight 81.65 kg aa5 (R); Height 5 ft. 1 in. (R); 14:01 Body Mass Index 34.01 (81.65 kg, 154.94 cm) aa5 ED Course: 13:35 Patient arrived in ED. mg5 13:35 Haider Delacruz MD is Attending Physician. rt 14:01 Arm band placed on. aa5 14:02 Triage completed. aa5 14:15 Assist provider with pelvic exam: Performed by Haider Delacruz MD. cm10 14:20 Patient has correct armband on for positive identification. Placed in gown. Bed in low cm10 position. Call light in reach. Side rails up X2. Provided Education on: ER process and procedures. . 14:20 Patient did not have IV access during this emergency room visit. cm10 15:11 Assist provider with I \T\ D: of an abscess on perineal Set up I\T\D tray. Performed by cm Kulwinder Delacruz MD Dressing with 4X4s, Patient tolerated well. Administered Medications: 14:17 Drug: [place] PO 10 mg-325 mg 1 tabs PO once Route: PO; cm10 15:00 Follow up: Response: No adverse reaction cm10 15:00 Drug: Lidocaine Infiltration (1 %) 5 ml 5 ml Infiltration once; to bedside {Note: Given cm10 by provider..} Volume: 5 ml; Route: Infiltration; Medication: 14:20 VIS not applicable for this client. cm10 Outcome: 15:15 Discharge ordered by . rt 15:32 Discharged to home ambulatory, cm10 15:32 Condition: good 15:32 Discharge instructions given to patient, Instructed on discharge instructions, follow up and referral plans. medication usage, wound care, Demonstrated understanding of instructions, follow-up care, medications, wound care, Prescriptions given X 1, 15:33 Patient left the ED. cm10 Signatures: Amada Bar, RN RN aa5 Haider Delacruz MD MD rt Rafia Boswell RN RN cm10 July [place] mg5
--- NOTE | 2023-09-19 15:15 | EDPHYS ---
Physician Documentation [facility] Name: Capri Martinez Age: 28 yrs Sex: Female : 1995 Arrival Date: 09/19/2023 Time: 13:30 Bed 20 Private MD: ED Physician Haider Delacruz HPI: 09/19 16:46 This 28 yrs old Female presents to ER via Ambulatory with complaints of rt Abscess. 16:46 Patient presents to the ED with abscess to the right labia majora, it has been present rt for the past 4 days. It has been growing. Denies other acute complaints at this time, symptoms are moderate severity, aching nature, nonradiating, no other aggravating relieving factors.. Historical: - Allergies: 14:01 NKA; aa5 - PMHx: 14:01 fatty liver; Hypertensive disorder; aa5 - PSHx: 14:01 Appendectomy; aa5 - Immunization history:: Adult Immunizations unknown. - Social history:: Smoking status: Patient denies any tobacco usage or history of. - Family history:: not pertinent. ROS: 16:46 Constitutional: Negative for fever, chills, and weight loss, Cardiovascular: Negative rt for chest pain, palpitations, and edema, Respiratory: Negative for shortness of breath, cough, wheezing, and pleuritic chest pain, Abdomen/GI: Negative for abdominal pain, nausea, vomiting, diarrhea, and constipation, 16:46 Skin: Positive for abscess, Negative for cellulitis, Exam: 16:46 Constitutional: This is a well developed, well nourished patient who is awake, alert, rt and in no acute distress. Head/Face: Normocephalic, atraumatic. Chest/axilla: Normal chest wall appearance and motion. Nontender with no deformity. No lesions are appreciated. Cardiovascular: Regular rate and rhythm with a normal S1 and S2. No gallops, murmurs, or rubs. Normal PMI, no JVD. No pulse deficits. Respiratory: Lungs have equal breath sounds bilaterally, clear to auscultation and percussion. No rales, rhonchi or wheezes noted. No increased work of breathing, no retractions or nasal flaring. Abdomen/GI: Soft, non-tender, with normal bowel sounds. No distension or tympany. No guarding or rebound. No evidence of tenderness throughout. MS/ Extremity: Pulses equal, no cyanosis. Neurovascular intact. Full, normal range of motion. 16:46 : 3 cm abscess to the right labia majora, external genitalia otherwise within normal notes, Vital Signs: 14:01 BP 122 / 85; Pulse 85; Resp 16 S; Temp 98.5(O); Pulse Ox 100% on R/A; Weight 81.65 kg aa5 (R); Height 5 ft. 1 in. (R); 14:01 Body Mass Index 34.01 (81.65 kg, 154.94 cm) aa5 Procedures: 16:46 I \T\ D: Incision and drainage was performed for an abscess of the right right labia rt majora Prepped with alcohol, Anesthetized with 5 ml's 1% Lidocaine. Incised with #11 blade. Drained large amount purulent fluid. Dressing: sterile 4x4 gauze, the patient tolerated the procedure well. MDM: 14:03 Patient medically screened. rt 16:46 Differential diagnosis: abscess. Data reviewed: vital signs, nurses notes. Counseling: rt I had a detailed discussion with the patient and/or guardian regarding the historical points, exam findings, and any diagnostic results supporting the discharge/admit diagnosis, the need for outpatient follow up. 09/19 14:09 Order name: I\T\D Setup; Complete Time: 14:30 rt Administered Medications: 14:17 Drug: [place] PO 10 mg-325 mg 1 tabs PO once Route: PO; cm10 15:00 Follow up: Response: No adverse reaction cm10 15:00 Drug: Lidocaine Infiltration (1 %) 5 ml 5 ml Infiltration once; to bedside {Note: Given cm10 by provider..} Volume: 5 ml; Route: Infiltration; Disposition Summary: 09/19/23 15:15 Discharge Ordered Notes: Location: Home rt Problem: new rt Symptoms: have improved rt Condition: Stable rt Diagnosis - Cutaneous abscess of right labia majora rt Followup: rt - With: Private Physician - When: 5 - 6 days - Reason: Discharge Instructions: - Discharge Summary Sheet rt - Skin Abscess rt Forms: - Medication Reconciliation Form rt - Thank You Letter rt - Antibiotic Education rt - Prescription Opioid Use rt - Patient Portal Instructions rt - Leadership Thank You Letter rt Prescriptions: - Clindamycin HCl 300 mg Oral Capsule - take 1 capsule ORAL route every 6 hours for 10 days; 40 capsule; Refills: 0, rt Product Selection Permitted Signatures: Amada Bar, RN RN aa5 Haider Delacruz MD MD rt Rafia Boswell RN RN cm10
[2023-09-19 15:40] VITALS: BP 122/85; TEMP 98.5; O2SAT 100
== END ==
LOC: ER 13:30
DX: N76.4 Abscess of vulva (principal)
CPT/HCPCS: 10060; 99284; J2001